=== PATIENT | female | born 1940 | race African-American/Black ===

== ENCOUNTER 2018-04-09 16:14 | Inpatient (IN) | payer MEDICARE, MEDICAID ==
[~2018-04-09] VITALS: Ht 165.1 cm; Wt 93.9 kg
[~2018-04-09 16:14] MED LIST: AMLO5TAB7 PO; ASPI325T8 PO; FURO40TA4 PO; INSU100C SQ; INSU100V13 SQ; LOSA50TA7 PO; METO-247 PO; NAPR-514 PO; OMEP20TA8 PO; POTA20TA12 PO; SIMV80TA7 PO; [UNRECOGNIZED DRUG - CODE] MC
[2018-04-09] MEDS ORDERED: IPRATRPIUM/ALBUTEROL 0.5/2.5MG 3 ML NEBU. NEB ONE (17:00)
[2018-04-09 17:22] LABS: BASO # 0.1 x10^3/uL (0.0-0.2); BASO % 0 % (0-3); EOS # 0.1 x10^3/uL (0.0-0.7); EOS % 1 % (0-3); HEMATOCRIT 46.3 % (36.0-47.0); HEMOGLOBIN 14.5 g/dL (12.0-15.5); LYMPH # 0.6 x10^3/uL (1.0-4.8); LYMPH % 4 % (24-48); MEAN CORPUSCULAR HEMOGLOBIN 26 pg (25-35); MEAN CORPUSCULAR HGB CONC 31 g/dL (31-37); MEAN CORPUSCULAR VOLUME 84 fL (79-100); MONO % 6 % (0-9); NEUT % 89 % (31-73); PLATELET COUNT 206 x10^3/uL (140-400); RED BLOOD COUNT 5.53 x10^6/uL (3.50-5.40); RED CELL DISTRIBUTION WIDTH 17.8 % (11.5-14.5); WHITE BLOOD COUNT 15.7 x10^3/uL (4.0-11.0)
[2018-04-09 17:22] LABS: BASE EXCESS ABG 7 mmol/L (-3-3); HCO3 ABG 31 mmol/L (21-28); PCO2 ABG 42 mmHg (35-46); PO2 ABG 67 mmHg (65-108); SAT O2 ABG 93 % (92-99)
[2018-04-09 17:24] LABS: FIO2 ABG 44
[2018-04-09] MEDS ORDERED: fentaNYL PF VIAL 100 MCG/2 ML VIAL IV PRN (17:30)
[2018-04-09] MEDS ORDERED: ONDANSETRON PF 4 MG/2 ML VIAL. IV PRN (17:30)
--- NOTE | 2018-04-09 17:30 | RAD ---
EXAM: CHEST AP ONLY DATE: 04/09/2018 4:48 PM INDICATION: short of breath today COMPARISON: No Prior FINDINGS: Cardiomegaly. Atherosclerotic calcifications of the mildly tortuous aorta are seen. Trace bilateral pleural effusions. Hazy opacities overlying the lung bases likely from radiographic attenuation given overlying soft tissues. Otherwise, No focal parenchymal airspace opacity. Mild interstitial prominence/crowding. No pneumothorax. IMPRESSION: Cardiomegaly with mild interstitial prominence may represent early interstitial pulmonary edema. Electronically signed by: Davion Reese MD (04/09/2018 5:27 PM) [id number]
[2018-04-09] MEDS ORDERED: methylPREDNISolone SOD SUCC PF 125 MG/2 ML VIAL. IV ONE (17:45)
[2018-04-09 17:55] LABS: ALBUMIN 2.7 g/dL (3.4-5.0); ALBUMIN/GLOBULIN RATIO 0.6 (1.0-1.7); CALCIUM 9.2 mg/dL (8.5-10.1); CREATININE 1.8 mg/dL (0.6-1.0); GFR 33.1; TOTAL BILIRUBIN 0.4 mg/dL (0.2-1.0)
--- NOTE | 2018-04-09 18:03 | EKG ---
[facility] [address] [place] [address] Test Date: 2018-04-09 Test Time: 17:29:27 Pat Name: ANANT SKAGGS Department: Room: 538 1 Gender: F Customer Support Agent: : [id number] Requested By: DICK LIVINGSTON Order Number: [id number] Reading MD: Joce Neal MD Measurements Intervals [place] Rate: 87 P: 47 MO: 144 QRS: 73 QRSD: 96 T: 53 QT: 370 QTc: 451 Interpretive Statements SINUS RHYTHM BIATRIAL ENLARGEMENT [id number] Electronically Signed On 04-10-2018 2:28:02 CDT by Joce Neal MD
[2018-04-09 18:07] LABS: POTASSIUM 2.8 mmol/L (3.5-5.1)
[2018-04-09 18:08] LABS: % BANDS 1 % (0-9); % EOS 1 % (0-5); % LYMPHS 2 % (24-48); % MONOS 4 % (0-10); % SEGS 92 % (35-66); ANISOCYTOSIS SLIGHT; NUCLEATED RBC 1; PLT ESTIMATE ADEQUATE (ADEQUATE); POLYCHROMASIA SLIGHT
[2018-04-09] MEDS ORDERED: POTASSIUM CHLORIDE 20MEQ 50 ML IV SCH (18:30)
[2018-04-09 19:00] VITALS: BP 87/58
[2018-04-09] MEDS: IV NORMAL SALINE 1000ML BAG 1,000 ML IV SCH (19:06)
[2018-04-09] MEDS: POTASSIUM CHLORIDE 10MEQ 100 ML IV SCH ×4 (19:07→22:18)
[2018-04-09] MEDS ORDERED: IPRATRPIUM/ALBUTEROL 0.5/2.5MG 3 ML NEBU. NEB SCH (20:00)
[2018-04-09] MEDS ORDERED: INSU100I13 SQ (21:08)
[2018-04-09] MEDS ORDERED: INSU100I17 SQ (21:08)
--- NOTE | 2018-04-09 21:09 | PDOC1 ---
History and Physical Date of Admission Date of Admission DATE: 04/09/18 TIME: 21:08 Past Medical History Past Medical History Past Medical History Cardiovascular: HTN, Other (lipids) Endocrine: Diabetes Family History Family History: Heart Disease Social History Smoke: No, but remote smoker Cardiovascular: HTN, Other Pulmonary: COPD Endocrine: Diabetes Family History Family History: Heart Disease Social History Smoke: Quit ALCOHOL: none Drugs: None Current Problem List Problem List Problems Medical Problems: (1) Hypoxia Status: Acute (2) Pneumonia Status: Acute Current Medications Current Medications Current Medications Albuterol/ Ipratropium (Duoneb) 3 ml 1X ONCE NEB Last administered on at 17:03; Start 04/09/18 at 17:00; Stop 04/09/18 at 17:01; Status DC Ondansetron HCl (Zofran) 4 mg PRN Q8HRS PRN IV NAUSEA/VOMITING; Start 04/09/18 at 17:30; Stop 04/10/18 at 17:29 Fentanyl Citrate (Fentanyl 2ml Vial) 50 mcg PRN Q2HR PRN IV PAIN; Start at 17:30; Stop 04/10/18 at 17:29 Sodium Chloride 1,000 ml @ 125 mls/hr Q8H IV Last administered on 04/09/18at 19: 06; Start 04/09/18 at 17:29; Stop 04/10/18 at 17:28 Albuterol/ Ipratropium (Duoneb) 3 ml RTQID NEB Last administered on 04/09/18at 19 :29; Start 04/09/18 at 20:00; Stop 04/10/18 at 19:59 Levofloxacin/ Dextrose 100 ml @ 100 mls/hr 1X ONCE IV Last administered on 04/09/18at 18:00; Start 04/09/18 at 18:00; Stop 04/09/18 at 18:59; Status DC Methylprednisolone Sodium Succinate (SOLU-Medrol 125MG VIAL) 125 mg 1X ONCE IV Last administered on 04/09/18at 18:00; Start 04/09/18 at 17:45; Stop 04/09/18 at 17:46; Status DC Potassium Chloride/Water 50 ml @ 50 mls/hr Q1H IV ; Start 04/09/18 at 18:30; Stop 04/09/18 at 18:30; Status DC Potassium Chloride/Water 100 ml @ 100 mls/hr Q1H IV Last administered on at 20:14; Start 04/09/18 at 19:00; Stop 04/09/18 at 22:59 Dextrose (Dextrose 50%-Water Syringe) 12.5 gm PRN Q15MIN PRN IV SEE COMMENTS; Start 04/09/18 at 21:15 Active Scripts Active Reported Lantus Solostar (Insulin Glargine,Hum.rec.anlog) 100 Unit/1 Ml Insuln.pen 38 Unit SQ QHS Novolog Flexpen (Insulin Aspart) 100 Unit/1 Ml Insuln.pen 8 Unit SQ BIDACBL Humalog (Insulin Lispro) 100 Unit/1 Ml Cartridge 15 Unit SQ TIDAC Metoprolol Succinate ( Xl ) (Metoprolol Succinate) 100 Mg Tab.er.24h 1 Tab PO DAILY Levemir (Insulin Detemir) 100 Unit/1 Ml Vial 54 Unit SQ QHS Calcium Citrate 100 Gm Powder 100 Gm MC Simvastatin 80 Mg Tablet 1 Tab PO DAILY Potassium Chloride 20 Meq Tab.er.prt 1 Tab PO BID Omeprazole 20 Mg Tablet.dr 1 Tab PO DAILY Amlodipine Besylate 5 Mg Tablet 1 Tab PO DAILY Furosemide 40 Mg Tablet 1 Tab PO DAILY Losartan Potassium 50 Mg Tablet 1 Tab PO DAILY Aspirin 325 Mg Tablet 1 Tab PO DAILY Allergies Allergies: Coded Allergies: No Known Drug Allergies (Unverified , 02/14/15) ROS Review of System 14 pt ros otherwise neg General: YES: Fatigue PSYCHOLOGICAL ROS: No: Anxiety, Behavioral Disorder, Concentration difficultie , Decreased libido, Depression, Disorientation, Hallucinations, Hostility, Irritablity, Memory difficulties, Mood Swings, Obsessive thoughts, Physical abuse, Sexual abuse, Sleep disturbances, Suicidal ideation, Other Hematological and Lymphatic: No: Bleeding Problems, Blood Clots, Blood Transfusions, Brusing, Night Sweats, Pallor, Swollen Lymph Nodes, Other Respiratory: YES: Shortness of breath, SOB with excertion Cardiovascular: yes Chest Pain, yes Palpitations Gastrointestinal: Yes Nausea Skin: No Dry Skin, No Eczema, No Hair Changes, No Lumps, No Mole Changes, No Mottling, No Nail Changes, No Pruritus, No Rash, No Skin Lesion Changes, No Other, No Acne Physical Exam Physical Exam PHYSICAL EXAMINATION: GENERAL: The patient is alert and oriented, in no acute distress. Mood and affect appropriate. She is examined in ER hospital bed. HEENT: Head is normocephalic and atraumatic. Extraocular muscles are intact. CARDIOVASCULAR: Regular rate and rhythm. RESPIRATIONS: Unlabored. ABDOMEN: Soft, nontender, and nondistended. General: Alert, Oriented X3, Cooperative, mild distress HEENT: Atraumatic, PERRLA, EOMI Breasts: Not examined Abdomen: Normal bowel sounds, Soft, No masses Rectal Exam: not examined Extremities: No cyanosis Neuro: Cranial nerves 3-12 NL Psych/Mental Status: Mental status NL, Mood NL Vitals Vitals Vital Signs Date Time Temp Pulse Resp B/P (MAP) Pulse Ox O2 Delivery O2 Flow Rate FiO2 04/09/18 19:30 96 Nasal Cannula 5.0 04/09/18 18:02 80 16 97/61 (73) 04/09/18 16:22 99.0 99.0 Labs Labs Laboratory Tests Test 04/09/18 17:05 04/09/18 17:06 04/09/18 19:00 04/09/18 20:34 O2 Saturation 93 % (92-99) Arterial Blood pH 7.49 (7.35-7.45) Arterial Blood pCO2 at Patient Temp 42 mmHg (35-46) Arterial Blood pO2 at Patient Temp 67 mmHg (65-108) Arterial Blood HCO3 31 mmol/L (21-28) Arterial Blood Base Excess 7 mmol/L (-3-3) FiO2 44 White Blood Count 15.7 x10^3/uL (4.0-11.0) Red Blood Count 5.53 x10^6/uL (3.50-5.40) Hemoglobin 14.5 g/dL (12.0-15.5) Hematocrit 46.3 % (36.0-47.0) Mean Corpuscular Volume 84 fL (79-100) Mean Corpuscular Hemoglobin 26 pg (25-35) Mean Corpuscular Hemoglobin Concent 31 g/dL (31-37) Red Cell Distribution Width 17.8 % (11.5-14.5) Platelet Count 206 x10^3/uL (140-400) Neutrophils (%) (Auto) 89 % (31-73) Lymphocytes (%) (Auto) 4 % (24-48) Monocytes (%) (Auto) 6 % (0-9) Eosinophils (%) (Auto) 1 % (0-3) Basophils (%) (Auto) 0 % (0-3) Neutrophils # (Auto) 14.0 x10^3uL (1.8-7.7) Lymphocytes # (Auto) 0.6 x10^3/uL (1.0-4.8) Monocytes # (Auto) 1.0 x10^3/uL (0.0-1.1) Eosinophils # (Auto) 0.1 x10^3/uL (0.0-0.7) Basophils # (Auto) 0.1 x10^3/uL (0.0-0.2) Segmented Neutrophils % 92 % (35-66) Band Neutrophils % 1 % (0-9) Lymphocytes % 2 % (24-48) Monocytes % 4 % (0-10) Eosinophils % 1 % (0-5) Nucleated Red Blood Cells 1 Platelet Estimate Adequate (ADEQUATE) Polychromasia Slight Anisocytosis Slight Sodium Level 140 mmol/L (136-145) Potassium Level 2.8 mmol/L (3.5-5.1) Chloride Level 102 mmol/L (98-107) Carbon Dioxide Level 29 mmol/L (21-32) Anion Gap 9 (6-14) Blood Urea Nitrogen 40 mg/dL (7-20) Creatinine 1.8 mg/dL (0.6-1.0) Estimated GFR (Cockcroft-Gault) 33.1 BUN/Creatinine Ratio 22 (6-20) Glucose Level 204 mg/dL (70-99) Lactic Acid Level 2.0 mmol/L (0.4-2.0) Calcium Level 9.2 mg/dL (8.5-10.1) Total Bilirubin 0.4 mg/dL (0.2-1.0) Aspartate Amino Transf (AST/SGOT) 24 U/L (15-37) Alanine Aminotransferase (ALT/SGPT) 48 U/L (14-59) Alkaline Phosphatase 94 U/L (46-116) Total Protein 7.0 g/dL (6.4-8.2) Albumin 2.7 g/dL (3.4-5.0) Albumin/Globulin Ratio 0.6 (1.0-1.7) Glucose (Fingerstick) 200 mg/dL (70-99) 244 mg/dL (70-99) Laboratory Tests Test 04/09/18 17:05 04/09/18 17:06 04/09/18 19:00 04/09/18 20:34 O2 Saturation 93 % (92-99) Arterial Blood pH 7.49 (7.35-7.45) Arterial Blood pCO2 at Patient Temp 42 mmHg (35-46) Arterial Blood pO2 at Patient Temp 67 mmHg (65-108) Arterial Blood HCO3 31 mmol/L (21-28) Arterial Blood Base Excess 7 mmol/L (-3-3) FiO2 44 White Blood Count 15.7 x10^3/uL (4.0-11.0) Red Blood Count 5.53 x10^6/uL (3.50-5.40) Hemoglobin 14.5 g/dL (12.0-15.5) Hematocrit 46.3 % (36.0-47.0) Mean Corpuscular Volume 84 fL (79-100) Mean Corpuscular Hemoglobin 26 pg (25-35) Mean Corpuscular Hemoglobin Concent 31 g/dL (31-37) Red Cell Distribution Width 17.8 % (11.5-14.5) Platelet Count 206 x10^3/uL (140-400) Neutrophils (%) (Auto) 89 % (31-73) Lymphocytes (%) (Auto) 4 % (24-48) Monocytes (%) (Auto) 6 % (0-9) Eosinophils (%) (Auto) 1 % (0-3) Basophils (%) (Auto) 0 % (0-3) Neutrophils # (Auto) 14.0 x10^3uL (1.8-7.7) Lymphocytes # (Auto) 0.6 x10^3/uL (1.0-4.8) Monocytes # (Auto) 1.0 x10^3/uL (0.0-1.1) Eosinophils # (Auto) 0.1 x10^3/uL (0.0-0.7) Basophils # (Auto) 0.1 x10^3/uL (0.0-0.2) Segmented Neutrophils % 92 % (35-66) Band Neutrophils % 1 % (0-9) Lymphocytes % 2 % (24-48) Monocytes % 4 % (0-10) Eosinophils % 1 % (0-5) Nucleated Red Blood Cells 1 Platelet Estimate Adequate (ADEQUATE) Polychromasia Slight Anisocytosis Slight Sodium Level 140 mmol/L (136-145) Potassium Level 2.8 mmol/L (3.5-5.1) Chloride Level 102 mmol/L (98-107) Carbon Dioxide Level 29 mmol/L (21-32) Anion Gap 9 (6-14) Blood Urea Nitrogen 40 mg/dL (7-20) Creatinine 1.8 mg/dL (0.6-1.0) Estimated GFR (Cockcroft-Gault) 33.1 BUN/Creatinine Ratio 22 (6-20) Glucose Level 204 mg/dL (70-99) Lactic Acid Level 2.0 mmol/L (0.4-2.0) Calcium Level 9.2 mg/dL (8.5-10.1) Total Bilirubin 0.4 mg/dL (0.2-1.0) Aspartate Amino Transf (AST/SGOT) 24 U/L (15-37) Alanine Aminotransferase (ALT/SGPT) 48 U/L (14-59) Alkaline Phosphatase 94 U/L (46-116) Total Protein 7.0 g/dL (6.4-8.2) Albumin 2.7 g/dL (3.4-5.0) Albumin/Globulin Ratio 0.6 (1.0-1.7) Glucose (Fingerstick) 200 mg/dL (70-99) 244 mg/dL (70-99) Images Images EXAM: CHEST AP ONLY DATE: 04/09/2018 4:48 PM INDICATION: short of breath today COMPARISON: No Prior FINDINGS: Cardiomegaly. Atherosclerotic calcifications of the mildly tortuous aorta are seen. Trace bilateral pleural effusions. Hazy opacities overlying the lung bases likely from radiographic attenuation given overlying soft tissues. Otherwise, No focal parenchymal airspace opacity. Mild interstitial prominence/crowding. No pneumothorax. IMPRESSION: Cardiomegaly with mild interstitial prominence may represent early interstitial pulmonary edema. Electronically signed by: Davion Reese MD (04/09/2018 5:27 PM) [id number] VTE Prophylaxis Ordered VTE Prophylaxis Devices: Yes VTE Pharmacological Prophylaxi: Yes Assessment/Plan Assessment/Plan IMPRESSION 1. Acute hypoxic resp failure 2. morbid obesity 3. remote tobacco abuse 4. diabetes, IDDM 5. Severe hypokalemia 6. ckd stage 3 7. pulm edema/ chf plan 1. admit 2. o2 support 3. tele 4. iv k 5. renal consult 6. cardiology consult 7. iv lasix 8. echo 9. sq lovenox dvt prophylaxis 10. gi prophylaxis TAYLOR MCMANUS MD Apr 09, 2018 21:09
[2018-04-09] MEDS ORDERED: DEXTROSE 50% 25 GM / 50ML DISP.SYRIN. IV PRN (21:15)
[2018-04-09] MEDS: INSULIN GLARGINE 300 UNITS/3 ML INSULN.PEN. SQ SCH (21:27)
[2018-04-09] MEDS ORDERED: ENOXAPARIN 40 MG/0.4 ML SYRINGE. SQ SCH (22:00)
[2018-04-09] MEDS: POTASSIUM CHLORIDE 20 MEQ TABLET.ER. PO SCH (22:00)
[2018-04-09] MEDS: ATORVASTATIN CALCIUM 40 MG TABLET. PO SCH (22:00)
[2018-04-09] MEDS ORDERED: SPIR25TA5 PO (22:40)
[2018-04-09] MEDS ORDERED: FERR325T14 (22:40)
[2018-04-09] MEDS ORDERED: SILD20TA2 (22:40)
[2018-04-09] MEDS ORDERED: METO2.5T PO (22:40)
[2018-04-09] MEDS ORDERED: FURO20TA3 (22:40)
[2018-04-09] MEDS ORDERED: BUME1TAB (22:40)
[2018-04-09] MEDS ORDERED: POTA20TA4 PO (22:40)
[2018-04-09] MEDS ORDERED: PRED-220 PO (22:40)
[2018-04-09] MEDS ORDERED: ACET250T2 (22:40)
[2018-04-09] MEDS ORDERED: METF500T16 (22:40)
[2018-04-09 23:00] VITALS: BP 99/51
[2018-04-10] MEDS: IV NORMAL SALINE 1000ML BAG 1,000 ML IV SCH ×2 (01:22→09:29)
[2018-04-10 03:00] VITALS: BP 94/47
--- NOTE | 2018-04-10 04:57 | PDOC ---
PROGRESS NOTES History of Present Illness History of Present Illness Assessment/Plan Assessment/Plan IMPRESSION 1. Acute hypoxic resp failure 2. morbid obesity 3. remote tobacco abuse 4. diabetes, IDDM 5. Severe hypokalemia 6. ckd stage 3 7. pulm edema/ chf plan 1. admit 2. o2 support 3. tele 4. iv k 5. renal consult 6. cardiology consult 7. iv lasix 8. echo 9. sq lovenox dvt prophylaxis 10. gi prophylaxis Vitals Vitals Vital Signs Date Time Temp Pulse Resp B/P (MAP) Pulse Ox O2 Delivery O2 Flow Rate FiO2 04/10/18 03:00 97.6 84 17 94/47 (63) 91 Nasal Cannula 6.0 97.6 Physical Exam General: Alert, Oriented X3, Cooperative, mild distress Abdomen: Normal bowel sounds, Soft, No masses Extremities: No cyanosis Labs LABS Laboratory Tests Test 04/09/18 17:05 04/09/18 17:06 04/09/18 19:00 04/09/18 20:34 O2 Saturation 93 % (92-99) Arterial Blood pH 7.49 (7.35-7.45) Arterial Blood pCO2 at Patient Temp 42 mmHg (35-46) Arterial Blood pO2 at Patient Temp 67 mmHg (65-108) Arterial Blood HCO3 31 mmol/L (21-28) Arterial Blood Base Excess 7 mmol/L (-3-3) FiO2 44 ZG-Wmu-[id number]-Type Natriuretic Peptide 00248 pg/mL (0-449) White Blood Count 15.7 x10^3/uL (4.0-11.0) Red Blood Count 5.53 x10^6/uL (3.50-5.40) Hemoglobin 14.5 g/dL (12.0-15.5) Hematocrit 46.3 % (36.0-47.0) Mean Corpuscular Volume 84 fL (79-100) Mean Corpuscular Hemoglobin 26 pg (25-35) Mean Corpuscular Hemoglobin Concent 31 g/dL (31-37) Red Cell Distribution Width 17.8 % (11.5-14.5) Platelet Count 206 x10^3/uL (140-400) Neutrophils (%) (Auto) 89 % (31-73) Lymphocytes (%) (Auto) 4 % (24-48) Monocytes (%) (Auto) 6 % (0-9) Eosinophils (%) (Auto) 1 % (0-3) Basophils (%) (Auto) 0 % (0-3) Neutrophils # (Auto) 14.0 x10^3uL (1.8-7.7) Lymphocytes # (Auto) 0.6 x10^3/uL (1.0-4.8) Monocytes # (Auto) 1.0 x10^3/uL (0.0-1.1) Eosinophils # (Auto) 0.1 x10^3/uL (0.0-0.7) Basophils # (Auto) 0.1 x10^3/uL (0.0-0.2) Segmented Neutrophils % 92 % (35-66) Band Neutrophils % 1 % (0-9) Lymphocytes % 2 % (24-48) Monocytes % 4 % (0-10) Eosinophils % 1 % (0-5) Nucleated Red Blood Cells 1 Platelet Estimate Adequate (ADEQUATE) Polychromasia Slight Anisocytosis Slight Sodium Level 140 mmol/L (136-145) Potassium Level 2.8 mmol/L (3.5-5.1) Chloride Level 102 mmol/L (98-107) Carbon Dioxide Level 29 mmol/L (21-32) Anion Gap 9 (6-14) Blood Urea Nitrogen 40 mg/dL (7-20) Creatinine 1.8 mg/dL (0.6-1.0) Estimated GFR (Cockcroft-Gault) 33.1 BUN/Creatinine Ratio 22 (6-20) Glucose Level 204 mg/dL (70-99) Lactic Acid Level 2.0 mmol/L (0.4-2.0) Calcium Level 9.2 mg/dL (8.5-10.1) Total Bilirubin 0.4 mg/dL (0.2-1.0) Aspartate Amino Transf (AST/SGOT) 24 U/L (15-37) Alanine Aminotransferase (ALT/SGPT) 48 U/L (14-59) Alkaline Phosphatase 94 U/L (46-116) Total Protein 7.0 g/dL (6.4-8.2) Albumin 2.7 g/dL (3.4-5.0) Albumin/Globulin Ratio 0.6 (1.0-1.7) Glucose (Fingerstick) 200 mg/dL (70-99) 244 mg/dL (70-99) Test 9/4/18 20:45 Lactic Acid Level 1.5 mmol/L (0.4-2.0) Assessment and Plan Assessmemt and Plan Problems Medical Problems: (1) Hypoxia Status: Acute (2) Pneumonia Status: Acute Comment Review of Relevant I have reviewed the following items aby (where applicable) has been applied. Labs Laboratory Tests Test 04/09/18 17:05 04/09/18 17:06 04/09/18 19:00 04/09/18 20:34 O2 Saturation 93 % (92-99) Arterial Blood pH 7.49 (7.35-7.45) Arterial Blood pCO2 at Patient Temp 42 mmHg (35-46) Arterial Blood pO2 at Patient Temp 67 mmHg (65-108) Arterial Blood HCO3 31 mmol/L (21-28) Arterial Blood Base Excess 7 mmol/L (-3-3) FiO2 44 VA-Itg-D-Type Natriuretic Peptide 07370 pg/mL (0-449) White Blood Count 15.7 x10^3/uL (4.0-11.0) Red Blood Count 5.53 x10^6/uL (3.50-5.40) Hemoglobin 14.5 g/dL (12.0-15.5) Hematocrit 46.3 % (36.0-47.0) Mean Corpuscular Volume 84 fL (79-100) Mean Corpuscular Hemoglobin 26 pg (25-35) Mean Corpuscular Hemoglobin Concent 31 g/dL (31-37) Red Cell Distribution Width 17.8 % (11.5-14.5) Platelet Count 206 x10^3/uL (140-400) Neutrophils (%) (Auto) 89 % (31-73) Lymphocytes (%) (Auto) 4 % (24-48) Monocytes (%) (Auto) 6 % (0-9) Eosinophils (%) (Auto) 1 % (0-3) Basophils (%) (Auto) 0 % (0-3) Neutrophils # (Auto) 14.0 x10^3uL (1.8-7.7) Lymphocytes # (Auto) 0.6 x10^3/uL (1.0-4.8) Monocytes # (Auto) 1.0 x10^3/uL (0.0-1.1) Eosinophils # (Auto) 0.1 x10^3/uL (0.0-0.7) Basophils # (Auto) 0.1 x10^3/uL (0.0-0.2) Segmented Neutrophils % 92 % (35-66) Band Neutrophils % 1 % (0-9) Lymphocytes % 2 % (24-48) Monocytes % 4 % (0-10) Eosinophils % 1 % (0-5) Nucleated Red Blood Cells 1 Platelet Estimate Adequate (ADEQUATE) Polychromasia Slight Anisocytosis Slight Sodium Level 140 mmol/L (136-145) Potassium Level 2.8 mmol/L (3.5-5.1) Chloride Level 102 mmol/L (98-107) Carbon Dioxide Level 29 mmol/L (21-32) Anion Gap 9 (6-14) Blood Urea Nitrogen 40 mg/dL (7-20) Creatinine 1.8 mg/dL (0.6-1.0) Estimated GFR (Cockcroft-Gault) 33.1 BUN/Creatinine Ratio 22 (6-20) Glucose Level 204 mg/dL (70-99) Lactic Acid Level 2.0 mmol/L (0.4-2.0) Calcium Level 9.2 mg/dL (8.5-10.1) Total Bilirubin 0.4 mg/dL (0.2-1.0) Aspartate Amino Transf (AST/SGOT) 24 U/L (15-37) Alanine Aminotransferase (ALT/SGPT) 48 U/L (14-59) Alkaline Phosphatase 94 U/L (46-116) Total Protein 7.0 g/dL (6.4-8.2) Albumin 2.7 g/dL (3.4-5.0) Albumin/Globulin Ratio 0.6 (1.0-1.7) Glucose (Fingerstick) 200 mg/dL (70-99) 244 mg/dL (70-99) Test 04/09/18 20:45 Lactic Acid Level 1.5 mmol/L (0.4-2.0) Laboratory Tests Test 04/09/18 17:05 04/09/18 17:06 04/09/18 19:00 04/09/18 20:34 O2 Saturation 93 % (92-99) Arterial Blood pH 7.49 (7.35-7.45) Arterial Blood pCO2 at Patient Temp 42 mmHg (35-46) Arterial Blood pO2 at Patient Temp 67 mmHg (65-108) Arterial Blood HCO3 31 mmol/L (21-28) Arterial Blood Base Excess 7 mmol/L (-3-3) FiO2 44 QM-Han-F-Type Natriuretic Peptide 14806 pg/mL (0-449) White Blood Count 15.7 x10^3/uL (4.0-11.0) Red Blood Count 5.53 x10^6/uL (3.50-5.40) Hemoglobin 14.5 g/dL (12.0-15.5) Hematocrit 46.3 % (36.0-47.0) Mean Corpuscular Volume 84 fL (79-100) Mean Corpuscular Hemoglobin 26 pg (25-35) Mean Corpuscular Hemoglobin Concent 31 g/dL (31-37) Red Cell Distribution Width 17.8 % (11.5-14.5) Platelet Count 206 x10^3/uL (140-400) Neutrophils (%) (Auto) 89 % (31-73) Lymphocytes (%) (Auto) 4 % (24-48) Monocytes (%) (Auto) 6 % (0-9) Eosinophils (%) (Auto) 1 % (0-3) Basophils (%) (Auto) 0 % (0-3) Neutrophils # (Auto) 14.0 x10^3uL (1.8-7.7) Lymphocytes # (Auto) 0.6 x10^3/uL (1.0-4.8) Monocytes # (Auto) 1.0 x10^3/uL (0.0-1.1) Eosinophils # (Auto) 0.1 x10^3/uL (0.0-0.7) Basophils # (Auto) 0.1 x10^3/uL (0.0-0.2) Segmented Neutrophils % 92 % (35-66) Band Neutrophils % 1 % (0-9) Lymphocytes % 2 % (24-48) Monocytes % 4 % (0-10) Eosinophils % 1 % (0-5) Nucleated Red Blood Cells 1 Platelet Estimate Adequate (ADEQUATE) Polychromasia Slight Anisocytosis Slight Sodium Level 140 mmol/L (136-145) Potassium Level 2.8 mmol/L (3.5-5.1) Chloride Level 102 mmol/L (98-107) Carbon Dioxide Level 29 mmol/L (21-32) Anion Gap 9 (6-14) Blood Urea Nitrogen 40 mg/dL (7-20) Creatinine 1.8 mg/dL (0.6-1.0) Estimated GFR (Cockcroft-Gault) 33.1 BUN/Creatinine Ratio 22 (6-20) Glucose Level 204 mg/dL (70-99) Lactic Acid Level 2.0 mmol/L (0.4-2.0) Calcium Level 9.2 mg/dL (8.5-10.1) Total Bilirubin 0.4 mg/dL (0.2-1.0) Aspartate Amino Transf (AST/SGOT) 24 U/L (15-37) Alanine Aminotransferase (ALT/SGPT) 48 U/L (14-59) Alkaline Phosphatase 94 U/L (46-116) Total Protein 7.0 g/dL (6.4-8.2) Albumin 2.7 g/dL (3.4-5.0) Albumin/Globulin Ratio 0.6 (1.0-1.7) Glucose (Fingerstick) 200 mg/dL (70-99) 244 mg/dL (70-99) Test 04/09/18 20:45 Lactic Acid Level 1.5 mmol/L (0.4-2.0) Medications Current Medications Albuterol/ Ipratropium (Duoneb) 3 ml 1X ONCE NEB Last administered on at 17:03; Start 04/09/18 at 17:00; Stop 04/09/18 at 17:01; Status DC Ondansetron HCl (Zofran) 4 mg PRN Q8HRS PRN IV NAUSEA/VOMITING; Start 04/09/18 at 17:30; Stop 04/10/18 at 17:29 Fentanyl Citrate (Fentanyl 2ml Vial) 50 mcg PRN Q2HR PRN IV PAIN; Start at 17:30; Stop 04/10/18 at 17:29 Sodium Chloride 1,000 ml @ 125 mls/hr Q8H IV Last administered on 04/09/18at 19: 06; Start 04/09/18 at 17:29; Stop 04/10/18 at 17:28 Albuterol/ Ipratropium (Duoneb) 3 ml RTQID NEB Last administered on 04/09/18at 19 :29; Start 04/09/18 at 20:00; Stop 04/09/18 at 21:35; Status DC Levofloxacin/ Dextrose 100 ml @ 100 mls/hr 1X ONCE IV Last administered on 04/09/18at 18:00; Start 04/09/18 at 18:00; Stop 04/09/18 at 18:59; Status DC Methylprednisolone Sodium Succinate (SOLU-Medrol 125MG VIAL) 125 mg 1X ONCE IV Last administered on 04/09/18at 18:00; Start 04/09/18 at 17:45; Stop 04/09/18 at 17:46; Status DC Potassium Chloride/Water 50 ml @ 50 mls/hr Q1H IV ; Start 04/09/18 at 18:30; Stop 04/09/18 at 18:30; Status DC Potassium Chloride/Water 100 ml @ 100 mls/hr Q1H IV Last administered on at 22:18; Start 04/09/18 at 19:00; Stop 04/09/18 at 22:59; Status DC Dextrose (Dextrose 50%-Water Syringe) 12.5 gm PRN Q15MIN PRN IV SEE COMMENTS; Start 04/09/18 at 21:15 Insulin Glargine (Lantus) 38 units QHS SQ Last administered on 04/09/18at 21:27; Start 04/09/18 at 22:00 Insulin Human Lispro (HumaLOG) 8 units BIDWMEALS SQ ; Start 04/10/18 at 08:00 Amlodipine Besylate (Norvasc) 5 mg DAILY PO ; Start 04/10/18 at 09:00 Aspirin (Herbert Aspirin) 325 mg DAILY PO ; Start 04/10/18 at 09:00 Furosemide (Lasix) 40 mg DAILY PO ; Start 04/10/18 at 09:00; Status Cancel Losartan Potassium (Cozaar) 50 mg DAILY PO ; Start 04/10/18 at 09:00 Metoprolol Succinate (Toprol Xl) 100 mg DAILY PO ; Start 04/10/18 at 09:00 Potassium Chloride (Klor-Con) 20 meq BID PO ; Start 04/09/18 at 22:00 Non-Formulary Medication (Insulin Detemir (Levemir)) 54 unit QHS SQ ; Start 04/10 at 21:00; Status UNV Non-Formulary Medication (Insulin Lispro (Humalog)) 15 unit TIDAC SQ ; Start 04/10/18 at 07:30; Status UNV Pantoprazole Sodium (Protonix) 40 mg DAILYAC PO ; Start 04/10/18 at 07:30 Atorvastatin Calcium (Lipitor) 40 mg QHS PO ; Start 04/09/18 at 22:00 Furosemide (Lasix) 100 mg DAILY IVP ; Start 04/10/18 at 09:00 Enoxaparin Sodium (Lovenox 40mg Syringe) 40 mg Q24H SQ ; Start 04/09/18 at 22:00 Albuterol/ Ipratropium (Duoneb) 3 ml RTQID NEB ; Start 04/10/18 at 08:00 Active Scripts Active Reported Klor-Con M20 (Potassium Chloride) 20 Meq Tab.er.prt 20 Meq PO DAILY Acetazolamide 250 Mg Tablet unknown dosage Prednisone (Prednisone) 10 Mg Tablet 10 Mg PO DAILY Furosemide 20 Mg Tablet unknown dosage Sildenafil (Sildenafil Citrate) 20 Mg Tablet unknown dosage Metformin Hcl 500 Mg Tablet unknown dosage Ferrous Sulfate 325 Mg Tablet unknown dosage Bumetanide 1 Mg Tablet unknown dosage Metolazone 2.5 Mg Tablet 2.5 Mg PO BID Spironolactone 25 Mg Tablet 25 Mg PO DAILY Lantus Solostar (Insulin Glargine,Hum.rec.anlog) 100 Unit/1 Ml Insuln.pen 38 Unit SQ QHS Novolog Flexpen (Insulin Aspart) 100 Unit/1 Ml Insuln.pen 8 Unit SQ BIDACBL Metoprolol Succinate ( Xl ) (Metoprolol Succinate) 100 Mg Tab.er.24h 1 Tab PO DAILY Calcium Citrate 100 Gm Powder 100 Gm MC Simvastatin 80 Mg Tablet 1 Tab PO DAILY Potassium Chloride 20 Meq Tab.er.prt 1 Tab PO BID Omeprazole 20 Mg Tablet.dr 1 Tab PO DAILY Amlodipine Besylate 5 Mg Tablet 1 Tab PO DAILY Furosemide 40 Mg Tablet 1 Tab PO DAILY Losartan Potassium 50 Mg Tablet 1 Tab PO DAILY Aspirin 325 Mg Tablet 1 Tab PO DAILY Vitals/I & O Vital Sign - Last 24 Hours 04/09/18 04/09/18 04/09/18 04/09/18 16:22 17:02 17:03 18:02 Temp 99.0 99.0 Pulse 85 84 80 Resp 16 18 16 B/P (MAP) 97/54 (68) 100/54 (69) 97/61 (73) Pulse Ox 92 93 95 94 O2 Delivery Nasal Cannula Nasal Cannula Nasal Cannula Nasal Cannula O2 Flow Rate 6.0 6.0 6.0 6.0 04/09/18 04/09/18 04/09/18 04/09/18 19:00 19:30 20:00 23:00 Temp 97.6 97.6 97.6 97.6 Pulse 78 78 Resp 17 17 B/P (MAP) 87/58 (68) 99/51 (67) Pulse Ox 94 96 96 O2 Delivery Nasal Cannula Nasal Cannula Nasal Cannula Nasal Cannula O2 Flow Rate 6.0 5.0 6.0 6.0 04/10/18 03:00 Temp 97.6 97.6 Pulse 84 Resp 17 B/P (MAP) 94/47 (63) Pulse Ox 91 O2 Delivery Nasal Cannula O2 Flow Rate 6.0 Intake and Output 04/09/18 04/09/18 04/10/18 15:00 23:00 07:00 Intake Total 1170 ml Balance 1170 ml TAYLOR MCMANUS MD Apr 10, 2018 04:57
[2018-04-10 07:00] VITALS: BP 124/74
[2018-04-10] MEDS ORDERED: INSULIN LISPRO 15 UNIT SQ SCH (07:30)
[2018-04-10] MEDS: IPRATRPIUM/ALBUTEROL 0.5/2.5MG 3 ML NEBU. NEB SCH ×4 (07:41→20:32)
[2018-04-10 08:49] LABS: BASO % 0 % (0-3); EOS % 0 % (0-3); HEMATOCRIT 44.2 % (36.0-47.0); HEMOGLOBIN 13.6 g/dL (12.0-15.5); LYMPH # 0.2 x10^3/uL (1.0-4.8); LYMPH % 2 % (24-48); MEAN CORPUSCULAR HEMOGLOBIN 26 pg (25-35); MEAN CORPUSCULAR HGB CONC 31 g/dL (31-37); MEAN CORPUSCULAR VOLUME 85 fL (79-100); MONO # 0.1 x10^3/uL (0.0-1.1); MONO % 1 % (0-9); NEUT # 15.4 x10^3uL (1.8-7.7); NEUT % 98 % (31-73); PLATELET COUNT 185 x10^3/uL (140-400); RED BLOOD COUNT 5.22 x10^6/uL (3.50-5.40); RED CELL DISTRIBUTION WIDTH 17.9 % (11.5-14.5); WHITE BLOOD COUNT 15.7 x10^3/uL (4.0-11.0)
[2018-04-10] MEDS: PANTOPRAZOLE 40 MG TABLET.DR. PO SCH (08:51)
[2018-04-10] MEDS: INSULIN LISPRO 300 UNITS/3 ML INSULN.PEN. SQ SCH ×2 (08:51→17:36)
[2018-04-10] MEDS: FUROSEMIDE 100 MG/10 ML VIAL. IVP SCH (09:00)
[2018-04-10] MEDS: LOSARTAN POTASSIUM 50 MG TABLET. PO SCH (09:00)
[2018-04-10] MEDS: amLODIPine BESYLATE 5 MG TABLET PO SCH (09:00)
[2018-04-10] MEDS: METOPROLOL SUCC 24HR ER 100 MG TAB.ER.24H. PO SCH (09:00)
[2018-04-10] MEDS ORDERED: FUROSEMIDE 40 MG TABLET. PO SCH (09:00)
[2018-04-10] MEDS: POTASSIUM CHLORIDE 20 MEQ TABLET.ER. PO SCH ×2 (09:00→21:00)
[2018-04-10] MEDS: ASPIRIN 325 MG TABLET PO SCH (09:00)
[2018-04-10 09:05] LABS: CALCIUM 8.4 mg/dL (8.5-10.1); CREATININE 1.9 mg/dL (0.6-1.0); GFR 31.1; POTASSIUM 4.3 mmol/L (3.5-5.1)
--- NOTE | 2018-04-10 11:37 | PDOC2 ---
HI CONTRERAS CS ASSOCIATE 04/10/18 1137: CARDIAC CONSULT DATE OF CONSULT Date of Consult DATE: 04/10/18 TIME: 11:27 REASON FOR CONSULT Reason for Consult: CHF REFERRING PHYSICIAN Referring Physician: Ileana SOURCE Source: Chart review HISTORY OF PRESENT ILLNESS HISTORY OF PRESENT ILLNESS 77 year old female possibly admitted through the ER with hypoxia and progressive symptoms of dyspnea. CXR suggestive of early pulmonary edema and NT-proBNP > 11K in the setting of CKD with a Cr of 1.8 - 1.9. Was profoundly hypokalemic POA @ 2.8 and has been repleted. Mild leukocytosis. Reason for Visit: CHF PAST MEDICAL HISTORY Cardiovascular: CHF, HTN, Hyperlipidemia, Pulmonary hypertension Pulmonary: COPD, Other (LARY with CPAP) CENTRAL NERVOUS SYSTEM: Other (none) Heme/Onc: Anemia NOS Musculoskeletal: Other (distal left fibular fracture) Endocrine: Diabetes PAST SURGICAL HISTORY Past Surgical History: No pertinent history FAMILY HISTORY Family History: Hypertension SOCIAL HISTORY Smoke: No ALCOHOL: none Drugs: None CURRENT MEDICATIONS CURRENT MEDICATIONS Current Medications Medications (Trade) Dose Ordered Sig/Luna Route PRN Reason Start Time Stop Time Status Last Admin Dose Admin Albuterol/ Ipratropium (Duoneb) 3 ml 1X ONCE NEB 04/09/18 17:00 04/09/18 17:01 DC 04/09/18 17:03 Sodium Chloride 1,000 ml @ 125 mls/hr Q8H IV 04/09/18 17:29 04/10/18 17:28 04/09/18 19:06 Albuterol/ Ipratropium (Duoneb) 3 ml RTQID NEB 04/09/18 20:00 04/09/18 21:35 DC 04/09/18 19:29 Levofloxacin/ Dextrose 100 ml @ 100 mls/hr 1X ONCE IV 04/09/18 18:00 04/09/18 18:59 DC 04/09/18 18:00 Methylprednisolone Sodium Succinate (SOLU-Medrol 125MG VIAL) 125 mg 1X ONCE IV 04/09/18 17:45 04/09/18 17:46 DC 04/09/18 18:00 Potassium Chloride/Water 100 ml @ 100 mls/hr Q1H IV 04/09/18 19:00 04/09/18 22:59 DC 04/09/18 22:18 Insulin Glargine (Lantus) 38 units QHS SQ 04/09/18 22:00 04/09/18 21:27 Insulin Human Lispro (HumaLOG) 8 units BIDWMEALS SQ 04/10/18 08:00 04/10/18 08:51 Pantoprazole Sodium (Protonix) 40 mg DAILYAC PO 04/10/18 07:30 04/10/18 08:51 Albuterol/ Ipratropium (Duoneb) 3 ml RTQID NEB 04/10/18 08:00 04/10/18 07:41 ALLERGIES ALLERGIES: Coded Allergies: Penicillins (Verified Allergy, Intermediate, 04/09/18) ROS Review of System see HPI PHYSICAL EXAM General: Cooperative, No acute distress, Other (drowsy, lethargic) HEENT: Atraumatic Lungs: Other (diminished in bases anteriorly) Heart: Normal S1, Normal S2 Abdomen: Soft, Other (obese abdomen) Extremities: No edema Skin: No rashes Neuro: Normal speech Psych/Mental Status: Mood NL MUSCULOSKELETAL: Osteoarthritic changes both hands VITALS VITALS Vital Signs Date Time Temp Pulse Resp B/P (MAP) Pulse Ox O2 Delivery O2 Flow Rate FiO2 04/10/18 07:41 97 Nasal Cannula 5.0 04/10/18 07:00 88 17 124/74 (91) 04/10/18 03:00 97.6 97.6 LABS Lab: Laboratory Tests Test 04/09/18 17:05 04/09/18 17:06 04/09/18 19:00 04/09/18 20:34 O2 Saturation 93 % (92-99) Arterial Blood pH 7.49 (7.35-7.45) Arterial Blood pCO2 at Patient Temp 42 mmHg (35-46) Arterial Blood pO2 at Patient Temp 67 mmHg (65-108) Arterial Blood HCO3 31 mmol/L (21-28) Arterial Blood Base Excess 7 mmol/L (-3-3) FiO2 44 KI-Ynq-C-Type Natriuretic Peptide 61293 pg/mL (0-449) White Blood Count 15.7 x10^3/uL (4.0-11.0) Red Blood Count 5.53 x10^6/uL (3.50-5.40) Hemoglobin 14.5 g/dL (12.0-15.5) Hematocrit 46.3 % (36.0-47.0) Mean Corpuscular Volume 84 fL (79-100) Mean Corpuscular Hemoglobin 26 pg (25-35) Mean Corpuscular Hemoglobin Concent 31 g/dL (31-37) Red Cell Distribution Width 17.8 % (11.5-14.5) Platelet Count 206 x10^3/uL (140-400) Neutrophils (%) (Auto) 89 % (31-73) Lymphocytes (%) (Auto) 4 % (24-48) Monocytes (%) (Auto) 6 % (0-9) Eosinophils (%) (Auto) 1 % (0-3) Basophils (%) (Auto) 0 % (0-3) Neutrophils # (Auto) 14.0 x10^3uL (1.8-7.7) Lymphocytes # (Auto) 0.6 x10^3/uL (1.0-4.8) Monocytes # (Auto) 1.0 x10^3/uL (0.0-1.1) Eosinophils # (Auto) 0.1 x10^3/uL (0.0-0.7) Basophils # (Auto) 0.1 x10^3/uL (0.0-0.2) Segmented Neutrophils % 92 % (35-66) Band Neutrophils % 1 % (0-9) Lymphocytes % 2 % (24-48) Monocytes % 4 % (0-10) Eosinophils % 1 % (0-5) Nucleated Red Blood Cells 1 Platelet Estimate Adequate (ADEQUATE) Polychromasia Slight Anisocytosis Slight Sodium Level 140 mmol/L (136-145) Potassium Level 2.8 mmol/L (3.5-5.1) Chloride Level 102 mmol/L (98-107) Carbon Dioxide Level 29 mmol/L (21-32) Anion Gap 9 (6-14) Blood Urea Nitrogen 40 mg/dL (7-20) Creatinine 1.8 mg/dL (0.6-1.0) Estimated GFR (Cockcroft-Gault) 33.1 BUN/Creatinine Ratio 22 (6-20) Glucose Level 204 mg/dL (70-99) Lactic Acid Level 2.0 mmol/L (0.4-2.0) Calcium Level 9.2 mg/dL (8.5-10.1) Total Bilirubin 0.4 mg/dL (0.2-1.0) Aspartate Amino Transf (AST/SGOT) 24 U/L (15-37) Alanine Aminotransferase (ALT/SGPT) 48 U/L (14-59) Alkaline Phosphatase 94 U/L (46-116) Total Protein 7.0 g/dL (6.4-8.2) Albumin 2.7 g/dL (3.4-5.0) Albumin/Globulin Ratio 0.6 (1.0-1.7) Glucose (Fingerstick) 200 mg/dL (70-99) 244 mg/dL (70-99) Test 04/09/18 20:45 04/10/18 08:20 Lactic Acid Level 1.5 mmol/L (0.4-2.0) White Blood Count 15.7 x10^3/uL (4.0-11.0) Red Blood Count 5.22 x10^6/uL (3.50-5.40) Hemoglobin 13.6 g/dL (12.0-15.5) Hematocrit 44.2 % (36.0-47.0) Mean Corpuscular Volume 85 fL (79-100) Mean Corpuscular Hemoglobin 26 pg (25-35) Mean Corpuscular Hemoglobin Concent 31 g/dL (31-37) Red Cell Distribution Width 17.9 % (11.5-14.5) Platelet Count 185 x10^3/uL (140-400) Neutrophils (%) (Auto) 98 % (31-73) Lymphocytes (%) (Auto) 2 % (24-48) Monocytes (%) (Auto) 1 % (0-9) Eosinophils (%) (Auto) 0 % (0-3) Basophils (%) (Auto) 0 % (0-3) Neutrophils # (Auto) 15.4 x10^3uL (1.8-7.7) Lymphocytes # (Auto) 0.2 x10^3/uL (1.0-4.8) Monocytes # (Auto) 0.1 x10^3/uL (0.0-1.1) Eosinophils # (Auto) 0.0 x10^3/uL (0.0-0.7) Basophils # (Auto) 0.0 x10^3/uL (0.0-0.2) Sodium Level 137 mmol/L (136-145) Potassium Level 4.3 mmol/L (3.5-5.1) Chloride Level 101 mmol/L (98-107) Carbon Dioxide Level 25 mmol/L (21-32) Anion Gap 11 (6-14) Blood Urea Nitrogen 46 mg/dL (7-20) Creatinine 1.9 mg/dL (0.6-1.0) Estimated GFR (Cockcroft-Gault) 31.1 Glucose Level 394 mg/dL (70-99) Calcium Level 8.4 mg/dL (8.5-10.1) IMAGES IMAGES CXR: Cardiomegaly. Atherosclerotic calcifications of the mildly tortuous aorta are seen. Trace bilateral pleural effusions. Hazy opacities overlying the lung bases likely from radiographic attenuation given overlying soft tissues. Otherwise, No focal parenchymal airspace opacity. Mild interstitial prominence/crowding. No pneumothorax. IMPRESSION: Cardiomegaly with mild interstitial prominence may represent early interstitial pulmonary edema. EKG EKG SINUS RHYTHM BIATRIAL ENLARGEMENT RBBB ECHOCARDIOGRAM ECHOCARDIOGRAM pending ASSESSMENT/PLAN ASSESSMENT/PLAN 1. acute on chronic heart failure, suspect systolic --LVEF unknown, TTE pending --started on 100mg Lasix by primary service - will need to monitor renal function closely and patient is now refusing KCl supplementation --home meds resumed; watch BP as receiving 5 meds affecting BP @ 0900 daily --request records if primary news internship determined 2. pulmonary hypertension --home rx for sildenafil --TTE to evaluate PA pressures 3. COPD with LARY/CPAP --per pulm --mobilize pt 4. HTN --controlled 5. HLD --continue statins 6. morbid obesity --albumin level 2.7 7. hypokalemia --normalize this a.m. 8. CKD MARISOL GARCIA MD 04/10/18 1804: CARDIAC CONSULT ASSESSMENT/PLAN ASSESSMENT/PLAN Pt. seen and examined. AGree with above ROLL SCALE MAN note. Echo with severe pulm HTN. Will need diuresis as tolerated and oxygenation. Consider RHC if no improvement. Will follow along. HI CONTRERAS APRN Apr 10, 2018 11:37 MARISOL GARCIA MD Apr 10, 2018 18:04
--- NOTE | 2018-04-10 11:54 | CONS ---
DATE OF CONSULTATION: ATTENDING PHYSICIAN: Dr. Tejeda. REASON FOR CONSULTATION: Dyspnea. HISTORY OF PRESENT ILLNESS: The patient is 77-year-old who has history of tobacco use since high school until 3 years ago and she also has history of CHF. She presented to the hospital with progressive dyspnea. There was lower extremity edema as well. She has no cough, no fever, no chills, no chest pains. No syncopal episode. No skin rash. No dysuria. No nausea, vomiting or diarrhea. Her chest x-ray was reviewed and showed cardiomegaly and mild interstitial edema. I have been asked to see her for further evaluation. PAST MEDICAL HISTORY: Significant for history of COPD, unknown FEV1. History of hypertension; dyslipidemia; diabetes; history of CHF, unknown EF. PAST SURGICAL HISTORY: No recent surgery. ALLERGIES: PENICILLIN. FAMILY HISTORY: Heart disease. SOCIAL HISTORY: Smoker since teenage years, but quit 3 years ago. MEDICATIONS: All reviewed, as listed in the MRAD, including diuretics. REVIEW OF SYSTEMS: Twelve-point system obtained. Pertinent positives discussed in my history of present illness, otherwise noncontributory. All systems that were negative were reviewed as well. PHYSICAL EXAMINATION: GENERAL: She is awake, following commands. She is on 6 liters, which she is normally at home. VITAL SIGNS: Blood pressure stable, afebrile. HEENT: Sclerae nonicteric. NECK: Supple. LUNGS: With occasional wheezes. CARDIOVASCULAR: Regular rate. ABDOMEN: Soft. EXTREMITIES: With 1+ pitting edema bilaterally. LABORATORY DATA: Reviewed. White cell count 15.7, hemoglobin 13.6 and platelets are 185. ABGs with a pH of 7.49, pCO2 of 42 and a pO2 of 67 on 44% FiO2. BUN 46 and creatinine 1.9. IMPRESSION: 1. Dyspnea secondary to acute interstitial edema. 2. The patient with chronic hypoxic respiratory failure. She states she stays at 6 liters of oxygen at home. Etiology secondary to combination of chronic obstructive pulmonary disease and congestive heart failure. 3. Abnormal chest x-ray with cardiomegaly and interstitial edema. Would obtain echocardiogram to assess for LV function. 4. Chronic kidney disease with possible an acute component. RECOMMENDATIONS: 1. Continue diuresis while monitoring renal function closely. 2. Follow up chest x-ray post-diuresis. 3. Obtain echocardiogram. 4. Continue bronchodilators. 5. Gradually wean oxygen. 6. PFTs as an outpatient. 7. Discussed with RN. AMITA RIGGS MD DR: GREGG/jailene JOB#: [id number] / [id number]
[2018-04-10 15:00] VITALS: BP 107/75
--- NOTE | 2018-04-10 16:13 | CARD ---
MR#: [id number] Date of Study: 04/10/2018 Ordering Physician: TAYLOR MCMANUS, Referring Physician: TAYLOR MCMAUNS, Tech: VIANNEY Martinez APPROVED REPORT EXAM: Two-dimensional and M-mode echocardiogram with Doppler and color Doppler. Other Information Quality : FairHR: 85bpm Technically limited study due to body habitus. INDICATION Congestive Heart Failure RISK FACTORS Obesity 2D DIMENSIONS RVDd3.8 (2.9-3.5cm)Left Atrium(2D)3.0 (1.6-4.0cm) IVSd1.3 (0.7-1.1cm)Aortic Root(2D)1.8 (2.0-3.7cm) LVDd2.2 (3.9-5.9cm)LVOT Diameter1.9 (1.8-2.4cm) PWd1.7 (0.7-1.1cm)LVDs0.9 (2.5-4.0cm) FS (%) 56.4 %SV13.6 ml LVEF(%)88.7 (>50%) Mitral Valve MV E Hzfnznne45.9cm/sMV DECEL [id number] MV A Gtppmptc01.4cm/sMV [id number] E/A Ratio0.5MVA (PHT)2.07cm2 TDI E/Lateral E'10.5E/Medial E'15.4 Pulmonary Valve PV Peak Zxualgnn21.3cm/sPV Peak Grad.2mmHg Tricuspid Valve TR P. Rtjfsseh584zk/sTR Peak Gr.79mmHg Pulmonary Vein S1 Uejczlwf10.8cm/sD2 Ybrdzhqw04.3cm/s LEFT VENTRICLE The left ventricle cavity is small. There is mild to moderate concentric left ventricular hypertrophy . The left ventricle systolic function is normal. EF 55% There is a flattened septum consistent with right ventricle pressure overload. Transmitral Doppler flow pattern is Grade I-abnormal relaxation pa ttern. RIGHT VENTRICLE The right ventricle is severely dilated. The right ventricle is moderately hypertrophied. RV Systolic function is moderately reduced. ATRIA The left atrium size is normal. The right atrium is moderately dilated. The interatrial septum is int act with no evidence for an atrial septal defect or patent foramen ovale as noted on 2-D or Doppler i maging. AORTIC VALVE The aortic valve is not well visualized, grossly is trileaflet. Doppler and Color Flow revealed no si gnificant aortic regurgitation. There is no significant aortic valvular stenosis. There is no aortic valvular vegetation. MITRAL VALVE The mitral valve is mildly thickened. There is no evidence of mitral valve prolapse. There is no mitr al valve stenosis. Doppler and Color Flow revealed no mitral valve regurgitation noted. TRICUSPID VALVE The tricuspid valve leaflets are thickened , but open well. Doppler and Color Flow revealed mild tric uspid regurgitation. RVSP is 110 mm Hg, reaching near systemic pressures consistent with severe pulmo nary HTN. There is no tricuspid valve prolapse or vegetation. There is no tricuspid valve stenosis. PULMONIC VALVE The pulmonic valve is not well visualized. Doppler and Color Flow revealed mild pulmonic valvular reg urgitation. There is no pulmonic valvular stenosis. GREAT VESSELS The aortic root is not well visualized. The IVC is dilated and collapses <50% with inspiration. PERICARDIAL EFFUSION There is no pleural effusion. There is no evidence of significant pericardial effusion. Critical Notification Critical Value: No <Conclusion> The left ventricle cavity is small. The left ventricle systolic function is normal. EF 55% There is a flattened septum consistent with right ventricle pressure overload. The right ventricle is severely dilated. RV Systolic function is moderately reduced. Doppler and Color Flow revealed mild tricuspid regurgitation. RVSP is 110 mm Hg, reaching near system ic pressures consistent with severe pulmonary HTN. Signed by : Joce Neal, Electronically Approved : 04/10/2018 16:12:31
[2018-04-10] MEDS ORDERED: INSULIN LISPRO 300 UNITS/3 ML INSULN.PEN. SQ STA (18:59)
[2018-04-10 19:00] VITALS: BP 100/38
[2018-04-10] MEDS ORDERED: INSULIN DETEMIR 54 UNIT SQ SCH (21:00)
[2018-04-10] MEDS ORDERED: INSULIN LISPRO 300 UNITS/3 ML INSULN.PEN. SQ ONE ×2 (21:00→22:45)
[2018-04-10] MEDS: ENOXAPARIN 30 MG/0.3 ML SYRINGE. SQ SCH (21:00)
[2018-04-10] MEDS: ATORVASTATIN CALCIUM 40 MG TABLET. PO SCH (21:00)
[2018-04-10] MEDS: INSULIN GLARGINE 300 UNITS/3 ML INSULN.PEN. SQ SCH (21:18)
[2018-04-10 23:00] VITALS: BP 112/62
[2018-04-11] MEDS ORDERED: INSULIN LISPRO 300 UNITS/3 ML INSULN.PEN. SQ ONE (01:00)
[2018-04-11 03:00] VITALS: BP 106/61
[2018-04-11 05:07] LABS: BILIRUBIN,URINE NEGATIVE (NEG); CLARITY,URINE CLEAR; COLOR,URINE YELLOW; NITRITE,URINE NEGATIVE (NEG); PH,URINE 5.5; PROTEIN,URINE NEGATIVE (NEG-TRACE); UROBILINOGEN,URINE 0.2 mg/dL (0.2 mg/dL)
[2018-04-11 05:18] LABS: BACTERIA,URINE FEW /HPF (0-FEW); HYALINE CASTS, URINE MODERATE /HPF; SQUAMOUS EPITHELIAL CELL,UR FEW /LPF; YEAST,URINE PRESENT /HPF
[2018-04-11 07:00] VITALS: BP 119/67
[2018-04-11] MEDS: IPRATRPIUM/ALBUTEROL 0.5/2.5MG 3 ML NEBU. NEB SCH ×5 (07:57→19:47)
[2018-04-11] MEDS: INSULIN LISPRO 300 UNITS/3 ML INSULN.PEN. SQ SCH ×2 (08:00→18:30)
--- NOTE | 2018-04-11 08:59 | PDOC ---
CARDIO Progress Notes Date and Time Date of Service 04/11/2018 Time of Evaluation 0858 Subjective Subjective: No Chest Pain, No Palpitations, No Dizziness, Other (LE edema) Vitals Vitals Vital Signs Date Time Temp Pulse Resp B/P (MAP) Pulse Ox O2 Delivery O2 Flow Rate FiO2 04/11/18 08:03 92 Nasal Cannula 5.0 04/11/18 03:00 97.6 75 18 106/61 (76) 97.6 Weight Weight [ ] Input and Output Intake and Output Intake and Output 04/11/18 07:00 Intake Total 920 ml Balance 920 ml Intake Oral 920 ml # Voids 3 Laboratory Labs Laboratory Tests Test 04/10/18 16:42 04/10/18 18:42 04/10/18 20:46 04/10/18 22:29 Glucose (Fingerstick) 503 mg/dL (70-99) 557 mg/dL (70-99) 564 mg/dL (70-99) 451 mg/dL (70-99) Test 04/11/18 00:03 04/11/18 04:28 04/11/18 08:17 Glucose (Fingerstick) 406 mg/dL (70-99) 106 mg/dL (70-99) Urine Collection Type Unknown Urine Color Yellow Urine Clarity Clear Urine pH 5.5 Urine Specific [place] 1.020 Urine Protein Negative mg/dL (NEG-TRACE) Urine Glucose (UA) >=1000 mg/dL (NEG) Urine Ketones (Stick) Negative mg/dL (NEG) Urine Blood Negative (NEG) Urine Nitrite Negative (NEG) Urine Bilirubin Negative (NEG) Urine Urobilinogen Dipstick 0.2 mg/dL (0.2 mg/dL) Urine Leukocyte Esterase Negative (NEG) Urine RBC 1-2 /HPF (0-2) Urine WBC 1-4 /HPF (0-4) Urine Squamous Epithelial Cells Few /LPF Urine Bacteria Few /HPF (0-FEW) Urine Hyaline Casts Moderate /HPF Urine Mucus Mod /LPF Urine Yeast Present /HPF Microbiology Micro Microbiology 04/09/18 Blood Culture - Preliminary, Resulted NO GROWTH AFTER 1 DAY Physical Exam HEENT: Neck Supple W Full Motion Chest: Symmetric LUNGS: Clear to Auscultation Heart: S1S2, RRR, other (tele: SR) Abdomen: Soft N/T Extremities: Other (2-3+ in feet; 1+ legs) Neurology: alert, oriented, follow commands Assessment Assessment 1. acute on chronic diastolic heart failure with right side systolic failure --LVEF 55% --continue diuretics; consider converting to IV Bumex - will defer another day due to limited documentation re: output; weight possibly down 2 # --? RHC if no improvement 2. pulmonary hypertension, severe --home rx for sildenafil; recommend continuation --RVSP = 110 3. COPD with LARY/CPAP --per pulm --mobilize pt 4. HTN --controlled 5. HLD --continue statins 6. morbid obesity --albumin level 2.7 7. CKD 8. DM, II HI CONTRERAS CAGE MAKER MACHINE Apr 11, 2018 08:59
[2018-04-11] MEDS: LOSARTAN POTASSIUM 50 MG TABLET. PO SCH (09:00)
[2018-04-11] MEDS: METOPROLOL SUCC 24HR ER 100 MG TAB.ER.24H. PO SCH (09:00)
[2018-04-11] MEDS: amLODIPine BESYLATE 5 MG TABLET PO SCH (09:00)
[2018-04-11] MEDS: PANTOPRAZOLE 40 MG TABLET.DR. PO SCH (09:01)
[2018-04-11 11:00] VITALS: BP 99/61
[2018-04-11] MEDS ORDERED: POLYETHYLENE GLYCOL 3350 17 GM PACKET. PO PRN (11:45)
--- NOTE | 2018-04-11 12:16 | PDOC ---
PULMONARY PROGRESS NOTES Subjective feels better down to 4.5 litres of oxygen Vitals Vital Signs Date Time Temp Pulse Resp B/P (MAP) Pulse Ox O2 Delivery O2 Flow Rate FiO2 04/11/18 11:08 98 Nasal Cannula 5.0 04/11/18 11:00 96.1 86 18 99/61 (74) 96.1 ROS: No Chest Pain, No Increase Cough General: Alert, No acute distress Lungs: Clear Cardiovascular: S1 Abdomen: Soft Neuro Exam: Alert Extremities: Other (2+edema) Labs Laboratory Tests Test 04/09/18 17:05 04/09/18 17:06 04/09/18 19:00 04/09/18 20:34 O2 Saturation 93 % (92-99) Arterial Blood pH 7.49 (7.35-7.45) Arterial Blood pCO2 at Patient Temp 42 mmHg (35-46) Arterial Blood pO2 at Patient Temp 67 mmHg (65-108) Arterial Blood HCO3 31 mmol/L (21-28) Arterial Blood Base Excess 7 mmol/L (-3-3) FiO2 44 PF-Hyc-V-Type Natriuretic Peptide 14187 pg/mL (0-449) White Blood Count 15.7 x10^3/uL (4.0-11.0) Red Blood Count 5.53 x10^6/uL (3.50-5.40) Hemoglobin 14.5 g/dL (12.0-15.5) Hematocrit 46.3 % (36.0-47.0) Mean Corpuscular Volume 84 fL (79-100) Mean Corpuscular Hemoglobin 26 pg (25-35) Mean Corpuscular Hemoglobin Concent 31 g/dL (31-37) Red Cell Distribution Width 17.8 % (11.5-14.5) Platelet Count 206 x10^3/uL (140-400) Neutrophils (%) (Auto) 89 % (31-73) Lymphocytes (%) (Auto) 4 % (24-48) Monocytes (%) (Auto) 6 % (0-9) Eosinophils (%) (Auto) 1 % (0-3) Basophils (%) (Auto) 0 % (0-3) Neutrophils # (Auto) 14.0 x10^3uL (1.8-7.7) Lymphocytes # (Auto) 0.6 x10^3/uL (1.0-4.8) Monocytes # (Auto) 1.0 x10^3/uL (0.0-1.1) Eosinophils # (Auto) 0.1 x10^3/uL (0.0-0.7) Basophils # (Auto) 0.1 x10^3/uL (0.0-0.2) Segmented Neutrophils % 92 % (35-66) Band Neutrophils % 1 % (0-9) Lymphocytes % 2 % (24-48) Monocytes % 4 % (0-10) Eosinophils % 1 % (0-5) Nucleated Red Blood Cells 1 Platelet Estimate Adequate (ADEQUATE) Polychromasia Slight Anisocytosis Slight Sodium Level 140 mmol/L (136-145) Potassium Level 2.8 mmol/L (3.5-5.1) Chloride Level 102 mmol/L (98-107) Carbon Dioxide Level 29 mmol/L (21-32) Anion Gap 9 (6-14) Blood Urea Nitrogen 40 mg/dL (7-20) Creatinine 1.8 mg/dL (0.6-1.0) Estimated GFR (Cockcroft-Gault) 33.1 BUN/Creatinine Ratio 22 (6-20) Glucose Level 204 mg/dL (70-99) Lactic Acid Level 2.0 mmol/L (0.4-2.0) Calcium Level 9.2 mg/dL (8.5-10.1) Total Bilirubin 0.4 mg/dL (0.2-1.0) Aspartate Amino Transf (AST/SGOT) 24 U/L (15-37) Alanine Aminotransferase (ALT/SGPT) 48 U/L (14-59) Alkaline Phosphatase 94 U/L (46-116) Total Protein 7.0 g/dL (6.4-8.2) Albumin 2.7 g/dL (3.4-5.0) Albumin/Globulin Ratio 0.6 (1.0-1.7) Glucose (Fingerstick) 200 mg/dL (70-99) 244 mg/dL (70-99) Test 04/09/18 20:45 04/10/18 08:20 04/10/18 08:25 04/10/18 16:42 Lactic Acid Level 1.5 mmol/L (0.4-2.0) White Blood Count 15.7 x10^3/uL (4.0-11.0) Red Blood Count 5.22 x10^6/uL (3.50-5.40) Hemoglobin 13.6 g/dL (12.0-15.5) Hematocrit 44.2 % (36.0-47.0) Mean Corpuscular Volume 85 fL (79-100) Mean Corpuscular Hemoglobin 26 pg (25-35) Mean Corpuscular Hemoglobin Concent 31 g/dL (31-37) Red Cell Distribution Width 17.9 % (11.5-14.5) Platelet Count 185 x10^3/uL (140-400) Neutrophils (%) (Auto) 98 % (31-73) Lymphocytes (%) (Auto) 2 % (24-48) Monocytes (%) (Auto) 1 % (0-9) Eosinophils (%) (Auto) 0 % (0-3) Basophils (%) (Auto) 0 % (0-3) Neutrophils # (Auto) 15.4 x10^3uL (1.8-7.7) Lymphocytes # (Auto) 0.2 x10^3/uL (1.0-4.8) Monocytes # (Auto) 0.1 x10^3/uL (0.0-1.1) Eosinophils # (Auto) 0.0 x10^3/uL (0.0-0.7) Basophils # (Auto) 0.0 x10^3/uL (0.0-0.2) Sodium Level 137 mmol/L (136-145) Potassium Level 4.3 mmol/L (3.5-5.1) Chloride Level 101 mmol/L (98-107) Carbon Dioxide Level 25 mmol/L (21-32) Anion Gap 11 (6-14) Blood Urea Nitrogen 46 mg/dL (7-20) Creatinine 1.9 mg/dL (0.6-1.0) Estimated GFR (Cockcroft-Gault) 31.1 Glucose Level 394 mg/dL (70-99) Calcium Level 8.4 mg/dL (8.5-10.1) Glucose (Fingerstick) 382 mg/dL (70-99) 503 mg/dL (70-99) Test 04/10/18 18:42 04/10/18 20:46 04/10/18 22:29 04/11/18 00:03 Glucose (Fingerstick) 557 mg/dL (70-99) 564 mg/dL (70-99) 451 mg/dL (70-99) 406 mg/dL (70-99) Test 04/11/18 04:28 04/11/18 08:17 04/11/18 11:31 Urine Collection Type Unknown Urine Color Yellow Urine Clarity Clear Urine pH 5.5 Urine Specific [place] 1.020 Urine Protein Negative mg/dL (NEG-TRACE) Urine Glucose (UA) >=1000 mg/dL (NEG) Urine Ketones (Stick) Negative mg/dL (NEG) Urine Blood Negative (NEG) Urine Nitrite Negative (NEG) Urine Bilirubin Negative (NEG) Urine Urobilinogen Dipstick 0.2 mg/dL (0.2 mg/dL) Urine Leukocyte Esterase Negative (NEG) Urine RBC 1-2 /HPF (0-2) Urine WBC 1-4 /HPF (0-4) Urine Squamous Epithelial Cells Few /LPF Urine Bacteria Few /HPF (0-FEW) Urine Hyaline Casts Moderate /HPF Urine Mucus Mod /LPF Urine Yeast Present /HPF Glucose (Fingerstick) 106 mg/dL (70-99) 197 mg/dL (70-99) Laboratory Tests Test 04/10/18 16:42 04/10/18 18:42 04/10/18 20:46 04/10/18 22:29 Glucose (Fingerstick) 503 mg/dL (70-99) 557 mg/dL (70-99) 564 mg/dL (70-99) 451 mg/dL (70-99) Test 04/11/18 00:03 04/11/18 04:28 04/11/18 08:17 04/11/18 11:31 Glucose (Fingerstick) 406 mg/dL (70-99) 106 mg/dL (70-99) 197 mg/dL (70-99) Urine Collection Type Unknown Urine Color Yellow Urine Clarity Clear Urine pH 5.5 Urine Specific [place] 1.020 Urine Protein Negative mg/dL (NEG-TRACE) Urine Glucose (UA) >=1000 mg/dL (NEG) Urine Ketones (Stick) Negative mg/dL (NEG) Urine Blood Negative (NEG) Urine Nitrite Negative (NEG) Urine Bilirubin Negative (NEG) Urine Urobilinogen Dipstick 0.2 mg/dL (0.2 mg/dL) Urine Leukocyte Esterase Negative (NEG) Urine RBC 1-2 /HPF (0-2) Urine WBC 1-4 /HPF (0-4) Urine Squamous Epithelial Cells Few /LPF Urine Bacteria Few /HPF (0-FEW) Urine Hyaline Casts Moderate /HPF Urine Mucus Mod /LPF Urine Yeast Present /HPF Medications Active Scripts Medications Dose Route/Sig Max Daily Dose Days Date Category Dose Instructions Klor-Con M20 (Potassium Chloride) 20 Meq Tab.er.prt 20 Meq PO DAILY 04/09/18 Reported Acetazolamide 250 Mg Tablet 04/09/18 Reported unknown dosage Prednisone (Prednisone) 10 Mg Tablet 10 Mg PO DAILY 04/09/18 Reported Furosemide 20 Mg Tablet 04/09/18 Reported unknown dosage Sildenafil (Sildenafil Citrate) 20 Mg Tablet 04/09/18 Reported unknown dosage Metformin Hcl 500 Mg Tablet 04/09/18 Reported unknown dosage Ferrous Sulfate 325 Mg Tablet 04/09/18 Reported unknown dosage Bumetanide 1 Mg Tablet 04/09/18 Reported unknown dosage Metolazone 2.5 Mg Tablet 2.5 Mg PO BID 04/09/18 Reported Spironolactone 25 Mg Tablet 25 Mg PO DAILY 04/09/18 Reported Lantus Solostar (Insulin Glargine,Hum.rec.anlog) 100 Unit/1 Ml Insuln.pen 38 Unit SQ QHS 04/09/18 Reported Novolog Flexpen (Insulin Aspart) 100 Unit/1 Ml Insuln.pen 8 Unit SQ BIDACBL 04/09/18 Reported Metoprolol Succinate ( Xl ) (Metoprolol Succinate) 100 Mg Tab.er.24h 1 Tab PO DAILY 02/14/15 Reported Calcium Citrate 100 Gm Powder 100 Gm MC 02/14/15 Reported Simvastatin 80 Mg Tablet 1 Tab PO DAILY 02/14/15 Reported Potassium Chloride 20 Meq Tab.er.prt 1 Tab PO BID 02/14/15 Reported Omeprazole 20 Mg Tablet.dr 1 Tab PO DAILY 02/14/15 Reported Amlodipine Besylate 5 Mg Tablet 1 Tab PO DAILY 02/14/15 Reported Furosemide 40 Mg Tablet 1 Tab PO DAILY 02/14/15 Reported Losartan Potassium 50 Mg Tablet 1 Tab PO DAILY 02/14/15 Reported Aspirin 325 Mg Tablet 1 Tab PO DAILY 02/14/15 Reported Impression . 1. Dyspnea secondary to acute interstitial edema. 2. The patient with chronic hypoxic respiratory failure. She states she stays at 6 liters of oxygen at home. Etiology secondary to combination of chronic obstructive pulmonary disease and right sided heart failure. 3. Abnormal chest x-ray with cardiomegaly and interstitial edema. 4. Chronic kidney disease with possible an acute component. 5. Echo with severe pulmonary hypertension (PA110). Pt being followed at pulmonary clinic and is on revatio Plan . 1. Continue diuresis while monitoring renal function closely. 2. Follow up chest x-ray post-diuresis in am 3. echocardiogram reviewed 4. Continue bronchodilators. 5. Gradually wean oxygen. ( on home o2 at 6 litres, down to 4.5 litres) 6. PFTs as an outpatient. 7. Discussed with DR GARCIA. can go home in am and f/u with pulmonary clinic. will obtain records from [facility] MD Apr 11, 2018 12:16
--- NOTE | 2018-04-11 12:16 | PDOC ---
PROGRESS NOTES History of Present Illness History of Present Illness Assessment/Plan Assessment/Plan IMPRESSION 1. Acute hypoxic resp failure 2. morbid obesity 3. remote tobacco abuse 4. diabetes, IDDM 5. Severe hypokalemia 6. ckd stage 3 7. pulm edema/ chf plan 1. tele 2. o2 support 3. tele 4. iv k 5. renal consult 6. cardiology consult 7. iv lasix 8. echo 9. sq lovenox dvt prophylaxis 10. gi prophylaxis Vitals Vitals Vital Signs Date Time Temp Pulse Resp B/P (MAP) Pulse Ox O2 Delivery O2 Flow Rate FiO2 04/11/18 11:08 98 Nasal Cannula 5.0 04/11/18 11:00 96.1 86 18 99/61 (74) 96.1 Physical Exam General: Cooperative, No acute distress, Other (drowsy, lethargic) Heart: Normal S1, Normal S2 Lungs: Clear Abdomen: Soft, Other (obese abdomen) Extremities: No edema Skin: No rashes Labs LABS Laboratory Tests Test 04/10/18 16:42 04/10/18 18:42 04/10/18 20:46 04/10/18 22:29 Glucose (Fingerstick) 503 mg/dL (70-99) 557 mg/dL (70-99) 564 mg/dL (70-99) 451 mg/dL (70-99) Test 04/11/18 00:03 04/11/18 04:28 04/11/18 08:17 04/11/18 11:31 Glucose (Fingerstick) 406 mg/dL (70-99) 106 mg/dL (70-99) 197 mg/dL (70-99) Urine Collection Type Unknown Urine Color Yellow Urine Clarity Clear Urine pH 5.5 Urine Specific [place] 1.020 Urine Protein Negative mg/dL (NEG-TRACE) Urine Glucose (UA) >=1000 mg/dL (NEG) Urine Ketones (Stick) Negative mg/dL (NEG) Urine Blood Negative (NEG) Urine Nitrite Negative (NEG) Urine Bilirubin Negative (NEG) Urine Urobilinogen Dipstick 0.2 mg/dL (0.2 mg/dL) Urine Leukocyte Esterase Negative (NEG) Urine RBC 1-2 /HPF (0-2) Urine WBC 1-4 /HPF (0-4) Urine Squamous Epithelial Cells Few /LPF Urine Bacteria Few /HPF (0-FEW) Urine Hyaline Casts Moderate /HPF Urine Mucus Mod /LPF Urine Yeast Present /HPF Assessment and Plan Assessmemt and Plan Problems Medical Problems: (1) Hypoxia Status: Acute (2) Pneumonia Status: Acute Comment Review of Relevant I have reviewed the following items aby (where applicable) has been applied. Labs Laboratory Tests Test 04/09/18 17:05 04/09/18 17:06 04/09/18 19:00 04/09/18 20:34 O2 Saturation 93 % (92-99) Arterial Blood pH 7.49 (7.35-7.45) Arterial Blood pCO2 at Patient Temp 42 mmHg (35-46) Arterial Blood pO2 at Patient Temp 67 mmHg (65-108) Arterial Blood HCO3 31 mmol/L (21-28) Arterial Blood Base Excess 7 mmol/L (-3-3) FiO2 44 AW-Sbz-A-Type Natriuretic Peptide 56542 pg/mL (0-449) White Blood Count 15.7 x10^3/uL (4.0-11.0) Red Blood Count 5.53 x10^6/uL (3.50-5.40) Hemoglobin 14.5 g/dL (12.0-15.5) Hematocrit 46.3 % (36.0-47.0) Mean Corpuscular Volume 84 fL (79-100) Mean Corpuscular Hemoglobin 26 pg (25-35) Mean Corpuscular Hemoglobin Concent 31 g/dL (31-37) Red Cell Distribution Width 17.8 % (11.5-14.5) Platelet Count 206 x10^3/uL (140-400) Neutrophils (%) (Auto) 89 % (31-73) Lymphocytes (%) (Auto) 4 % (24-48) Monocytes (%) (Auto) 6 % (0-9) Eosinophils (%) (Auto) 1 % (0-3) Basophils (%) (Auto) 0 % (0-3) Neutrophils # (Auto) 14.0 x10^3uL (1.8-7.7) Lymphocytes # (Auto) 0.6 x10^3/uL (1.0-4.8) Monocytes # (Auto) 1.0 x10^3/uL (0.0-1.1) Eosinophils # (Auto) 0.1 x10^3/uL (0.0-0.7) Basophils # (Auto) 0.1 x10^3/uL (0.0-0.2) Segmented Neutrophils % 92 % (35-66) Band Neutrophils % 1 % (0-9) Lymphocytes % 2 % (24-48) Monocytes % 4 % (0-10) Eosinophils % 1 % (0-5) Nucleated Red Blood Cells 1 Platelet Estimate Adequate (ADEQUATE) Polychromasia Slight Anisocytosis Slight Sodium Level 140 mmol/L (136-145) Potassium Level 2.8 mmol/L (3.5-5.1) Chloride Level 102 mmol/L (98-107) Carbon Dioxide Level 29 mmol/L (21-32) Anion Gap 9 (6-14) Blood Urea Nitrogen 40 mg/dL (7-20) Creatinine 1.8 mg/dL (0.6-1.0) Estimated GFR (Cockcroft-Gault) 33.1 BUN/Creatinine Ratio 22 (6-20) Glucose Level 204 mg/dL (70-99) Lactic Acid Level 2.0 mmol/L (0.4-2.0) Calcium Level 9.2 mg/dL (8.5-10.1) Total Bilirubin 0.4 mg/dL (0.2-1.0) Aspartate Amino Transf (AST/SGOT) 24 U/L (15-37) Alanine Aminotransferase (ALT/SGPT) 48 U/L (14-59) Alkaline Phosphatase 94 U/L (46-116) Total Protein 7.0 g/dL (6.4-8.2) Albumin 2.7 g/dL (3.4-5.0) Albumin/Globulin Ratio 0.6 (1.0-1.7) Glucose (Fingerstick) 200 mg/dL (70-99) 244 mg/dL (70-99) Test 04/09/18 20:45 04/10/18 08:20 04/10/18 08:25 04/10/18 16:42 Lactic Acid Level 1.5 mmol/L (0.4-2.0) White Blood Count 15.7 x10^3/uL (4.0-11.0) Red Blood Count 5.22 x10^6/uL (3.50-5.40) Hemoglobin 13.6 g/dL (12.0-15.5) Hematocrit 44.2 % (36.0-47.0) Mean Corpuscular Volume 85 fL (79-100) Mean Corpuscular Hemoglobin 26 pg (25-35) Mean Corpuscular Hemoglobin Concent 31 g/dL (31-37) Red Cell Distribution Width 17.9 % (11.5-14.5) Platelet Count 185 x10^3/uL (140-400) Neutrophils (%) (Auto) 98 % (31-73) Lymphocytes (%) (Auto) 2 % (24-48) Monocytes (%) (Auto) 1 % (0-9) Eosinophils (%) (Auto) 0 % (0-3) Basophils (%) (Auto) 0 % (0-3) Neutrophils # (Auto) 15.4 x10^3uL (1.8-7.7) Lymphocytes # (Auto) 0.2 x10^3/uL (1.0-4.8) Monocytes # (Auto) 0.1 x10^3/uL (0.0-1.1) Eosinophils # (Auto) 0.0 x10^3/uL (0.0-0.7) Basophils # (Auto) 0.0 x10^3/uL (0.0-0.2) Sodium Level 137 mmol/L (136-145) Potassium Level 4.3 mmol/L (3.5-5.1) Chloride Level 101 mmol/L (98-107) Carbon Dioxide Level 25 mmol/L (21-32) Anion Gap 11 (6-14) Blood Urea Nitrogen 46 mg/dL (7-20) Creatinine 1.9 mg/dL (0.6-1.0) Estimated GFR (Cockcroft-Gault) 31.1 Glucose Level 394 mg/dL (70-99) Calcium Level 8.4 mg/dL (8.5-10.1) Glucose (Fingerstick) 382 mg/dL (70-99) 503 mg/dL (70-99) Test 04/10/18 18:42 04/10/18 20:46 04/10/18 22:29 04/11/18 00:03 Glucose (Fingerstick) 557 mg/dL (70-99) 564 mg/dL (70-99) 451 mg/dL (70-99) 406 mg/dL (70-99) Test 04/11/18 04:28 04/11/18 08:17 04/11/18 11:31 Urine Collection Type Unknown Urine Color Yellow Urine Clarity Clear Urine pH 5.5 Urine Specific [place] 1.020 Urine Protein Negative mg/dL (NEG-TRACE) Urine Glucose (UA) >=1000 mg/dL (NEG) Urine Ketones (Stick) Negative mg/dL (NEG) Urine Blood Negative (NEG) Urine Nitrite Negative (NEG) Urine Bilirubin Negative (NEG) Urine Urobilinogen Dipstick 0.2 mg/dL (0.2 mg/dL) Urine Leukocyte Esterase Negative (NEG) Urine RBC 1-2 /HPF (0-2) Urine WBC 1-4 /HPF (0-4) Urine Squamous Epithelial Cells Few /LPF Urine Bacteria Few /HPF (0-FEW) Urine Hyaline Casts Moderate /HPF Urine Mucus Mod /LPF Urine Yeast Present /HPF Glucose (Fingerstick) 106 mg/dL (70-99) 197 mg/dL (70-99) Laboratory Tests Test 04/10/18 16:42 04/10/18 18:42 04/10/18 20:46 04/10/18 22:29 Glucose (Fingerstick) 503 mg/dL (70-99) 557 mg/dL (70-99) 564 mg/dL (70-99) 451 mg/dL (70-99) Test 04/11/18 00:03 04/11/18 04:28 04/11/18 08:17 04/11/18 11:31 Glucose (Fingerstick) 406 mg/dL (70-99) 106 mg/dL (70-99) 197 mg/dL (70-99) Urine Collection Type Unknown Urine Color Yellow Urine Clarity Clear Urine pH 5.5 Urine Specific [place] 1.020 Urine Protein Negative mg/dL (NEG-TRACE) Urine Glucose (UA) >=1000 mg/dL (NEG) Urine Ketones (Stick) Negative mg/dL (NEG) Urine Blood Negative (NEG) Urine Nitrite Negative (NEG) Urine Bilirubin Negative (NEG) Urine Urobilinogen Dipstick 0.2 mg/dL (0.2 mg/dL) Urine Leukocyte Esterase Negative (NEG) Urine RBC 1-2 /HPF (0-2) Urine WBC 1-4 /HPF (0-4) Urine Squamous Epithelial Cells Few /LPF Urine Bacteria Few /HPF (0-FEW) Urine Hyaline Casts Moderate /HPF Urine Mucus Mod /LPF Urine Yeast Present /HPF Microbiology 04/09/18 Blood Culture - Preliminary, Resulted NO GROWTH AFTER 1 DAY Medications Current Medications Albuterol/ Ipratropium (Duoneb) 3 ml 1X ONCE NEB Last administered on at 17:03; Start 04/09/18 at 17:00; Stop 04/09/18 at 17:01; Status DC Ondansetron HCl (Zofran) 4 mg PRN Q8HRS PRN IV NAUSEA/VOMITING; Start 04/09/18 at 17:30; Stop 04/10/18 at 17:29; Status DC Fentanyl Citrate (Fentanyl 2ml Vial) 50 mcg PRN Q2HR PRN IV PAIN; Start at 17:30; Stop 04/10/18 at 17:29; Status DC Sodium Chloride 1,000 ml @ 125 mls/hr Q8H IV Last administered on 04/09/18at 19: 06; Start 04/09/18 at 17:29; Stop 04/10/18 at 17:28; Status DC Albuterol/ Ipratropium (Duoneb) 3 ml RTQID NEB Last administered on 04/09/18at 19 :29; Start 04/09/18 at 20:00; Stop 04/09/18 at 21:35; Status DC Levofloxacin/ Dextrose 100 ml @ 100 mls/hr 1X ONCE IV Last administered on 04/09/18at 18:00; Start 04/09/18 at 18:00; Stop 04/09/18 at 18:59; Status DC Methylprednisolone Sodium Succinate (SOLU-Medrol 125MG VIAL) 125 mg 1X ONCE IV Last administered on 04/09/18at 18:00; Start 04/09/18 at 17:45; Stop 04/09/18 at 17:46; Status DC Potassium Chloride/Water 50 ml @ 50 mls/hr Q1H IV ; Start 04/09/18 at 18:30; Stop 04/09/18 at 18:30; Status DC Potassium Chloride/Water 100 ml @ 100 mls/hr Q1H IV Last administered on at 22:18; Start 04/09/18 at 19:00; Stop 04/09/18 at 22:59; Status DC Dextrose (Dextrose 50%-Water Syringe) 12.5 gm PRN Q15MIN PRN IV SEE COMMENTS; Start 04/09/18 at 21:15 Insulin Glargine (Lantus) 38 units QHS SQ Last administered on 04/10/18at 21:18; Start 04/09/18 at 22:00 Insulin Human Lispro (HumaLOG) 8 units BIDWMEALS SQ Last administered on at 17:36; Start 04/10/18 at 08:00 Amlodipine Besylate (Norvasc) 5 mg DAILY PO ; Start 04/10/18 at 09:00 Aspirin (Herbert Aspirin) 325 mg DAILY PO ; Start 04/10/18 at 09:00 Furosemide (Lasix) 40 mg DAILY PO ; Start 04/10/18 at 09:00; Status Cancel Losartan Potassium (Cozaar) 50 mg DAILY PO ; Start 04/10/18 at 09:00 Metoprolol Succinate (Toprol Xl) 100 mg DAILY PO ; Start 04/10/18 at 09:00 Potassium Chloride (Klor-Con) 20 meq BID PO ; Start 04/09/18 at 22:00 Non-Formulary Medication (Insulin Detemir (Levemir)) 54 unit QHS SQ ; Start 04/10 at 21:00; Status UNV Non-Formulary Medication (Insulin Lispro (Humalog)) 15 unit TIDAC SQ ; Start 04/10/18 at 07:30; Status UNV Pantoprazole Sodium (Protonix) 40 mg DAILYAC PO Last administered on 04/11/18at 09:01; Start 04/10/18 at 07:30 Atorvastatin Calcium (Lipitor) 40 mg QHS PO ; Start 04/09/18 at 22:00 Furosemide (Lasix) 100 mg DAILY IVP ; Start 04/10/18 at 09:00 Enoxaparin Sodium (Lovenox 40mg Syringe) 40 mg Q24H SQ ; Start 04/09/18 at 22:00 ; Stop 04/10/18 at 12:15; Status DC Albuterol/ Ipratropium (Duoneb) 3 ml RTQID NEB Last administered on 04/11/18at 07 :57; Start 04/10/18 at 08:00 Enoxaparin Sodium (Lovenox 30mg Syringe) 30 mg Q24H SQ Last administered on 04/10at 21:00; Start 04/10/18 at 21:00 Insulin Human Lispro (HumaLOG) 20 units 1X STAT SQ Last administered on at 19:43; Start 04/10/18 at 18:59; Stop 04/10/18 at 19:02; Status DC Insulin Human Lispro (HumaLOG) 25 units 1X ONCE SQ Last administered on at 21:17; Start 04/10/18 at 21:00; Stop 04/10/18 at 21:02; Status DC Insulin Human Lispro (HumaLOG) 30 units 1X ONCE SQ Last administered on at 22:43; Start 04/10/18 at 22:45; Stop 04/10/18 at 22:46; Status DC Insulin Human Lispro (HumaLOG) 25 units 1X ONCE SQ Last administered on at 01:06; Start 04/11/18 at 01:00; Stop 04/11/18 at 01:01; Status DC Polyethylene Glycol (miraLAX PACKET) 17 gm PRN DAILY PRN PO CONST; Start at 11:45 Active Scripts Active Reported Klor-Con M20 (Potassium Chloride) 20 Meq Tab.er.prt 20 Meq PO DAILY Acetazolamide 250 Mg Tablet unknown dosage Prednisone (Prednisone) 10 Mg Tablet 10 Mg PO DAILY Furosemide 20 Mg Tablet unknown dosage Sildenafil (Sildenafil Citrate) 20 Mg Tablet unknown dosage Metformin Hcl 500 Mg Tablet unknown dosage Ferrous Sulfate 325 Mg Tablet unknown dosage Bumetanide 1 Mg Tablet unknown dosage Metolazone 2.5 Mg Tablet 2.5 Mg PO BID Spironolactone 25 Mg Tablet 25 Mg PO DAILY Lantus Solostar (Insulin Glargine,Hum.rec.anlog) 100 Unit/1 Ml Insuln.pen 38 Unit SQ QHS Novolog Flexpen (Insulin Aspart) 100 Unit/1 Ml Insuln.pen 8 Unit SQ BIDACBL Metoprolol Succinate ( Xl ) (Metoprolol Succinate) 100 Mg Tab.er.24h 1 Tab PO DAILY Calcium Citrate 100 Gm Powder 100 Gm MC Simvastatin 80 Mg Tablet 1 Tab PO DAILY Potassium Chloride 20 Meq Tab.er.prt 1 Tab PO BID Omeprazole 20 Mg Tablet.dr 1 Tab PO DAILY Amlodipine Besylate 5 Mg Tablet 1 Tab PO DAILY Furosemide 40 Mg Tablet 1 Tab PO DAILY Losartan Potassium 50 Mg Tablet 1 Tab PO DAILY Aspirin 325 Mg Tablet 1 Tab PO DAILY Vitals/I & O Vital Sign - Last 24 Hours 04/10/18 04/10/18 04/10/18 04/10/18 12:37 15:00 17:03 19:00 Temp 96.1 97.5 96.1 97.5 Pulse 77 78 Resp 18 B/P (MAP) 107/75 (86) 100/38 (58) Pulse Ox 99 98 100 O2 Delivery Nasal Cannula Nasal Cannula Nasal Cannula Nasal Cannula O2 Flow Rate 6.0 6.0 5.0 6.0 04/10/18 04/10/18 04/10/18 04/11/18 20:00 20:35 23:00 03:00 Temp 97.1 97.6 97.1 97.6 Pulse 78 75 Resp 17 18 B/P (MAP) 112/62 (79) 106/61 (76) Pulse Ox 97 98 96 O2 Delivery Nasal Cannula Nasal Cannula Nasal Cannula Nasal Cannula O2 Flow Rate 6.0 5.0 6.0 6.0 04/11/18 04/11/18 04/11/18 04/11/18 07:00 08:03 11:00 11:08 Temp 97.3 96.1 97.3 96.1 Pulse 75 86 Resp 18 18 B/P (MAP) 119/67 (84) 99/61 (74) Pulse Ox 95 92 96 98 O2 Delivery Nasal Cannula Nasal Cannula Nasal Cannula Nasal Cannula O2 Flow Rate 6.0 5.0 6.0 5.0 Intake and Output 04/10/18 04/10/18 04/11/18 15:00 23:00 07:00 Intake Total 180 ml 740 ml Balance 180 ml 740 ml TAYLOR MCMANUS MD Apr 11, 2018 12:16
[2018-04-11] MEDS: ASPIRIN 325 MG TABLET PO SCH (12:33)
[2018-04-11] MEDS: POTASSIUM CHLORIDE 20 MEQ TABLET.ER. PO SCH ×2 (12:33→21:37)
[2018-04-11] MEDS: FUROSEMIDE 100 MG/10 ML VIAL. IVP SCH (12:34)
[2018-04-11 15:00] VITALS: BP 112/77
[2018-04-11 15:21] LABS: BILIRUBIN,URINE NEGATIVE (NEG); CLARITY,URINE CLEAR; COLOR,URINE YELLOW; NITRITE,URINE NEGATIVE (NEG); PH,URINE 5.5; PROTEIN,URINE NEGATIVE (NEG-TRACE); UROBILINOGEN,URINE 0.2 mg/dL (0.2 mg/dL)
[2018-04-11 15:30] LABS: BACTERIA,URINE FEW /HPF (0-FEW); HYALINE CASTS, URINE MANY /HPF; RBC,URINE 0 /HPF (0-2); SQUAMOUS EPITHELIAL CELL,UR MOD /LPF
[2018-04-11 15:31] LABS: YEAST,URINE PRESENT /HPF
[2018-04-11 19:00] VITALS: BP 111/67
[2018-04-11] MEDS: ATORVASTATIN CALCIUM 40 MG TABLET. PO SCH (21:00)
[2018-04-11] MEDS ORDERED: FLUCONAZOLE 100 MG TABLET. PO ONE (21:00)
[2018-04-11] MEDS: ENOXAPARIN 30 MG/0.3 ML SYRINGE. SQ SCH (21:38)
[2018-04-11] MEDS: INSULIN GLARGINE 300 UNITS/3 ML INSULN.PEN. SQ SCH (21:44)
[2018-04-11] MEDS: SILDENAFIL CITRATE 20 MG TABLET. PO SCH (22:23)
[2018-04-11] MEDS ORDERED: LATANOPROST 0.005% OPHTH SOLUTION 2.5ML BOTTLE. OU SCH (22:30)
[2018-04-11] MEDS: DORZOLAMIDE 2% OPHTH SOLUTION 10ML BOTTLE. OU SCH (22:41)
[2018-04-11] MEDS: CLOTRIMAZOLE 1% VAGINAL CREAM 45GM TUBE. VG SCH (22:42)
[2018-04-11 23:05] VITALS: BP 110/75
[2018-04-12 03:17] VITALS: BP 114/70
[2018-04-12 07:00] VITALS: BP 118/71
[2018-04-12] MEDS: IPRATRPIUM/ALBUTEROL 0.5/2.5MG 3 ML NEBU. NEB SCH ×2 (07:35→11:27)
[2018-04-12] MEDS ORDERED: CALCIUM CARB/VIT D3 500/200 TABLET. PO SCH (08:00)
--- NOTE | 2018-04-12 08:11 | RAD ---
Portable chest, 04/12/2018: HISTORY: Congestive heart failure Comparison is made to a study from 04/09/2018. Cardiomegaly has diminished. There is calcific plaquing of the aorta. The pulmonary vascularity remains mildly prominent. No pulmonary consolidation is seen. There is no evidence of pleural fluid. No new abnormality is detected. IMPRESSION: Ongoing borderline vascular congestion. Electronically signed by: Josue Tyson MD (04/12/2018 8:08 AM) [facility]
[2018-04-12] MEDS: PANTOPRAZOLE 40 MG TABLET.DR. PO SCH (08:47)
[2018-04-12] MEDS: FUROSEMIDE 100 MG/10 ML VIAL. IVP SCH ×2 (08:52→10:30)
[2018-04-12] MEDS: DORZOLAMIDE 2% OPHTH SOLUTION 10ML BOTTLE. OU SCH ×2 (08:53→14:24)
[2018-04-12] MEDS: ASPIRIN 325 MG TABLET PO SCH (08:54)
[2018-04-12] MEDS: LOSARTAN POTASSIUM 50 MG TABLET. PO SCH (08:55)
[2018-04-12] MEDS: POTASSIUM CHLORIDE 20 MEQ TABLET.ER. PO SCH (08:56)
[2018-04-12] MEDS: amLODIPine BESYLATE 5 MG TABLET PO SCH (08:57)
[2018-04-12] MEDS: SILDENAFIL CITRATE 20 MG TABLET. PO SCH ×2 (08:58→14:23)
[2018-04-12] MEDS: CLOTRIMAZOLE 1% VAGINAL CREAM 45GM TUBE. VG SCH (08:59)
[2018-04-12] MEDS: METOPROLOL SUCC 24HR ER 100 MG TAB.ER.24H. PO SCH (08:59)
[2018-04-12] MEDS ORDERED: FERROUS SULFATE 325 MG TABLET. PO SCH (09:00)
[2018-04-12] MEDS ORDERED: acetaZOLAMIDE 250 MG TABLET. PO SCH (09:00)
[2018-04-12] MEDS ORDERED: SPIRONOLACTONE 25 MG TABLET PO SCH (09:00)
[2018-04-12] MEDS ORDERED: predniSONE 10 MG TABLET PO SCH (09:00)
[2018-04-12] MEDS ORDERED: BUMETANIDE 1 MG TABLET. PO SCH (09:00)
[2018-04-12] MEDS ORDERED: POLYETHYLENE GLYCOL 3350 17 GM PACKET. PO SCH (09:00)
[2018-04-12] MEDS ORDERED: metOLazone 2.5 MG TABLET PO SCH (09:00)
[2018-04-12] MEDS: INSULIN LISPRO 300 UNITS/3 ML INSULN.PEN. SQ SCH (09:09)
[2018-04-12 10:44] LABS: BASO % 0 % (0-3); EOS # 0.1 x10^3/uL (0.0-0.7); EOS % 1 % (0-3); HEMATOCRIT 44.6 % (36.0-47.0); HEMOGLOBIN 13.6 g/dL (12.0-15.5); LYMPH # 0.5 x10^3/uL (1.0-4.8); LYMPH % 5 % (24-48); MEAN CORPUSCULAR HEMOGLOBIN 26 pg (25-35); MEAN CORPUSCULAR HGB CONC 31 g/dL (31-37); MEAN CORPUSCULAR VOLUME 85 fL (79-100); MONO # 0.6 x10^3/uL (0.0-1.1); MONO % 6 % (0-9); NEUT # 9.3 x10^3uL (1.8-7.7); NEUT % 88 % (31-73); PLATELET COUNT 179 x10^3/uL (140-400); RED BLOOD COUNT 5.23 x10^6/uL (3.50-5.40); RED CELL DISTRIBUTION WIDTH 17.6 % (11.5-14.5); WHITE BLOOD COUNT 10.5 x10^3/uL (4.0-11.0)
[2018-04-12 11:00] VITALS: BP 93/49
[2018-04-12 11:01] LABS: ALBUMIN 2.4 g/dL (3.4-5.0); ALBUMIN/GLOBULIN RATIO 0.6 (1.0-1.7); CALCIUM 8.9 mg/dL (8.5-10.1); CREATININE 1.4 mg/dL (0.6-1.0); GFR 44.2; POTASSIUM 3.6 mmol/L (3.5-5.1); TOTAL BILIRUBIN 0.3 mg/dL (0.2-1.0); TOTAL PROTEIN 6.6 g/dL (6.4-8.2)
--- NOTE | 2018-04-12 11:20 | PDOC ---
PULMONARY PROGRESS NOTES Subjective feels better down to 4.5 litres of oxygen Vitals Vital Signs Date Time Temp Pulse Resp B/P (MAP) Pulse Ox O2 Delivery O2 Flow Rate FiO2 04/12/18 08:59 91 118/71 04/12/18 07:36 94 Nasal Cannula 4.5 04/12/18 07:00 97.5 18 97.5 ROS: No Chest Pain, No Increase Cough General: Alert, No acute distress Lungs: Clear Cardiovascular: S1 Abdomen: Soft Neuro Exam: Alert Extremities: Other (2+edema) Labs Laboratory Tests Test 04/10/18 16:42 04/10/18 18:42 04/10/18 20:46 04/10/18 22:29 Glucose (Fingerstick) 503 mg/dL (70-99) 557 mg/dL (70-99) 564 mg/dL (70-99) 451 mg/dL (70-99) Test 04/11/18 00:03 04/11/18 04:28 04/11/18 08:17 04/11/18 11:31 Glucose (Fingerstick) 406 mg/dL (70-99) 106 mg/dL (70-99) 197 mg/dL (70-99) Urine Collection Type Unknown Urine Color Yellow Urine Clarity Clear Urine pH 5.5 Urine Specific [place] 1.020 Urine Protein Negative mg/dL (NEG-TRACE) Urine Glucose (UA) >=1000 mg/dL (NEG) Urine Ketones (Stick) Negative mg/dL (NEG) Urine Blood Negative (NEG) Urine Nitrite Negative (NEG) Urine Bilirubin Negative (NEG) Urine Urobilinogen Dipstick 0.2 mg/dL (0.2 mg/dL) Urine Leukocyte Esterase Negative (NEG) Urine RBC 1-2 /HPF (0-2) Urine WBC 1-4 /HPF (0-4) Urine Squamous Epithelial Cells Few /LPF Urine Bacteria Few /HPF (0-FEW) Urine Hyaline Casts Moderate /HPF Urine Mucus Mod /LPF Urine Yeast Present /HPF Test 04/11/18 15:15 04/11/18 16:46 04/11/18 20:28 04/12/18 07:48 Urine Collection Type Unknown Urine Color Yellow Urine Clarity Clear Urine pH 5.5 Urine Specific [place] 1.015 Urine Protein Negative mg/dL (NEG-TRACE) Urine Glucose (UA) 100 mg/dL (NEG) Urine Ketones (Stick) Negative mg/dL (NEG) Urine Blood Negative (NEG) Urine Nitrite Negative (NEG) Urine Bilirubin Negative (NEG) Urine Urobilinogen Dipstick 0.2 mg/dL (0.2 mg/dL) Urine Leukocyte Esterase Negative (NEG) Urine RBC 0 /HPF (0-2) Urine WBC 5-10 /HPF (0-4) Urine Squamous Epithelial Cells Mod /LPF Urine Bacteria Few /HPF (0-FEW) Urine Hyaline Casts Many /HPF Urine Mucus Mod /LPF Urine Yeast Present /HPF Glucose (Fingerstick) 254 mg/dL (70-99) 243 mg/dL (70-99) 242 mg/dL (70-99) Test 04/12/18 10:15 White Blood Count 10.5 x10^3/uL (4.0-11.0) Red Blood Count 5.23 x10^6/uL (3.50-5.40) Hemoglobin 13.6 g/dL (12.0-15.5) Hematocrit 44.6 % (36.0-47.0) Mean Corpuscular Volume 85 fL (79-100) Mean Corpuscular Hemoglobin 26 pg (25-35) Mean Corpuscular Hemoglobin Concent 31 g/dL (31-37) Red Cell Distribution Width 17.6 % (11.5-14.5) Platelet Count 179 x10^3/uL (140-400) Neutrophils (%) (Auto) 88 % (31-73) Lymphocytes (%) (Auto) 5 % (24-48) Monocytes (%) (Auto) 6 % (0-9) Eosinophils (%) (Auto) 1 % (0-3) Basophils (%) (Auto) 0 % (0-3) Neutrophils # (Auto) 9.3 x10^3uL (1.8-7.7) Lymphocytes # (Auto) 0.5 x10^3/uL (1.0-4.8) Monocytes # (Auto) 0.6 x10^3/uL (0.0-1.1) Eosinophils # (Auto) 0.1 x10^3/uL (0.0-0.7) Basophils # (Auto) 0.0 x10^3/uL (0.0-0.2) Sodium Level 141 mmol/L (136-145) Potassium Level 3.6 mmol/L (3.5-5.1) Chloride Level 105 mmol/L (98-107) Carbon Dioxide Level 26 mmol/L (21-32) Anion Gap 10 (6-14) Blood Urea Nitrogen 36 mg/dL (7-20) Creatinine 1.4 mg/dL (0.6-1.0) Estimated GFR (Cockcroft-Gault) 44.2 BUN/Creatinine Ratio 26 (6-20) Glucose Level 308 mg/dL (70-99) Calcium Level 8.9 mg/dL (8.5-10.1) Total Bilirubin 0.3 mg/dL (0.2-1.0) Aspartate Amino Transf (AST/SGOT) 19 U/L (15-37) Alanine Aminotransferase (ALT/SGPT) 39 U/L (14-59) Alkaline Phosphatase 82 U/L (46-116) Total Protein 6.6 g/dL (6.4-8.2) Albumin 2.4 g/dL (3.4-5.0) Albumin/Globulin Ratio 0.6 (1.0-1.7) Laboratory Tests Test 04/11/18 11:31 04/11/18 15:15 04/11/18 16:46 04/11/18 20:28 Glucose (Fingerstick) 197 mg/dL (70-99) 254 mg/dL (70-99) 243 mg/dL (70-99) Urine Collection Type Unknown Urine Color Yellow Urine Clarity Clear Urine pH 5.5 Urine Specific [place] 1.015 Urine Protein Negative mg/dL (NEG-TRACE) Urine Glucose (UA) 100 mg/dL (NEG) Urine Ketones (Stick) Negative mg/dL (NEG) Urine Blood Negative (NEG) Urine Nitrite Negative (NEG) Urine Bilirubin Negative (NEG) Urine Urobilinogen Dipstick 0.2 mg/dL (0.2 mg/dL) Urine Leukocyte Esterase Negative (NEG) Urine RBC 0 /HPF (0-2) Urine WBC 5-10 /HPF (0-4) Urine Squamous Epithelial Cells Mod /LPF Urine Bacteria Few /HPF (0-FEW) Urine Hyaline Casts Many /HPF Urine Mucus Mod /LPF Urine Yeast Present /HPF Test 04/12/18 07:48 04/12/18 10:15 Glucose (Fingerstick) 242 mg/dL (70-99) White Blood Count 10.5 x10^3/uL (4.0-11.0) Red Blood Count 5.23 x10^6/uL (3.50-5.40) Hemoglobin 13.6 g/dL (12.0-15.5) Hematocrit 44.6 % (36.0-47.0) Mean Corpuscular Volume 85 fL (79-100) Mean Corpuscular Hemoglobin 26 pg (25-35) Mean Corpuscular Hemoglobin Concent 31 g/dL (31-37) Red Cell Distribution Width 17.6 % (11.5-14.5) Platelet Count 179 x10^3/uL (140-400) Neutrophils (%) (Auto) 88 % (31-73) Lymphocytes (%) (Auto) 5 % (24-48) Monocytes (%) (Auto) 6 % (0-9) Eosinophils (%) (Auto) 1 % (0-3) Basophils (%) (Auto) 0 % (0-3) Neutrophils # (Auto) 9.3 x10^3uL (1.8-7.7) Lymphocytes # (Auto) 0.5 x10^3/uL (1.0-4.8) Monocytes # (Auto) 0.6 x10^3/uL (0.0-1.1) Eosinophils # (Auto) 0.1 x10^3/uL (0.0-0.7) Basophils # (Auto) 0.0 x10^3/uL (0.0-0.2) Sodium Level 141 mmol/L (136-145) Potassium Level 3.6 mmol/L (3.5-5.1) Chloride Level 105 mmol/L (98-107) Carbon Dioxide Level 26 mmol/L (21-32) Anion Gap 10 (6-14) Blood Urea Nitrogen 36 mg/dL (7-20) Creatinine 1.4 mg/dL (0.6-1.0) Estimated GFR (Cockcroft-Gault) 44.2 BUN/Creatinine Ratio 26 (6-20) Glucose Level 308 mg/dL (70-99) Calcium Level 8.9 mg/dL (8.5-10.1) Total Bilirubin 0.3 mg/dL (0.2-1.0) Aspartate Amino Transf (AST/SGOT) 19 U/L (15-37) Alanine Aminotransferase (ALT/SGPT) 39 U/L (14-59) Alkaline Phosphatase 82 U/L (46-116) Total Protein 6.6 g/dL (6.4-8.2) Albumin 2.4 g/dL (3.4-5.0) Albumin/Globulin Ratio 0.6 (1.0-1.7) Medications Active Scripts Medications Dose Route/Sig Max Daily Dose Days Date Category Dose Instructions Klor-Con M20 (Potassium Chloride) 20 Meq Tab.er.prt 20 Meq PO DAILY 04/09/18 Reported Acetazolamide 250 Mg Tablet 04/09/18 Reported unknown dosage Prednisone (Prednisone) 10 Mg Tablet 10 Mg PO DAILY 04/09/18 Reported Furosemide 20 Mg Tablet 04/09/18 Reported unknown dosage Sildenafil (Sildenafil Citrate) 20 Mg Tablet 04/09/18 Reported unknown dosage Metformin Hcl 500 Mg Tablet 04/09/18 Reported unknown dosage Ferrous Sulfate 325 Mg Tablet 04/09/18 Reported unknown dosage Bumetanide 1 Mg Tablet 04/09/18 Reported unknown dosage Metolazone 2.5 Mg Tablet 2.5 Mg PO BID 04/09/18 Reported Spironolactone 25 Mg Tablet 25 Mg PO DAILY 04/09/18 Reported Lantus Solostar (Insulin Glargine,Hum.rec.anlog) 100 Unit/1 Ml Insuln.pen 38 Unit SQ QHS 04/09/18 Reported Novolog Flexpen (Insulin Aspart) 100 Unit/1 Ml Insuln.pen 8 Unit SQ BIDACBL 04/09/18 Reported Metoprolol Succinate ( Xl ) (Metoprolol Succinate) 100 Mg Tab.er.24h 1 Tab PO DAILY 02/14/15 Reported Calcium Citrate 100 Gm Powder 100 Gm MC 02/14/15 Reported Simvastatin 80 Mg Tablet 1 Tab PO DAILY 02/14/15 Reported Potassium Chloride 20 Meq Tab.er.prt 1 Tab PO BID 02/14/15 Reported Omeprazole 20 Mg Tablet.dr 1 Tab PO DAILY 02/14/15 Reported Amlodipine Besylate 5 Mg Tablet 1 Tab PO DAILY 02/14/15 Reported Furosemide 40 Mg Tablet 1 Tab PO DAILY 02/14/15 Reported Losartan Potassium 50 Mg Tablet 1 Tab PO DAILY 02/14/15 Reported Aspirin 325 Mg Tablet 1 Tab PO DAILY 02/14/15 Reported Impression . 1. Dyspnea secondary to acute interstitial edema./ right heart failure 2. The patient with chronic hypoxic respiratory failure. She states she stays at 6 liters of oxygen at home. Etiology secondary to combination of chronic obstructive pulmonary disease and right sided heart failure. 3. Abnormal chest x-ray with cardiomegaly and interstitial edema. 4. Chronic kidney disease with possible an acute component. 5. Echo with severe pulmonary hypertension (PA110). Pt being followed at pulmonary clinic and is on revatio Plan . 1. Continue diuresis while monitoring renal function closely.change to PO 2. Follow up chest x-ray post-diuresis UNCHANGED 3. echocardiogram reviewed 4. Continue bronchodilators. 5. Gradually wean oxygen. ( on home o2 at 6 litres, down to 4.5 litres) 6. PFTs as an outpatient. 7. Discussed with DR GARCIA. can go home and f/u with pulmonary hypertension clinic. AMITA RIGGS MD Apr 12, 2018 11:20
--- NOTE | 2018-04-12 11:22 | PDOC ---
CARDIO Progress Notes Date and Time Date of Service 04/12/18 Time of Evaluation 1115 Subjective Subjective: No Chest Pain, No Palpitations, No Dizziness, Other (LE edema) Vitals Vitals Vital Signs Date Time Temp Pulse Resp B/P (MAP) Pulse Ox O2 Delivery O2 Flow Rate FiO2 04/12/18 08:59 91 118/71 04/12/18 07:36 94 Nasal Cannula 4.5 04/12/18 07:00 97.5 18 97.5 Weight Weight [ ] Input and Output Intake and Output Intake and Output 04/12/18 07:00 Intake Total 440 ml Output Total 300 ml Balance 140 ml Intake Oral 440 ml Output Urine Total 300 ml # Voids 2 # Bowel Movements 1 Laboratory Labs Laboratory Tests Test 04/11/18 11:31 04/11/18 15:15 04/11/18 16:46 04/11/18 20:28 Glucose (Fingerstick) 197 mg/dL (70-99) 254 mg/dL (70-99) 243 mg/dL (70-99) Urine Collection Type Unknown Urine Color Yellow Urine Clarity Clear Urine pH 5.5 Urine Specific Pound 1.015 Urine Protein Negative mg/dL (NEG-TRACE) Urine Glucose (UA) 100 mg/dL (NEG) Urine Ketones (Stick) Negative mg/dL (NEG) Urine Blood Negative (NEG) Urine Nitrite Negative (NEG) Urine Bilirubin Negative (NEG) Urine Urobilinogen Dipstick 0.2 mg/dL (0.2 mg/dL) Urine Leukocyte Esterase Negative (NEG) Urine RBC 0 /HPF (0-2) Urine WBC 5-10 /HPF (0-4) Urine Squamous Epithelial Cells Mod /LPF Urine Bacteria Few /HPF (0-FEW) Urine Hyaline Casts Many /HPF Urine Mucus Mod /LPF Urine Yeast Present /HPF Test 04/12/18 07:48 04/12/18 10:15 Glucose (Fingerstick) 242 mg/dL (70-99) White Blood Count 10.5 x10^3/uL (4.0-11.0) Red Blood Count 5.23 x10^6/uL (3.50-5.40) Hemoglobin 13.6 g/dL (12.0-15.5) Hematocrit 44.6 % (36.0-47.0) Mean Corpuscular Volume 85 fL (79-100) Mean Corpuscular Hemoglobin 26 pg (25-35) Mean Corpuscular Hemoglobin Concent 31 g/dL (31-37) Red Cell Distribution Width 17.6 % (11.5-14.5) Platelet Count 179 x10^3/uL (140-400) Neutrophils (%) (Auto) 88 % (31-73) Lymphocytes (%) (Auto) 5 % (24-48) Monocytes (%) (Auto) 6 % (0-9) Eosinophils (%) (Auto) 1 % (0-3) Basophils (%) (Auto) 0 % (0-3) Neutrophils # (Auto) 9.3 x10^3uL (1.8-7.7) Lymphocytes # (Auto) 0.5 x10^3/uL (1.0-4.8) Monocytes # (Auto) 0.6 x10^3/uL (0.0-1.1) Eosinophils # (Auto) 0.1 x10^3/uL (0.0-0.7) Basophils # (Auto) 0.0 x10^3/uL (0.0-0.2) Sodium Level 141 mmol/L (136-145) Potassium Level 3.6 mmol/L (3.5-5.1) Chloride Level 105 mmol/L (98-107) Carbon Dioxide Level 26 mmol/L (21-32) Anion Gap 10 (6-14) Blood Urea Nitrogen 36 mg/dL (7-20) Creatinine 1.4 mg/dL (0.6-1.0) Estimated GFR (Cockcroft-Gault) 44.2 BUN/Creatinine Ratio 26 (6-20) Glucose Level 308 mg/dL (70-99) Calcium Level 8.9 mg/dL (8.5-10.1) Total Bilirubin 0.3 mg/dL (0.2-1.0) Aspartate Amino Transf (AST/SGOT) 19 U/L (15-37) Alanine Aminotransferase (ALT/SGPT) 39 U/L (14-59) Alkaline Phosphatase 82 U/L (46-116) Total Protein 6.6 g/dL (6.4-8.2) Albumin 2.4 g/dL (3.4-5.0) Albumin/Globulin Ratio 0.6 (1.0-1.7) Microbiology Micro Microbiology 04/09/18 Blood Culture - Preliminary, Resulted NO GROWTH AFTER 2 DAYS Physical Exam HEENT: Neck Supple W Full Motion Chest: Symmetric LUNGS: Clear to Auscultation Heart: S1S2, RRR, other (tele: SR) Abdomen: Soft N/T Extremities: Other (1+ in feet; trace edema in legs) Neurology: alert, oriented, follow commands Assessment Assessment 1. acute on chronic diastolic heart failure with right side systolic failure --LVEF 55% --resume home diuretics/dosing --agreeable with discharge; f/u with [facility] in < 2 weeks 2. pulmonary hypertension, severe --home rx for sildenafil; recommend continuation --RVSP = 110 3. COPD with LARY/CPAP --per pulm --mobilize pt 4. HTN --controlled 5. HLD --continue statins 6. morbid obesity --albumin level 2.7 7. CKD 8. DM, II HI CONTRERAS APRN Apr 12, 2018 11:22
--- NOTE | 2018-04-12 11:47 | DISCH ---
DISCHARGE WITH HOME HEALTH DISCHARGE INFORMATION: Discharge Date: Apr 12, 2018 Final Diagnosis: Problems Medical Problems: (1) Hypoxia Status: Acute (2) Pneumonia Status: Acute Condition on Discharge: Stable CODE STATUS: Code Status: Full HOME HEALTH: Face to Face: I certify this patient is under my care and that I, or a nurse practitioner or physician's night assistant working with me, had a face to face encounter that meets the physician face to face encounter requirements with this patient on []. Medical Complications: CHF Physical Therapy For: Evalulation/Treatment Occupational Therapy For: Evaluation/Treatment Home Health Aide For: Self-care Pt Meets Homebound Status: Unsteady balance w/ amb, POST DISCHARGE ORDERS: Activity Instructions for Disc: Activity as tolerated Weight Bearing Status after Di: As tolerated DIET AFTER DISCHARGE: Cardiac TREATMENT/EQUIPMENT ORDERS: Adaptive Equipment Issued: Brace/splint, Walker Discharge Respiratory Equipmen: Oxygen CERTIFICATION STATEMENT: Certification Statement: Certification Statement: Based on the above finding, I certify that this patient is confined to the home and needs intermittent snf care, physical therapy and/or speech therapy, or continues to need occupational therapy.~ This patient is under my care, and I have initiated the establishment of the plan of care.~ This patient will be followed by myself or a community physician who will periodically review the plan of care. Home Meds Reported Medications Acetazolamide (ACETAZOLAMIDE) 250 Mg Tablet unknown dosage 04/09/18 Prednisone (PREDNISONE ) 10 Mg Tablet, 10 MG PO DAILY 04/09/18 Sildenafil Citrate (SILDENAFIL) 20 Mg Tablet unknown dosage 04/09/18 Ferrous Sulfate (FERROUS SULFATE) 325 Mg Tablet unknown dosage 04/09/18 Bumetanide (BUMETANIDE) 1 Mg Tablet unknown dosage 04/09/18 Metolazone (METOLAZONE) 2.5 Mg Tablet, 2.5 MG PO BID 04/09/18 Spironolactone (SPIRONOLACTONE) 25 Mg Tablet, 25 MG PO DAILY 04/09/18 Insulin Glargine,Hum.rec.anlog (LANTUS SOLOSTAR) 100 Unit/1 Ml Insuln.pen, 38 UNIT SQ QHS, #15 ML 3 Refills 04/09/18 Insulin Aspart (NOVOLOG FLEXPEN) 100 Unit/1 Ml Insuln.pen, 8 UNIT SQ BIDACBL, SYR 04/09/18 Metoprolol Succinate (METOPROLOL SUCCINATE ( XL )) 100 Mg Tab.er.24h, 1 TAB PO DAILY, #30 TAB 5 Refills 02/14/15 Calcium Citrate (CALCIUM CITRATE) 100 Gm Powder, 100 GM MC 02/14/15 Simvastatin (SIMVASTATIN) 80 Mg Tablet, 1 TAB PO DAILY, #30 TAB 5 Refills 02/14/15 Potassium Chloride (POTASSIUM CHLORIDE) 20 Meq Tab.er.prt, 1 TAB PO BID, #180 TAB 3 Refills 02/14/15 Omeprazole (OMEPRAZOLE) 20 Mg Tablet.dr, 1 TAB PO DAILY, #90 TAB 1 Refill 02/14/15 Amlodipine Besylate (AMLODIPINE BESYLATE) 5 Mg Tablet, 1 TAB PO DAILY, #30 TAB 5 Refills 02/14/15 Losartan Potassium (LOSARTAN POTASSIUM) 50 Mg Tablet, 1 TAB PO DAILY, #30 TAB 5 Refills 02/14/15 Aspirin (ASPIRIN) 325 Mg Tablet, 1 TAB PO DAILY, #30 TAB 5 Refills 02/14/15 Discontinued Reported Medications Potassium Chloride (KLOR-CON M20) 20 Meq Tab.er.prt, 20 MEQ PO DAILY 04/09/18 Furosemide (FUROSEMIDE) 20 Mg Tablet unknown dosage 04/09/18 Metformin Hcl (METFORMIN HCL) 500 Mg Tablet unknown dosage 04/09/18 Furosemide (FUROSEMIDE) 40 Mg Tablet, 1 TAB PO DAILY, #30 TAB 5 Refills 02/14/15 Insulin Lispro (HUMALOG) 100 Unit/1 Ml Cartridge, 15 UNIT SQ TIDAC, EACH 02/14/15 Insulin Detemir (LEVEMIR) 100 Unit/1 Ml Vial, 54 UNIT SQ QHS, VIAL 02/14/15 JOAQUIN SHELBY MD Apr 12, 2018 11:47
--- NOTE | 2018-04-12 11:51 | PDOC3 ---
Discharge Summary [facility] Date of Admission: Apr 09, 2018 Discharge Date: Apr 12, 2018 Admitting Diagnosis . Acute on chronic hypoxic resp failure with acute on chronic diastolic CHF exacerbation, EF 55%, severe PHTN 2. morbid obesity 3. remote tobacco abuse 4. diabetes, IDDM 5. Severe hypokalemia 6. ckd stage 3 7. pulm edema/ chf COPD SIS, vasomotor on ckd3 Final Diagnosis CONSULTS pulm card Brief Hospital Course Ms. Retana is a 77 old F. with chf, copd, severe PHTN, on home o2 6L, came for sob, bl leg 3+ edema. improved with high dose iv lasix. now on NC 4.5L. feels better. stable to dc home with HH, card agreed to cont home diuretics, bumex , aldactone and metolazone. dc time 35min. General: Cooperative, No acute distress, Heart: Normal S1, Normal S2 Lungs: bl mild crackles Abdomen: Soft, Other (obese abdomen) Extremities: bl leg 2+ pitting edema Skin: No rashes Patient History: Family history: Diabetes mellitus (situation) G8 BROTHER G8 BROTHER G8 BROTHER G8 BROTHER G8 BROTHER G8 BROTHER G8 BROTHER 33 FATHER 32 MOTHER G8 SISTER G8 SISTER G8 SISTER G8 SISTER G8 SISTER G8 SISTER Family history: Hypertension (situation) G8 BROTHER G8 BROTHER 33 FATHER Glaucoma 32 MOTHER Disposition CONDITION AT DISCHARGE: Improved Scheduled Amlodipine Besylate (Amlodipine Besylate), 1 TAB PO DAILY, (Reported) Aspirin (Aspirin), 1 TAB PO DAILY, (Reported) Insulin Aspart (Novolog Flexpen), 8 UNIT SQ BIDACBL, (Reported) Insulin Glargine,Hum.rec.anlog (Lantus Solostar), 38 UNIT SQ QHS, (Reported) Losartan Potassium (Losartan Potassium), 1 TAB PO DAILY, (Reported) Metolazone (Metolazone), 2.5 MG PO BID, (Reported) Metoprolol Succinate (Metoprolol Succinate ( Xl )), 1 TAB PO DAILY, (Reported) Omeprazole (Omeprazole), 1 TAB PO DAILY, (Reported) Potassium Chloride (Potassium Chloride), 1 TAB PO BID, (Reported) Prednisone (Prednisone ), 10 MG PO DAILY, (Reported) Simvastatin (Simvastatin), 1 TAB PO DAILY, (Reported) Spironolactone (Spironolactone), 25 MG PO DAILY, (Reported) Miscellaneous Medications Acetazolamide (Acetazolamide), (Reported) Bumetanide (Bumetanide), (Reported) Calcium Citrate (Calcium Citrate), 100 GM MC, (Reported) Ferrous Sulfate (Ferrous Sulfate), (Reported) Sildenafil Citrate (Sildenafil), (Reported) Discontinued Medications Furosemide (Furosemide), 1 TAB PO DAILY, (Reported) Furosemide (Furosemide), (Reported) Insulin Detemir (Levemir), 54 UNIT SQ QHS, (Reported) Insulin Lispro (Humalog), 15 UNIT SQ TIDAC, (Reported) Metformin Hcl (Metformin Hcl), (Reported) Potassium Chloride (Klor-Con M20), 20 MEQ PO DAILY, (Reported) JOAQUIN SHELBY MD Apr 12, 2018 11:51
--- NOTE | 2018-04-12 14:18 | PHYS DOC ---
Past Medical History Past Medical History: Diabetes-Type II, GERD, High Cholesterol, Hypertension, UTI Additional Past Medical Histor: pulmonary hypertension, restrictive lung disease, fall, resp failure, catar Past Surgical History: No Surgical History Additional Past Surgical Histo: cataract surgery Alcohol Use: None Drug Use: None Adult General Chief Complaint Chief Complaint: DYSPNEA/RESPIRATOY DISTRESS HPI HPI Patient is a 77 year old female who presents with respiratory distress. The patient was recently treated at for respiratory failure and was just discharged yesterday. She states that she has been taking her prescriptions as prescribed. She got very short of breath today and felt like she needed to be treated again. She denies fever but she has had fatigue and weakness. Review of Systems Review of Systems Constitutional: Denies fever or chills [] Eyes: Denies change in visual acuity, redness, or eye pain [] HENT: Denies nasal congestion or sore throat [] Respiratory: see HPI Cardiovascular: No additional information not addressed in HPI [] GI: Denies abdominal pain, nausea, vomiting, bloody stools or diarrhea [] : Denies dysuria or hematuria [] Musculoskeletal: Denies back pain or joint pain [] Integument: Denies rash or skin lesions [] Neurologic: Denies headache, focal weakness or sensory changes [] Endocrine: Denies polyuria or polydipsia [] All other systems were reviewed and found to be within normal limits, except as documented in this note. Current Medications Current Medications Current Medications Medications (Trade) Dose Ordered Sig/Luna Start Time Stop Time Status Last Admin Dose Admin Albuterol/ Ipratropium (Duoneb) 3 ml 1X ONCE 04/09/18 17:00 04/09/18 17:01 DC 04/09/18 17:03 3 ML Physical Exam Physical Exam Constitutional: Well developed, well nourished, no acute distress, non-toxic appearance. [] HENT: Normocephalic, atraumatic, bilateral external ears normal, oropharynx moist, no oral exudates, nose normal. [] Eyes: PERRLA, EOMI, conjunctiva normal, no discharge. [] Neck: Normal range of motion, no tenderness, supple, no stridor. [] Cardiovascular:Heart rate regular rhythm, no murmur [] Lungs & Thorax: Bilateral breath sounds are diminished throughout Abdomen: Bowel sounds normal, soft, no tenderness, no masses, no pulsatile masses. [] Skin: Warm, dry, no erythema, no rash. [] Back: No tenderness, no CVA tenderness. [] Extremities: No tenderness, no cyanosis, no clubbing, ROM intact, no edema. [] Neurologic: Alert and oriented X 3, normal motor function, normal sensory function, no focal deficits noted. [] Psychologic: Affect normal, judgement normal, mood normal. [] Current Patient Data Vital Signs Vital Signs Date Time Temp Pulse Resp B/P (MAP) Pulse Ox O2 Delivery O2 Flow Rate FiO2 04/09/18 17:03 95 Nasal Cannula 6.0 04/09/18 17:02 84 18 100/54 (69) 04/09/18 16:22 99.0 99.0 Lab Values Laboratory Tests Test 04/09/18 17:05 04/09/18 17:06 O2 Saturation 93 % (92-99) Arterial Blood pH 7.49 (7.35-7.45) H Arterial Blood pCO2 at Patient Temp 42 mmHg (35-46) Arterial Blood pO2 at Patient Temp 67 mmHg (65-108) Arterial Blood HCO3 31 mmol/L (21-28) H Arterial Blood Base Excess 7 mmol/L (-3-3) H FiO2 44 BN-Jxi-[id number]-Type Natriuretic Peptide 31461 pg/mL (0-449) H White Blood Count 15.7 x10^3/uL (4.0-11.0) H Red Blood Count 5.53 x10^6/uL (3.50-5.40) H Hemoglobin 14.5 g/dL (12.0-15.5) Hematocrit 46.3 % (36.0-47.0) Mean Corpuscular Volume 84 fL (79-100) Mean Corpuscular Hemoglobin 26 pg (25-35) Mean Corpuscular Hemoglobin Concent 31 g/dL (31-37) Red Cell Distribution Width 17.8 % (11.5-14.5) H Platelet Count 206 x10^3/uL (140-400) Neutrophils (%) (Auto) 89 % (31-73) H Lymphocytes (%) (Auto) 4 % (24-48) L Monocytes (%) (Auto) 6 % (0-9) Eosinophils (%) (Auto) 1 % (0-3) Basophils (%) (Auto) 0 % (0-3) Neutrophils # (Auto) 14.0 x10^3uL (1.8-7.7) H Lymphocytes # (Auto) 0.6 x10^3/uL (1.0-4.8) L Monocytes # (Auto) 1.0 x10^3/uL (0.0-1.1) Eosinophils # (Auto) 0.1 x10^3/uL (0.0-0.7) Basophils # (Auto) 0.1 x10^3/uL (0.0-0.2) Segmented Neutrophils % 92 % (35-66) H Band Neutrophils % 1 % (0-9) Lymphocytes % 2 % (24-48) L Monocytes % 4 % (0-10) Eosinophils % 1 % (0-5) Nucleated Red Blood Cells 1 Platelet Estimate Adequate (ADEQUATE) Polychromasia Slight Anisocytosis Slight Sodium Level 140 mmol/L (136-145) Potassium Level 2.8 mmol/L (3.5-5.1) *L Chloride Level 102 mmol/L (98-107) Carbon Dioxide Level 29 mmol/L (21-32) Anion Gap 9 (6-14) Blood Urea Nitrogen 40 mg/dL (7-20) H Creatinine 1.8 mg/dL (0.6-1.0) H Estimated GFR (Cockcroft-Gault) 33.1 BUN/Creatinine Ratio 22 (6-20) H Glucose Level 204 mg/dL (70-99) H Lactic Acid Level 2.0 mmol/L (0.4-2.0) Calcium Level 9.2 mg/dL (8.5-10.1) Total Bilirubin 0.4 mg/dL (0.2-1.0) Aspartate Amino Transferase (AST) 24 U/L (15-37) Alanine Aminotransferase (ALT) 48 U/L (14-59) Alkaline Phosphatase 94 U/L (46-116) Total Protein 7.0 g/dL (6.4-8.2) Albumin 2.7 g/dL (3.4-5.0) L Albumin/Globulin Ratio 0.6 (1.0-1.7) L Laboratory Tests 04/09/18 17:06 Laboratory Tests 04/09/18 17:06 Microbiology 04/09/18 Blood Culture - Preliminary, Resulted NO GROWTH AFTER 2 DAYS EKG EKG [] Radiology/Procedures Radiology/Procedures []PATIENT: ANANT SKAGGS CACCOUNT: [id number]#: [id number] : 1940 LOCATION: ER AGE: 77 SEX: F EXAM STATUS: REG ER ORD. PHYSICIAN: DICK LIVINGSTON APRN REASON: soa PROCEDURE: CHEST AP ONLY EXAM: CHEST AP ONLY DATE: 04/09/2018 4:48 PM INDICATION: short of breath today COMPARISON: No Prior FINDINGS: Cardiomegaly. Atherosclerotic calcifications of the mildly tortuous aorta are seen. Trace bilateral pleural effusions. Hazy opacities overlying the lung bases likely from radiographic attenuation given overlying soft tissues. Otherwise, No focal parenchymal airspace opacity. Mild interstitial prominence/crowding. No pneumothorax. IMPRESSION: Cardiomegaly with mild interstitial prominence may represent early interstitial pulmonary edema. Electronically signed by: Davion Sosa MD (04/09/2018 5:27 PM) [id number] DICTATED and SIGNED BY: DAVION SOSA MD DATE: 04/09/18 1725 Course & Med Decision Making Course & Med Decision Making Pertinent Labs and Imaging studies reviewed. (See chart for details) The patient is being admitted to the hospital to Dr. Tejeda's service. The patient is in agreement with this plan. Dragon Disclaimer Dragon Disclaimer This electronic medical record was generated, in whole or in part, using a voice recognition dictation system. Departure Departure Impression: Primary Impression: Pneumonia Additional Impression: Hypoxia Disposition: ADMITTED INPATIENT Admitting Physician: Sixto Ramon Condition: GOOD Problem Qualifiers DICK LIVINGSTON APRN Apr 12, 2018 14:18
== END 2018-04-12 14:45 | disposition home health service (06) | DRG 291 ==
LOC: ER 16:14 → 5 NORTH 17:28
PROVIDERS: ADMIT Family Medicine; ATTEND Family Medicine
DX: I13.0 Hypertensive heart and chronic kidney disease with heart failure and stage 1 through stage 4 chronic kidney disease, or unspecified chronic kidney disease (principal); J96.21 Acute and chronic respiratory failure with hypoxia; I50.43 Acute on chronic combined systolic (congestive) and diastolic (congestive) heart failure; J18.9 Pneumonia, unspecified organism; N17.0 Acute kidney failure with tubular necrosis; J44.0 Chronic obstructive pulmonary disease with (acute) lower respiratory infection; E11.22 Type 2 diabetes mellitus with diabetic chronic kidney disease; E66.01 Morbid (severe) obesity due to excess calories; E78.00 Pure hypercholesterolemia, unspecified; E78.5 Hyperlipidemia, unspecified; E87.6 Hypokalemia; G47.33 Obstructive sleep apnea (adult) (pediatric); I27.29 Other secondary pulmonary hypertension; I45.10 Unspecified right bundle-branch block; K21.9 Gastro-esophageal reflux disease without esophagitis; N18.3 Chronic kidney disease, stage 3 (moderate); Z79.4 Long term (current) use of insulin; Z82.49 Family history of ischemic heart disease and other diseases of the circulatory system; Z83.3 Family history of diabetes mellitus; Z87.891 Personal history of nicotine dependence; Z99.81 Dependence on supplemental oxygen; Z87.81 Personal history of (healed) traumatic fracture; Z79.899 Other long term (current) drug therapy; Z88.0 Allergy status to penicillin; Z68.34 Body mass index [BMI] 34.0-34.9, adult; Z79.82 Long term (current) use of aspirin
CPT/HCPCS: 36415; 36600; 71045; 80048; 80053; 81001; 82805; 82962; 83605; 83880; 85007; 85025; 87040; 87086; 93005; 93306; 94640; 96365; 96375; J1650; J1815; J1940; J1956; J2930; J3480; J7030; J7512; J7620; 97116; 97535; 99285-25

== ENCOUNTER 2018-10-21 15:10 | Inpatient (IN) | payer MEDICARE, MEDICAID ==
[~2018-10-21] VITALS: Ht 165.1 cm; Wt 90.3 kg
[2018-10-21] VITALS (13 sets, daily range): BP systolic 88–101; BP diastolic 42–54
[~2018-10-21 15:10] MED LIST changes: +ACET250T2; +AMLO5TAB10 PO; -AMLO5TAB7 PO; +BUME1TAB3; +FERR325T14; +FURO20TA3; +INSU100I13 SQ; +INSU100I17 SQ; +LOSA-73 PO; -LOSA50TA7 PO; +METF500T16; +METO2.5T PO; +POTA20TA4 PO; +PRED-220 PO; +SILD20TA2; +SIMV80TA17 PO; -SIMV80TA7 PO; +SPIR25TA5 PO
[2018-10-21] MEDS ORDERED: IV NORMAL SALINE 1000ML BAG 1,000 ML IV ONE ×2 (15:45)
[2018-10-21 15:54] LABS: BASO % 0 % (0-3); EOS % 0 % (0-3); HEMATOCRIT 24.9 % (36.0-47.0); HEMOGLOBIN 7.1 g/dL (12.0-15.5); LYMPH # 0.4 x10^3/uL (1.0-4.8); LYMPH % 3 % (24-48); MEAN CORPUSCULAR HEMOGLOBIN 22 pg (25-35); MEAN CORPUSCULAR HGB CONC 29 g/dL (31-37); MEAN CORPUSCULAR VOLUME 77 fL (79-100); MONO # 0.8 x10^3/uL (0.0-1.1); MONO % 6 % (0-9); NEUT # 12.5 x10^3uL (1.8-7.7); NEUT % 91 % (31-73); PLATELET COUNT 197 x10^3/uL (140-400); RED BLOOD COUNT 3.22 x10^6/uL (3.50-5.40); RED CELL DISTRIBUTION WIDTH 23.5 % (11.5-14.5); WHITE BLOOD COUNT 13.7 x10^3/uL (4.0-11.0)
[2018-10-21 15:55] LABS: PROTHROMBIN TIME PATIENT 14.2 SEC (11.7-14.0)
[2018-10-21 15:58] LABS: D-DIMER 0.75 ug/mlFEU (0.00-0.50)
[2018-10-21 15:59] LABS: CREATININE 2.2 mg/dL (0.6-1.0); GFR 26.2; POTASSIUM 4.4 mmol/L (3.5-5.1)
[2018-10-21 16:06] LABS: ALBUMIN 2.4 g/dL (3.4-5.0); ALBUMIN/GLOBULIN RATIO 0.6 (1.0-1.7); TOTAL BILIRUBIN 0.6 mg/dL (0.2-1.0); TOTAL PROTEIN 6.6 g/dL (6.4-8.2)
--- NOTE | 2018-10-21 16:08 | RAD ---
PROCEDURE: PORTABLE CHEST 1V CLINICAL INDICATION: WEAKNESS COMPARISON: 04/12/2018 FINDINGS: No pneumothorax identified. Cardiac and mediastinal contours unremarkable. No pulmonary consolidation or acute airspace disease. No acute osseous abnormalities identified. IMPRESSION: No pulmonary consolidation or acute airspace disease. Electronically signed by: Junito Savage DO (10/21/2018 4:05 PM) [facility]
[2018-10-21 16:13] LABS: CREATINE KINASE 46 U/L (26-192)
[2018-10-21] MEDS ORDERED: cefTRIAXone IV Push 1 GM VIAL. IVP ONE (16:15)
--- NOTE | 2018-10-21 16:43 | PHYS DOC ---
Past Medical History Past Medical History: Cancer, CHF, Diabetes-Type II, GERD, High Cholesterol, Hypertension, UTI Additional Past Medical Histor: pulmonary htn; colon CA; restrictive lung disease, resp failure, catara (LIA PAPPAS RECEPTIONIST SCHEDULER) Past Surgical History: Other Additional Past Surgical Histo: cataract surgery (LIA PAPPAS RECEPTIONIST SCHEDULER) Alcohol Use: None Drug Use: None (LIA PAPPAS APRN) Adult General Chief Complaint Chief Complaint: WEAKNESS/GENERALIZED HPI HPI Patient is a 78 year old who presents with states patient has stage IV colon cancer was brought over by family from cancer Center because her blood pressure was low, AMS. (LIA PAPPAS RECEPTIONIST SCHEDULER) Review of Systems Review of Systems Constitutional: Denies fever or chills [] Eyes: Denies change in visual acuity, redness, or eye pain [] HENT: Denies nasal congestion or sore throat [] Respiratory: Denies cough or shortness of breath [] Cardiovascular: No additional information not addressed in HPI [] GI: Denies abdominal pain, nausea, vomiting, bloody stools or diarrhea [] : Denies dysuria or hematuria [] Musculoskeletal: Denies back pain or joint pain [] Integument: Denies rash or skin lesions [] Neurologic: Denies headache, focal weakness or sensory changes [] Endocrine: Denies polyuria or polydipsia [] All other systems were reviewed and found to be within normal limits, except as documented in this note. (LIA PAPPAS RECEPTIONIST SCHEDULER) Current Medications Current Medications Current Medications Medications (Trade) Dose Ordered Sig/Luna Start Time Stop Time Status Last Admin Dose Admin Ceftriaxone Sodium (Rocephin) 1 gm 1X ONCE 10/21/18 16:15 10/21/18 16:16 DC 10/21/18 16:49 1 GM Sodium Chloride 1,000 ml @ 1,000 mls/hr 1X ONCE 10/21/18 15:45 10/21/18 16:44 DC 10/21/18 16:01 1,000 MLS/HR (MICKEY MURRY MD) Physical Exam Physical Exam Constitutional: Well developed, well nourished, no acute distress, non-toxic appearance. [] HENT: Normocephalic, atraumatic, bilateral external ears normal, oropharynx moist, no oral exudates, nose normal. [] Eyes: PERRLA, EOMI, conjunctiva normal, no discharge. [] Neck: Normal range of motion, no tenderness, supple, no stridor. [] Cardiovascular:Heart rate regular rhythm, no murmur [] Lungs & Thorax: Bilateral breath sounds clear to auscultation [] Abdomen: Bowel sounds normal, soft, no tenderness, no masses, no pulsatile masses. [] Skin: Warm, dry, no erythema, no rash. [] Back: No tenderness, no CVA tenderness. [] Extremities: No tenderness, no cyanosis, no clubbing, ROM intact, no edema. [] Neurologic: Alert and oriented X 3, normal motor function, normal sensory function, no focal deficits noted. [] Psychologic: Affect normal, judgement normal, mood normal. [] (LIA PAPPAS APRN) Current Patient Data Vital Signs Vital Signs Date Time Temp Pulse Resp B/P (MAP) Pulse Ox O2 Delivery O2 Flow Rate FiO2 10/21/18 16:19 86 16 96 10/21/18 15:49 97.9 97.9 10/21/18 15:10 76/36 (49) Nasal Cannula 4.0 (MICKEY MURRY MD) Lab Values Laboratory Tests Test 10/21/18 15:27 White Blood Count 13.7 x10^3/uL (4.0-11.0) H Red Blood Count 3.22 x10^6/uL (3.50-5.40) L Hemoglobin 7.1 g/dL (12.0-15.5) L Hematocrit 24.9 % (36.0-47.0) L Mean Corpuscular Volume 77 fL (79-100) L Mean Corpuscular Hemoglobin 22 pg (25-35) L Mean Corpuscular Hemoglobin Concent 29 g/dL (31-37) L Red Cell Distribution Width 23.5 % (11.5-14.5) H Platelet Count 197 x10^3/uL (140-400) Neutrophils (%) (Auto) 91 % (31-73) H Lymphocytes (%) (Auto) 3 % (24-48) L Monocytes (%) (Auto) 6 % (0-9) Eosinophils (%) (Auto) 0 % (0-3) Basophils (%) (Auto) 0 % (0-3) Neutrophils # (Auto) 12.5 x10^3uL (1.8-7.7) H Lymphocytes # (Auto) 0.4 x10^3/uL (1.0-4.8) L Monocytes # (Auto) 0.8 x10^3/uL (0.0-1.1) Eosinophils # (Auto) 0.0 x10^3/uL (0.0-0.7) Basophils # (Auto) 0.0 x10^3/uL (0.0-0.2) Segmented Neutrophils % 93 % (35-66) H Lymphocytes % 2 % (24-48) L Monocytes % 5 % (0-10) Platelet Estimate Adequate (ADEQUATE) Large Platelets Occ Polychromasia Slight Anisocytosis Slight Ovalocytes Occ Schistocytes Occ Prothrombin Time 14.2 SEC (11.7-14.0) H Prothrombin Time INR 1.1 (0.8-1.1) D-Dimer (Neema) 0.75 ug/mlFEU (0.00-0.50) H Sodium Level 139 mmol/L (136-145) Potassium Level 4.4 mmol/L (3.5-5.1) Chloride Level 98 mmol/L (98-107) Carbon Dioxide Level 33 mmol/L (21-32) H Anion Gap 8 (6-14) Blood Urea Nitrogen 81 mg/dL (7-20) H Creatinine 2.2 mg/dL (0.6-1.0) H Estimated GFR (Cockcroft-Gault) 26.2 BUN/Creatinine Ratio 37 (6-20) H Glucose Level 160 mg/dL (70-99) H Lactic Acid Level 3.4 mmol/L (0.4-2.0) H Calcium Level 9.0 mg/dL (8.5-10.1) Total Bilirubin 0.6 mg/dL (0.2-1.0) Aspartate Amino Transferase (AST) 13 U/L (15-37) L Alanine Aminotransferase (ALT) 25 U/L (14-59) Alkaline Phosphatase 127 U/L (46-116) H Ammonia < 10 mcmol/L (11-34) L Creatine Kinase 46 U/L (26-192) Creatine Kinase MB (Mass) < 0.5 ng/mL (0.0-3.6) Creatine Kinase MB Relative Index % (0-4) Troponin I Quantitative < 0.017 ng/mL (0.000-0.055) Total Protein 6.6 g/dL (6.4-8.2) Albumin 2.4 g/dL (3.4-5.0) L Albumin/Globulin Ratio 0.6 (1.0-1.7) L Lipase 44 U/L (73-393) L Laboratory Tests 10/21/18 15:27 Laboratory Tests 10/21/18 15:27 (MICKEY MURRY MD) EKG EKG [] (LIA PAPPAS APRN) Radiology/Procedures Radiology/Procedures [] (LIA PAPPAS APRN) Impressions: [facility] [address] [place], [place] [id number] IMAGING REPORT Signed PATIENT: ANANT SKAGGS ACCOUNT: [id number] : 1940 LOCATION: ER AGE: 78 SEX: F EXAM STATUS: REG ER ORD. PHYSICIAN: LIA PAPPAS APRN REASON: weakness PROCEDURE: PORTABLE CHEST 1V PROCEDURE: PORTABLE CHEST 1V CLINICAL INDICATION: WEAKNESS COMPARISON: 04/12/2018 FINDINGS: No pneumothorax identified. Cardiac and mediastinal contours unremarkable. No pulmonary consolidation or acute airspace disease. No acute osseous abnormalities identified. IMPRESSION: No pulmonary consolidation or acute airspace disease. Electronically signed by: Junito Savage DO (10/21/2018 4:05 PM) [facility] DICTATED and SIGNED BY: JUNITO SAVAGE DO DATE: 10/21/18 1603 (LIA PAPPAS APRN) Course & Med Decision Making Course & Med Decision Making Patient is a 78 year old who presents with states patient has stage IV colon cancer was brought over by family from cancer Center because her blood pressure was low, AMS. Patient is alert and in her eyes to her name and answer all my questions and follow my commands but then closes her eyes. Patient will swing at staff when they're trying to do a blood draw in the arm blood pressure cuff is going off. Blood pressure in the ED 76/36. Blood pressure currently is 101/50 's. Family states that she was last acting normal at 0900 this morning. Patient usually uses 4 L of oxygen at home due to her lung disease and patient is 94% on 4 L of oxygen in the ED. Afebrile. EKG shows sinus rhythm, 89 heart rate, nonspecific ST changes compared to an old EKG. Patient states she is having no pain, shortness of air, chest pain, abdominal pain, nausea, vomiting or any diarrhea or constipation, dizziness, headache. Bilateral pedal edema 2-3+ pitting. Patient denies recent illness. Abdomen is soft but slightly tender to bilateral lower quadrants but again patient is slightly altered. Patient again is easily aroused and can tell me her name and that she is at the hospital but could not tell me the day today. Patient just states that she is weak. Lungs are clear in upper lobes bilaterally but diminished in lower lobes bilaterally. Lactic acid is 3.4, BUN is 81, creatinine 2.2, hemoglobin is 7.1. Fecal occult sent to lab. Patient has been given fluids per sepsis protocol antibiotics have been started. No extremity edema. CT ABD PELV has not been read by a radiologist yet. I discussed findings with Dr. Murry and Dr Rodriguez and patient will be admitted for Sepsis and Hypotension. (LIA PAPPAS APRN) Course & Med Decision Making ER PHYSICIAN ATTENDING NOTE: I have personally seen and examined the patient, and agree with the history, physical exam, and plan, as documented by mid-level provider. (MICKEY MURRY MD) Dragon Disclaimer Dragon Disclaimer This electronic medical record was generated, in whole or in part, using a voice recognition dictation system. (LIA PAPPAS APRN) Departure Departure Impression: Primary Impression: Sepsis Additional Impression: Hypotension Disposition: ADMITTED INPATIENT Admitting Physician: Other (LIA PAPPAS APRN) Referrals: UNKNOWN PCP NAME (PCP) Problem Qualifiers Primary Impression: Sepsis Sepsis type: sepsis due to unspecified organism Qualified Codes: A41.9 - Sepsis, unspecified organism Additional Impression: Hypotension Hypotension type: unspecified hypotension type Qualified Codes: I95.9 - Hypotension, unspecified LIA PAPPAS APRN Oct 21, 2018 16:43 MICKEY MURRY MD Oct 22, 2018 06:17
[2018-10-21] MEDS: INSULIN LISPRO 300 UNITS/3 ML INSULN.PEN. SQ SCH (17:00)
[2018-10-21] MEDS ORDERED: ZOLPIDEM 5 MG TABLET. PO PRN (17:00)
[2018-10-21] MEDS ORDERED: ACETAMINOPHEN 325 MG TABLET. PO PRN ×2 (17:00→18:15)
[2018-10-21] MEDS ORDERED: DEXTROSE 50% 25 GM / 50ML DISP.SYRIN. IV PRN (17:00)
[2018-10-21] MEDS ORDERED: 0.9 % SODIUM CHLORIDE 10 ML DISP.SYRIN. IV PRN (17:00)
[2018-10-21] MEDS ORDERED: LACTULOSE 20 GM/30 ML SOLUTION. PO PRN (17:00)
[2018-10-21] MEDS ORDERED: fentaNYL PF VIAL 100 MCG/2 ML VIAL IV PRN (17:00)
[2018-10-21] MEDS ORDERED: ONDANSETRON PF 4 MG/2 ML VIAL. IV PRN ×2 (17:00)
[2018-10-21] MEDS ORDERED: IV NORMAL SALINE 500ML BAG 500 ML IV ONE (17:00)
[2018-10-21] MEDS ORDERED: PIP/TAZO PER PHARMACY MC PRN (17:00)
[2018-10-21] MEDS ORDERED: VANCOMYCIN 1.5 GM in IV NORMAL SALINE 500ML BAG 500 ML IV ONE (17:15)
[2018-10-21 17:36] LABS: BASE EXCESS COOX 5 mmol/L (-3-3); HCO3 COOX 29 mmol/L (21-28); METHEMOGLOBIN 0.5 % (0.0-1.9); OXYHEMOGLOBIN 94.7 %; PCO2 COOX 41 mmHg (35-46); PO2 COOX 80 mmHg (65-108); SAT O2 COOX 96 % (92-99)
[2018-10-21 18:00] LABS: % LYMPHS 2 % (24-48); % MONOS 5 % (0-10); % SEGS 93 % (35-66)
[2018-10-21] MEDS: IV NORMAL SALINE 1000ML BAG 1,000 ML IV SCH (18:00)
[2018-10-21 18:02] LABS: ANISOCYTOSIS SLIGHT; OVALOCYTES OCC; PLT ESTIMATE ADEQUATE (ADEQUATE); POLYCHROMASIA SLIGHT; SCHISTOCYTES OCC
--- NOTE | 2018-10-21 18:10 | PDOC1 ---
History and Physical Date of Admission Date of Admission 10/21/18 Identification/Chief Complaint Chief Complaint Weakness Source Source: Caregiver, Chart review, Patient History of Present Illness History of Present Illness Patient is a 78-year-old female with multiple medical comorbidities including COPD as a consequence of long-standing history of smoking up until 3 years ago patient also has history of hypertension and severe pulmonary hypertension noted on last echocardiogram done more or less 5 months ago with a preserved ejection fraction of 55%. Patient also carries a comorbidity of dyslipidemia and diabetes. She has been admitted to our institution for different reasons but today comes sent from the oncology clinic due to severe weakness and hypotension. According to family members were helping with the history taking she has been following up with Dr. Thakur in the outpatient setting she was found to have lung spots at the beginning of September of this year. Subsequently further imaging studies were ordered and there were certain spots noted on abdominal imaging studies which led to a biopsy transcutaneous of the liver with suspicious finding consistent with metastatic disease arising from the colon. This morning she was told that she had stage IV colon cancer of the outpatient clinic according to family members she have mustard all her strength in order to attend this consultation earlier this day. The patient has not been eating or drinking much due to symptoms associated with sensation of feeling full especially over the left lower quadrant according to the patient. She denies abdominal pain she denies changes in the caliber of the stools, unclear when a colonoscopy has been performed, records are available for review unfortunately. The patient at the time my evaluation is in mild distress but she is able to respond to my questions appropriately. Family members are at bedside helping with the history taking and the patient is able to express her wishes. I have addressed CODE STATUS in mechanical ventilation, patient has expressed her wishes not to have heroic measures performed not to be resuscitated in case of cardiopulmonary arrest. Reassurance has been provided to the family members, discussed the results of her workup so far and the need to treat her hypovolemic shock. Discussed also the need for blood transfusion in light of her anemia with underlying malignancy especially since this is coming from the GI tract most likely the culprit for her anemia. All CONCERNS were addressed to the best of my abilities Past Medical History Cardiovascular: CHF, HTN, Hyperlipidemia, Pulmonary hypertension Pulmonary: COPD, Other CENTRAL NERVOUS SYSTEM: Other Heme/Onc: Anemia NOS Endocrine: Diabetes Past Surgical History Past Surgical History: No pertinent history Family History Family History: Hypertension Social History ALCOHOL: none Drugs: None Current Problem List Problem List Problems Medical Problems: (1) Hypotension Status: Acute (2) Sepsis Status: Acute Current Medications Current Medications Current Medications Medications (Trade) Dose Ordered Sig/Luna Start Time Stop Time Status Last Admin Dose Admin Acetaminophen (Tylenol) 650 mg PRN Q6HRS PRN 10/21/18 17:00 Ceftriaxone Sodium (Rocephin) 1 gm 1X ONCE 10/21/18 16:15 10/21/18 16:16 DC 10/21/18 16:49 1 GM Dextrose (Dextrose 50%-Water Syringe) 12.5 gm PRN Q15MIN PRN 10/21/18 17:00 Famotidine (Pepcid) 20 mg DAILY 10/22/18 09:00 Fentanyl Citrate (Fentanyl 2ml Vial) 50 mcg PRN Q1HR PRN 10/21/18 17:00 10/22/18 16:59 Heparin Sodium (Porcine) (Heparin Sodium) 5,000 unit Q8HRS 10/21/18 22:00 Info (Icu Electrolyte Protocol) 1 ea DAILY 10/22/18 09:00 Insulin Glargine (Lantus) 38 units QHS 10/21/18 21:00 Insulin Human Lispro (HumaLOG) 8 units BIDACBL 10/22/18 08:00 UNV Lactulose (Lactulose) 20 gm PRN Q12HR PRN 10/21/18 17:00 Levofloxacin/ Dextrose 150 ml @ 100 mls/hr Q48H 10/21/18 17:00 Lorazepam (Ativan) 0.5 mg PRN Q6HRS PRN 10/21/18 17:00 Morphine Sulfate (Morphine Sulfate) 2 mg PRN Q1HR PRN 10/21/18 17:00 Ondansetron HCl (Zofran) 4 mg PRN Q6HRS PRN 10/21/18 17:00 Oxycodone HCl (Roxicodone) 5 mg PRN Q3HRS PRN 10/21/18 17:00 Oxycodone/ Acetaminophen (Percocet 5/325) 1 tab PRN Q4HRS PRN 10/21/18 17:00 Piperacillin Sod/ Tazobactam Sod (Zosyn Per Pharmacy) 1 each PRN DAILY PRN 10/21/18 17:00 UNV Prednisone (Prednisone) 10 mg DAILY 10/22/18 09:00 Sildenafil Citrate (Revatio) 20 mg TID 10/21/18 21:00 Simvastatin (Zocor) 80 mg QHS 10/21/18 21:00 Sodium Chloride (Normal Saline Flush) 3 ml QSHIFT PRN 10/21/18 17:00 Spironolactone (Aldactone) 25 mg DAILY 10/22/18 09:00 Vancomycin HCl (Vanco Per Pharmacy) 1 each PRN DAILY PRN 10/21/18 17:00 Vancomycin HCl 1.5 gm/Sodium Chloride 500 ml @ 250 mls/hr 1X ONCE 10/21/18 17:15 10/21/18 19:14 Zolpidem Tartrate (Ambien) 5 mg PRN QHS PRN 10/21/18 17:00 Allergies Allergies Allergies Coded Allergies Type Severity Reaction Last Updated Verified Penicillins Allergy Intermediate RED, ITCHY RASH 10/21/18 Yes ROS Review of System CONSTITUTIONAL: No fever or chills, positive for weakness EYES: No recent changes SKIN: No rash or itching CARDIOVASCULAR: No chest pain, syncope, palpitations, or edema RESPIRATORY: No SOB or cough GASTROINTESTINAL: No nausea, vomiting or abdominal pain NEUROLOGICAL: No headaches or weakness ENDOCRINE: No cold or heat intolerance GENITOURINARY: No urgency or frequency of urination MUSCULOSKELETAL: No back pain or joint pain LYMPHATICS: No enlarged lymph nodes PSYCHIATRIC: No anxiety or depression Physical Exam Physical Exam Gen.: well-developed, elderly in no apparent distress Head: Normal shape atraumatic Eyes: Pupils equal reactive to light and accommodation, normal conjunctivae and lids Ears: Normal shape Nose: Normal shape no trauma Mouth: No exudates of the back of throat no thrush no lesions, dry mucous membranes Neck: Supple no JVD no carotid bruit or lymphadenopathy no thyromegaly Chest: Lungs clear to auscultation with good inspiratory effort no crackles rales or rhonchi Cardiovascular: S1-S2 regular rhythm no murmurs gallops or rubs Abdomen: Bowel sounds present soft nontender no hepatosplenomegaly appreciated Extremities: No clubbing no cyanosis 1+ edema peripheral pulses palpated bilaterally Neurological: Alert awake oriented in person time place and situation, cranial nerves II through XII intact, no motor or sensory deficits appreciated Psych: Appropriate mood, cooperative Vitals Vitals Vital Signs Date Time Temp Pulse Resp B/P (MAP) Pulse Ox O2 Delivery O2 Flow Rate FiO2 10/21/18 15:59 84 20 99 10/21/18 15:49 97.9 97.9 10/21/18 15:10 76/36 (49) Nasal Cannula 4.0 Labs Labs Laboratory Tests Test 10/21/18 15:27 10/21/18 17:00 White Blood Count 13.7 x10^3/uL (4.0-11.0) Red Blood Count 3.22 x10^6/uL (3.50-5.40) Hemoglobin 7.1 g/dL (12.0-15.5) Hematocrit 24.9 % (36.0-47.0) Mean Corpuscular Volume 77 fL (79-100) Mean Corpuscular Hemoglobin 22 pg (25-35) Mean Corpuscular Hemoglobin Concent 29 g/dL (31-37) Red Cell Distribution Width 23.5 % (11.5-14.5) Platelet Count 197 x10^3/uL (140-400) Neutrophils (%) (Auto) 91 % (31-73) Lymphocytes (%) (Auto) 3 % (24-48) Monocytes (%) (Auto) 6 % (0-9) Eosinophils (%) (Auto) 0 % (0-3) Basophils (%) (Auto) 0 % (0-3) Neutrophils # (Auto) 12.5 x10^3uL (1.8-7.7) Lymphocytes # (Auto) 0.4 x10^3/uL (1.0-4.8) Monocytes # (Auto) 0.8 x10^3/uL (0.0-1.1) Eosinophils # (Auto) 0.0 x10^3/uL (0.0-0.7) Basophils # (Auto) 0.0 x10^3/uL (0.0-0.2) Prothrombin Time 14.2 SEC (11.7-14.0) Prothromb Time International Ratio 1.1 (0.8-1.1) D-Dimer (Neema) 0.75 ug/mlFEU (0.00-0.50) Sodium Level 139 mmol/L (136-145) Potassium Level 4.4 mmol/L (3.5-5.1) Chloride Level 98 mmol/L (98-107) Carbon Dioxide Level 33 mmol/L (21-32) Anion Gap 8 (6-14) Blood Urea Nitrogen 81 mg/dL (7-20) Creatinine 2.2 mg/dL (0.6-1.0) Estimated GFR (Cockcroft-Gault) 26.2 BUN/Creatinine Ratio 37 (6-20) Glucose Level 160 mg/dL (70-99) Lactic Acid Level 3.4 mmol/L (0.4-2.0) Calcium Level 9.0 mg/dL (8.5-10.1) Total Bilirubin 0.6 mg/dL (0.2-1.0) Aspartate Amino Transf (AST/SGOT) 13 U/L (15-37) Alanine Aminotransferase (ALT/SGPT) 25 U/L (14-59) Alkaline Phosphatase 127 U/L (46-116) Ammonia < 10 mcmol/L (11-34) Creatine Kinase 46 U/L (26-192) Creatine Kinase MB (Mass) < 0.5 ng/mL (0.0-3.6) Creatine Kinase MB Relative Index % (0-4) Troponin I Quantitative < 0.017 ng/mL (0.000-0.055) Total Protein 6.6 g/dL (6.4-8.2) Albumin 2.4 g/dL (3.4-5.0) Albumin/Globulin Ratio 0.6 (1.0-1.7) Lipase 44 U/L (73-393) O2 Saturation 96 % (92-99) Arterial Blood pH 7.46 (7.35-7.45) Arterial Blood pCO2 at Patient Temp 41 mmHg (35-46) Arterial Blood pO2 at Patient Temp 80 mmHg (65-108) Arterial Blood HCO3 29 mmol/L (21-28) Arterial Blood Base Excess 5 mmol/L (-3-3) Oxyhemoglobin 94.7 % Methemoglobin 0.5 % (0.0-1.9) Carbon Monoxide, Quantitative 0.4 % (0.0-1.9) FiO2 21 Laboratory Tests Test 10/21/18 15:27 10/21/18 17:00 White Blood Count 13.7 x10^3/uL (4.0-11.0) Red Blood Count 3.22 x10^6/uL (3.50-5.40) Hemoglobin 7.1 g/dL (12.0-15.5) Hematocrit 24.9 % (36.0-47.0) Mean Corpuscular Volume 77 fL (79-100) Mean Corpuscular Hemoglobin 22 pg (25-35) Mean Corpuscular Hemoglobin Concent 29 g/dL (31-37) Red Cell Distribution Width 23.5 % (11.5-14.5) Platelet Count 197 x10^3/uL (140-400) Neutrophils (%) (Auto) 91 % (31-73) Lymphocytes (%) (Auto) 3 % (24-48) Monocytes (%) (Auto) 6 % (0-9) Eosinophils (%) (Auto) 0 % (0-3) Basophils (%) (Auto) 0 % (0-3) Neutrophils # (Auto) 12.5 x10^3uL (1.8-7.7) Lymphocytes # (Auto) 0.4 x10^3/uL (1.0-4.8) Monocytes # (Auto) 0.8 x10^3/uL (0.0-1.1) Eosinophils # (Auto) 0.0 x10^3/uL (0.0-0.7) Basophils # (Auto) 0.0 x10^3/uL (0.0-0.2) Prothrombin Time 14.2 SEC (11.7-14.0) Prothromb Time International Ratio 1.1 (0.8-1.1) D-Dimer (Neema) 0.75 ug/mlFEU (0.00-0.50) Sodium Level 139 mmol/L (136-145) Potassium Level 4.4 mmol/L (3.5-5.1) Chloride Level 98 mmol/L (98-107) Carbon Dioxide Level 33 mmol/L (21-32) Anion Gap 8 (6-14) Blood Urea Nitrogen 81 mg/dL (7-20) Creatinine 2.2 mg/dL (0.6-1.0) Estimated GFR (Cockcroft-Gault) 26.2 BUN/Creatinine Ratio 37 (6-20) Glucose Level 160 mg/dL (70-99) Lactic Acid Level 3.4 mmol/L (0.4-2.0) Calcium Level 9.0 mg/dL (8.5-10.1) Total Bilirubin 0.6 mg/dL (0.2-1.0) Aspartate Amino Transf (AST/SGOT) 13 U/L (15-37) Alanine Aminotransferase (ALT/SGPT) 25 U/L (14-59) Alkaline Phosphatase 127 U/L (46-116) Ammonia < 10 mcmol/L (11-34) Creatine Kinase 46 U/L (26-192) Creatine Kinase MB (Mass) < 0.5 ng/mL (0.0-3.6) Creatine Kinase MB Relative Index % (0-4) Troponin I Quantitative < 0.017 ng/mL (0.000-0.055) Total Protein 6.6 g/dL (6.4-8.2) Albumin 2.4 g/dL (3.4-5.0) Albumin/Globulin Ratio 0.6 (1.0-1.7) Lipase 44 U/L (73-393) O2 Saturation 96 % (92-99) Arterial Blood pH 7.46 (7.35-7.45) Arterial Blood pCO2 at Patient Temp 41 mmHg (35-46) Arterial Blood pO2 at Patient Temp 80 mmHg (65-108) Arterial Blood HCO3 29 mmol/L (21-28) Arterial Blood Base Excess 5 mmol/L (-3-3) Oxyhemoglobin 94.7 % Methemoglobin 0.5 % (0.0-1.9) Carbon Monoxide, Quantitative 0.4 % (0.0-1.9) FiO2 21 VTE Prophylaxis Ordered VTE Prophylaxis Devices: No VTE Pharmacological Prophylaxi: Yes Assessment/Plan Assessment/Plan Hypovolemic shock Elevated lactic acid as a consequence of the above Diagnosis of reported stage IV colon cancer with metastatic liver lesions as per history Acute renal failure most likely secondary to vasomotor etiology Severe dehydration Normocytic anemia which seems to be compensated most likely is iron deficiency etiology given her underlying carcinomatosis with GI losses Leukocytosis which may be hemoconcentration given the severe dehydration the patient History of COPD after a long-standing history of smoking throughout her life. She quit approximately 4 years ago with greater than [id number] history of smoking Severe pulmonary hypertension History of congestive heart failure which seems to be diastolic dysfunction with a preserved ejection fraction of 55% on an echo 6 months ago Diabetes mellitus type 2 History of essential hypertension. Despite her poor oral intake patient has continued to take her antihypertensive medications which can be aggravating her current situation Plan: admitted to ICU IV fluid resuscitation Zosyn for empiric therapy Transfuse 1 unit of packed red blood cells Will resume home meds appropriately once they have been reviewed Further recommendations based on the clinical course If her condition improves we will consult hematology oncology at that point Patient has expressed her wishes to be a DO NOT RESUSCITATE status in also a DO NOT INTUBATE status DVT prophylaxis with heparin GI prophylaxis with Protonix MASOUD BENITEZ MD Oct 21, 2018 18:10
[2018-10-21 18:14] LABS: BILIRUBIN,URINE NEGATIVE (NEG); CLARITY,URINE CLEAR; COLOR,URINE YELLOW; NITRITE,URINE NEGATIVE (NEG); PH,URINE 6.5; PROTEIN,URINE NEGATIVE (NEG-TRACE); UROBILINOGEN,URINE 0.2 mg/dL (0.2 mg/dL)
[2018-10-21 18:23] LABS: BACTERIA,URINE 0 /HPF (0-FEW); HYALINE CASTS, URINE FEW /HPF; RBC,URINE 0 /HPF (0-2); SQUAMOUS EPITHELIAL CELL,UR OCC /LPF; WBC,URINE OCC /HPF (0-4)
[2018-10-21 18:29] LABS: FECAL OB PT POSITIVE (NEG)
--- NOTE | 2018-10-21 19:01 | RAD ---
CT Abdomen and Pelvis without contrast History: Abdominal pain Technique: Noncontrast CT imaging was performed of the abdomen and pelvis. Multiplanar images are reviewed. Exposure: One or more of the following individualized dose reduction techniques were utilized for this examination: 1. Automated exposure control 2. Adjustment of the mA and/or kV according to patient size 3. Use of iterative reconstruction technique. Comparison: February 28, 2007 Findings: There is some atelectasis visualized left lung base. Evaluation of abdominal visceral organs is limited without intravenous contrast, no new obvious abnormality of the spleen or the pancreas. There is a focus of calcification in the region of the distal common bile duct near the head of the pancreas about 0.3 cm in size, no bowel gallbladder dilatation. There is similar fullness of the left adrenal gland. There is a small accessory spleen. There is now heterogeneous appearance of the liver parenchyma, more defined hypodense lesion posterior right lobe such as seen axial image 25 about 2 cm in size not seen previously, more focal lesion of the right lobe axial image 15 about 1.4 cm, left lobe axial image 15 about 1.6 cm, more centrally of the right lobe about 2.8 cm axial images 21, lesion closer the gallbladder fossa about 1.5 cm. There may be other lesions poorly delineated on this noncontrast exam including possible larger hypodense lesion more centrally. There is no hydronephrosis of either kidney, no renal calculus. There is scattered atherosclerotic calcification of the abdominal aorta, also the proximal renal arteries and near the origin of the superior mesenteric artery at which there is likely more significant stenosis. There is also atherosclerotic calcification of the iliac arteries bilaterally. Calcified uterine lesions are more apparent on this exam more likely due to leiomyomas. There is catheter in the urinary bladder. Evaluation of bowel is limited without oral contrast, no significant bowel dilatation, free air, free fluid. Normal appendix is visualized. There is grade 1 anterior spondylolisthesis at what is considered L4-5 and to lesser degree at L3-4, multilevel facet degenerative change. There is likely duodenal diverticulum. There are some air-fluid levels in the colon. There is small fat-containing umbilical hernia. Small focus of subcutaneous density of the anterior abdomen axial image 46 has fluid type density characteristics. Impression: 1. There are scattered liver lesions concerning for metastatic disease until proven otherwise in a patient this age. 2. There is likely choledocholithiasis although gallbladder not significantly dilated. 3. 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 4. There are some colonic air-fluid levels as can be seen with diarrheal state. Electronically signed by: Rene Patel MD (10/21/2018 6:58 PM) [facility]
--- NOTE | 2018-10-21 19:20 | NUR ---
Patient received from ER at 1900. VS obtained, patient oriented to room, family in from waiting room. Will continue to monitor.
[2018-10-21] MEDS: SILDENAFIL CITRATE 20 MG TABLET. PO SCH (21:00)
[2018-10-21] MEDS: INSULIN GLARGINE 300 UNITS/3 ML INSULN.PEN. SQ SCH (21:00)
[2018-10-21] MEDS: SIMVASTATIN 40 MG TABLET. PO SCH (21:48)
[2018-10-21] MEDS: HEPARIN for SUB-Q USE 5,000 UNIT/ML VIAL. SQ SCH (21:48)
[2018-10-21] MEDS: VANCOMYCIN PER PHARMACY MC PRN (22:02)
--- NOTE | 2018-10-21 22:02 | NUR ---
Pharmacy Vancomycin Dosing Note S:Consulted to monitor and dose vancomycin started 10/21/18. O:CERTAIN,ANANT Castro is a 78 year old F with Sepsis . Height: 5 feet, 5 inches Weight: 80.903665 kg Reading Body Weight: 57.00 Adjusted Body Weight: 66.20 Dosing Weight: Actual Other Antibiotics: LEVAQUIN 10/21 - LABS: Last BUN: 81 Last Creatinine: 2.2 Creatinine Clearance: 28 mL/min Last WBC: 13.7 Last Procalcitonin: - Tmax (past 24 hours): 98 Microbiology: PENDING I/O: Drug Levels: Last level: on at Last dose given 10/21/18 at 1830 Vancomycin Dosing: Loading Dose: 1500 mg x1 Dosing Weight: Actual Target Trough: 15-20 A: Based on: WEIGHT, CRCL~28 P: 1. Initiate Vancomycin 1250 mg IV q24h after 1500 mg loading dose. 2. Follow up Trough level on 10/23/18 at 1800 3. Pharmacy will continue to monitor, follow and adjust therapy as needed. ESTEFANÍA TREVINO [facility], 10/21/18 [id number]
[2018-10-22] VITALS (15 sets, daily range): BP systolic 83–127; BP diastolic 39–58
[2018-10-22] MEDS: IV NORMAL SALINE 1000ML BAG 1,000 ML IV SCH (05:30)
[2018-10-22] MEDS: HEPARIN for SUB-Q USE 5,000 UNIT/ML VIAL. SQ SCH ×3 (05:34→20:48)
[2018-10-22 06:35] LABS: BASO % 0 % (0-3); EOS # 0.1 x10^3/uL (0.0-0.7); EOS % 0 % (0-3); HEMATOCRIT 27.7 % (36.0-47.0); HEMOGLOBIN 7.8 g/dL (12.0-15.5); LYMPH # 0.4 x10^3/uL (1.0-4.8); LYMPH % 3 % (24-48); MEAN CORPUSCULAR HEMOGLOBIN 23 pg (25-35); MEAN CORPUSCULAR HGB CONC 28 g/dL (31-37); MEAN CORPUSCULAR VOLUME 80 fL (79-100); MONO % 8 % (0-9); NEUT # 12.1 x10^3uL (1.8-7.7); NEUT % 89 % (31-73); PLATELET COUNT 174 x10^3/uL (140-400); RED BLOOD COUNT 3.46 x10^6/uL (3.50-5.40); RED CELL DISTRIBUTION WIDTH 22.2 % (11.5-14.5); WHITE BLOOD COUNT 13.6 x10^3/uL (4.0-11.0)
[2018-10-22 07:11] LABS: CALCIUM 8.4 mg/dL (8.5-10.1); CREATININE 1.8 mg/dL (0.6-1.0); POTASSIUM 3.8 mmol/L (3.5-5.1)
--- NOTE | 2018-10-22 07:53 | EKG ---
[facility] [address] [place] [address] Test Date: 2018-10-21 Test Time: 15:39:04 Pat Name: ANANT SKAGGS Department: Room: 103 1 Gender: F Sole Rounder: ALYX : 1940 Requested By: LIA PAPPAS Order Number: [id number] Reading MD: Joce Neal MD Measurements Intervals Reasnor Rate: 89 P: 43 MD: 138 QRS: 49 QRSD: 88 T: 18 QT: 344 QTc: 420 Interpretive Statements SINUS RHYTHM VENTRICULAR PREMATURE COMPLEX(ES) LEFT ATRIAL ABNORMALITY QRS(T) CONTOUR ABNORMALITY CONSIDER ANTEROSEPTAL MYOCARDIAL DAMAGE ST & T ABNORMALITY, CONSIDER ANTERIOR ISCHEMIA OR LEFT VENTRICULAR STRAIN ABNORMAL ECG Electronically Signed On 10-25-2018 13:19:54 CDT by Joce Neal MD
[2018-10-22] MEDS: INSULIN LISPRO 300 UNITS/3 ML INSULN.PEN. SQ SCH ×5 (08:00→17:00)
[2018-10-22 08:17] LABS: MAGNESIUM 2.3 mg/dL (1.8-2.4)
--- NOTE | 2018-10-22 08:44 | PDOC ---
PROGRESS NOTES Chief Complaint Chief Complaint Hypovolemic shock resolved after fluid resuscitation. Elevated lactic acid resolved Diagnosis of reported stage IV colon cancer with metastatic liver lesions as per history Acute renal failure most likely secondary to vasomotor etiology improved Severe dehydration improved Microcytic anemia which seems to be compensated most likely is iron deficiency etiology given her underlying carcinomatosis with GI losses Leukocytosis persistent despite fluid resuscitation, no evident focus of infection noted. History of COPD after a long-standing history of smoking throughout her life. She quit approximately 4 years ago with greater than [id number] history of smoking Severe pulmonary hypertension History of congestive heart failure which seems to be diastolic dysfunction with a preserved ejection fraction of 55% on an echo 6 months ago Diabetes mellitus type 2 fairly controlled History of essential hypertension. Plan; continue to hold her antihypertensives if patient continues to be stable she may be moved out of the ICU later in the day will consult Dr Yañez to address her underlying malignancy follow urinary output encourage oral intake further recommendations based on clinical course History of Present Illness History of Present Illness Patient resting comfortably in bed in no apparent distress. Hemodynamics have been stable over the last few hours the morning. Her blood counts are improved compared to yesterday. She does not have active bleeding at the present time. All of her concerns were addressed to the best of my abilities Vitals Vitals Vital Signs Date Time Temp Pulse Resp B/P (MAP) Pulse Ox O2 Delivery O2 Flow Rate FiO2 10/22/18 07:00 89 18 100/48 (65) 100 Nasal Cannula 5.0 10/22/18 04:00 98.2 98.2 Physical Exam Physical Exam Gen.: well-developed, elderly in no apparent distress Head: Normal shape atraumatic Eyes: Pupils equal reactive to light and accommodation, normal conjunctivae and lids Ears: Normal shape Nose: Normal shape no trauma Mouth: No exudates of the back of throat no thrush no lesions, dry mucous membranes Neck: Supple no JVD no carotid bruit or lymphadenopathy no thyromegaly Chest: Lungs clear to auscultation with good inspiratory effort no crackles rales or rhonchi Cardiovascular: S1-S2 regular rhythm no murmurs gallops or rubs Abdomen: Bowel sounds present soft nontender no hepatosplenomegaly appreciated Extremities: No clubbing no cyanosis 1+ edema peripheral pulses palpated bilaterally Neurological: Alert awake oriented in person time place and situation, cranial nerves II through XII intact, no motor or sensory deficits appreciated Psych: Appropriate mood, cooperative Lungs: Clear Labs LABS Laboratory Tests Test 10/21/18 15:27 10/21/18 17:00 10/21/18 17:44 10/21/18 21:56 White Blood Count 13.7 x10^3/uL (4.0-11.0) Red Blood Count 3.22 x10^6/uL (3.50-5.40) Hemoglobin 7.1 g/dL (12.0-15.5) Hematocrit 24.9 % (36.0-47.0) Mean Corpuscular Volume 77 fL (79-100) Mean Corpuscular Hemoglobin 22 pg (25-35) Mean Corpuscular Hemoglobin Concent 29 g/dL (31-37) Red Cell Distribution Width 23.5 % (11.5-14.5) Platelet Count 197 x10^3/uL (140-400) Neutrophils (%) (Auto) 91 % (31-73) Lymphocytes (%) (Auto) 3 % (24-48) Monocytes (%) (Auto) 6 % (0-9) Eosinophils (%) (Auto) 0 % (0-3) Basophils (%) (Auto) 0 % (0-3) Neutrophils # (Auto) 12.5 x10^3uL (1.8-7.7) Lymphocytes # (Auto) 0.4 x10^3/uL (1.0-4.8) Monocytes # (Auto) 0.8 x10^3/uL (0.0-1.1) Eosinophils # (Auto) 0.0 x10^3/uL (0.0-0.7) Basophils # (Auto) 0.0 x10^3/uL (0.0-0.2) Segmented Neutrophils % 93 % (35-66) Lymphocytes % 2 % (24-48) Monocytes % 5 % (0-10) Platelet Estimate Adequate (ADEQUATE) Large Platelets Occ Polychromasia Slight Anisocytosis Slight Ovalocytes Occ Schistocytes Occ Prothrombin Time 14.2 SEC (11.7-14.0) Prothromb Time International Ratio 1.1 (0.8-1.1) D-Dimer (Neema) 0.75 ug/mlFEU (0.00-0.50) Sodium Level 139 mmol/L (136-145) Potassium Level 4.4 mmol/L (3.5-5.1) Chloride Level 98 mmol/L (98-107) Carbon Dioxide Level 33 mmol/L (21-32) Anion Gap 8 (6-14) Blood Urea Nitrogen 81 mg/dL (7-20) Creatinine 2.2 mg/dL (0.6-1.0) Estimated GFR (Cockcroft-Gault) 26.2 BUN/Creatinine Ratio 37 (6-20) Glucose Level 160 mg/dL (70-99) Lactic Acid Level 3.4 mmol/L (0.4-2.0) Calcium Level 9.0 mg/dL (8.5-10.1) Total Bilirubin 0.6 mg/dL (0.2-1.0) Aspartate Amino Transf (AST/SGOT) 13 U/L (15-37) Alanine Aminotransferase (ALT/SGPT) 25 U/L (14-59) Alkaline Phosphatase 127 U/L (46-116) Ammonia < 10 mcmol/L (11-34) Creatine Kinase 46 U/L (26-192) Creatine Kinase MB (Mass) < 0.5 ng/mL (0.0-3.6) Creatine Kinase MB Relative Index % (0-4) Troponin I Quantitative < 0.017 ng/mL (0.000-0.055) Total Protein 6.6 g/dL (6.4-8.2) Albumin 2.4 g/dL (3.4-5.0) Albumin/Globulin Ratio 0.6 (1.0-1.7) Lipase 44 U/L (73-393) O2 Saturation 96 % (92-99) Arterial Blood pH 7.46 (7.35-7.45) Arterial Blood pCO2 at Patient Temp 41 mmHg (35-46) Arterial Blood pO2 at Patient Temp 80 mmHg (65-108) Arterial Blood HCO3 29 mmol/L (21-28) Arterial Blood Base Excess 5 mmol/L (-3-3) Oxyhemoglobin 94.7 % Methemoglobin 0.5 % (0.0-1.9) Carbon Monoxide, Quantitative 0.4 % (0.0-1.9) FiO2 21 Urine Color Yellow Urine Clarity Clear Urine pH 6.5 Urine Specific [place] 1.010 Urine Protein Negative mg/dL (NEG-TRACE) Urine Glucose (UA) Negative mg/dL (NEG) Urine Ketones (Stick) Negative mg/dL (NEG) Urine Blood Negative (NEG) Urine Nitrite Negative (NEG) Urine Bilirubin Negative (NEG) Urine Urobilinogen Dipstick 0.2 mg/dL (0.2 mg/dL) Urine Leukocyte Esterase Negative (NEG) Urine RBC 0 /HPF (0-2) Urine WBC Occ /HPF (0-4) Urine Squamous Epithelial Cells Occ /LPF Urine Bacteria 0 /HPF (0-FEW) Urine Hyaline Casts Few /HPF Stool Occult Blood Positive (NEG) Glucose (Fingerstick) 145 mg/dL (70-99) Test 10/21/18 22:10 10/22/18 05:30 10/22/18 06:30 Lactic Acid Level 1.5 mmol/L (0.4-2.0) Troponin I Quantitative 0.023 ng/mL (0.000-0.055) Sodium Level 144 mmol/L (136-145) Potassium Level 3.8 mmol/L (3.5-5.1) Chloride Level 104 mmol/L (98-107) Carbon Dioxide Level 32 mmol/L (21-32) Anion Gap 8 (6-14) Blood Urea Nitrogen 70 mg/dL (7-20) Creatinine 1.8 mg/dL (0.6-1.0) Estimated GFR (Cockcroft-Gault) 33.0 Glucose Level 179 mg/dL (70-99) Calcium Level 8.4 mg/dL (8.5-10.1) Phosphorus Level 4.0 mg/dL (2.6-4.7) Magnesium Level 2.3 mg/dL (1.8-2.4) White Blood Count 13.6 x10^3/uL (4.0-11.0) Red Blood Count 3.46 x10^6/uL (3.50-5.40) Hemoglobin 7.8 g/dL (12.0-15.5) Hematocrit 27.7 % (36.0-47.0) Mean Corpuscular Volume 80 fL (79-100) Mean Corpuscular Hemoglobin 23 pg (25-35) Mean Corpuscular Hemoglobin Concent 28 g/dL (31-37) Red Cell Distribution Width 22.2 % (11.5-14.5) Platelet Count 174 x10^3/uL (140-400) Neutrophils (%) (Auto) 89 % (31-73) Lymphocytes (%) (Auto) 3 % (24-48) Monocytes (%) (Auto) 8 % (0-9) Eosinophils (%) (Auto) 0 % (0-3) Basophils (%) (Auto) 0 % (0-3) Neutrophils # (Auto) 12.1 x10^3uL (1.8-7.7) Lymphocytes # (Auto) 0.4 x10^3/uL (1.0-4.8) Monocytes # (Auto) 1.0 x10^3/uL (0.0-1.1) Eosinophils # (Auto) 0.1 x10^3/uL (0.0-0.7) Basophils # (Auto) 0.0 x10^3/uL (0.0-0.2) Review of Systems Review of Systems Pertinent as per history of present illness otherwise 14 point review of system is negative Assessment and Plan Assessmemt and Plan Problems Medical Problems: (1) Hypotension Status: Acute (2) Sepsis Status: Acute Comment Review of Relevant I have reviewed the following items aby (where applicable) has been applied. Labs Laboratory Tests Test 10/21/18 15:27 10/21/18 17:00 10/21/18 17:44 10/21/18 21:56 White Blood Count 13.7 x10^3/uL (4.0-11.0) Red Blood Count 3.22 x10^6/uL (3.50-5.40) Hemoglobin 7.1 g/dL (12.0-15.5) Hematocrit 24.9 % (36.0-47.0) Mean Corpuscular Volume 77 fL (79-100) Mean Corpuscular Hemoglobin 22 pg (25-35) Mean Corpuscular Hemoglobin Concent 29 g/dL (31-37) Red Cell Distribution Width 23.5 % (11.5-14.5) Platelet Count 197 x10^3/uL (140-400) Neutrophils (%) (Auto) 91 % (31-73) Lymphocytes (%) (Auto) 3 % (24-48) Monocytes (%) (Auto) 6 % (0-9) Eosinophils (%) (Auto) 0 % (0-3) Basophils (%) (Auto) 0 % (0-3) Neutrophils # (Auto) 12.5 x10^3uL (1.8-7.7) Lymphocytes # (Auto) 0.4 x10^3/uL (1.0-4.8) Monocytes # (Auto) 0.8 x10^3/uL (0.0-1.1) Eosinophils # (Auto) 0.0 x10^3/uL (0.0-0.7) Basophils # (Auto) 0.0 x10^3/uL (0.0-0.2) Segmented Neutrophils % 93 % (35-66) Lymphocytes % 2 % (24-48) Monocytes % 5 % (0-10) Platelet Estimate Adequate (ADEQUATE) Large Platelets Occ Polychromasia Slight Anisocytosis Slight Ovalocytes Occ Schistocytes Occ Prothrombin Time 14.2 SEC (11.7-14.0) Prothromb Time International Ratio 1.1 (0.8-1.1) D-Dimer (Neema) 0.75 ug/mlFEU (0.00-0.50) Sodium Level 139 mmol/L (136-145) Potassium Level 4.4 mmol/L (3.5-5.1) Chloride Level 98 mmol/L (98-107) Carbon Dioxide Level 33 mmol/L (21-32) Anion Gap 8 (6-14) Blood Urea Nitrogen 81 mg/dL (7-20) Creatinine 2.2 mg/dL (0.6-1.0) Estimated GFR (Cockcroft-Gault) 26.2 BUN/Creatinine Ratio 37 (6-20) Glucose Level 160 mg/dL (70-99) Lactic Acid Level 3.4 mmol/L (0.4-2.0) Calcium Level 9.0 mg/dL (8.5-10.1) Total Bilirubin 0.6 mg/dL (0.2-1.0) Aspartate Amino Transf (AST/SGOT) 13 U/L (15-37) Alanine Aminotransferase (ALT/SGPT) 25 U/L (14-59) Alkaline Phosphatase 127 U/L (46-116) Ammonia < 10 mcmol/L (11-34) Creatine Kinase 46 U/L (26-192) Creatine Kinase MB (Mass) < 0.5 ng/mL (0.0-3.6) Creatine Kinase MB Relative Index % (0-4) Troponin I Quantitative < 0.017 ng/mL (0.000-0.055) Total Protein 6.6 g/dL (6.4-8.2) Albumin 2.4 g/dL (3.4-5.0) Albumin/Globulin Ratio 0.6 (1.0-1.7) Lipase 44 U/L (73-393) O2 Saturation 96 % (92-99) Arterial Blood pH 7.46 (7.35-7.45) Arterial Blood pCO2 at Patient Temp 41 mmHg (35-46) Arterial Blood pO2 at Patient Temp 80 mmHg (65-108) Arterial Blood HCO3 29 mmol/L (21-28) Arterial Blood Base Excess 5 mmol/L (-3-3) Oxyhemoglobin 94.7 % Methemoglobin 0.5 % (0.0-1.9) Carbon Monoxide, Quantitative 0.4 % (0.0-1.9) FiO2 21 Urine Color Yellow Urine Clarity Clear Urine pH 6.5 Urine Specific [place] 1.010 Urine Protein Negative mg/dL (NEG-TRACE) Urine Glucose (UA) Negative mg/dL (NEG) Urine Ketones (Stick) Negative mg/dL (NEG) Urine Blood Negative (NEG) Urine Nitrite Negative (NEG) Urine Bilirubin Negative (NEG) Urine Urobilinogen Dipstick 0.2 mg/dL (0.2 mg/dL) Urine Leukocyte Esterase Negative (NEG) Urine RBC 0 /HPF (0-2) Urine WBC Occ /HPF (0-4) Urine Squamous Epithelial Cells Occ /LPF Urine Bacteria 0 /HPF (0-FEW) Urine Hyaline Casts Few /HPF Stool Occult Blood Positive (NEG) Glucose (Fingerstick) 145 mg/dL (70-99) Test 10/21/18 22:10 10/22/18 05:30 10/22/18 06:30 Lactic Acid Level 1.5 mmol/L (0.4-2.0) Troponin I Quantitative 0.023 ng/mL (0.000-0.055) Sodium Level 144 mmol/L (136-145) Potassium Level 3.8 mmol/L (3.5-5.1) Chloride Level 104 mmol/L (98-107) Carbon Dioxide Level 32 mmol/L (21-32) Anion Gap 8 (6-14) Blood Urea Nitrogen 70 mg/dL (7-20) Creatinine 1.8 mg/dL (0.6-1.0) Estimated GFR (Cockcroft-Gault) 33.0 Glucose Level 179 mg/dL (70-99) Calcium Level 8.4 mg/dL (8.5-10.1) Phosphorus Level 4.0 mg/dL (2.6-4.7) Magnesium Level 2.3 mg/dL (1.8-2.4) White Blood Count 13.6 x10^3/uL (4.0-11.0) Red Blood Count 3.46 x10^6/uL (3.50-5.40) Hemoglobin 7.8 g/dL (12.0-15.5) Hematocrit 27.7 % (36.0-47.0) Mean Corpuscular Volume 80 fL (79-100) Mean Corpuscular Hemoglobin 23 pg (25-35) Mean Corpuscular Hemoglobin Concent 28 g/dL (31-37) Red Cell Distribution Width 22.2 % (11.5-14.5) Platelet Count 174 x10^3/uL (140-400) Neutrophils (%) (Auto) 89 % (31-73) Lymphocytes (%) (Auto) 3 % (24-48) Monocytes (%) (Auto) 8 % (0-9) Eosinophils (%) (Auto) 0 % (0-3) Basophils (%) (Auto) 0 % (0-3) Neutrophils # (Auto) 12.1 x10^3uL (1.8-7.7) Lymphocytes # (Auto) 0.4 x10^3/uL (1.0-4.8) Monocytes # (Auto) 1.0 x10^3/uL (0.0-1.1) Eosinophils # (Auto) 0.1 x10^3/uL (0.0-0.7) Basophils # (Auto) 0.0 x10^3/uL (0.0-0.2) Laboratory Tests Test 10/21/18 15:27 10/21/18 17:00 10/21/18 17:44 10/21/18 21:56 White Blood Count 13.7 x10^3/uL (4.0-11.0) Red Blood Count 3.22 x10^6/uL (3.50-5.40) Hemoglobin 7.1 g/dL (12.0-15.5) Hematocrit 24.9 % (36.0-47.0) Mean Corpuscular Volume 77 fL (79-100) Mean Corpuscular Hemoglobin 22 pg (25-35) Mean Corpuscular Hemoglobin Concent 29 g/dL (31-37) Red Cell Distribution Width 23.5 % (11.5-14.5) Platelet Count 197 x10^3/uL (140-400) Neutrophils (%) (Auto) 91 % (31-73) Lymphocytes (%) (Auto) 3 % (24-48) Monocytes (%) (Auto) 6 % (0-9) Eosinophils (%) (Auto) 0 % (0-3) Basophils (%) (Auto) 0 % (0-3) Neutrophils # (Auto) 12.5 x10^3uL (1.8-7.7) Lymphocytes # (Auto) 0.4 x10^3/uL (1.0-4.8) Monocytes # (Auto) 0.8 x10^3/uL (0.0-1.1) Eosinophils # (Auto) 0.0 x10^3/uL (0.0-0.7) Basophils # (Auto) 0.0 x10^3/uL (0.0-0.2) Segmented Neutrophils % 93 % (35-66) Lymphocytes % 2 % (24-48) Monocytes % 5 % (0-10) Platelet Estimate Adequate (ADEQUATE) Large Platelets Occ Polychromasia Slight Anisocytosis Slight Ovalocytes Occ Schistocytes Occ Prothrombin Time 14.2 SEC (11.7-14.0) Prothromb Time International Ratio 1.1 (0.8-1.1) D-Dimer (Neema) 0.75 ug/mlFEU (0.00-0.50) Sodium Level 139 mmol/L (136-145) Potassium Level 4.4 mmol/L (3.5-5.1) Chloride Level 98 mmol/L (98-107) Carbon Dioxide Level 33 mmol/L (21-32) Anion Gap 8 (6-14) Blood Urea Nitrogen 81 mg/dL (7-20) Creatinine 2.2 mg/dL (0.6-1.0) Estimated GFR (Cockcroft-Gault) 26.2 BUN/Creatinine Ratio 37 (6-20) Glucose Level 160 mg/dL (70-99) Lactic Acid Level 3.4 mmol/L (0.4-2.0) Calcium Level 9.0 mg/dL (8.5-10.1) Total Bilirubin 0.6 mg/dL (0.2-1.0) Aspartate Amino Transf (AST/SGOT) 13 U/L (15-37) Alanine Aminotransferase (ALT/SGPT) 25 U/L (14-59) Alkaline Phosphatase 127 U/L (46-116) Ammonia < 10 mcmol/L (11-34) Creatine Kinase 46 U/L (26-192) Creatine Kinase MB (Mass) < 0.5 ng/mL (0.0-3.6) Creatine Kinase MB Relative Index % (0-4) Troponin I Quantitative < 0.017 ng/mL (0.000-0.055) Total Protein 6.6 g/dL (6.4-8.2) Albumin 2.4 g/dL (3.4-5.0) Albumin/Globulin Ratio 0.6 (1.0-1.7) Lipase 44 U/L (73-393) O2 Saturation 96 % (92-99) Arterial Blood pH 7.46 (7.35-7.45) Arterial Blood pCO2 at Patient Temp 41 mmHg (35-46) Arterial Blood pO2 at Patient Temp 80 mmHg (65-108) Arterial Blood HCO3 29 mmol/L (21-28) Arterial Blood Base Excess 5 mmol/L (-3-3) Oxyhemoglobin 94.7 % Methemoglobin 0.5 % (0.0-1.9) Carbon Monoxide, Quantitative 0.4 % (0.0-1.9) FiO2 21 Urine Color Yellow Urine Clarity Clear Urine pH 6.5 Urine Specific [place] 1.010 Urine Protein Negative mg/dL (NEG-TRACE) Urine Glucose (UA) Negative mg/dL (NEG) Urine Ketones (Stick) Negative mg/dL (NEG) Urine Blood Negative (NEG) Urine Nitrite Negative (NEG) Urine Bilirubin Negative (NEG) Urine Urobilinogen Dipstick 0.2 mg/dL (0.2 mg/dL) Urine Leukocyte Esterase Negative (NEG) Urine RBC 0 /HPF (0-2) Urine WBC Occ /HPF (0-4) Urine Squamous Epithelial Cells Occ /LPF Urine Bacteria 0 /HPF (0-FEW) Urine Hyaline Casts Few /HPF Stool Occult Blood Positive (NEG) Glucose (Fingerstick) 145 mg/dL (70-99) Test 10/21/18 22:10 10/22/18 05:30 10/22/18 06:30 Lactic Acid Level 1.5 mmol/L (0.4-2.0) Troponin I Quantitative 0.023 ng/mL (0.000-0.055) Sodium Level 144 mmol/L (136-145) Potassium Level 3.8 mmol/L (3.5-5.1) Chloride Level 104 mmol/L (98-107) Carbon Dioxide Level 32 mmol/L (21-32) Anion Gap 8 (6-14) Blood Urea Nitrogen 70 mg/dL (7-20) Creatinine 1.8 mg/dL (0.6-1.0) Estimated GFR (Cockcroft-Gault) 33.0 Glucose Level 179 mg/dL (70-99) Calcium Level 8.4 mg/dL (8.5-10.1) Phosphorus Level 4.0 mg/dL (2.6-4.7) Magnesium Level 2.3 mg/dL (1.8-2.4) White Blood Count 13.6 x10^3/uL (4.0-11.0) Red Blood Count 3.46 x10^6/uL (3.50-5.40) Hemoglobin 7.8 g/dL (12.0-15.5) Hematocrit 27.7 % (36.0-47.0) Mean Corpuscular Volume 80 fL (79-100) Mean Corpuscular Hemoglobin 23 pg (25-35) Mean Corpuscular Hemoglobin Concent 28 g/dL (31-37) Red Cell Distribution Width 22.2 % (11.5-14.5) Platelet Count 174 x10^3/uL (140-400) Neutrophils (%) (Auto) 89 % (31-73) Lymphocytes (%) (Auto) 3 % (24-48) Monocytes (%) (Auto) 8 % (0-9) Eosinophils (%) (Auto) 0 % (0-3) Basophils (%) (Auto) 0 % (0-3) Neutrophils # (Auto) 12.1 x10^3uL (1.8-7.7) Lymphocytes # (Auto) 0.4 x10^3/uL (1.0-4.8) Monocytes # (Auto) 1.0 x10^3/uL (0.0-1.1) Eosinophils # (Auto) 0.1 x10^3/uL (0.0-0.7) Basophils # (Auto) 0.0 x10^3/uL (0.0-0.2) Medications Current Medications Sodium Chloride 1,000 ml @ 1,000 mls/hr 1X ONCE IV Last administered on at 15:58; Start 10/21/18 at 15:45; Stop 10/21/18 at 16:44; Status DC Sodium Chloride 1,000 ml @ 1,000 mls/hr 1X ONCE IV Last administered on at 16:01; Start 10/21/18 at 15:45; Stop 10/21/18 at 16:44; Status DC Ceftriaxone Sodium (Rocephin) 1 gm 1X ONCE IVP Last administered on 10/21/18at 16:49; Start 10/21/18 at 16:15; Stop 10/21/18 at 16:16; Status DC Sodium Chloride 500 ml @ 500 mls/hr 1X ONCE IV Last administered on at 18:00; Start 10/21/18 at 17:00; Stop 10/21/18 at 17:59; Status DC Piperacillin Sod/ Tazobactam Sod (Zosyn Per Pharmacy) 1 each PRN DAILY PRN MC SEE COMMENTS; Start 10/21/18 at 17:00; Status UNV Ondansetron HCl (Zofran) 4 mg PRN Q8HRS PRN IV NAUSEA/VOMITING; Start 10/21/18 at 17:00; Stop 10/22/18 at 16:59 Fentanyl Citrate (Fentanyl 2ml Vial) 50 mcg PRN Q1HR PRN IV PAIN; Start at 17:00; Stop 10/22/18 at 16:59 Sodium Chloride 1,000 ml @ 80 mls/hr [id number] IV Last administered on at 18:00; Start 10/21/18 at 17:00; Stop 10/22/18 at 16:59 Oxycodone HCl (Roxicodone) 5 mg PRN Q3HRS PRN PO PAIN; Start 10/21/18 at 17:00 Acetaminophen (Tylenol) 650 mg PRN Q6HRS PRN PO Headaches, Temp > 101.5'; Start 10/21/18 at 17:00 Lorazepam (Ativan) 0.5 mg PRN Q6HRS PRN IV ANXIETY / AGITATION; Start 10/21/18 at 17:00 Ondansetron HCl (Zofran) 4 mg PRN Q6HRS PRN IV NAUSEA/VOMITING; Start 10/21/18 at 17:00 Famotidine (Pepcid) 20 mg DAILY PO ; Start 10/22/18 at 09:00 Zolpidem Tartrate (Ambien) 5 mg PRN QHS PRN PO INSOMNIA, MAY REPEAT IN 1HR; Start 10/21/18 at 17:00 Info ([facility] Electrolyte Protocol) 1 ea DAILY MC ; Start 10/22/18 at 09:00 Heparin Sodium (Porcine) (Heparin Sodium) 5,000 unit Q8HRS SQ Last administered on 10/22/18at 05:34; Start 10/21/18 at 22:00 Sodium Chloride (Normal Saline Flush) 3 ml QSHIFT PRN IV AFTER MEDS AND BLOOD DRAWS; Start 10/21/18 at 17:00 Oxycodone/ Acetaminophen (Percocet 5/325) 1 tab PRN Q4HRS PRN PO PAIN, 1ST CHOICE; Start 10/21/18 at 17:00 Morphine Sulfate (Morphine Sulfate) 2 mg PRN Q1HR PRN IV PAIN; Start 10/21/18 at 17:00 Lactulose (Lactulose) 20 gm PRN Q12HR PRN PO CONSTIPATION; Start 10/21/18 at 17 :00 Insulin Human Lispro (HumaLOG) 0-7 UNITS TIDWMEALS SQ ; Start 10/21/18 at 17:00 Dextrose (Dextrose 50%-Water Syringe) 12.5 gm PRN Q15MIN PRN IV SEE COMMENTS; Start 10/21/18 at 17:00 Insulin Glargine (Lantus) 38 units QHS SQ ; Start 10/21/18 at 21:00 Prednisone (Prednisone) 10 mg DAILY PO ; Start 10/22/18 at 09:00 Sildenafil Citrate (Revatio) 20 mg TID PO ; Start 10/21/18 at 21:00 Insulin Human Lispro (HumaLOG) 8 units BIDACBL SQ ; Start 10/22/18 at 08:00 Simvastatin (Zocor) 80 mg QHS PO Last administered on 10/21/18at 21:48; Start at 21:00 Spironolactone (Aldactone) 25 mg DAILY PO ; Start 10/22/18 at 09:00 Levofloxacin/ Dextrose 150 ml @ 100 mls/hr Q48H IV ; Start 10/21/18 at 17:00 Vancomycin HCl (Vanco Per Pharmacy) 1 each PRN DAILY PRN MC SEE COMMENTS Last administered on 10/21/18at 22:02; Start 10/21/18 at 17:00 Vancomycin HCl 1.5 gm/Sodium Chloride 500 ml @ 250 mls/hr 1X ONCE IV Last administered on 10/21/18at 18:30; Start 10/21/18 at 17:15; Stop 10/21/18 at 19:14 ; Status DC Acetaminophen (Tylenol) 650 mg 1X PRN PRN PO PRE-TRANSFUSION; Start 10/21/18 at 18:15 Vancomycin HCl 1.25 gm/Sodium Chloride 250 ml @ 167 mls/hr Q24H IV ; Start at 18:30 Vancomycin HCl (Vancomycin Trough Level) 1 each 1X ONCE MC ; Start 10/23/18 at 18:00; Stop 10/23/18 at 18:01 Active Scripts Active Reported Acetazolamide 250 Mg Tablet unknown dosage Prednisone (Prednisone) 10 Mg Tablet 10 Mg PO DAILY Sildenafil (Sildenafil Citrate) 20 Mg Tablet unknown dosage Ferrous Sulfate 325 Mg Tablet unknown dosage Bumetanide 1 Mg Tablet unknown dosage Metolazone 2.5 Mg Tablet 2.5 Mg PO BID Spironolactone 25 Mg Tablet 25 Mg PO DAILY Lantus Solostar (Insulin Glargine,Hum.rec.anlog) 100 Unit/1 Ml Insuln.pen 38 Unit SQ QHS Novolog Flexpen (Insulin Aspart) 100 Unit/1 Ml Insuln.pen 8 Unit SQ BIDACBL Metoprolol Succinate ( Xl ) (Metoprolol Succinate) 100 Mg Tab.er.24h 1 Tab PO DAILY Calcium Citrate 100 Gm Powder 100 Gm MC Simvastatin 80 Mg Tablet 1 Tab PO DAILY Potassium Chloride 20 Meq Tab.er.prt 1 Tab PO BID Omeprazole 20 Mg Tablet.dr 1 Tab PO DAILY Amlodipine Besylate 5 Mg Tablet 1 Tab PO DAILY Losartan Potassium 50 Mg Tablet 1 Tab PO DAILY Aspirin 325 Mg Tablet 1 Tab PO DAILY Vitals/I & O Vital Sign - Last 24 Hours 10/21/18 10/21/18 10/21/18 10/21/18 15:10 15:33 15:39 15:49 Temp 98.0 97.9 98.0 97.9 Pulse 93 90 96 88 Resp 16 24 20 20 B/P (MAP) 76/36 (49) Pulse Ox 95 94 95 95 O2 Delivery Nasal Cannula O2 Flow Rate 4.0 10/21/18 10/21/18 10/21/18 10/21/18 15:59 16:19 16:39 16:59 Pulse 84 86 86 88 Resp 20 16 18 15 Pulse Ox 99 96 100 94 10/21/18 10/21/18 10/21/18 10/21/18 17:19 17:39 17:49 18:30 Pulse 88 96 88 86 Resp 17 16 19 16 Pulse Ox 98 94 98 94 10/21/18 10/21/18 10/21/18 10/21/18 18:45 19:00 19:15 19:30 Pulse 94 82 96 Resp 20 18 16 20 B/P (MAP) 92/42 (59) 93/42 (59) 90/42 (58) 101/42 (61) Pulse Ox 97 93 92 96 O2 Delivery Nasal Cannula Nasal Cannula Nasal Cannula Nasal Cannula O2 Flow Rate 3.0 5.0 5.0 5.0 10/21/18 10/21/18 10/21/18 10/21/18 20:00 20:30 21:00 21:00 Pulse 96 95 89 92 Resp 18 20 16 B/P (MAP) 95/45 (62) 92/54 (67) 90/46 88/43 (58) Pulse Ox 92 95 95 O2 Delivery Nasal Cannula Nasal Cannula Nasal Cannula O2 Flow Rate 5.0 5.0 5.0 10/21/18 10/21/18 10/21/18 10/21/18 22:00 22:16 22:32 22:45 Temp 98.1 98.1 98.1 98.1 Pulse 88 92 88 91 Resp 18 27 11 16 B/P (MAP) 88/50 (63) 88/43 89/50 (63) 97/44 (61) Pulse Ox 99 93 97 O2 Delivery Nasal Cannula Nasal Cannula Nasal Cannula O2 Flow Rate 5.0 3.0 5.0 10/21/18 10/21/18 10/22/18 10/22/18 22:55 23:59 01:00 02:00 Temp 98.2 98.2 Pulse 90 95 100 78 Resp 16 20 14 16 B/P (MAP) 98/45 (62) 100/50 (67) 100/54 (69) 98/48 (65) Pulse Ox 97 97 98 98 O2 Delivery Nasal Cannula Nasal Cannula Nasal Cannula Nasal Cannula O2 Flow Rate 5.0 5.0 5.0 5.0 10/22/18 10/22/18 10/22/18 10/22/18 03:00 04:00 05:13 06:00 Temp 98.2 98.2 Pulse 88 102 102 97 Resp 11 14 18 20 B/P (MAP) 110/50 (70) 100/50 (67) 104/50 (68) 100/52 (68) Pulse Ox 93 98 100 100 O2 Delivery Nasal Cannula Nasal Cannula O2 Flow Rate 3.0 5.0 5.0 5.0 10/22/18 07:00 Pulse 89 Resp 18 B/P (MAP) 100/48 (65) Pulse Ox 100 O2 Delivery Nasal Cannula O2 Flow Rate 5.0 Intake and Output 10/21/18 10/21/18 10/22/18 15:00 23:00 07:00 Intake Total 2930 ml 200 ml Output Total 550 ml 880 ml Balance 2380 ml -680 ml MASOUD BENITEZ MD Oct 22, 2018 08:44
[2018-10-22] MEDS: SILDENAFIL CITRATE 20 MG TABLET. PO SCH ×3 (09:00→20:48)
[2018-10-22] MEDS: ELECTROLYTE (ICU) PROTOCOL. MC SCH (09:00)
[2018-10-22] MEDS: SPIRONOLACTONE 25 MG TABLET PO SCH (09:16)
[2018-10-22] MEDS: predniSONE 10 MG TABLET PO SCH (09:16)
[2018-10-22] MEDS: FAMOTIDINE 20 MG TABLET. PO SCH (09:16)
[2018-10-22] MEDS: VANCOMYCIN PER PHARMACY MC PRN (09:23)
[2018-10-22] MEDS: oxyCODONE/APAP 5/325 1 TAB TABLET PO PRN ×2 (09:46→14:33)
--- NOTE | 2018-10-22 15:19 | NUR ---
SS following for discharge planning. SS reviewed pt chart. Pt is from home and previously was on services with [facility]. Pt is currently requiring oxygen. SS will continue to follow for discharge planning.
[2018-10-22] MEDS: oxyCODONE IR 5 MG TABLET PO PRN (17:40)
[2018-10-22] MEDS: VANCOMYCIN 1.25 GM in IV NORMAL SALINE 250ML 250 ML IV SCH (17:59)
[2018-10-22] MEDS: SIMVASTATIN 40 MG TABLET. PO SCH (20:46)
[2018-10-22] MEDS: INSULIN GLARGINE 300 UNITS/3 ML INSULN.PEN. SQ SCH (20:47)
--- NOTE | 2018-10-22 22:52 | CONS ---
DATE OF CONSULTATION: 10/22/2018 MEDICAL ONCOLOGY CONSULTATION REPORT REQUESTING PHYSICIAN: Eddie Rodriguez M.D. REASON FOR CONSULTATION: Stage IV colon cancer. HISTORY OF PRESENT ILLNESS: The patient is a 78-year-old -[place] female who presented to [facility] in 09/2018 for exacerbation of congestive heart failure and worsening pulmonary hypertension. She had a CT scan of the chest on 08/29/2018 that revealed a 1.8 cm left upper lobe lung nodule, concerning for malignancy and multiple hepatic masses, compatible with metastatic disease. She underwent CT scan of the abdomen and pelvis on 08/29/2018 that revealed liver metastasis throughout both hepatic lobes and irregular soft tissue thickening of the ascending colon, which could be a primary malignancy. Stable splenic mass. She underwent CT-guided biopsy of the liver mass on 09/13/2018 that revealed metastatic adenocarcinoma, consistent with colorectal origin. Colonoscopy was planned at [facility] and then it was deferred because she was high risk for complications due to underlying congestive heart failure. She was then referred to md to discuss chemotherapy. However, she had to be transferred to the hospital because of hypotension. She was started on hydration and she feels much better. She also received 1 unit of PRBC transfusion on 10/21/2018 because of her hemoglobin being only 7.1. She had a BUN of 81 and creatinine 2.2 at the time of admission. PAST MEDICAL HISTORY: Congestive heart failure, hypertension, hyperlipidemia, pulmonary hypertension, COPD, anemia and diabetes. FAMILY HISTORY: Positive for hypertension and diabetes. SOCIAL HISTORY: She has a [id number] smoking history and she has quit smoking. REVIEW OF SYSTEMS: A 12-point review of system was performed. Pertinent positives are mentioned in the history of present illness. Rest of the system review is negative. PHYSICAL EXAMINATION: GENERAL APPEARANCE: The patient is a 78-year-old -[place] female, who is in no acute cardiorespiratory distress. VITAL SIGNS: Blood pressure 92/54 and temperature 97.8. HEAD: Atraumatic, normocephalic. EYES: No icterus. NECK: Supple. CHEST: Bilaterally symmetrical. HEART: S1, S2 normal. ABDOMEN: Soft, nontender. CENTRAL NERVOUS SYSTEM: No focal deficits. LYMPHATICS: No lymphadenopathy. SKIN: No rashes. PSYCHOLOGIC: Mood and affect are appropriate. LABORATORY DATA: CBC on 10/21/2018 revealed a WBC of 13.7, hemoglobin 7.1, MCV 77 and platelet count 197,000. She received 1 unit of PRBC transfusion and hemoglobin improved to 7.8 on 10/22/2018 with a retic count of 5.0. B12 at 1919. IMPRESSION AND PLAN: 1. Stage IV colon cancer with liver metastasis involving both lobes of the liver, diagnosed by liver biopsy on 09/13/2018. CT scan revealed ascending colon mass, which was thought to be the primary. Colonoscopy planned at was not performed because of congestive heart failure. Her functional status is poor right now due to her comorbid conditions. I will plan to initiate palliative chemotherapy once her functional status improves. I explained in detail to the patient and she understands and agrees with the plan. 2. Hypotension, thought to be due to hypovolemia. I discussed with Dr. Eddie Rordiguez. The patient was given hydration and she is feeling better. 3. Congestive heart failure, management per primary team. 4. Anemia, status post one unit PRBC transfusion. Continue to monitor hemoglobin and transfuse as needed. CHIO SHEN MD DR: PANCHITO/jailene JOB#: [id number] / [id number] FABRIZIO
[2018-10-23 03:00] VITALS: BP 104/53
[2018-10-23] MEDS: HEPARIN for SUB-Q USE 5,000 UNIT/ML VIAL. SQ SCH ×3 (06:46→21:20)
[2018-10-23 07:00] VITALS: BP 104/62
[2018-10-23] MEDS: FAMOTIDINE 20 MG TABLET. PO SCH (08:01)
[2018-10-23] MEDS: ELECTROLYTE (ICU) PROTOCOL. MC SCH (08:01)
[2018-10-23] MEDS: SPIRONOLACTONE 25 MG TABLET PO SCH (08:01)
[2018-10-23] MEDS: predniSONE 10 MG TABLET PO SCH (08:01)
[2018-10-23] MEDS: SILDENAFIL CITRATE 20 MG TABLET. PO SCH ×3 (08:02→21:00)
[2018-10-23] MEDS: INSULIN LISPRO 300 UNITS/3 ML INSULN.PEN. SQ SCH ×5 (08:06→17:00)
--- NOTE | 2018-10-23 08:13 | PDOC ---
PROGRESS NOTES Chief Complaint Chief Complaint Hypovolemic shock resolved after fluid resuscitation. Elevated lactic acid resolved Diagnosis of reported stage IV colon cancer with metastatic liver lesions as per history Acute renal failure most likely secondary to vasomotor etiology improved Severe dehydration improved Microcytic anemia which seems to be compensated most likely is iron deficiency etiology given her underlying carcinomatosis with GI losses Leukocytosis persistent despite fluid resuscitation, no evident focus of infection noted. History of COPD after a long-standing history of smoking throughout her life. She quit approximately 4 years ago with greater than [id number] history of smoking Severe pulmonary hypertension History of congestive heart failure which seems to be diastolic dysfunction with a preserved ejection fraction of 55% on an echo 6 months ago Diabetes mellitus type 2 fairly controlled History of essential hypertension. History of Present Illness History of Present Illness 78yo w/ stage IV colon cancer admitted with hypovolemic shock. Patient resting comfortably in bed in no apparent distress. Hemodynamics have been stable. Renal and CBC improved. Plan; continue to hold her antihypertensives will consult Dr Yañez to address her underlying malignancy follow urinary output encourage oral intake further recommendations based on clinical course Likely palliative is appropriate, will defer to oncology Vitals Vitals Vital Signs Date Time Temp Pulse Resp B/P (MAP) Pulse Ox O2 Delivery O2 Flow Rate FiO2 10/23/18 08:02 100 104/62 10/23/18 03:00 98.1 18 91 Nasal Cannula 4.0 98.1 Physical Exam Physical Exam Gen.: well-developed, elderly in no apparent distress Head: Normal shape atraumatic Eyes: Pupils equal reactive to light and accommodation, normal conjunctivae and lids Ears: Normal shape Nose: Normal shape no trauma Mouth: No exudates of the back of throat no thrush no lesions, dry mucous membranes Neck: Supple no JVD no carotid bruit or lymphadenopathy no thyromegaly Chest: Lungs clear to auscultation with good inspiratory effort no crackles rales or rhonchi Cardiovascular: S1-S2 regular rhythm no murmurs gallops or rubs Abdomen: Bowel sounds present soft nontender no hepatosplenomegaly appreciated Extremities: No clubbing no cyanosis 1+ edema peripheral pulses palpated bilaterally Neurological: Alert awake oriented in person time place and situation, cranial nerves II through XII intact, no motor or sensory deficits appreciated Psych: Appropriate mood, cooperative General: Cooperative Heart: Regular rate, Normal S1, Normal S2 Lungs: Clear Abdomen: Normal bowel sounds, Soft Extremities: No clubbing, No cyanosis Skin: No rashes, No breakdown Labs LABS Laboratory Tests Test 10/22/18 09:08 10/22/18 11:48 10/22/18 15:57 10/22/18 20:34 Glucose (Fingerstick) 149 mg/dL (70-99) 183 mg/dL (70-99) 180 mg/dL (70-99) 159 mg/dL (70-99) Test 10/23/18 07:48 Glucose (Fingerstick) 182 mg/dL (70-99) Assessment and Plan Assessmemt and Plan Problems Medical Problems: (1) Hypotension Status: Acute (2) Sepsis Status: Acute Comment Review of Relevant I have reviewed the following items aby (where applicable) has been applied. Labs Laboratory Tests Test 10/21/18 15:27 10/21/18 17:00 10/21/18 17:44 10/21/18 19:00 White Blood Count 13.7 x10^3/uL (4.0-11.0) Red Blood Count 3.22 x10^6/uL (3.50-5.40) Hemoglobin 7.1 g/dL (12.0-15.5) Hematocrit 24.9 % (36.0-47.0) Mean Corpuscular Volume 77 fL (79-100) Mean Corpuscular Hemoglobin 22 pg (25-35) Mean Corpuscular Hemoglobin Concent 29 g/dL (31-37) Red Cell Distribution Width 23.5 % (11.5-14.5) Platelet Count 197 x10^3/uL (140-400) Neutrophils (%) (Auto) 91 % (31-73) Lymphocytes (%) (Auto) 3 % (24-48) Monocytes (%) (Auto) 6 % (0-9) Eosinophils (%) (Auto) 0 % (0-3) Basophils (%) (Auto) 0 % (0-3) Neutrophils # (Auto) 12.5 x10^3uL (1.8-7.7) Lymphocytes # (Auto) 0.4 x10^3/uL (1.0-4.8) Monocytes # (Auto) 0.8 x10^3/uL (0.0-1.1) Eosinophils # (Auto) 0.0 x10^3/uL (0.0-0.7) Basophils # (Auto) 0.0 x10^3/uL (0.0-0.2) Segmented Neutrophils % 93 % (35-66) Lymphocytes % 2 % (24-48) Monocytes % 5 % (0-10) Platelet Estimate Adequate (ADEQUATE) Large Platelets Occ Polychromasia Slight Anisocytosis Slight Ovalocytes Occ Schistocytes Occ Prothrombin Time 14.2 SEC (11.7-14.0) Prothromb Time International Ratio 1.1 (0.8-1.1) D-Dimer (Neema) 0.75 ug/mlFEU (0.00-0.50) Sodium Level 139 mmol/L (136-145) Potassium Level 4.4 mmol/L (3.5-5.1) Chloride Level 98 mmol/L (98-107) Carbon Dioxide Level 33 mmol/L (21-32) Anion Gap 8 (6-14) Blood Urea Nitrogen 81 mg/dL (7-20) Creatinine 2.2 mg/dL (0.6-1.0) Estimated GFR (Cockcroft-Gault) 26.2 BUN/Creatinine Ratio 37 (6-20) Glucose Level 160 mg/dL (70-99) Lactic Acid Level 3.4 mmol/L (0.4-2.0) Calcium Level 9.0 mg/dL (8.5-10.1) Total Bilirubin 0.6 mg/dL (0.2-1.0) Aspartate Amino Transf (AST/SGOT) 13 U/L (15-37) Alanine Aminotransferase (ALT/SGPT) 25 U/L (14-59) Alkaline Phosphatase 127 U/L (46-116) Ammonia < 10 mcmol/L (11-34) Creatine Kinase 46 U/L (26-192) Creatine Kinase MB (Mass) < 0.5 ng/mL (0.0-3.6) Creatine Kinase MB Relative Index % (0-4) Troponin I Quantitative < 0.017 ng/mL (0.000-0.055) Total Protein 6.6 g/dL (6.4-8.2) Albumin 2.4 g/dL (3.4-5.0) Albumin/Globulin Ratio 0.6 (1.0-1.7) Lipase 44 U/L (73-393) O2 Saturation 96 % (92-99) Arterial Blood pH 7.46 (7.35-7.45) Arterial Blood pCO2 at Patient Temp 41 mmHg (35-46) Arterial Blood pO2 at Patient Temp 80 mmHg (65-108) Arterial Blood HCO3 29 mmol/L (21-28) Arterial Blood Base Excess 5 mmol/L (-3-3) Oxyhemoglobin 94.7 % Methemoglobin 0.5 % (0.0-1.9) Carbon Monoxide, Quantitative 0.4 % (0.0-1.9) FiO2 21 Urine Color Yellow Urine Clarity Clear Urine pH 6.5 Urine Specific [place] 1.010 Urine Protein Negative mg/dL (NEG-TRACE) Urine Glucose (UA) Negative mg/dL (NEG) Urine Ketones (Stick) Negative mg/dL (NEG) Urine Blood Negative (NEG) Urine Nitrite Negative (NEG) Urine Bilirubin Negative (NEG) Urine Urobilinogen Dipstick 0.2 mg/dL (0.2 mg/dL) Urine Leukocyte Esterase Negative (NEG) Urine RBC 0 /HPF (0-2) Urine WBC Occ /HPF (0-4) Urine Squamous Epithelial Cells Occ /LPF Urine Bacteria 0 /HPF (0-FEW) Urine Hyaline Casts Few /HPF Stool Occult Blood Positive (NEG) Nasal Screen MRSA (PCR) Negative (Negative) Test 10/21/18 21:56 10/21/18 22:10 10/22/18 05:30 10/22/18 06:30 Glucose (Fingerstick) 145 mg/dL (70-99) Lactic Acid Level 1.5 mmol/L (0.4-2.0) Troponin I Quantitative 0.023 ng/mL (0.000-0.055) Sodium Level 144 mmol/L (136-145) Potassium Level 3.8 mmol/L (3.5-5.1) Chloride Level 104 mmol/L (98-107) Carbon Dioxide Level 32 mmol/L (21-32) Anion Gap 8 (6-14) Blood Urea Nitrogen 70 mg/dL (7-20) Creatinine 1.8 mg/dL (0.6-1.0) Estimated GFR (Cockcroft-Gault) 33.0 Glucose Level 179 mg/dL (70-99) Calcium Level 8.4 mg/dL (8.5-10.1) Phosphorus Level 4.0 mg/dL (2.6-4.7) Magnesium Level 2.3 mg/dL (1.8-2.4) White Blood Count 13.6 x10^3/uL (4.0-11.0) Red Blood Count 3.46 x10^6/uL (3.50-5.40) Hemoglobin 7.8 g/dL (12.0-15.5) Hematocrit 27.7 % (36.0-47.0) Mean Corpuscular Volume 80 fL (79-100) Mean Corpuscular Hemoglobin 23 pg (25-35) Mean Corpuscular Hemoglobin Concent 28 g/dL (31-37) Red Cell Distribution Width 22.2 % (11.5-14.5) Platelet Count 174 x10^3/uL (140-400) Neutrophils (%) (Auto) 89 % (31-73) Lymphocytes (%) (Auto) 3 % (24-48) Monocytes (%) (Auto) 8 % (0-9) Eosinophils (%) (Auto) 0 % (0-3) Basophils (%) (Auto) 0 % (0-3) Neutrophils # (Auto) 12.1 x10^3uL (1.8-7.7) Lymphocytes # (Auto) 0.4 x10^3/uL (1.0-4.8) Monocytes # (Auto) 1.0 x10^3/uL (0.0-1.1) Eosinophils # (Auto) 0.1 x10^3/uL (0.0-0.7) Basophils # (Auto) 0.0 x10^3/uL (0.0-0.2) Reticulocyte Count (auto) 5.0 % (0.5-2.5) Iron Level 15 ug/dL (50-170) Total Iron Binding Capacity 234 ug/dL (250-450) Iron Saturation 6 % (15-34) Ferritin 90 ng/mL (8-252) Vitamin B12 Level 1919 pg/mL (247-911) Test 10/22/18 09:08 10/22/18 11:48 10/22/18 15:57 10/22/18 20:34 Glucose (Fingerstick) 149 mg/dL (70-99) 183 mg/dL (70-99) 180 mg/dL (70-99) 159 mg/dL (70-99) Test 10/23/18 07:48 Glucose (Fingerstick) 182 mg/dL (70-99) Laboratory Tests Test 10/22/18 09:08 10/22/18 11:48 10/22/18 15:57 10/22/18 20:34 Glucose (Fingerstick) 149 mg/dL (70-99) 183 mg/dL (70-99) 180 mg/dL (70-99) 159 mg/dL (70-99) Test 10/23/18 07:48 Glucose (Fingerstick) 182 mg/dL (70-99) Microbiology 10/21/18 Blood Culture - Preliminary, Resulted NO GROWTH AFTER 1 DAY Medications Current Medications Sodium Chloride 1,000 ml @ 1,000 mls/hr 1X ONCE IV Last administered on at 15:58; Start 10/21/18 at 15:45; Stop 10/21/18 at 16:44; Status DC Sodium Chloride 1,000 ml @ 1,000 mls/hr 1X ONCE IV Last administered on at 16:01; Start 10/21/18 at 15:45; Stop 10/21/18 at 16:44; Status DC Ceftriaxone Sodium (Rocephin) 1 gm 1X ONCE IVP Last administered on 10/21/18at 16:49; Start 10/21/18 at 16:15; Stop 10/21/18 at 16:16; Status DC Sodium Chloride 500 ml @ 500 mls/hr 1X ONCE IV Last administered on at 18:00; Start 10/21/18 at 17:00; Stop 10/21/18 at 17:59; Status DC Piperacillin Sod/ Tazobactam Sod (Zosyn Per Pharmacy) 1 each PRN DAILY PRN MC SEE COMMENTS; Start 10/21/18 at 17:00; Status UNV Ondansetron HCl (Zofran) 4 mg PRN Q8HRS PRN IV NAUSEA/VOMITING; Start 10/21/18 at 17:00; Stop 10/22/18 at 09:22; Status DC Fentanyl Citrate (Fentanyl 2ml Vial) 50 mcg PRN Q1HR PRN IV PAIN; Start at 17:00; Stop 10/22/18 at 09:04; Status DC Sodium Chloride 1,000 ml @ 80 mls/hr [id number] IV Last administered on at 18:00; Start 10/21/18 at 17:00; Stop 10/22/18 at 16:59; Status DC Oxycodone HCl (Roxicodone) 5 mg PRN Q3HRS PRN PO PAIN UNREL BY PERCOCET Last administered on 10/22/18at 17:40; Start 10/21/18 at 17:00 Acetaminophen (Tylenol) 650 mg PRN Q6HRS PRN PO Headaches, Temp > 101.5'; Start 10/21/18 at 17:00 Lorazepam (Ativan) 0.5 mg PRN Q6HRS PRN IV ANXIETY / AGITATION; Start 10/21/18 at 17:00 Ondansetron HCl (Zofran) 4 mg PRN Q6HRS PRN IV NAUSEA/VOMITING; Start 10/21/18 at 17:00 Famotidine (Pepcid) 20 mg DAILY PO Last administered on 10/23/18at 08:01; Start 10/22/18 at 09:00 Zolpidem Tartrate (Ambien) 5 mg PRN QHS PRN PO INSOMNIA, MAY REPEAT IN 1HR; Start 10/21/18 at 17:00 Info (Icu Electrolyte Protocol) 1 ea DAILY MC ; Start 10/22/18 at 09:00 Heparin Sodium (Porcine) (Heparin Sodium) 5,000 unit Q8HRS SQ Last administered on 10/23/18 06:46; Start 10/21/18 at 22:00 Sodium Chloride (Normal Saline Flush) 3 ml QSHIFT PRN IV AFTER MEDS AND BLOOD DRAWS; Start 10/21/18 at 17:00 Oxycodone/ Acetaminophen (Percocet 5/325) 1 tab PRN Q4HRS PRN PO PAIN, 1ST CHOICE Last administered on 10/22/18at 14:33; Start 10/21/18 at 17:00 Morphine Sulfate (Morphine Sulfate) 2 mg PRN Q1HR PRN IV PAIN; Start 10/21/18 at 17:00 Lactulose (Lactulose) 20 gm PRN Q12HR PRN PO CONSTIPATION; Start 10/21/18 at 17 :00 Insulin Human Lispro (HumaLOG) 0-7 UNITS TIDWMEALS SQ Last administered on 10/23at 08:07; Start 10/21/18 at 17:00 Dextrose (Dextrose 50%-Water Syringe) 12.5 gm PRN Q15MIN PRN IV SEE COMMENTS; Start 10/21/18 at 17:00 Insulin Glargine (Lantus) 38 units QHS SQ ; Start 10/21/18 at 21:00 Prednisone (Prednisone) 10 mg DAILY PO Last administered on 10/23/18 08:01; Start 10/22/18 at 09:00 Sildenafil Citrate (Revatio) 20 mg TID PO Last administered on 10/23/18 08:02 ; Start 10/21/18 at 21:00 Insulin Human Lispro (HumaLOG) 8 units BIDACBL SQ Last administered on 08:06; Start 10/22/18 at 08:00 Simvastatin (Zocor) 80 mg QHS PO Last administered on 10/22/18 20:46; Start at 21:00 Spironolactone (Aldactone) 25 mg DAILY PO Last administered on 10/23/18at 08:01 ; Start 10/22/18 at 09:00 Levofloxacin/ Dextrose 150 ml @ 100 mls/hr Q48H IV ; Start 10/21/18 at 17:00 Vancomycin HCl (Vanco Per Pharmacy) 1 each PRN DAILY PRN MC SEE COMMENTS Last administered on 10/22/18at 09:23; Start 10/21/18 at 17:00 Vancomycin HCl 1.5 gm/Sodium Chloride 500 ml @ 250 mls/hr 1X ONCE IV Last administered on 10/21/18 18:30; Start 10/21/18 at 17:15; Stop 10/21/18 at 19:14 ; Status DC Acetaminophen (Tylenol) 650 mg 1X PRN PRN PO PRE-TRANSFUSION; Start 10/21/18 at 18:15 Vancomycin HCl 1.25 gm/Sodium Chloride 250 ml @ 167 mls/hr Q24H IV Last administered on 10/22/18at 17:59; Start 10/22/18 at 18:30 Vancomycin HCl (Vancomycin Trough Level) 1 each 1X ONCE MC ; Start 10/23/18 at 18:00; Stop 10/23/18 at 18:01 Active Scripts Active Reported Acetazolamide 250 Mg Tablet unknown dosage Prednisone (Prednisone) 10 Mg Tablet 10 Mg PO DAILY Sildenafil (Sildenafil Citrate) 20 Mg Tablet unknown dosage Ferrous Sulfate 325 Mg Tablet unknown dosage Bumetanide 1 Mg Tablet unknown dosage Metolazone 2.5 Mg Tablet 2.5 Mg PO BID Spironolactone 25 Mg Tablet 25 Mg PO DAILY Lantus Solostar (Insulin Glargine,Hum.rec.anlog) 100 Unit/1 Ml Insuln.pen 38 Unit SQ QHS Novolog Flexpen (Insulin Aspart) 100 Unit/1 Ml Insuln.pen 8 Unit SQ BIDACBL Metoprolol Succinate ( Xl ) (Metoprolol Succinate) 100 Mg Tab.er.24h 1 Tab PO DAILY Calcium Citrate 100 Gm Powder 100 Gm MC Simvastatin 80 Mg Tablet 1 Tab PO DAILY Potassium Chloride 20 Meq Tab.er.prt 1 Tab PO BID Omeprazole 20 Mg Tablet.dr 1 Tab PO DAILY Amlodipine Besylate 5 Mg Tablet 1 Tab PO DAILY Losartan Potassium 50 Mg Tablet 1 Tab PO DAILY Aspirin 325 Mg Tablet 1 Tab PO DAILY Vitals/I & O Vital Sign - Last 24 Hours 10/22/18 10/22/18 10/22/18 10/22/18 09:00 09:46 10:00 10:47 Pulse 104 103 Resp 26 20 16 18 B/P (MAP) 127/51 (76) 83/56 (65) Pulse Ox 96 99 100 96 O2 Delivery Nasal Cannula Nasal Cannula Nasal Cannula Nasal Cannula O2 Flow Rate 4.0 4.0 4.0 4.0 10/22/18 10/22/18 10/22/18 10/22/18 11:00 12:00 12:00 13:00 Temp 97.5 97.5 Pulse 95 97 Resp 20 22 B/P (MAP) 83/39 (54) 92/54 (67) Pulse Ox 95 95 O2 Delivery Nasal Cannula Nasal Cannula Nasal Cannula Nasal Cannula O2 Flow Rate 4.0 4.0 4.0 4.0 10/22/18 10/22/18 10/22/18 10/22/18 14:00 14:33 15:00 17:40 Temp 97.8 97.8 Pulse 97 102 Resp 16 B/P (MAP) 92/54 92/54 (67) Pulse Ox 97 O2 Delivery Nasal Cannula Nasal Cannula Nasal Cannula O2 Flow Rate 4.0 4.0 10/22/18 10/22/18 10/22/18 10/22/18 19:00 20:00 20:48 22:32 Temp 97.9 97.9 Pulse 100 100 Resp 18 B/P (MAP) 94/58 (70) 94/58 Pulse Ox 97 94 O2 Delivery Nasal Cannula Nasal Cannula BiPAP/CPAP O2 Flow Rate 4.0 4.0 10/22/18 10/23/18 10/23/18 10/23/18 22:48 00:12 03:00 08:02 Temp 98.1 98.1 98.1 98.1 Pulse 96 91 100 Resp 17 18 B/P (MAP) 108/48 (68) 104/53 (70) 104/62 Pulse Ox 98 91 O2 Delivery Nasal Cannula BiPAP/CPAP Nasal Cannula O2 Flow Rate 4.0 4.0 Intake and Output 10/22/18 10/22/18 10/23/18 15:00 23:00 07:00 Intake Total 100 ml 200 ml 100 ml Output Total 185 ml 50 ml Balance -85 ml 200 ml 50 ml LATASHA VÁZQUEZ MD Oct 23, 2018 08:13
[2018-10-23 09:34] LABS: CREATININE 2.4 mg/dL (0.6-1.0); GFR 23.7
[2018-10-23 11:00] VITALS: BP 99/47
--- NOTE | 2018-10-23 12:01 | NUR ---
SW following. Discussed with RN, pt is from home. Per RN, pt has stage 4 colon cancer. Possible palliative care consult. SW will continue to follow for discharge planning.
[2018-10-23 15:00] VITALS: BP 81/50
--- NOTE | 2018-10-23 15:12 | PDOC2 ---
PALLIATIVE CARE Palliative Care Note Palliative Care Consult requested by Dr. Sanchez to address plan of care Medical Assessment per medical record; Hypovolemic shock resolved after fluid resuscitation. Elevated lactic acid resolved Diagnosis of reported stage IV colon cancer with metastatic liver lesions as per history Acute renal failure most likely secondary to vasomotor etiology improved Severe dehydration improved Microcytic anemia which seems to be compensated most likely is iron deficiency etiology given her underlying carcinomatosis with GI losses Leukocytosis persistent despite fluid resuscitation, no evident focus of infection noted. History of COPD after a long-standing history of smoking throughout her life. She quit approximately 4 years ago with greater than [id number] history of smoking Severe pulmonary hypertension History of congestive heart failure which seems to be diastolic dysfunction with a preserved ejection fraction of 55% on an echo 6 months ago Diabetes mellitus type 2 fairly controlled History of essential hypertension. Dr. Yañez 1. Stage IV colon cancer with liver metastasis involving both lobes of the liver, diagnosed by liver biopsy on 09/13/2018. CT scan revealed ascending colon mass, which was thought to be the primary. Colonoscopy was not performed because of congestive heart failure. Her functional status is poor right now due to her comorbid conditions. I will plan to initiate palliative chemotherapy once her functional status improves. I explained in detail to the patient and she understands and agrees with the plan. Met with patient and daughter Graham. Daughter Rosio also--not present for meeting. Reviewed medical condition as above. Confirmed DNr/DNI. Outside the Hospital DNR/DNI form signed. Goal remains to try to get strong enough to take palliative chemotherapy. Patient is followed by [facility] and wishes to continue with them. PT/OT evaluation pending. Patient and daughter adamant about not SNU patient denies pain at this time. Patient would like to revise AD. Neha GARY will assist. Patient found out today her sister of similar dx. JOSE RAFAEL BABB Oct 23, 2018 15:12
--- NOTE | 2018-10-23 16:12 | NUR ---
SW following pt. Attempted to see pt regarding AD but pt was using the rest room. Will f/u tomorrow morning.
[2018-10-23 19:00] VITALS: BP 98/56
[2018-10-23] MEDS: VANCOMYCIN PER PHARMACY MC PRN (20:41)
[2018-10-23] MEDS: INSULIN GLARGINE 300 UNITS/3 ML INSULN.PEN. SQ SCH (21:00)
--- NOTE | 2018-10-23 21:00 | NUR ---
Pt has been stuck multiple times in attempt to place IV for antibiotics and lab draw. Dr. Jaeger gave the okay to order a PICC line on patient. Pt consented to procedure and eldest daughter aware. [place] paged to come place PICC line.
[2018-10-23] MEDS: SIMVASTATIN 40 MG TABLET. PO SCH (21:19)
[2018-10-23 23:00] VITALS: BP 97/46
[2018-10-24] MEDS ORDERED: VANCOMYCIN RANDOM LEVEL. MC ONE (00:30)
[2018-10-24 02:42] LABS: GFR 29.2
[2018-10-24] MEDS: VANCOMYCIN 1.25 GM in IV NORMAL SALINE 250ML 250 ML IV SCH ×2 (02:52→17:20)
--- NOTE | 2018-10-24 02:53 | NUR ---
Per pharmacy, hold vancomycin dose for tonight.
[2018-10-24 03:00] VITALS: BP 106/53
[2018-10-24] MEDS: HEPARIN for SUB-Q USE 5,000 UNIT/ML VIAL. SQ SCH ×3 (05:54→22:13)
[2018-10-24 07:00] VITALS: BP 93/50
--- NOTE | 2018-10-24 07:37 | PDOC ---
PROGRESS NOTES Chief Complaint Chief Complaint Hypovolemic shock resolved after fluid resuscitation. Elevated lactic acid resolved Diagnosis of reported stage IV colon cancer with metastatic liver lesions as per history Acute renal failure most likely secondary to vasomotor etiology improved Severe dehydration improved Microcytic anemia which seems to be compensated most likely is iron deficiency etiology given her underlying carcinomatosis with GI losses Leukocytosis persistent despite fluid resuscitation, no evident focus of infection noted. History of COPD after a long-standing history of smoking throughout her life. She quit approximately 4 years ago with greater than [id number] history of smoking Severe pulmonary hypertension History of congestive heart failure which seems to be diastolic dysfunction with a preserved ejection fraction of 55% on an echo 6 months ago Diabetes mellitus type 2 fairly controlled History of essential hypertension. History of Present Illness History of Present Illness 78yo w/ stage IV colon cancer admitted with hypovolemic shock. Patient resting comfortably in bed in no apparent distress. Hemodynamics worse, has become more hypotensive and tachycardic today. Less responsive today Renal and CBC were improved. Plan; continue to hold her antihypertensives Fluid bolus today will consult Dr Yañez to address her underlying malignancy follow urinary output encourage oral intake Likely palliative is appropriate, will defer to oncology. Her daughter wishes to continue to increase her mobility, will have PT/OT work with her today once blood pressure is up. Try to get OOB and up to chair today Likely home in next 24 hours, hopefully with home health/palliative care Vitals Vitals Vital Signs Date Time Temp Pulse Resp B/P (MAP) Pulse Ox O2 Delivery O2 Flow Rate FiO2 10/24/18 03:00 98.6 101 18 106/53 (70) 91 Nasal Cannula 4.0 98.6 Physical Exam Physical Exam Gen.: well-developed, elderly in no apparent distress Head: Normal shape atraumatic Eyes: Pupils equal reactive to light and accommodation, normal conjunctivae and lids Ears: Normal shape Nose: Normal shape no trauma Mouth: No exudates of the back of throat no thrush no lesions, dry mucous membranes Neck: Supple no JVD no carotid bruit or lymphadenopathy no thyromegaly Chest: Lungs clear to auscultation with good inspiratory effort no crackles rales or rhonchi Cardiovascular: S1-S2 regular rhythm no murmurs gallops or rubs Abdomen: Bowel sounds present soft nontender no hepatosplenomegaly appreciated Extremities: No clubbing no cyanosis 1+ edema peripheral pulses palpated bilaterally Neurological: Alert awake oriented in person time place and situation, cranial nerves II through XII intact, no motor or sensory deficits appreciated Psych: Appropriate mood, cooperative General: Cooperative Heart: Regular rate, Normal S1, Normal S2 Lungs: Clear Abdomen: Normal bowel sounds, Soft Extremities: No clubbing, No cyanosis Skin: No rashes, No breakdown Labs LABS Laboratory Tests Test 10/23/18 07:48 10/23/18 09:00 10/23/18 11:25 10/23/18 16:52 Glucose (Fingerstick) 182 mg/dL (70-99) 155 mg/dL (70-99) 119 mg/dL (70-99) Creatinine 2.4 mg/dL (0.6-1.0) Estimated GFR (Cockcroft-Gault) 23.7 Test 10/23/18 20:43 10/24/18 02:25 Glucose (Fingerstick) 139 mg/dL (70-99) Creatinine 2.0 mg/dL (0.6-1.0) Estimated GFR (Cockcroft-Gault) 29.2 Random Vancomycin Level 18.5 mcg/mL Assessment and Plan Assessmemt and Plan Problems Medical Problems: (1) Hypotension Status: Acute (2) Sepsis Status: Acute Comment Review of Relevant I have reviewed the following items aby (where applicable) has been applied. Labs Laboratory Tests Test 10/22/18 09:08 10/22/18 11:48 10/22/18 15:57 10/22/18 20:34 Glucose (Fingerstick) 149 mg/dL (70-99) 183 mg/dL (70-99) 180 mg/dL (70-99) 159 mg/dL (70-99) Test 10/23/18 07:48 10/23/18 09:00 10/23/18 11:25 10/23/18 16:52 Glucose (Fingerstick) 182 mg/dL (70-99) 155 mg/dL (70-99) 119 mg/dL (70-99) Creatinine 2.4 mg/dL (0.6-1.0) Estimated GFR (Cockcroft-Gault) 23.7 Test 10/23/18 20:43 10/24/18 02:25 Glucose (Fingerstick) 139 mg/dL (70-99) Creatinine 2.0 mg/dL (0.6-1.0) Estimated GFR (Cockcroft-Gault) 29.2 Random Vancomycin Level 18.5 mcg/mL Laboratory Tests Test 10/23/18 07:48 10/23/18 09:00 10/23/18 11:25 10/23/18 16:52 Glucose (Fingerstick) 182 mg/dL (70-99) 155 mg/dL (70-99) 119 mg/dL (70-99) Creatinine 2.4 mg/dL (0.6-1.0) Estimated GFR (Cockcroft-Gault) 23.7 Test 10/23/18 20:43 10/24/18 02:25 Glucose (Fingerstick) 139 mg/dL (70-99) Creatinine 2.0 mg/dL (0.6-1.0) Estimated GFR (Cockcroft-Gault) 29.2 Random Vancomycin Level 18.5 mcg/mL Microbiology 10/21/18 Blood Culture - Preliminary, Resulted NO GROWTH AFTER 2 DAYS Medications Current Medications Sodium Chloride 1,000 ml @ 1,000 mls/hr 1X ONCE IV Last administered on at 15:58; Start 10/21/18 at 15:45; Stop 10/21/18 at 16:44; Status DC Sodium Chloride 1,000 ml @ 1,000 mls/hr 1X ONCE IV Last administered on at 16:01; Start 10/21/18 at 15:45; Stop 10/21/18 at 16:44; Status DC Ceftriaxone Sodium (Rocephin) 1 gm 1X ONCE IVP Last administered on 10/21/18at 16:49; Start 10/21/18 at 16:15; Stop 10/21/18 at 16:16; Status DC Sodium Chloride 500 ml @ 500 mls/hr 1X ONCE IV Last administered on at 18:00; Start 10/21/18 at 17:00; Stop 10/21/18 at 17:59; Status DC Piperacillin Sod/ Tazobactam Sod (Zosyn Per Pharmacy) 1 each PRN DAILY PRN MC SEE COMMENTS; Start 10/21/18 at 17:00; Status UNV Ondansetron HCl (Zofran) 4 mg PRN Q8HRS PRN IV NAUSEA/VOMITING; Start 10/21/18 at 17:00; Stop 10/22/18 at 09:22; Status DC Fentanyl Citrate (Fentanyl 2ml Vial) 50 mcg PRN Q1HR PRN IV PAIN; Start at 17:00; Stop 10/22/18 at 09:04; Status DC Sodium Chloride 1,000 ml @ 80 mls/hr [id number] IV Last administered on at 18:00; Start 10/21/18 at 17:00; Stop 10/22/18 at 16:59; Status DC Oxycodone HCl (Roxicodone) 5 mg PRN Q3HRS PRN PO PAIN UNREL BY PERCOCET Last administered on 10/22/18at 17:40; Start 10/21/18 at 17:00 Acetaminophen (Tylenol) 650 mg PRN Q6HRS PRN PO Headaches, Temp > 101.5'; Start 10/21/18 at 17:00 Lorazepam (Ativan) 0.5 mg PRN Q6HRS PRN IV ANXIETY / AGITATION; Start 10/21/18 at 17:00 Ondansetron HCl (Zofran) 4 mg PRN Q6HRS PRN IV NAUSEA/VOMITING; Start 10/21/18 at 17:00 Famotidine (Pepcid) 20 mg DAILY PO Last administered on 10/23/18at 08:01; Start 10/22/18 at 09:00 Zolpidem Tartrate (Ambien) 5 mg PRN QHS PRN PO INSOMNIA, MAY REPEAT IN 1HR; Start 10/21/18 at 17:00 Info (Icu Electrolyte Protocol) 1 ea DAILY MC ; Start 10/22/18 at 09:00; Stop at 07:00; Status DC Heparin Sodium (Porcine) (Heparin Sodium) 5,000 unit Q8HRS SQ Last administered on 10/24/18at 05:54; Start 10/21/18 at 22:00 Sodium Chloride (Normal Saline Flush) 3 ml QSHIFT PRN IV AFTER MEDS AND BLOOD DRAWS; Start 10/21/18 at 17:00 Oxycodone/ Acetaminophen (Percocet 5/325) 1 tab PRN Q4HRS PRN PO PAIN, 1ST CHOICE Last administered on 10/22/18at 14:33; Start 10/21/18 at 17:00 Morphine Sulfate (Morphine Sulfate) 2 mg PRN Q1HR PRN IV PAIN; Start 10/21/18 at 17:00 Lactulose (Lactulose) 20 gm PRN Q12HR PRN PO CONSTIPATION; Start 10/21/18 at 17 :00 Insulin Human Lispro (HumaLOG) 0-7 UNITS TIDWMEALS SQ Last administered on 10/23at 12:50; Start 10/21/18 at 17:00 Dextrose (Dextrose 50%-Water Syringe) 12.5 gm PRN Q15MIN PRN IV SEE COMMENTS; Start 10/21/18 at 17:00 Insulin Glargine (Lantus) 38 units QHS SQ ; Start 10/21/18 at 21:00 Prednisone (Prednisone) 10 mg DAILY PO Last administered on 10/23/18at 08:01; Start 10/22/18 at 09:00 Sildenafil Citrate (Revatio) 20 mg TID PO Last administered on 10/23/18 08:02 ; Start 10/21/18 at 21:00 Insulin Human Lispro (HumaLOG) 8 units BIDACBL SQ Last administered on 12:49; Start 10/22/18 at 08:00 Simvastatin (Zocor) 80 mg QHS PO Last administered on 10/23/18 21:19; Start at 21:00 Spironolactone (Aldactone) 25 mg DAILY PO Last administered on 10/23/18at 08:01 ; Start 10/22/18 at 09:00 Levofloxacin/ Dextrose 150 ml @ 100 mls/hr Q48H IV Last administered on at 02:31; Start 10/21/18 at 17:00 Vancomycin HCl (Vanco Per Pharmacy) 1 each PRN DAILY PRN MC SEE COMMENTS Last administered on 10/23/18at 20:41; Start 10/21/18 at 17:00 Vancomycin HCl 1.5 gm/Sodium Chloride 500 ml @ 250 mls/hr 1X ONCE IV Last administered on 10/21/18at 18:30; Start 10/21/18 at 17:15; Stop 10/21/18 at 19:14 ; Status DC Acetaminophen (Tylenol) 650 mg 1X PRN PRN PO PRE-TRANSFUSION; Start 10/21/18 at 18:15 Vancomycin HCl 1.25 gm/Sodium Chloride 250 ml @ 167 mls/hr Q24H IV Last administered on 10/22/18at 17:59; Start 10/22/18 at 18:30 Vancomycin HCl (Vancomycin Trough Level) 1 each 1X ONCE MC Last administered on 10/23/18at 17:53; Start 10/23/18 at 18:00; Stop 10/23/18 at 18:01; Status DC Vancomycin HCl (Vancomycin Random Level) 1 each 1X ONCE MC Last administered on 10/24/18at 00:30; Start 10/24/18 at 00:30; Stop 10/24/18 at 00:31; Status DC Active Scripts Active Reported Acetazolamide 250 Mg Tablet unknown dosage Prednisone (Prednisone) 10 Mg Tablet 10 Mg PO DAILY Sildenafil (Sildenafil Citrate) 20 Mg Tablet unknown dosage Ferrous Sulfate 325 Mg Tablet unknown dosage Bumetanide 1 Mg Tablet unknown dosage Metolazone 2.5 Mg Tablet 2.5 Mg PO BID Spironolactone 25 Mg Tablet 25 Mg PO DAILY Lantus Solostar (Insulin Glargine,Hum.rec.anlog) 100 Unit/1 Ml Insuln.pen 38 Unit SQ QHS Novolog Flexpen (Insulin Aspart) 100 Unit/1 Ml Insuln.pen 8 Unit SQ BIDACBL Metoprolol Succinate ( Xl ) (Metoprolol Succinate) 100 Mg Tab.er.24h 1 Tab PO DAILY Calcium Citrate 100 Gm Powder 100 Gm MC Simvastatin 80 Mg Tablet 1 Tab PO DAILY Potassium Chloride 20 Meq Tab.er.prt 1 Tab PO BID Omeprazole 20 Mg Tablet.dr 1 Tab PO DAILY Amlodipine Besylate 5 Mg Tablet 1 Tab PO DAILY Losartan Potassium 50 Mg Tablet 1 Tab PO DAILY Aspirin 325 Mg Tablet 1 Tab PO DAILY Vitals/I & O Vital Sign - Last 24 Hours 10/23/18 10/23/18 10/23/18 10/23/18 08:00 08:02 11:00 12:53 Temp 97.9 97.9 Pulse 100 112 100 Resp 14 B/P (MAP) 104/62 99/47 (64) 99/47 Pulse Ox 97 O2 Delivery Nasal Cannula Nasal Cannula O2 Flow Rate 4.0 4.0 10/23/18 10/23/18 10/23/18 10/23/18 15:00 19:00 20:00 23:00 Temp 98.2 98.1 98.4 98.2 98.1 98.4 Pulse 96 103 108 Resp 16 17 20 B/P (MAP) 81/50 (60) 98/56 (70) 97/46 (63) Pulse Ox 97 97 90 O2 Delivery Nasal Cannula Nasal Cannula Nasal Cannula Nasal Cannula O2 Flow Rate 4.0 4.0 4.0 4.0 10/24/18 10/24/18 00:52 03:00 Temp 98.6 98.6 Pulse 101 Resp 18 B/P (MAP) 106/53 (70) Pulse Ox 91 O2 Delivery BiPAP/CPAP Nasal Cannula O2 Flow Rate 4.0 Intake and Output 10/23/18 10/23/18 10/24/18 14:59 22:59 06:59 Intake Total 120 ml 120 ml 200 ml Output Total 250 ml Balance 120 ml 120 ml -50 ml LATASHA VÁZQUEZ MD Oct 24, 2018 07:37
[2018-10-24] MEDS: INSULIN LISPRO 300 UNITS/3 ML INSULN.PEN. SQ SCH ×5 (08:00→16:47)
--- NOTE | 2018-10-24 08:14 | RAD ---
Single view of the chest. 10/24/2018 2:12 AM Indication: picc line placement Comparison: Chest October 21, 2018 Findings: There is a right upper extremity PICC line with tip at the cavoatrial junction. No pneumothorax or pleural effusion is seen. Mild diffuse interstitial thickening is slightly increased in the interim. Cardiomegaly is similar. No acute osseous changes are identified. IMPRESSION: 1. Right upper extremity PICC line with tip at the cavoatrial junction 2. Cardiomegaly and mild interstitial thickening. Findings may represent mild interstitial edema on congestive failure. An atypical or viral infectious process is also possible. Electronically signed by: Haja Mclain MD (10/24/2018 8:11 AM) [id number]
[2018-10-24] MEDS: FAMOTIDINE 20 MG TABLET. PO SCH (08:25)
[2018-10-24] MEDS: predniSONE 10 MG TABLET PO SCH (08:25)
[2018-10-24] MEDS: SPIRONOLACTONE 25 MG TABLET PO SCH (08:30)
[2018-10-24] MEDS: SILDENAFIL CITRATE 20 MG TABLET. PO SCH ×3 (08:30→21:00)
[2018-10-24 11:00] VITALS: BP 88/46
[2018-10-24] MEDS: IV RINGERS,LACTATED 1000ML 1,000 ML IV SCH ×3 (11:10→22:13)
--- NOTE | 2018-10-24 12:41 | PDOC ---
PROGRESS NOTES Subjective Subjective HPI - f/u of Stage IV colon cancer ROS - no CP Objective Objective Vital Signs Date Time Temp Pulse Resp B/P (MAP) Pulse Ox O2 Delivery O2 Flow Rate FiO2 10/24/18 11:00 98.3 110 14 88/46 (60) 94 Nasal Cannula 4.0 98.3 Intake and Output 10/24/18 06:59 Intake Total 440 ml Output Total 250 ml Balance 190 ml Intake Oral 440 ml Output Urine Total 250 ml # Bowel Movements 1 Physical Exam Heart: Normal S1, Normal S2 General: Alert, Oriented X3 Lungs: Clear to auscultation Neuro: Normal speech Psych/Mental Status: Mental status NL Assessment Assessment Problems Medical Problems: (1) Hypotension Status: Acute (2) Sepsis Status: Acute IMPRESSION AND PLAN: 1. Stage IV colon cancer with liver metastasis involving both lobes of the liver, diagnosed by liver biopsy on 09/13/2018. CT scan revealed ascending colon mass, which was thought to be the primary. Colonoscopy was not performed because of congestive heart failure. Her functional status is poor right now due to her comorbid conditions. I will plan to initiate palliative chemotherapy once her functional status improves. I explained in detail to the patient and she understands and agrees with the plan. Appreciate palliative care consult. 2. Hypotension, thought to be due to hypovolemia. I discussed with Dr. Eddie Rodriguez. The patient was given hydration and she is feeling better. 3. Congestive heart failure, management per primary team. 4. Anemia, status post one unit PRBC transfusion. Continue to monitor hemoglobin and transfuse as needed. Comment Review of Relevant I have reviewed the following items aby (where applicable) has been applied. Labs Laboratory Tests Test 10/22/18 15:57 10/22/18 20:34 10/23/18 07:48 10/23/18 09:00 Glucose (Fingerstick) 180 mg/dL (70-99) 159 mg/dL (70-99) 182 mg/dL (70-99) Creatinine 2.4 mg/dL (0.6-1.0) Estimated GFR (Cockcroft-Gault) 23.7 Test 10/23/18 11:25 10/23/18 16:52 10/23/18 20:43 10/24/18 02:25 Glucose (Fingerstick) 155 mg/dL (70-99) 119 mg/dL (70-99) 139 mg/dL (70-99) Creatinine 2.0 mg/dL (0.6-1.0) Estimated GFR (Cockcroft-Gault) 29.2 Random Vancomycin Level 18.5 mcg/mL Test 10/24/18 07:12 10/24/18 11:51 Glucose (Fingerstick) 198 mg/dL (70-99) 153 mg/dL (70-99) Laboratory Tests Test 10/23/18 16:52 10/23/18 20:43 10/24/18 02:25 10/24/18 07:12 Glucose (Fingerstick) 119 mg/dL (70-99) 139 mg/dL (70-99) 198 mg/dL (70-99) Creatinine 2.0 mg/dL (0.6-1.0) Estimated GFR (Cockcroft-Gault) 29.2 Random Vancomycin Level 18.5 mcg/mL Test 10/24/18 11:51 Glucose (Fingerstick) 153 mg/dL (70-99) Microbiology 10/21/18 Blood Culture - Preliminary, Resulted NO GROWTH AFTER 2 DAYS Medications Current Medications Sodium Chloride 1,000 ml @ 1,000 mls/hr 1X ONCE IV Last administered on at 15:58; Start 10/21/18 at 15:45; Stop 10/21/18 at 16:44; Status DC Sodium Chloride 1,000 ml @ 1,000 mls/hr 1X ONCE IV Last administered on at 16:01; Start 10/21/18 at 15:45; Stop 10/21/18 at 16:44; Status DC Ceftriaxone Sodium (Rocephin) 1 gm 1X ONCE IVP Last administered on 10/21/18at 16:49; Start 10/21/18 at 16:15; Stop 10/21/18 at 16:16; Status DC Sodium Chloride 500 ml @ 500 mls/hr 1X ONCE IV Last administered on at 18:00; Start 10/21/18 at 17:00; Stop 10/21/18 at 17:59; Status DC Piperacillin Sod/ Tazobactam Sod (Zosyn Per Pharmacy) 1 each PRN DAILY PRN MC SEE COMMENTS; Start 10/21/18 at 17:00; Status UNV Ondansetron HCl (Zofran) 4 mg PRN Q8HRS PRN IV NAUSEA/VOMITING; Start 10/21/18 at 17:00; Stop 10/22/18 at 09:22; Status DC Fentanyl Citrate (Fentanyl 2ml Vial) 50 mcg PRN Q1HR PRN IV PAIN; Start at 17:00; Stop 10/22/18 at 09:04; Status DC Sodium Chloride 1,000 ml @ 80 mls/hr [id number] IV Last administered on at 18:00; Start 10/21/18 at 17:00; Stop 10/22/18 at 16:59; Status DC Oxycodone HCl (Roxicodone) 5 mg PRN Q3HRS PRN PO PAIN UNREL BY PERCOCET Last administered on 10/22/18at 17:40; Start 10/21/18 at 17:00 Acetaminophen (Tylenol) 650 mg PRN Q6HRS PRN PO Headaches, Temp > 101.5'; Start 10/21/18 at 17:00 Lorazepam (Ativan) 0.5 mg PRN Q6HRS PRN IV ANXIETY / AGITATION; Start 10/21/18 at 17:00 Ondansetron HCl (Zofran) 4 mg PRN Q6HRS PRN IV NAUSEA/VOMITING; Start 10/21/18 at 17:00 Famotidine (Pepcid) 20 mg DAILY PO Last administered on 10/24/18at 08:25; Start 10/22/18 at 09:00 Zolpidem Tartrate (Ambien) 5 mg PRN QHS PRN PO INSOMNIA, MAY REPEAT IN 1HR; Start 10/21/18 at 17:00 Info (Icu Electrolyte Protocol) 1 ea DAILY MC ; Start 10/22/18 at 09:00; Stop at 07:00; Status DC Heparin Sodium (Porcine) (Heparin Sodium) 5,000 unit Q8HRS SQ Last administered on 10/24/18at 05:54; Start 10/21/18 at 22:00 Sodium Chloride (Normal Saline Flush) 3 ml QSHIFT PRN IV AFTER MEDS AND BLOOD DRAWS; Start 10/21/18 at 17:00 Oxycodone/ Acetaminophen (Percocet 5/325) 1 tab PRN Q4HRS PRN PO PAIN, 1ST CHOICE Last administered on 10/22/18 14:33; Start 10/21/18 at 17:00 Morphine Sulfate (Morphine Sulfate) 2 mg PRN Q1HR PRN IV PAIN; Start 10/21/18 at 17:00 Lactulose (Lactulose) 20 gm PRN Q12HR PRN PO CONSTIPATION; Start 10/21/18 at 17 :00 Insulin Human Lispro (HumaLOG) 0-7 UNITS TIDWMEALS SQ Last administered on 10/23at 12:50; Start 10/21/18 at 17:00 Dextrose (Dextrose 50%-Water Syringe) 12.5 gm PRN Q15MIN PRN IV SEE COMMENTS; Start 10/21/18 at 17:00 Insulin Glargine (Lantus) 38 units QHS SQ ; Start 10/21/18 at 21:00 Prednisone (Prednisone) 10 mg DAILY PO Last administered on 10/24/18 08:25; Start 10/22/18 at 09:00 Sildenafil Citrate (Revatio) 20 mg TID PO Last administered on 10/23/18 08:02 ; Start 10/21/18 at 21:00 Insulin Human Lispro (HumaLOG) 8 units BIDACBL SQ Last administered on 08:29; Start 10/22/18 at 08:00 Simvastatin (Zocor) 80 mg QHS PO Last administered on 10/23/18 21:19; Start at 21:00 Spironolactone (Aldactone) 25 mg DAILY PO Last administered on 10/23/18 08:01 ; Start 10/22/18 at 09:00 Levofloxacin/ Dextrose 150 ml @ 100 mls/hr Q48H IV Last administered on 02:31; Start 10/21/18 at 17:00 Vancomycin HCl (Vanco Per Pharmacy) 1 each PRN DAILY PRN MC SEE COMMENTS Last administered on 10/23/18 20:41; Start 10/21/18 at 17:00 Vancomycin HCl 1.5 gm/Sodium Chloride 500 ml @ 250 mls/hr 1X ONCE IV Last administered on 10/21/18 18:30; Start 10/21/18 at 17:15; Stop 10/21/18 at 19:14 ; Status DC Acetaminophen (Tylenol) 650 mg 1X PRN PRN PO PRE-TRANSFUSION; Start 10/21/18 at 18:15 Vancomycin HCl 1.25 gm/Sodium Chloride 250 ml @ 167 mls/hr Q24H IV Last administered on 10/22/18at 17:59; Start 10/22/18 at 18:30 Vancomycin HCl (Vancomycin Trough Level) 1 each 1X ONCE MC Last administered on 10/23/18at 17:53; Start 10/23/18 at 18:00; Stop 10/23/18 at 18:01; Status DC Vancomycin HCl (Vancomycin Random Level) 1 each 1X ONCE MC Last administered on 10/24/18at 00:30; Start 10/24/18 at 00:30; Stop 10/24/18 at 00:31; Status DC Ringer's Solution 1,000 ml @ 100 mls/hr Q10H IV Last administered on at 11:10; Start 10/24/18 at 10:45 Active Scripts Active Reported Acetazolamide 250 Mg Tablet unknown dosage Prednisone (Prednisone) 10 Mg Tablet 10 Mg PO DAILY Sildenafil (Sildenafil Citrate) 20 Mg Tablet unknown dosage Ferrous Sulfate 325 Mg Tablet unknown dosage Bumetanide 1 Mg Tablet unknown dosage Metolazone 2.5 Mg Tablet 2.5 Mg PO BID Spironolactone 25 Mg Tablet 25 Mg PO DAILY Lantus Solostar (Insulin Glargine,Hum.rec.anlog) 100 Unit/1 Ml Insuln.pen 38 Unit SQ QHS Novolog Flexpen (Insulin Aspart) 100 Unit/1 Ml Insuln.pen 8 Unit SQ BIDACBL Metoprolol Succinate ( Xl ) (Metoprolol Succinate) 100 Mg Tab.er.24h 1 Tab PO DAILY Calcium Citrate 100 Gm Powder 100 Gm MC Simvastatin 80 Mg Tablet 1 Tab PO DAILY Potassium Chloride 20 Meq Tab.er.prt 1 Tab PO BID Omeprazole 20 Mg Tablet.dr 1 Tab PO DAILY Amlodipine Besylate 5 Mg Tablet 1 Tab PO DAILY Losartan Potassium 50 Mg Tablet 1 Tab PO DAILY Aspirin 325 Mg Tablet 1 Tab PO DAILY Vitals/I & O Vital Sign - Last 24 Hours 10/23/18 10/23/18 10/23/18 10/23/18 12:53 15:00 19:00 20:00 Temp 98.2 98.1 98.2 98.1 Pulse 100 96 103 Resp 16 17 B/P (MAP) 99/47 81/50 (60) 98/56 (70) Pulse Ox 97 97 O2 Delivery Nasal Cannula Nasal Cannula Nasal Cannula O2 Flow Rate 4.0 4.0 4.0 10/23/18 10/24/18 10/24/18 10/24/18 23:00 00:52 03:00 07:00 Temp 98.4 98.6 98.3 98.4 98.6 98.3 Pulse 108 101 113 Resp 20 18 18 B/P (MAP) 97/46 (63) 106/53 (70) 93/50 (64) Pulse Ox 90 91 100 O2 Delivery Nasal Cannula BiPAP/CPAP Nasal Cannula Nasal Cannula O2 Flow Rate 4.0 4.0 4.0 10/24/18 10/24/18 10/24/18 08:00 08:30 11:00 Temp 98.3 98.3 Pulse 113 110 Resp 14 B/P (MAP) 93/50 88/46 (60) Pulse Ox 94 O2 Delivery Nasal Cannula Nasal Cannula O2 Flow Rate 4.0 4.0 Intake and Output 10/23/18 10/23/18 10/24/18 14:59 22:59 06:59 Intake Total 120 ml 120 ml 200 ml Output Total 250 ml Balance 120 ml 120 ml -50 ml CHIO SHEN MD Oct 24, 2018 12:41
--- NOTE | 2018-10-24 12:52 | NUR ---
SW following. Discussed with RN, and Tina Craft. Per Tina, pt and family are not wanting pt to go to SNU and would like to try palliative chemo. Pt has had services with [facility] in the past and would like this again. SW to fax paperwork to [facility]. SW will continue to follow.
[2018-10-24] MEDS: VANCOMYCIN PER PHARMACY MC PRN ×2 (13:39→15:57)
[2018-10-24] MEDS ORDERED: SENNOSIDES/DOCUSATE 8.6/50MG TABLET. PO PRN (14:45)
[2018-10-24 15:00] VITALS: BP 81/47
--- NOTE | 2018-10-24 15:30 | NUR ---
pt blood pressure has been dropping steadily all day, fluids have been started but BP has still continued to drop. Dr. Fernandez has been notified via you call MD, no new orders received for dropping BP.
--- NOTE | 2018-10-24 15:58 | NUR ---
Pharmacy Vancomycin Dosing Note S: Consulted to monitor and dose vancomycin started 10/21/18. O: CERTAIN,ANANT Castro is a 78 year old F with Sepsis Other Antibiotics: LEVAQUIN 10/21 - LABS: Last BUN: 70 Last Creatinine: 2 Creatinine Clearance: 26.4 mL/min Last WBC: 13.6 Last Procalcitonin: - Tmax (past 24 hours): 98.2 Microbiology: BLOOD: NGTD I/O: 440/250 Drug Levels: Last Random level: 18.5 on 10/24/18 at 0225 Last dose given 10/22/18 at 1759 Vancomycin Dosing: Dosing Weight: Actual Target Trough: 15-20 A: Based on: random level P: 1. Begin Vancomycin 1250 mg IV q36h 2. Follow up Random level to be scheduled by pharmacy 3. Pharmacy will continue to monitor, follow and adjust therapy as needed. Candida Morales RPH, 10/24/18 [id number]
[2018-10-24] MEDS: POLYETHYLENE GLYCOL 3350 17 GM PACKET. PO SCH (17:20)
[2018-10-24 19:00] VITALS: BP 90/48
[2018-10-24] MEDS: SIMVASTATIN 40 MG TABLET. PO SCH (21:14)
[2018-10-24] MEDS: INSULIN GLARGINE 300 UNITS/3 ML INSULN.PEN. SQ SCH (22:13)
[2018-10-24 23:00] VITALS: BP 95/52
[2018-10-25] VITALS (7 sets, daily range): BP systolic 85–106; BP diastolic 40–56
[2018-10-25] MEDS: HEPARIN for SUB-Q USE 5,000 UNIT/ML VIAL. SQ SCH ×3 (06:13→21:32)
[2018-10-25 06:44] LABS: CALCIUM 8.5 mg/dL (8.5-10.1); CREATININE 2.2 mg/dL (0.6-1.0); GFR 26.2; POTASSIUM 4.3 mmol/L (3.5-5.1)
--- NOTE | 2018-10-25 07:46 | PDOC ---
PROGRESS NOTES Chief Complaint Chief Complaint Hypovolemic shock resolved after fluid resuscitation. Elevated lactic acid resolved Diagnosis of reported stage IV colon cancer with metastatic liver lesions as per history Acute renal failure most likely secondary to vasomotor etiology improved Severe dehydration improved Microcytic anemia which seems to be compensated most likely is iron deficiency etiology given her underlying carcinomatosis with GI losses Leukocytosis persistent despite fluid resuscitation, no evident focus of infection noted. History of COPD after a long-standing history of smoking throughout her life. She quit approximately 4 years ago with greater than [id number] history of smoking Severe pulmonary hypertension History of congestive heart failure which seems to be diastolic dysfunction with a preserved ejection fraction of 55% on an echo 6 months ago Diabetes mellitus type 2 fairly controlled History of essential hypertension. History of Present Illness History of Present Illness 78yo w/ stage IV colon cancer admitted with hypovolemic shock. Patient resting comfortably in bed in no apparent distress. Hemodynamics worse, has become more hypotensive and tachycardic today. More responsive today Renal and CBC were improved. BP still an issue Her legs are hurting bilaterally Plan; continue to hold her antihypertensives Will start low dose midodrine prn SBP < 90mmHg will consult Dr Yañez to address her underlying malignancy follow urinary output encourage oral intake Likely palliative is appropriate, will defer to oncology. Her daughter wishes to continue to increase her mobility, will have PT/OT work with her today once blood pressure is up. Try to get OOB and up to chair today Likely home in next 24 hours, hopefully with home health/palliative care EMLA and Voltaren topically to bilateral legs Vitals Vitals Vital Signs Date Time Temp Pulse Resp B/P (MAP) Pulse Ox O2 Delivery O2 Flow Rate FiO2 10/25/18 03:00 97.8 95 18 85/51 (62) 96 97.8 10/25/18 01:26 BiPAP/CPAP 10/24/18 20:26 4.0 Physical Exam Physical Exam Gen.: well-developed, elderly in no apparent distress Head: Normal shape atraumatic Eyes: Pupils equal reactive to light and accommodation, normal conjunctivae and lids Ears: Normal shape Nose: Normal shape no trauma Mouth: No exudates of the back of throat no thrush no lesions, dry mucous membranes Neck: Supple no JVD no carotid bruit or lymphadenopathy no thyromegaly Chest: Lungs clear to auscultation with good inspiratory effort no crackles rales or rhonchi Cardiovascular: S1-S2 regular rhythm no murmurs gallops or rubs Abdomen: Bowel sounds present soft nontender no hepatosplenomegaly appreciated Extremities: No clubbing no cyanosis 1+ edema peripheral pulses palpated bilaterally Neurological: Alert awake oriented in person time place and situation, cranial nerves II through XII intact, no motor or sensory deficits appreciated Psych: Appropriate mood, cooperative General: Alert, Oriented X3 Heart: Normal S1, Normal S2 Lungs: Clear Abdomen: Normal bowel sounds, Soft Extremities: No clubbing, No cyanosis Skin: No rashes, No breakdown Labs LABS Laboratory Tests Test 10/24/18 11:51 10/24/18 16:45 10/24/18 21:23 10/25/18 06:10 Glucose (Fingerstick) 153 mg/dL (70-99) 126 mg/dL (70-99) 140 mg/dL (70-99) Sodium Level 139 mmol/L (136-145) Potassium Level 4.3 mmol/L (3.5-5.1) Chloride Level 103 mmol/L (98-107) Carbon Dioxide Level 28 mmol/L (21-32) Anion Gap 8 (6-14) Blood Urea Nitrogen 76 mg/dL (7-20) Creatinine 2.2 mg/dL (0.6-1.0) Estimated GFR (Cockcroft-Gault) 26.2 Glucose Level 110 mg/dL (70-99) Calcium Level 8.5 mg/dL (8.5-10.1) Assessment and Plan Assessmemt and Plan Problems Medical Problems: (1) Hypotension Status: Acute (2) Sepsis Status: Acute Comment Review of Relevant I have reviewed the following items aby (where applicable) has been applied. Labs Laboratory Tests Test 10/23/18 07:48 10/23/18 09:00 10/23/18 11:25 10/23/18 16:52 Glucose (Fingerstick) 182 mg/dL (70-99) 155 mg/dL (70-99) 119 mg/dL (70-99) Creatinine 2.4 mg/dL (0.6-1.0) Estimated GFR (Cockcroft-Gault) 23.7 Test 10/23/18 20:43 10/24/18 02:25 10/24/18 07:12 10/24/18 11:51 Glucose (Fingerstick) 139 mg/dL (70-99) 198 mg/dL (70-99) 153 mg/dL (70-99) Creatinine 2.0 mg/dL (0.6-1.0) Estimated GFR (Cockcroft-Gault) 29.2 Random Vancomycin Level 18.5 mcg/mL Test 10/24/18 16:45 10/24/18 21:23 10/25/18 06:10 Glucose (Fingerstick) 126 mg/dL (70-99) 140 mg/dL (70-99) Sodium Level 139 mmol/L (136-145) Potassium Level 4.3 mmol/L (3.5-5.1) Chloride Level 103 mmol/L (98-107) Carbon Dioxide Level 28 mmol/L (21-32) Anion Gap 8 (6-14) Blood Urea Nitrogen 76 mg/dL (7-20) Creatinine 2.2 mg/dL (0.6-1.0) Estimated GFR (Cockcroft-Gault) 26.2 Glucose Level 110 mg/dL (70-99) Calcium Level 8.5 mg/dL (8.5-10.1) Laboratory Tests Test 10/24/18 11:51 10/24/18 16:45 10/24/18 21:23 10/25/18 06:10 Glucose (Fingerstick) 153 mg/dL (70-99) 126 mg/dL (70-99) 140 mg/dL (70-99) Sodium Level 139 mmol/L (136-145) Potassium Level 4.3 mmol/L (3.5-5.1) Chloride Level 103 mmol/L (98-107) Carbon Dioxide Level 28 mmol/L (21-32) Anion Gap 8 (6-14) Blood Urea Nitrogen 76 mg/dL (7-20) Creatinine 2.2 mg/dL (0.6-1.0) Estimated GFR (Cockcroft-Gault) 26.2 Glucose Level 110 mg/dL (70-99) Calcium Level 8.5 mg/dL (8.5-10.1) Microbiology 10/21/18 Blood Culture - Preliminary, Resulted NO GROWTH AFTER 3 DAYS Medications Current Medications Sodium Chloride 1,000 ml @ 1,000 mls/hr 1X ONCE IV Last administered on at 15:58; Start 10/21/18 at 15:45; Stop 10/21/18 at 16:44; Status DC Sodium Chloride 1,000 ml @ 1,000 mls/hr 1X ONCE IV Last administered on at 16:01; Start 10/21/18 at 15:45; Stop 10/21/18 at 16:44; Status DC Ceftriaxone Sodium (Rocephin) 1 gm 1X ONCE IVP Last administered on 10/21/18at 16:49; Start 10/21/18 at 16:15; Stop 10/21/18 at 16:16; Status DC Sodium Chloride 500 ml @ 500 mls/hr 1X ONCE IV Last administered on at 18:00; Start 10/21/18 at 17:00; Stop 10/21/18 at 17:59; Status DC Piperacillin Sod/ Tazobactam Sod (Zosyn Per Pharmacy) 1 each PRN DAILY PRN MC SEE COMMENTS; Start 10/21/18 at 17:00; Status UNV Ondansetron HCl (Zofran) 4 mg PRN Q8HRS PRN IV NAUSEA/VOMITING; Start 10/21/18 at 17:00; Stop 10/22/18 at 09:22; Status DC Fentanyl Citrate (Fentanyl 2ml Vial) 50 mcg PRN Q1HR PRN IV PAIN; Start at 17:00; Stop 10/22/18 at 09:04; Status DC Sodium Chloride 1,000 ml @ 80 mls/hr [id number] IV Last administered on at 18:00; Start 10/21/18 at 17:00; Stop 10/22/18 at 16:59; Status DC Oxycodone HCl (Roxicodone) 5 mg PRN Q3HRS PRN PO PAIN UNREL BY PERCOCET Last administered on 10/22/18at 17:40; Start 10/21/18 at 17:00 Acetaminophen (Tylenol) 650 mg PRN Q6HRS PRN PO Headaches, Temp > 101.5'; Start 10/21/18 at 17:00 Lorazepam (Ativan) 0.5 mg PRN Q6HRS PRN IV ANXIETY / AGITATION; Start 10/21/18 at 17:00 Ondansetron HCl (Zofran) 4 mg PRN Q6HRS PRN IV NAUSEA/VOMITING; Start 10/21/18 at 17:00 Famotidine (Pepcid) 20 mg DAILY PO Last administered on 10/24/18at 08:25; Start 10/22/18 at 09:00 Zolpidem Tartrate (Ambien) 5 mg PRN QHS PRN PO INSOMNIA, MAY REPEAT IN 1HR; Start 10/21/18 at 17:00 Info (Icu Electrolyte Protocol) 1 ea DAILY MC ; Start 10/22/18 at 09:00; Stop at 07:00; Status DC Heparin Sodium (Porcine) (Heparin Sodium) 5,000 unit Q8HRS SQ Last administered on 10/25/18at 06:13; Start 10/21/18 at 22:00 Sodium Chloride (Normal Saline Flush) 3 ml QSHIFT PRN IV AFTER MEDS AND BLOOD DRAWS; Start 10/21/18 at 17:00 Oxycodone/ Acetaminophen (Percocet 5/325) 1 tab PRN Q4HRS PRN PO PAIN, 1ST CHOICE Last administered on 10/22/18at 14:33; Start 10/21/18 at 17:00 Morphine Sulfate (Morphine Sulfate) 2 mg PRN Q1HR PRN IV PAIN; Start 10/21/18 at 17:00 Lactulose (Lactulose) 20 gm PRN Q12HR PRN PO CONSTIPATION; Start 10/21/18 at 17 :00 Insulin Human Lispro (HumaLOG) 0-7 UNITS TIDWMEALS SQ Last administered on 10/24at 13:25; Start 10/21/18 at 17:00 Dextrose (Dextrose 50%-Water Syringe) 12.5 gm PRN Q15MIN PRN IV SEE COMMENTS; Start 10/21/18 at 17:00 Insulin Glargine (Lantus) 38 units QHS SQ Last administered on 10/24/18at 22:13 ; Start 10/21/18 at 21:00 Prednisone (Prednisone) 10 mg DAILY PO Last administered on 10/24/18at 08:25; Start 10/22/18 at 09:00 Sildenafil Citrate (Revatio) 20 mg TID PO Last administered on 10/23/18at 08:02 ; Start 10/21/18 at 21:00 Insulin Human Lispro (HumaLOG) 8 units BIDACBL SQ Last administered on 13:24; Start 10/22/18 at 08:00 Simvastatin (Zocor) 80 mg QHS PO Last administered on 10/24/18 21:14; Start at 21:00 Spironolactone (Aldactone) 25 mg DAILY PO Last administered on 10/23/18 08:01 ; Start 10/22/18 at 09:00 Levofloxacin/ Dextrose 150 ml @ 100 mls/hr Q48H IV Last administered on 02:31; Start 10/21/18 at 17:00 Vancomycin HCl (Vanco Per Pharmacy) 1 each PRN DAILY PRN MC SEE COMMENTS Last administered on 10/24/18 15:57; Start 10/21/18 at 17:00 Vancomycin HCl 1.5 gm/Sodium Chloride 500 ml @ 250 mls/hr 1X ONCE IV Last administered on 10/21/18 18:30; Start 10/21/18 at 17:15; Stop 10/21/18 at 19:14 ; Status DC Acetaminophen (Tylenol) 650 mg 1X PRN PRN PO PRE-TRANSFUSION; Start 10/21/18 at 18:15 Vancomycin HCl 1.25 gm/Sodium Chloride 250 ml @ 167 mls/hr Q24H IV Last administered on 10/22/18 17:59; Start 10/22/18 at 18:30; Stop 10/24/18 at 15:48 ; Status DC Vancomycin HCl (Vancomycin Trough Level) 1 each 1X ONCE MC Last administered on 10/23/18 17:53; Start 10/23/18 at 18:00; Stop 10/23/18 at 18:01; Status DC Vancomycin HCl (Vancomycin Random Level) 1 each 1X ONCE MC Last administered on 10/24/18 00:30; Start 10/24/18 at 00:30; Stop 10/24/18 at 00:31; Status DC Ringer's Solution 1,000 ml @ 100 mls/hr Q10H IV Last administered on at 22:13; Start 10/24/18 at 10:45 Polyethylene Glycol (miraLAX PACKET) 17 gm DAILY PO Last administered on at 17:20; Start 10/24/18 at 14:45 Senna/Docusate Sodium (Senna Plus) 2 tab BID PRN PO CONSTIPATION; Start at 14:45 Vancomycin HCl 1.25 gm/Sodium Chloride 250 ml @ 167 mls/hr Q36H IV Last administered on 10/24/18at 17:20; Start 10/24/18 at 16:00 Active Scripts Active Reported Acetazolamide 250 Mg Tablet unknown dosage Prednisone (Prednisone) 10 Mg Tablet 10 Mg PO DAILY Sildenafil (Sildenafil Citrate) 20 Mg Tablet unknown dosage Ferrous Sulfate 325 Mg Tablet unknown dosage Bumetanide 1 Mg Tablet unknown dosage Metolazone 2.5 Mg Tablet 2.5 Mg PO BID Spironolactone 25 Mg Tablet 25 Mg PO DAILY Lantus Solostar (Insulin Glargine,Hum.rec.anlog) 100 Unit/1 Ml Insuln.pen 38 Unit SQ QHS Novolog Flexpen (Insulin Aspart) 100 Unit/1 Ml Insuln.pen 8 Unit SQ BIDACBL Metoprolol Succinate ( Xl ) (Metoprolol Succinate) 100 Mg Tab.er.24h 1 Tab PO DAILY Calcium Citrate 100 Gm Powder 100 Gm MC Simvastatin 80 Mg Tablet 1 Tab PO DAILY Potassium Chloride 20 Meq Tab.er.prt 1 Tab PO BID Omeprazole 20 Mg Tablet.dr 1 Tab PO DAILY Amlodipine Besylate 5 Mg Tablet 1 Tab PO DAILY Losartan Potassium 50 Mg Tablet 1 Tab PO DAILY Aspirin 325 Mg Tablet 1 Tab PO DAILY Vitals/I & O Vital Sign - Last 24 Hours 10/24/18 10/24/18 10/24/18 10/24/18 08:00 08:30 11:00 14:00 Temp 98.3 98.3 Pulse 113 110 98 Resp 14 B/P (MAP) 93/50 88/46 (60) 81/47 Pulse Ox 94 O2 Delivery Nasal Cannula Nasal Cannula O2 Flow Rate 4.0 4.0 10/24/18 10/24/18 10/24/18 10/24/18 15:00 19:00 20:26 21:00 Temp 97.7 97.7 Pulse 99 98 98 Resp 14 16 B/P (MAP) 81/47 (58) 90/48 (62) 90/48 Pulse Ox 100 94 O2 Delivery Nasal Cannula Nasal Cannula O2 Flow Rate 4.0 4.0 10/24/18 10/25/18 10/25/18 10/25/18 23:00 00:02 01:26 03:00 Temp 97.8 97.8 97.8 97.8 Pulse 101 95 Resp 18 18 B/P (MAP) 95/52 (66) 85/51 (62) Pulse Ox 98 96 O2 Delivery BiPAP/CPAP BiPAP/CPAP Intake and Output 10/24/18 10/24/18 10/25/18 14:59 22:59 06:59 Intake Total 120 ml 360 ml 240 ml Output Total 300 ml Balance 120 ml 360 ml -60 ml LATASHA [id number] MD Oct 25, 2018 07:46
[2018-10-25] MEDS: INSULIN LISPRO 300 UNITS/3 ML INSULN.PEN. SQ SCH ×5 (08:00→17:00)
[2018-10-25] MEDS: predniSONE 10 MG TABLET PO SCH (08:45)
[2018-10-25] MEDS: SILDENAFIL CITRATE 20 MG TABLET. PO SCH ×3 (08:53→21:00)
[2018-10-25] MEDS: oxyCODONE/APAP 5/325 1 TAB TABLET PO PRN (08:54)
--- NOTE | 2018-10-25 08:55 | PDOC ---
PROGRESS NOTES Subjective Subjective HPI - f/u of Stage IV colon cancer with liver metastasis involving both lobes of the liver, diagnosed by liver biopsy on 09/13/2018. ROS - no CP Objective Objective Vital Signs Date Time Temp Pulse Resp B/P (MAP) Pulse Ox O2 Delivery O2 Flow Rate FiO2 10/25/18 07:00 98.2 106 17 106/56 (73) 94 Nasal Cannula 4.0 98.2 Intake and Output 10/25/18 07:00 Intake Total 720 ml Output Total 300 ml Balance 420 ml Intake Oral 720 ml Output Urine Total 300 ml Physical Exam General: Alert, Oriented X3, No acute distress Neuro: Normal speech Psych/Mental Status: Mental status NL Assessment Assessment Problems Medical Problems: (1) Hypotension Status: Acute (2) Sepsis Status: Acute IMPRESSION AND PLAN: 1. Stage IV colon cancer with liver metastasis involving both lobes of the liver, diagnosed by liver biopsy on 09/13/2018. CT scan revealed ascending colon mass, which was thought to be the primary. Colonoscopy was not performed because of congestive heart failure. Her functional status is poor right now due to her comorbid conditions. I will plan to initiate palliative chemotherapy once her functional status improves. I explained in detail to the patient and she understands and agrees with the plan. CEA [id number] on 10/22/18. Appreciate palliative care consult. 2. Hypotension. I discussed with Dr. Eddie Rodriguez. 3. Congestive heart failure, management per primary team. 4. Anemia, status post one unit PRBC transfusion. Continue to monitor hemoglobin and transfuse as needed. Comment Review of Relevant I have reviewed the following items aby (where applicable) has been applied. Labs Laboratory Tests Test 10/23/18 09:00 10/23/18 11:25 10/23/18 16:52 10/23/18 20:43 Creatinine 2.4 mg/dL (0.6-1.0) Estimated GFR (Cockcroft-Gault) 23.7 Glucose (Fingerstick) 155 mg/dL (70-99) 119 mg/dL (70-99) 139 mg/dL (70-99) Test 10/24/18 02:25 10/24/18 07:12 10/24/18 11:51 10/24/18 16:45 Creatinine 2.0 mg/dL (0.6-1.0) Estimated GFR (Cockcroft-Gault) 29.2 Random Vancomycin Level 18.5 mcg/mL Glucose (Fingerstick) 198 mg/dL (70-99) 153 mg/dL (70-99) 126 mg/dL (70-99) Test 10/24/18 21:23 10/25/18 06:10 10/25/18 07:55 Glucose (Fingerstick) 140 mg/dL (70-99) 100 mg/dL (70-99) Sodium Level 139 mmol/L (136-145) Potassium Level 4.3 mmol/L (3.5-5.1) Chloride Level 103 mmol/L (98-107) Carbon Dioxide Level 28 mmol/L (21-32) Anion Gap 8 (6-14) Blood Urea Nitrogen 76 mg/dL (7-20) Creatinine 2.2 mg/dL (0.6-1.0) Estimated GFR (Cockcroft-Gault) 26.2 Glucose Level 110 mg/dL (70-99) Calcium Level 8.5 mg/dL (8.5-10.1) Laboratory Tests Test 10/24/18 11:51 10/24/18 16:45 10/24/18 21:23 10/25/18 06:10 Glucose (Fingerstick) 153 mg/dL (70-99) 126 mg/dL (70-99) 140 mg/dL (70-99) Sodium Level 139 mmol/L (136-145) Potassium Level 4.3 mmol/L (3.5-5.1) Chloride Level 103 mmol/L (98-107) Carbon Dioxide Level 28 mmol/L (21-32) Anion Gap 8 (6-14) Blood Urea Nitrogen 76 mg/dL (7-20) Creatinine 2.2 mg/dL (0.6-1.0) Estimated GFR (Cockcroft-Gault) 26.2 Glucose Level 110 mg/dL (70-99) Calcium Level 8.5 mg/dL (8.5-10.1) Test 10/25/18 07:55 Glucose (Fingerstick) 100 mg/dL (70-99) Microbiology 10/21/18 Blood Culture - Preliminary, Resulted NO GROWTH AFTER 3 DAYS Medications Current Medications Sodium Chloride 1,000 ml @ 1,000 mls/hr 1X ONCE IV Last administered on at 15:58; Start 10/21/18 at 15:45; Stop 10/21/18 at 16:44; Status DC Sodium Chloride 1,000 ml @ 1,000 mls/hr 1X ONCE IV Last administered on at 16:01; Start 10/21/18 at 15:45; Stop 10/21/18 at 16:44; Status DC Ceftriaxone Sodium (Rocephin) 1 gm 1X ONCE IVP Last administered on 10/21/18at 16:49; Start 10/21/18 at 16:15; Stop 10/21/18 at 16:16; Status DC Sodium Chloride 500 ml @ 500 mls/hr 1X ONCE IV Last administered on at 18:00; Start 10/21/18 at 17:00; Stop 10/21/18 at 17:59; Status DC Piperacillin Sod/ Tazobactam Sod (Zosyn Per Pharmacy) 1 each PRN DAILY PRN MC SEE COMMENTS; Start 10/21/18 at 17:00; Status UNV Ondansetron HCl (Zofran) 4 mg PRN Q8HRS PRN IV NAUSEA/VOMITING; Start 10/21/18 at 17:00; Stop 10/22/18 at 09:22; Status DC Fentanyl Citrate (Fentanyl 2ml Vial) 50 mcg PRN Q1HR PRN IV PAIN; Start at 17:00; Stop 10/22/18 at 09:04; Status DC Sodium Chloride 1,000 ml @ 80 mls/hr [id number] IV Last administered on at 18:00; Start 10/21/18 at 17:00; Stop 10/22/18 at 16:59; Status DC Oxycodone HCl (Roxicodone) 5 mg PRN Q3HRS PRN PO PAIN UNREL BY PERCOCET Last administered on 10/22/18at 17:40; Start 10/21/18 at 17:00 Acetaminophen (Tylenol) 650 mg PRN Q6HRS PRN PO Headaches, Temp > 101.5'; Start 10/21/18 at 17:00 Lorazepam (Ativan) 0.5 mg PRN Q6HRS PRN IV ANXIETY / AGITATION; Start 10/21/18 at 17:00 Ondansetron HCl (Zofran) 4 mg PRN Q6HRS PRN IV NAUSEA/VOMITING; Start 10/21/18 at 17:00 Famotidine (Pepcid) 20 mg DAILY PO Last administered on 10/24/18at 08:25; Start 10/22/18 at 09:00 Zolpidem Tartrate (Ambien) 5 mg PRN QHS PRN PO INSOMNIA, MAY REPEAT IN 1HR; Start 10/21/18 at 17:00 Info (Icu Electrolyte Protocol) 1 ea DAILY MC ; Start 10/22/18 at 09:00; Stop at 07:00; Status DC Heparin Sodium (Porcine) (Heparin Sodium) 5,000 unit Q8HRS SQ Last administered on 10/25/18at 06:13; Start 10/21/18 at 22:00 Sodium Chloride (Normal Saline Flush) 3 ml QSHIFT PRN IV AFTER MEDS AND BLOOD DRAWS; Start 10/21/18 at 17:00 Oxycodone/ Acetaminophen (Percocet 5/325) 1 tab PRN Q4HRS PRN PO PAIN, 1ST CHOICE Last administered on 10/22/18at 14:33; Start 10/21/18 at 17:00 Morphine Sulfate (Morphine Sulfate) 2 mg PRN Q1HR PRN IV PAIN; Start 10/21/18 at 17:00 Lactulose (Lactulose) 20 gm PRN Q12HR PRN PO CONSTIPATION; Start 10/21/18 at 17 :00 Insulin Human Lispro (HumaLOG) 0-7 UNITS TIDWMEALS SQ Last administered on 10/24at 13:25; Start 10/21/18 at 17:00 Dextrose (Dextrose 50%-Water Syringe) 12.5 gm PRN Q15MIN PRN IV SEE COMMENTS; Start 10/21/18 at 17:00 Insulin Glargine (Lantus) 38 units QHS SQ Last administered on 10/24/18at 22:13 ; Start 10/21/18 at 21:00 Prednisone (Prednisone) 10 mg DAILY PO Last administered on 10/24/18at 08:25; Start 10/22/18 at 09:00 Sildenafil Citrate (Revatio) 20 mg TID PO Last administered on 10/23/18at 08:02 ; Start 10/21/18 at 21:00 Insulin Human Lispro (HumaLOG) 8 units BIDACBL SQ Last administered on 13:24; Start 10/22/18 at 08:00 Simvastatin (Zocor) 80 mg QHS PO Last administered on 10/24/18 21:14; Start at 21:00 Spironolactone (Aldactone) 25 mg DAILY PO Last administered on 10/23/18 08:01 ; Start 10/22/18 at 09:00 Levofloxacin/ Dextrose 150 ml @ 100 mls/hr Q48H IV Last administered on 02:31; Start 10/21/18 at 17:00 Vancomycin HCl (Vanco Per Pharmacy) 1 each PRN DAILY PRN MC SEE COMMENTS Last administered on 10/24/18 15:57; Start 10/21/18 at 17:00 Vancomycin HCl 1.5 gm/Sodium Chloride 500 ml @ 250 mls/hr 1X ONCE IV Last administered on 10/21/18 18:30; Start 10/21/18 at 17:15; Stop 10/21/18 at 19:14 ; Status DC Acetaminophen (Tylenol) 650 mg 1X PRN PRN PO PRE-TRANSFUSION; Start 10/21/18 at 18:15 Vancomycin HCl 1.25 gm/Sodium Chloride 250 ml @ 167 mls/hr Q24H IV Last administered on 10/22/18 17:59; Start 10/22/18 at 18:30; Stop 10/24/18 at 15:48 ; Status DC Vancomycin HCl (Vancomycin Trough Level) 1 each 1X ONCE MC Last administered on 10/23/18at 17:53; Start 10/23/18 at 18:00; Stop 10/23/18 at 18:01; Status DC Vancomycin HCl (Vancomycin Random Level) 1 each 1X ONCE MC Last administered on 10/24/18 00:30; Start 10/24/18 at 00:30; Stop 10/24/18 at 00:31; Status DC Ringer's Solution 1,000 ml @ 100 mls/hr Q10H IV Last administered on at 22:13; Start 10/24/18 at 10:45 Polyethylene Glycol (miraLAX PACKET) 17 gm DAILY PO Last administered on at 17:20; Start 10/24/18 at 14:45 Senna/Docusate Sodium (Senna Plus) 2 tab BID PRN PO CONSTIPATION; Start at 14:45 Vancomycin HCl 1.25 gm/Sodium Chloride 250 ml @ 167 mls/hr Q36H IV Last administered on 10/24/18at 17:20; Start 10/24/18 at 16:00 Active Scripts Active Reported Acetazolamide 250 Mg Tablet unknown dosage Prednisone (Prednisone) 10 Mg Tablet 10 Mg PO DAILY Sildenafil (Sildenafil Citrate) 20 Mg Tablet unknown dosage Ferrous Sulfate 325 Mg Tablet unknown dosage Bumetanide 1 Mg Tablet unknown dosage Metolazone 2.5 Mg Tablet 2.5 Mg PO BID Spironolactone 25 Mg Tablet 25 Mg PO DAILY Lantus Solostar (Insulin Glargine,Hum.rec.anlog) 100 Unit/1 Ml Insuln.pen 38 Unit SQ QHS Novolog Flexpen (Insulin Aspart) 100 Unit/1 Ml Insuln.pen 8 Unit SQ BIDACBL Metoprolol Succinate ( Xl ) (Metoprolol Succinate) 100 Mg Tab.er.24h 1 Tab PO DAILY Calcium Citrate 100 Gm Powder 100 Gm MC Simvastatin 80 Mg Tablet 1 Tab PO DAILY Potassium Chloride 20 Meq Tab.er.prt 1 Tab PO BID Omeprazole 20 Mg Tablet.dr 1 Tab PO DAILY Amlodipine Besylate 5 Mg Tablet 1 Tab PO DAILY Losartan Potassium 50 Mg Tablet 1 Tab PO DAILY Aspirin 325 Mg Tablet 1 Tab PO DAILY Vitals/I & O Vital Sign - Last 24 Hours 10/24/18 10/24/18 10/24/18 10/24/18 11:00 14:00 15:00 19:00 Temp 98.3 97.7 98.3 97.7 Pulse 110 98 99 98 Resp 14 14 16 B/P (MAP) 88/46 (60) 81/47 81/47 (58) 90/48 (62) Pulse Ox 94 100 94 O2 Delivery Nasal Cannula Nasal Cannula O2 Flow Rate 4.0 4.0 10/24/18 10/24/18 10/24/18 10/25/18 20:26 21:00 23:00 00:02 Temp 97.8 97.8 Pulse 98 101 Resp 18 B/P (MAP) 90/48 95/52 (66) Pulse Ox 98 O2 Delivery Nasal Cannula BiPAP/CPAP O2 Flow Rate 4.0 10/25/18 10/25/18 10/25/18 01:26 03:00 07:00 Temp 97.8 98.2 97.8 98.2 Pulse 95 106 Resp 18 17 B/P (MAP) 85/51 (62) 106/56 (73) Pulse Ox 96 94 O2 Delivery BiPAP/CPAP Nasal Cannula O2 Flow Rate 4.0 Intake and Output 10/24/18 10/24/18 10/25/18 15:00 23:00 07:00 Intake Total 120 ml 360 ml 240 ml Output Total 300 ml Balance 120 ml 60 ml 240 ml CHIO SHEN MD Oct 25, 2018 08:55
[2018-10-25] MEDS: SPIRONOLACTONE 25 MG TABLET PO SCH (08:56)
[2018-10-25] MEDS: FAMOTIDINE 20 MG TABLET. PO SCH (09:00)
[2018-10-25] MEDS: POLYETHYLENE GLYCOL 3350 17 GM PACKET. PO SCH (09:04)
[2018-10-25] MEDS: MORPHINE SULFATE 2 MG/ML VIAL. IV PRN (11:04)
--- NOTE | 2018-10-25 13:30 | NUR ---
SW following pt. Attempt to assist with AD form but pt was asleep. Discussed with pt's daughter, pt needs to be awake, alert and oriented when completing AD. SW also discussed pt needs qualifying dx to qualify for hospital bed but is able to get hospital bed for free if she is under hospice services. Daughter reported 'they are not ready for that yet'. Discussed with COOKIE Maloney.
--- NOTE | 2018-10-25 14:40 | NUR ---
SW following. Discussed with RN. Pt and pt's family are not wanting hospice or palliative home health. They would like [facility] home health which they are current with. Pt's dtr, Graham requested to speak with COOKIE to query whether pt could get a hospital bed, as [facility] had advised pt should have one. COOKIE contacted [facility] who did not have a note in the chart stating who had told pt's dtr about the hospital bed. [facility] did advise the PT can assist with arranging this when pt is at home. COOKIE contacted [facility] who advised they don't take [employer]. SW will continue to follow.
[2018-10-25] MEDS: DICLOFENAC SODIUM 1% TOPICAL GEL 100GM TUBE. TP SCH ×2 (15:00→21:23)
--- NOTE | 2018-10-25 15:00 | PDOC2 ---
PALLIATIVE CARE Palliative Care Note Palliative Care Patient requiring Morphine for abdominal pain. Unrelieved with Percocet. Declining physical therapy. Spoke with daughter. Voiced concerns that she may not get strong enough to do palliative chemotherapy. Plan to meet again on Sunday. JOSE RAFAEL BABB Oct 25, 2018 15:00
[2018-10-25] MEDS: VANCOMYCIN PER PHARMACY MC PRN (16:21)
[2018-10-25] MEDS: IV RINGERS,LACTATED 1000ML 1,000 ML IV SCH (17:25)
[2018-10-25] MEDS: MIDODRINE 2.5 MG TABLET PO SCH ×2 (17:30→18:30)
[2018-10-25] MEDS: INSULIN GLARGINE 300 UNITS/3 ML INSULN.PEN. SQ SCH (21:00)
[2018-10-25] MEDS: SIMVASTATIN 40 MG TABLET. PO SCH (21:21)
[2018-10-26] VITALS (7 sets, daily range): BP systolic 86–127; BP diastolic 39–96
[2018-10-26] MEDS: VANCOMYCIN 1.25 GM in IV NORMAL SALINE 250ML 250 ML IV SCH (03:40)
[2018-10-26] MEDS: IV RINGERS,LACTATED 1000ML 1,000 ML IV SCH (05:55)
[2018-10-26] MEDS: HEPARIN for SUB-Q USE 5,000 UNIT/ML VIAL. SQ SCH ×3 (05:57→21:41)
[2018-10-26 06:26] LABS: BASO % 0 % (0-3); EOS # 0.1 x10^3/uL (0.0-0.7); EOS % 1 % (0-3); HEMATOCRIT 25.5 % (36.0-47.0); HEMOGLOBIN 7.3 g/dL (12.0-15.5); LYMPH # 0.7 x10^3/uL (1.0-4.8); LYMPH % 5 % (24-48); MEAN CORPUSCULAR HEMOGLOBIN 23 pg (25-35); MEAN CORPUSCULAR HGB CONC 29 g/dL (31-37); MEAN CORPUSCULAR VOLUME 80 fL (79-100); MONO # 1.1 x10^3/uL (0.0-1.1); MONO % 8 % (0-9); NEUT % 86 % (31-73); PLATELET COUNT 197 x10^3/uL (140-400); RED BLOOD COUNT 3.18 x10^6/uL (3.50-5.40); RED CELL DISTRIBUTION WIDTH 23.3 % (11.5-14.5); WHITE BLOOD COUNT 13.8 x10^3/uL (4.0-11.0)
[2018-10-26 06:39] LABS: CALCIUM 8.7 mg/dL (8.5-10.1); CREATININE 2.3 mg/dL (0.6-1.0); GFR 24.9; POTASSIUM 4.4 mmol/L (3.5-5.1)
[2018-10-26] MEDS: INSULIN LISPRO 300 UNITS/3 ML INSULN.PEN. SQ SCH ×4 (07:30→17:00)
[2018-10-26] MEDS: POLYETHYLENE GLYCOL 3350 17 GM PACKET. PO SCH (08:29)
[2018-10-26] MEDS: DICLOFENAC SODIUM 1% TOPICAL GEL 100GM TUBE. TP SCH ×2 (08:29→20:44)
[2018-10-26] MEDS: LIDOCAINE/PRILOCAINE TOPICAL CREAM 5GM TUBE. TP SCH (08:30)
[2018-10-26] MEDS: MIDODRINE 2.5 MG TABLET PO SCH ×3 (08:33→17:33)
[2018-10-26] MEDS: SPIRONOLACTONE 25 MG TABLET PO SCH (08:35)
[2018-10-26] MEDS: FAMOTIDINE 20 MG TABLET. PO SCH (08:35)
[2018-10-26] MEDS: SILDENAFIL CITRATE 20 MG TABLET. PO SCH ×3 (08:35→20:45)
[2018-10-26] MEDS: predniSONE 10 MG TABLET PO SCH (08:35)
--- NOTE | 2018-10-26 10:08 | PDOC ---
PROGRESS NOTES Chief Complaint Chief Complaint Hypovolemic shock resolved after fluid resuscitation. Elevated lactic acid resolved Diagnosis of reported stage IV colon cancer with metastatic liver lesions as per history Acute renal failure most likely secondary to vasomotor etiology improved Severe dehydration improved Microcytic anemia which seems to be compensated most likely is iron deficiency etiology given her underlying carcinomatosis with GI losses Leukocytosis persistent despite fluid resuscitation, no evident focus of infection noted. History of COPD after a long-standing history of smoking throughout her life. She quit approximately 4 years ago with greater than [id number] history of smoking Severe pulmonary hypertension History of congestive heart failure which seems to be diastolic dysfunction with a preserved ejection fraction of 55% on an echo 6 months ago Diabetes mellitus type 2 fairly controlled History of essential hypertension. History of Present Illness History of Present Illness NOt in a good mood today with me I totally understand, colon cancer with liver metastases, palliative chemotherapy planned but now unsure because of severe weakness Palliative meeting again planned on Sunday Still lowish blood pressure on lactated Ringer DNR In terms of labs hemoglobin 7.3, WBC 13 Plan: shift to normal saline, bolus when necessary for the hypotension DC insulin-blood sugars 60 this morning on 38 units daily at bedtime long- acting which she did not receive last night DC lispro too Poor by mouth intake, might benefit from nutritional supplements Vitals Vitals Vital Signs Date Time Temp Pulse Resp B/P (MAP) Pulse Ox O2 Delivery O2 Flow Rate FiO2 10/26/18 08:35 86 127/96 10/26/18 08:34 97.3 18 90 97.3 10/26/18 02:59 BiPAP/CPAP 10/25/18 23:00 4.0 Physical Exam Physical Exam Gen.: well-developed, elderly in no apparent distress Head: Normal shape atraumatic Eyes: Pupils equal reactive to light and accommodation, normal conjunctivae and lids Ears: Normal shape Nose: Normal shape no trauma Mouth: No exudates of the back of throat no thrush no lesions, dry mucous membranes Neck: Supple no JVD no carotid bruit or lymphadenopathy no thyromegaly Chest: Lungs clear to auscultation with good inspiratory effort no crackles rales or rhonchi Cardiovascular: S1-S2 regular rhythm no murmurs gallops or rubs Abdomen: Bowel sounds present soft nontender no hepatosplenomegaly appreciated Extremities: No clubbing no cyanosis 1+ edema peripheral pulses palpated bilaterally Neurological: Alert awake oriented in person time place and situation, cranial nerves II through XII intact, no motor or sensory deficits appreciated Psych: Appropriate mood, cooperative General: Alert, Oriented X3, No acute distress Heart: Normal S1, Normal S2 Lungs: Clear Abdomen: Normal bowel sounds, Soft Extremities: No clubbing, No cyanosis Skin: No rashes, No breakdown Labs LABS Laboratory Tests Test 10/25/18 11:13 10/25/18 17:10 10/25/18 17:26 10/25/18 20:36 Glucose (Fingerstick) 105 mg/dL (70-99) 114 mg/dL (70-99) 108 mg/dL (70-99) 104 mg/dL (70-99) Test 10/26/18 06:18 10/26/18 06:20 10/26/18 06:46 10/26/18 07:02 Glucose (Fingerstick) 65 mg/dL (70-99) 60 mg/dL (70-99) 94 mg/dL (70-99) 107 mg/dL (70-99) White Blood Count 13.8 x10^3/uL (4.0-11.0) Red Blood Count 3.18 x10^6/uL (3.50-5.40) Hemoglobin 7.3 g/dL (12.0-15.5) Hematocrit 25.5 % (36.0-47.0) Mean Corpuscular Volume 80 fL (79-100) Mean Corpuscular Hemoglobin 23 pg (25-35) Mean Corpuscular Hemoglobin Concent 29 g/dL (31-37) Red Cell Distribution Width 23.3 % (11.5-14.5) Platelet Count 197 x10^3/uL (140-400) Neutrophils (%) (Auto) 86 % (31-73) Lymphocytes (%) (Auto) 5 % (24-48) Monocytes (%) (Auto) 8 % (0-9) Eosinophils (%) (Auto) 1 % (0-3) Basophils (%) (Auto) 0 % (0-3) Neutrophils # (Auto) 12.0 x10^3uL (1.8-7.7) Lymphocytes # (Auto) 0.7 x10^3/uL (1.0-4.8) Monocytes # (Auto) 1.1 x10^3/uL (0.0-1.1) Eosinophils # (Auto) 0.1 x10^3/uL (0.0-0.7) Basophils # (Auto) 0.0 x10^3/uL (0.0-0.2) Sodium Level 141 mmol/L (136-145) Potassium Level 4.4 mmol/L (3.5-5.1) Chloride Level 105 mmol/L (98-107) Carbon Dioxide Level 29 mmol/L (21-32) Anion Gap 7 (6-14) Blood Urea Nitrogen 69 mg/dL (7-20) Creatinine 2.3 mg/dL (0.6-1.0) Estimated GFR (Cockcroft-Gault) 24.9 Glucose Level 71 mg/dL (70-99) Calcium Level 8.7 mg/dL (8.5-10.1) Review of Systems Review of Systems weak, tired, no energy, the rest of ROS negative Assessment and Plan Assessmemt and Plan Problems Medical Problems: (1) Hypotension Status: Acute (2) Sepsis Status: Acute Comment Review of Relevant I have reviewed the following items aby (where applicable) has been applied. Labs Laboratory Tests Test 10/24/18 11:51 10/24/18 16:45 10/24/18 21:23 10/25/18 06:10 Glucose (Fingerstick) 153 mg/dL (70-99) 126 mg/dL (70-99) 140 mg/dL (70-99) Sodium Level 139 mmol/L (136-145) Potassium Level 4.3 mmol/L (3.5-5.1) Chloride Level 103 mmol/L (98-107) Carbon Dioxide Level 28 mmol/L (21-32) Anion Gap 8 (6-14) Blood Urea Nitrogen 76 mg/dL (7-20) Creatinine 2.2 mg/dL (0.6-1.0) Estimated GFR (Cockcroft-Gault) 26.2 Glucose Level 110 mg/dL (70-99) Calcium Level 8.5 mg/dL (8.5-10.1) Test 10/25/18 07:55 10/25/18 11:13 10/25/18 17:10 10/25/18 17:26 Glucose (Fingerstick) 100 mg/dL (70-99) 105 mg/dL (70-99) 114 mg/dL (70-99) 108 mg/dL (70-99) Test 10/25/18 20:36 10/26/18 06:18 10/26/18 06:20 10/26/18 06:46 Glucose (Fingerstick) 104 mg/dL (70-99) 65 mg/dL (70-99) 60 mg/dL (70-99) 94 mg/dL (70-99) White Blood Count 13.8 x10^3/uL (4.0-11.0) Red Blood Count 3.18 x10^6/uL (3.50-5.40) Hemoglobin 7.3 g/dL (12.0-15.5) Hematocrit 25.5 % (36.0-47.0) Mean Corpuscular Volume 80 fL (79-100) Mean Corpuscular Hemoglobin 23 pg (25-35) Mean Corpuscular Hemoglobin Concent 29 g/dL (31-37) Red Cell Distribution Width 23.3 % (11.5-14.5) Platelet Count 197 x10^3/uL (140-400) Neutrophils (%) (Auto) 86 % (31-73) Lymphocytes (%) (Auto) 5 % (24-48) Monocytes (%) (Auto) 8 % (0-9) Eosinophils (%) (Auto) 1 % (0-3) Basophils (%) (Auto) 0 % (0-3) Neutrophils # (Auto) 12.0 x10^3uL (1.8-7.7) Lymphocytes # (Auto) 0.7 x10^3/uL (1.0-4.8) Monocytes # (Auto) 1.1 x10^3/uL (0.0-1.1) Eosinophils # (Auto) 0.1 x10^3/uL (0.0-0.7) Basophils # (Auto) 0.0 x10^3/uL (0.0-0.2) Sodium Level 141 mmol/L (136-145) Potassium Level 4.4 mmol/L (3.5-5.1) Chloride Level 105 mmol/L (98-107) Carbon Dioxide Level 29 mmol/L (21-32) Anion Gap 7 (6-14) Blood Urea Nitrogen 69 mg/dL (7-20) Creatinine 2.3 mg/dL (0.6-1.0) Estimated GFR (Cockcroft-Gault) 24.9 Glucose Level 71 mg/dL (70-99) Calcium Level 8.7 mg/dL (8.5-10.1) Test 10/26/18 07:02 Glucose (Fingerstick) 107 mg/dL (70-99) Laboratory Tests Test 10/25/18 11:13 10/25/18 17:10 10/25/18 17:26 10/25/18 20:36 Glucose (Fingerstick) 105 mg/dL (70-99) 114 mg/dL (70-99) 108 mg/dL (70-99) 104 mg/dL (70-99) Test 10/26/18 06:18 10/26/18 06:20 10/26/18 06:46 10/26/18 07:02 Glucose (Fingerstick) 65 mg/dL (70-99) 60 mg/dL (70-99) 94 mg/dL (70-99) 107 mg/dL (70-99) White Blood Count 13.8 x10^3/uL (4.0-11.0) Red Blood Count 3.18 x10^6/uL (3.50-5.40) Hemoglobin 7.3 g/dL (12.0-15.5) Hematocrit 25.5 % (36.0-47.0) Mean Corpuscular Volume 80 fL (79-100) Mean Corpuscular Hemoglobin 23 pg (25-35) Mean Corpuscular Hemoglobin Concent 29 g/dL (31-37) Red Cell Distribution Width 23.3 % (11.5-14.5) Platelet Count 197 x10^3/uL (140-400) Neutrophils (%) (Auto) 86 % (31-73) Lymphocytes (%) (Auto) 5 % (24-48) Monocytes (%) (Auto) 8 % (0-9) Eosinophils (%) (Auto) 1 % (0-3) Basophils (%) (Auto) 0 % (0-3) Neutrophils # (Auto) 12.0 x10^3uL (1.8-7.7) Lymphocytes # (Auto) 0.7 x10^3/uL (1.0-4.8) Monocytes # (Auto) 1.1 x10^3/uL (0.0-1.1) Eosinophils # (Auto) 0.1 x10^3/uL (0.0-0.7) Basophils # (Auto) 0.0 x10^3/uL (0.0-0.2) Sodium Level 141 mmol/L (136-145) Potassium Level 4.4 mmol/L (3.5-5.1) Chloride Level 105 mmol/L (98-107) Carbon Dioxide Level 29 mmol/L (21-32) Anion Gap 7 (6-14) Blood Urea Nitrogen 69 mg/dL (7-20) Creatinine 2.3 mg/dL (0.6-1.0) Estimated GFR (Cockcroft-Gault) 24.9 Glucose Level 71 mg/dL (70-99) Calcium Level 8.7 mg/dL (8.5-10.1) Microbiology 10/21/18 Blood Culture - Preliminary, Resulted NO GROWTH AFTER 4 DAYS Medications Current Medications Sodium Chloride 1,000 ml @ 1,000 mls/hr 1X ONCE IV Last administered on at 15:58; Start 10/21/18 at 15:45; Stop 10/21/18 at 16:44; Status DC Sodium Chloride 1,000 ml @ 1,000 mls/hr 1X ONCE IV Last administered on at 16:01; Start 10/21/18 at 15:45; Stop 10/21/18 at 16:44; Status DC Ceftriaxone Sodium (Rocephin) 1 gm 1X ONCE IVP Last administered on 10/21/18at 16:49; Start 10/21/18 at 16:15; Stop 10/21/18 at 16:16; Status DC Sodium Chloride 500 ml @ 500 mls/hr 1X ONCE IV Last administered on at 18:00; Start 10/21/18 at 17:00; Stop 10/21/18 at 17:59; Status DC Piperacillin Sod/ Tazobactam Sod (Zosyn Per Pharmacy) 1 each PRN DAILY PRN MC SEE COMMENTS; Start 10/21/18 at 17:00; Status UNV Ondansetron HCl (Zofran) 4 mg PRN Q8HRS PRN IV NAUSEA/VOMITING; Start 10/21/18 at 17:00; Stop 10/22/18 at 09:22; Status DC Fentanyl Citrate (Fentanyl 2ml Vial) 50 mcg PRN Q1HR PRN IV PAIN; Start at 17:00; Stop 10/22/18 at 09:04; Status DC Sodium Chloride 1,000 ml @ 80 mls/hr [id number] IV Last administered on at 18:00; Start 10/21/18 at 17:00; Stop 10/22/18 at 16:59; Status DC Oxycodone HCl (Roxicodone) 5 mg PRN Q3HRS PRN PO PAIN UNREL BY PERCOCET Last administered on 10/22/18at 17:40; Start 10/21/18 at 17:00 Acetaminophen (Tylenol) 650 mg PRN Q6HRS PRN PO Headaches, Temp > 101.5'; Start 10/21/18 at 17:00 Lorazepam (Ativan) 0.5 mg PRN Q6HRS PRN IV ANXIETY / AGITATION; Start 10/21/18 at 17:00 Ondansetron HCl (Zofran) 4 mg PRN Q6HRS PRN IV NAUSEA/VOMITING; Start 10/21/18 at 17:00 Famotidine (Pepcid) 20 mg DAILY PO Last administered on 10/26/18at 08:35; Start 10/22/18 at 09:00 Zolpidem Tartrate (Ambien) 5 mg PRN QHS PRN PO INSOMNIA, MAY REPEAT IN 1HR; Start 10/21/18 at 17:00 Info (Icu Electrolyte Protocol) 1 ea DAILY MC ; Start 10/22/18 at 09:00; Stop at 07:00; Status DC Heparin Sodium (Porcine) (Heparin Sodium) 5,000 unit Q8HRS SQ Last administered on 10/26/18at 05:57; Start 10/21/18 at 22:00 Sodium Chloride (Normal Saline Flush) 3 ml QSHIFT PRN IV AFTER MEDS AND BLOOD DRAWS; Start 10/21/18 at 17:00 Oxycodone/ Acetaminophen (Percocet 5/325) 1 tab PRN Q4HRS PRN PO PAIN, 1ST CHOICE Last administered on 10/25/18at 08:54; Start 10/21/18 at 17:00 Morphine Sulfate (Morphine Sulfate) 2 mg PRN Q1HR PRN IV PAIN Last administered on 10/25/18 11:04; Start 10/21/18 at 17:00 Lactulose (Lactulose) 20 gm PRN Q12HR PRN PO CONSTIPATION; Start 10/21/18 at 17 :00 Insulin Human Lispro (HumaLOG) 0-7 UNITS TIDWMEALS SQ Last administered on 10/24 13:25; Start 10/21/18 at 17:00 Dextrose (Dextrose 50%-Water Syringe) 12.5 gm PRN Q15MIN PRN IV SEE COMMENTS Last administered on 10/26/18 06:29; Start 10/21/18 at 17:00 Insulin Glargine (Lantus) 38 units QHS SQ Last administered on 10/24/18 22:13 ; Start 10/21/18 at 21:00; Stop 10/26/18 at 08:42; Status DC Prednisone (Prednisone) 10 mg DAILY PO Last administered on 10/26/18 08:35; Start 10/22/18 at 09:00 Sildenafil Citrate (Revatio) 20 mg TID PO Last administered on 10/26/18 08:35 ; Start 10/21/18 at 21:00 Insulin Human Lispro (HumaLOG) 8 units BIDACBL SQ Last administered on 09:09; Start 10/22/18 at 08:00; Stop 10/26/18 at 08:42; Status DC Simvastatin (Zocor) 80 mg QHS PO Last administered on 10/25/18 21:21; Start at 21:00 Spironolactone (Aldactone) 25 mg DAILY PO Last administered on 10/26/18 08:35 ; Start 10/22/18 at 09:00 Levofloxacin/ Dextrose 150 ml @ 100 mls/hr Q48H IV Last administered on 17:25; Start 10/21/18 at 17:00 Vancomycin HCl (Vanco Per Pharmacy) 1 each PRN DAILY PRN MC SEE COMMENTS Last administered on 10/25/18 16:21; Start 10/21/18 at 17:00 Vancomycin HCl 1.5 gm/Sodium Chloride 500 ml @ 250 mls/hr 1X ONCE IV Last administered on 3/18/19at 18:30; Start 10/21/18 at 17:15; Stop 10/21/18 at 19:14 ; Status DC Acetaminophen (Tylenol) 650 mg 1X PRN PRN PO PRE-TRANSFUSION; Start 10/21/18 at 18:15 Vancomycin HCl 1.25 gm/Sodium Chloride 250 ml @ 167 mls/hr Q24H IV Last administered on 10/22/18 17:59; Start 10/22/18 at 18:30; Stop 10/24/18 at 15:48 ; Status DC Vancomycin HCl (Vancomycin Trough Level) 1 each 1X ONCE MC Last administered on 10/23/18 17:53; Start 10/23/18 at 18:00; Stop 10/23/18 at 18:01; Status DC Vancomycin HCl (Vancomycin Random Level) 1 each 1X ONCE MC Last administered on 10/24/18 00:30; Start 10/24/18 at 00:30; Stop 10/24/18 at 00:31; Status DC Ringer's Solution 1,000 ml @ 100 mls/hr Q10H IV Last administered on 05:55; Start 10/24/18 at 10:45; Stop 10/26/18 at 08:42; Status DC Polyethylene Glycol (miraLAX PACKET) 17 gm DAILY PO Last administered on 08:29; Start 10/24/18 at 14:45 Senna/Docusate Sodium (Senna Plus) 2 tab BID PRN PO CONSTIPATION Last administered on 10/26/18 02:12; Start 10/24/18 at 14:45 Vancomycin HCl 1.25 gm/Sodium Chloride 250 ml @ 167 mls/hr Q36H IV Last administered on 10/26/18 03:40; Start 10/24/18 at 16:00 Diclofenac Sodium (Voltaren) 1 benoit BID TP Last administered on 10/26/18 08:29 ; Start 10/25/18 at 15:00 Lidocaine/ Prilocaine (Emla) 1 benoit DAILY TP Last administered on 10/26/18 08: 30; Start 10/26/18 at 09:00 Midodrine (Proamatine) 2.5 mg TIDWMEALS PO Last administered on 10/26/18 08:33 ; Start 3/22/19 at 15:00 Sodium Chloride 1,000 ml @ 80 mls/hr [id number] IV ; Start 10/26/18 at 08:45 Active Scripts Active Reported Acetazolamide 250 Mg Tablet unknown dosage Prednisone (Prednisone) 10 Mg Tablet 10 Mg PO DAILY Sildenafil (Sildenafil Citrate) 20 Mg Tablet unknown dosage Ferrous Sulfate 325 Mg Tablet unknown dosage Bumetanide 1 Mg Tablet unknown dosage Metolazone 2.5 Mg Tablet 2.5 Mg PO BID Spironolactone 25 Mg Tablet 25 Mg PO DAILY Lantus Solostar (Insulin Glargine,Hum.rec.anlog) 100 Unit/1 Ml Insuln.pen 38 Unit SQ QHS Novolog Flexpen (Insulin Aspart) 100 Unit/1 Ml Insuln.pen 8 Unit SQ BIDACBL Metoprolol Succinate ( Xl ) (Metoprolol Succinate) 100 Mg Tab.er.24h 1 Tab PO DAILY Calcium Citrate 100 Gm Powder 100 Gm MC Simvastatin 80 Mg Tablet 1 Tab PO DAILY Potassium Chloride 20 Meq Tab.er.prt 1 Tab PO BID Omeprazole 20 Mg Tablet.dr 1 Tab PO DAILY Amlodipine Besylate 5 Mg Tablet 1 Tab PO DAILY Losartan Potassium 50 Mg Tablet 1 Tab PO DAILY Aspirin 325 Mg Tablet 1 Tab PO DAILY Vitals/I & O Vital Sign - Last 24 Hours 10/25/18 10/25/18 10/25/18 10/25/18 10:32 11:04 11:34 14:00 Temp 98.0 98.0 Pulse 94 87 Resp 17 20 B/P (MAP) 94/54 (67) 100/45 Pulse Ox 94 93 93 O2 Delivery Nasal Cannula Nasal Cannula Nasal Cannula O2 Flow Rate 4.0 4.0 4.0 10/25/18 10/25/18 10/25/18 10/25/18 14:42 17:30 18:30 19:00 Temp 97.3 97.3 Pulse 87 87 87 90 Resp 18 18 B/P (MAP) 100/45 (63) 100/45 100/45 87/40 (56) Pulse Ox 96 98 O2 Delivery Nasal Cannula Nasal Cannula O2 Flow Rate 4.0 4.0 10/25/18 10/25/18 10/25/18 10/26/18 20:00 21:00 23:00 02:46 Temp 97.4 97.4 Pulse 89 90 Resp 18 B/P (MAP) 94/49 (64) 94/47 (63) Pulse Ox 92 96 O2 Delivery Nasal Cannula Nasal Cannula BiPAP/CPAP O2 Flow Rate 4.0 4.0 10/26/18 10/26/18 10/26/18 10/26/18 02:59 06:26 08:33 08:34 Temp 97.3 97.3 97.3 97.3 Pulse 85 86 86 Resp 18 18 B/P (MAP) 86/39 (55) 98/41 (60) 127/96 127/96 (106) Pulse Ox 96 90 O2 Delivery BiPAP/CPAP 10/26/18 08:35 Pulse 86 B/P (MAP) 127/96 Intake and Output 10/25/18 10/25/18 10/26/18 15:00 23:00 07:00 Intake Total 100 ml Output Total 350 ml 225 ml Balance -250 ml -225 ml PHIL HOLLOWAY MD Oct 26, 2018 10:08
[2018-10-26] MEDS: IV NORMAL SALINE 1000ML BAG 1,000 ML IV SCH ×2 (10:53→20:43)
[2018-10-26] MEDS: oxyCODONE IR 5 MG TABLET PO PRN (20:44)
[2018-10-26] MEDS: SIMVASTATIN 40 MG TABLET. PO SCH (20:44)
[2018-10-27] VITALS (13 sets, daily range): BP systolic 59–125; BP diastolic 35–49
[2018-10-27] MEDS: HEPARIN for SUB-Q USE 5,000 UNIT/ML VIAL. SQ SCH ×3 (05:01→22:00)
[2018-10-27] MEDS: INSULIN LISPRO 300 UNITS/3 ML INSULN.PEN. SQ SCH ×3 (08:00→17:00)
--- NOTE | 2018-10-27 08:55 | RAD ---
EXAMINATION: VENOUS LOWER EXT BILATERAL History: DX: Bilat Leg pain; stage 4 CA; limited mobility IMP: Negative for DVT Comparison/Correlation: None FINDINGS: Bilateral lower extremity duplex venous ultrasound exam was performed. Grayscale, color Doppler, and spectral Doppler imaging was performed. Compression and augmentation was performed. The right common femoral vein, superficial femoral vein, popliteal vein, and greater saphenous vein are normal with no evidence of deep venous thrombus. Normal compressibility and augmentation is evident. The left common femoral vein, superficial femoral vein, popliteal vein, and greater saphenous vein are normal with no evidence of deep venous thrombus. Normal compressibility and augmentation is evident. IMPRESSION: Normal bilateral lower extremity duplex ultrasound exam. No evidence of deep venous thrombus involving the lower extremities. Electronically signed by: Regis Snyder MD (10/27/2018 8:52 AM) [facility]
[2018-10-27] MEDS: SILDENAFIL CITRATE 20 MG TABLET. PO SCH ×3 (09:00→21:48)
[2018-10-27] MEDS: MIDODRINE 2.5 MG TABLET PO SCH ×3 (10:07→17:45)
[2018-10-27] MEDS: predniSONE 10 MG TABLET PO SCH (10:07)
[2018-10-27] MEDS: FAMOTIDINE 20 MG TABLET. PO SCH (10:08)
[2018-10-27] MEDS: oxyCODONE IR 5 MG TABLET PO PRN (10:08)
[2018-10-27] MEDS: POLYETHYLENE GLYCOL 3350 17 GM PACKET. PO SCH (10:08)
[2018-10-27] MEDS: SPIRONOLACTONE 25 MG TABLET PO SCH (10:09)
[2018-10-27] MEDS: DICLOFENAC SODIUM 1% TOPICAL GEL 100GM TUBE. TP SCH ×2 (10:19→21:47)
[2018-10-27] MEDS: LIDOCAINE/PRILOCAINE TOPICAL CREAM 5GM TUBE. TP SCH (10:20)
--- NOTE | 2018-10-27 10:21 | PDOC ---
PROGRESS NOTES Chief Complaint Chief Complaint Hypovolemic shock resolved after fluid resuscitation. Elevated lactic acid resolved Diagnosis of reported stage IV colon cancer with metastatic liver lesions as per history Acute renal failure most likely secondary to vasomotor etiology improved Severe dehydration improved Microcytic anemia which seems to be compensated most likely is iron deficiency etiology given her underlying carcinomatosis with GI losses Leukocytosis persistent despite fluid resuscitation, no evident focus of infection noted. History of COPD after a long-standing history of smoking throughout her life. She quit approximately 4 years ago with greater than [id number] history of smoking Severe pulmonary hypertension History of congestive heart failure which seems to be diastolic dysfunction with a preserved ejection fraction of 55% on an echo 6 months ago Diabetes mellitus type 2 fairly controlled History of essential hypertension. Leg pain, negative Dopplers History of Present Illness History of Present Illness Asleep I did not awaken Venous Dopplers negative for DVT Sunday entry: NOt in a good mood today with me I totally understand, colon cancer with liver metastases, palliative chemotherapy planned but now unsure because of severe weakness Palliative meeting again planned on Sunday Still lowish blood pressure on lactated Ringer DNR In terms of labs hemoglobin 7.3, WBC 13 Plan: CPM So far no more hypoglycemia Family meeting planned again Sunday with palliative Palliative chemotherapy was planned but second thoughts now as patient very weak family might even be considering hospice Vitals Vitals Vital Signs Date Time Temp Pulse Resp B/P (MAP) Pulse Ox O2 Delivery O2 Flow Rate FiO2 10/27/18 10:08 18 Nasal Cannula 4.0 10/27/18 10:07 106 87/52 10/27/18 07:00 98.6 87 98.6 Physical Exam Physical Exam Gen.: well-developed, elderly in no apparent distress Head: Normal shape atraumatic Eyes: Pupils equal reactive to light and accommodation, normal conjunctivae and lids Ears: Normal shape Nose: Normal shape no trauma Mouth: No exudates of the back of throat no thrush no lesions, dry mucous membranes Neck: Supple no JVD no carotid bruit or lymphadenopathy no thyromegaly Chest: Lungs clear to auscultation with good inspiratory effort no crackles rales or rhonchi Cardiovascular: S1-S2 regular rhythm no murmurs gallops or rubs Abdomen: Bowel sounds present soft nontender no hepatosplenomegaly appreciated Extremities: No clubbing no cyanosis 1+ edema peripheral pulses palpated bilaterally Neurological: Alert awake oriented in person time place and situation, cranial nerves II through XII intact, no motor or sensory deficits appreciated Psych: Appropriate mood, cooperative General: Alert, Oriented X3, No acute distress Heart: Normal S1, Normal S2 Lungs: Clear Abdomen: Normal bowel sounds, Soft Extremities: No clubbing, No cyanosis Skin: No rashes, No breakdown Labs LABS Laboratory Tests Test 10/26/18 11:44 10/26/18 12:10 10/26/18 13:08 10/26/18 16:39 Glucose (Fingerstick) 45 mg/dL (70-99) 64 mg/dL (70-99) 112 mg/dL (70-99) 106 mg/dL (70-99) Test 10/26/18 21:17 10/27/18 07:41 Glucose (Fingerstick) 125 mg/dL (70-99) 122 mg/dL (70-99) Review of Systems Review of Systems Asleep I did not awaken Assessment and Plan Assessmemt and Plan Problems Medical Problems: (1) Hypotension Status: Acute (2) Sepsis Status: Acute Comment Review of Relevant I have reviewed the following items aby (where applicable) has been applied. Labs Laboratory Tests Test 10/25/18 11:13 10/25/18 17:10 10/25/18 17:26 10/25/18 20:36 Glucose (Fingerstick) 105 mg/dL (70-99) 114 mg/dL (70-99) 108 mg/dL (70-99) 104 mg/dL (70-99) Test 10/26/18 06:18 10/26/18 06:20 10/26/18 06:46 10/26/18 07:02 Glucose (Fingerstick) 65 mg/dL (70-99) 60 mg/dL (70-99) 94 mg/dL (70-99) 107 mg/dL (70-99) White Blood Count 13.8 x10^3/uL (4.0-11.0) Red Blood Count 3.18 x10^6/uL (3.50-5.40) Hemoglobin 7.3 g/dL (12.0-15.5) Hematocrit 25.5 % (36.0-47.0) Mean Corpuscular Volume 80 fL (79-100) Mean Corpuscular Hemoglobin 23 pg (25-35) Mean Corpuscular Hemoglobin Concent 29 g/dL (31-37) Red Cell Distribution Width 23.3 % (11.5-14.5) Platelet Count 197 x10^3/uL (140-400) Neutrophils (%) (Auto) 86 % (31-73) Lymphocytes (%) (Auto) 5 % (24-48) Monocytes (%) (Auto) 8 % (0-9) Eosinophils (%) (Auto) 1 % (0-3) Basophils (%) (Auto) 0 % (0-3) Neutrophils # (Auto) 12.0 x10^3uL (1.8-7.7) Lymphocytes # (Auto) 0.7 x10^3/uL (1.0-4.8) Monocytes # (Auto) 1.1 x10^3/uL (0.0-1.1) Eosinophils # (Auto) 0.1 x10^3/uL (0.0-0.7) Basophils # (Auto) 0.0 x10^3/uL (0.0-0.2) Sodium Level 141 mmol/L (136-145) Potassium Level 4.4 mmol/L (3.5-5.1) Chloride Level 105 mmol/L (98-107) Carbon Dioxide Level 29 mmol/L (21-32) Anion Gap 7 (6-14) Blood Urea Nitrogen 69 mg/dL (7-20) Creatinine 2.3 mg/dL (0.6-1.0) Estimated GFR (Cockcroft-Gault) 24.9 Glucose Level 71 mg/dL (70-99) Calcium Level 8.7 mg/dL (8.5-10.1) Test 10/26/18 11:44 10/26/18 12:10 10/26/18 13:08 10/26/18 16:39 Glucose (Fingerstick) 45 mg/dL (70-99) 64 mg/dL (70-99) 112 mg/dL (70-99) 106 mg/dL (70-99) Test 10/26/18 21:17 10/27/18 07:41 Glucose (Fingerstick) 125 mg/dL (70-99) 122 mg/dL (70-99) Laboratory Tests Test 10/26/18 11:44 10/26/18 12:10 10/26/18 13:08 10/26/18 16:39 Glucose (Fingerstick) 45 mg/dL (70-99) 64 mg/dL (70-99) 112 mg/dL (70-99) 106 mg/dL (70-99) Test 10/26/18 21:17 10/27/18 07:41 Glucose (Fingerstick) 125 mg/dL (70-99) 122 mg/dL (70-99) Microbiology 10/21/18 Blood Culture - Final, Complete NO GROWTH AFTER 5 DAYS Medications Current Medications Sodium Chloride 1,000 ml @ 1,000 mls/hr 1X ONCE IV Last administered on at 15:58; Start 10/21/18 at 15:45; Stop 10/21/18 at 16:44; Status DC Sodium Chloride 1,000 ml @ 1,000 mls/hr 1X ONCE IV Last administered on at 16:01; Start 10/21/18 at 15:45; Stop 10/21/18 at 16:44; Status DC Ceftriaxone Sodium (Rocephin) 1 gm 1X ONCE IVP Last administered on 10/21/18at 16:49; Start 10/21/18 at 16:15; Stop 10/21/18 at 16:16; Status DC Sodium Chloride 500 ml @ 500 mls/hr 1X ONCE IV Last administered on at 18:00; Start 10/21/18 at 17:00; Stop 10/21/18 at 17:59; Status DC Piperacillin Sod/ Tazobactam Sod (Zosyn Per Pharmacy) 1 each PRN DAILY PRN MC SEE COMMENTS; Start 10/21/18 at 17:00; Status UNV Ondansetron HCl (Zofran) 4 mg PRN Q8HRS PRN IV NAUSEA/VOMITING; Start 10/21/18 at 17:00; Stop 10/22/18 at 09:22; Status DC Fentanyl Citrate (Fentanyl 2ml Vial) 50 mcg PRN Q1HR PRN IV PAIN; Start at 17:00; Stop 10/22/18 at 09:04; Status DC Sodium Chloride 1,000 ml @ 80 mls/hr [id number] IV Last administered on at 18:00; Start 10/21/18 at 17:00; Stop 10/22/18 at 16:59; Status DC Oxycodone HCl (Roxicodone) 5 mg PRN Q3HRS PRN PO PAIN UNREL BY PERCOCET Last administered on 10/27/18 10:08; Start 10/21/18 at 17:00 Acetaminophen (Tylenol) 650 mg PRN Q6HRS PRN PO Headaches, Temp > 101.5'; Start 10/21/18 at 17:00 Lorazepam (Ativan) 0.5 mg PRN Q6HRS PRN IV ANXIETY / AGITATION; Start 10/21/18 at 17:00 Ondansetron HCl (Zofran) 4 mg PRN Q6HRS PRN IV NAUSEA/VOMITING; Start 10/21/18 at 17:00 Famotidine (Pepcid) 20 mg DAILY PO Last administered on 10/27/18 10:08; Start 10/22/18 at 09:00 Zolpidem Tartrate (Ambien) 5 mg PRN QHS PRN PO INSOMNIA, MAY REPEAT IN 1HR; Start 10/21/18 at 17:00 Info ([facility] Electrolyte Protocol) 1 ea DAILY MC ; Start 10/22/18 at 09:00; Stop at 07:00; Status DC Heparin Sodium (Porcine) (Heparin Sodium) 5,000 unit Q8HRS SQ Last administered on 10/26/18at 14:56; Start 10/21/18 at 22:00 Sodium Chloride (Normal Saline Flush) 3 ml QSHIFT PRN IV AFTER MEDS AND BLOOD DRAWS; Start 10/21/18 at 17:00 Oxycodone/ Acetaminophen (Percocet 5/325) 1 tab PRN Q4HRS PRN PO PAIN, 1ST CHOICE Last administered on 10/25/18 08:54; Start 10/21/18 at 17:00 Morphine Sulfate (Morphine Sulfate) 2 mg PRN Q1HR PRN IV PAIN Last administered on 10/25/18at 11:04; Start 10/21/18 at 17:00 Lactulose (Lactulose) 20 gm PRN Q12HR PRN PO CONSTIPATION; Start 10/21/18 at 17 :00 Insulin Human Lispro (HumaLOG) 0-7 UNITS TIDWMEALS SQ Last administered on 10/24at 13:25; Start 10/21/18 at 17:00 Dextrose (Dextrose 50%-Water Syringe) 12.5 gm PRN Q15MIN PRN IV SEE COMMENTS Last administered on 10/26/18 06:29; Start 10/21/18 at 17:00 Insulin Glargine (Lantus) 38 units QHS SQ Last administered on 10/24/18 22:13 ; Start 10/21/18 at 21:00; Stop 10/26/18 at 08:42; Status DC Prednisone (Prednisone) 10 mg DAILY PO Last administered on 10/27/18 10:07; Start 10/22/18 at 09:00 Sildenafil Citrate (Revatio) 20 mg TID PO Last administered on 10/26/18 14:39 ; Start 10/21/18 at 21:00 Insulin Human Lispro (HumaLOG) 8 units BIDACBL SQ Last administered on 09:09; Start 10/22/18 at 08:00; Stop 10/26/18 at 08:42; Status DC Simvastatin (Zocor) 80 mg QHS PO Last administered on 10/26/18 20:44; Start at 21:00 Spironolactone (Aldactone) 25 mg DAILY PO Last administered on 10/26/18 08:35 ; Start 10/22/18 at 09:00 Levofloxacin/ Dextrose 150 ml @ 100 mls/hr Q48H IV Last administered on 17:25; Start 10/21/18 at 17:00 Vancomycin HCl (Vanco Per Pharmacy) 1 each PRN DAILY PRN MC SEE COMMENTS Last administered on 10/25/18 16:21; Start 10/21/18 at 17:00 Vancomycin HCl 1.5 gm/Sodium Chloride 500 ml @ 250 mls/hr 1X ONCE IV Last administered on 10/21/18 18:30; Start 10/21/18 at 17:15; Stop 10/21/18 at 19:14 ; Status DC Acetaminophen (Tylenol) 650 mg 1X PRN PRN PO PRE-TRANSFUSION; Start 10/21/18 at 18:15 Vancomycin HCl 1.25 gm/Sodium Chloride 250 ml @ 167 mls/hr Q24H IV Last administered on 10/22/18 17:59; Start 10/22/18 at 18:30; Stop 10/24/18 at 15:48 ; Status DC Vancomycin HCl (Vancomycin Trough Level) 1 each 1X ONCE MC Last administered on 10/23/18 17:53; Start 10/23/18 at 18:00; Stop 10/23/18 at 18:01; Status DC Vancomycin HCl (Vancomycin Random Level) 1 each 1X ONCE MC Last administered on 10/24/18at 00:30; Start 10/24/18 at 00:30; Stop 10/24/18 at 00:31; Status DC Ringer's Solution 1,000 ml @ 100 mls/hr Q10H IV Last administered on 05:55; Start 10/24/18 at 10:45; Stop 10/26/18 at 08:42; Status DC Polyethylene Glycol (miraLAX PACKET) 17 gm DAILY PO Last administered on 10:08; Start 10/24/18 at 14:45 Senna/Docusate Sodium (Senna Plus) 2 tab BID PRN PO CONSTIPATION Last administered on 10/26/18 02:12; Start 10/24/18 at 14:45 Vancomycin HCl 1.25 gm/Sodium Chloride 250 ml @ 167 mls/hr Q36H IV Last administered on 10/26/18 03:40; Start 10/24/18 at 16:00 Diclofenac Sodium (Voltaren) 1 benoit BID TP Last administered on 10/26/18 20:44 ; Start 10/25/18 at 15:00 Lidocaine/ Prilocaine (Emla) 1 benoit DAILY TP Last administered on 10/26/18 08: 30; Start 10/26/18 at 09:00 Midodrine (Proamatine) 2.5 mg TIDWMEALS PO Last administered on 10/27/18 10:07 ; Start 10/25/18 at 15:00 Sodium Chloride 1,000 ml @ 80 mls/hr [id number] IV Last administered on 20:43; Start 10/26/18 at 08:45 Active Scripts Active Reported Acetazolamide 250 Mg Tablet unknown dosage Prednisone (Prednisone) 10 Mg Tablet 10 Mg PO DAILY Sildenafil (Sildenafil Citrate) 20 Mg Tablet unknown dosage Ferrous Sulfate 325 Mg Tablet unknown dosage Bumetanide 1 Mg Tablet unknown dosage Metolazone 2.5 Mg Tablet 2.5 Mg PO BID Spironolactone 25 Mg Tablet 25 Mg PO DAILY Lantus Solostar (Insulin Glargine,Hum.rec.anlog) 100 Unit/1 Ml Insuln.pen 38 Unit SQ QHS Novolog Flexpen (Insulin Aspart) 100 Unit/1 Ml Insuln.pen 8 Unit SQ BIDACBL Metoprolol Succinate ( Xl ) (Metoprolol Succinate) 100 Mg Tab.er.24h 1 Tab PO DAILY Calcium Citrate 100 Gm Powder 100 Gm MC Simvastatin 80 Mg Tablet 1 Tab PO DAILY Potassium Chloride 20 Meq Tab.er.prt 1 Tab PO BID Omeprazole 20 Mg Tablet.dr 1 Tab PO DAILY Amlodipine Besylate 5 Mg Tablet 1 Tab PO DAILY Losartan Potassium 50 Mg Tablet 1 Tab PO DAILY Aspirin 325 Mg Tablet 1 Tab PO DAILY Vitals/I & O Vital Sign - Last 24 Hours 10/26/18 10/26/18 10/26/18 10/26/18 11:00 11:53 14:39 15:00 Temp 97.6 97.5 97.6 97.5 Pulse 70 86 86 83 Resp 18 18 B/P (MAP) 96/53 (67) 127/96 127/96 112/93 (99) Pulse Ox 100 91 10/26/18 10/26/18 10/26/18 10/26/18 17:33 19:27 20:06 20:44 Temp 97.8 97.8 Pulse 83 84 Resp 17 B/P (MAP) 112/93 97/42 (60) Pulse Ox 91 91 O2 Delivery Nasal Cannula Nasal Cannula Nasal Cannula O2 Flow Rate 4.0 4.0 4.0 10/26/18 10/26/18 10/26/18 10/27/18 20:45 21:41 23:09 03:57 Temp 98.0 97.4 98.0 97.4 Pulse 84 92 95 Resp 18 17 B/P (MAP) 97/42 90/47 (61) 90/47 (61) Pulse Ox 91 95 93 O2 Delivery Nasal Cannula Nasal Cannula Nasal Cannula O2 Flow Rate 4.0 4.0 4.0 10/27/18 10/27/18 10/27/18 10/27/18 07:00 09:00 10:07 10:08 Temp 98.6 98.6 Pulse 106 106 106 Resp 18 18 B/P (MAP) 92/49 (63) 87/52 87/52 Pulse Ox 87 O2 Delivery Nasal Cannula Nasal Cannula O2 Flow Rate 4.0 4.0 Intake and Output 10/26/18 10/26/18 10/27/18 15:00 23:00 07:00 Intake Total 480 ml 240 ml 1000 ml Output Total 1225 ml 350 ml Balance 480 ml -985 ml 650 ml PHIL HOLLOWAY MD Oct 27, 2018 10:21
[2018-10-27] MEDS: IV NORMAL SALINE 1000ML BAG 1,000 ML IV SCH ×2 (15:30→22:15)
--- NOTE | 2018-10-27 18:00 | NUR ---
Pt hypotensive, sleeping deeply. Pt awakes to refuse food and drink except very small sips, urine output markedly low and alejandro to tea colored. Page to Dr. Tejeda, orders rec'd for 750mL NS over 2 hours. Family states that pt has 1500cc fluid restriction at home, with current fluids run, pt is already over that. Dr. Ramon paged again, awaiting response. Pt is currently running abx, will finish prior to initiating any additional fluid administration.
--- NOTE | 2018-10-27 19:58 | NUR ---
PATIENT HAS POSITIVE SEPSIS SCREEN, PATIENT HYPOTENSIVE, BP 91/44 HR 102. PATIENT HAS BEEN HYPOTENSIVE DURING DAY SHIFT, PATIENT HAS NOT EATEN SINCE PRIOR NIGHT, PATIENT HAS BEEN LETHARGIC ALL DAY, PATIENT NOT GETTING OUT OF BED AT THIS TIME. PHYSICIAN NOTIFIED, ORDERS RECEIVED TO TRANSFER TO ICU. WILL CONTINUE TO MONITOR PATIENT.
[2018-10-27] MEDS: SIMVASTATIN 40 MG TABLET. PO SCH (21:00)
[2018-10-27] MEDS ORDERED: ALBUMIN HUMAN 25% 50 ML IV ONE (21:30)
[2018-10-28] VITALS (16 sets, daily range): BP systolic 72–126; BP diastolic 40–65
[2018-10-28] MEDS: HEPARIN for SUB-Q USE 5,000 UNIT/ML VIAL. SQ SCH ×2 (05:43→14:00)
[2018-10-28 06:24] LABS: BASO # 0.2 x10^3/uL (0.0-0.2); BASO % 1 % (0-3); EOS % 0 % (0-3); HEMATOCRIT 26.9 % (36.0-47.0); HEMOGLOBIN 7.3 g/dL (12.0-15.5); LYMPH # 0.3 x10^3/uL (1.0-4.8); LYMPH % 1 % (24-48); MEAN CORPUSCULAR HEMOGLOBIN 22 pg (25-35); MEAN CORPUSCULAR HGB CONC 27 g/dL (31-37); MEAN CORPUSCULAR VOLUME 81 fL (79-100); MONO % 3 % (0-9); NEUT # 30.3 x10^3uL (1.8-7.7); NEUT % 95 % (31-73); PLATELET COUNT 236 x10^3/uL (140-400); RED BLOOD COUNT 3.33 x10^6/uL (3.50-5.40); RED CELL DISTRIBUTION WIDTH 23.5 % (11.5-14.5)
[2018-10-28 06:39] LABS: CALCIUM 8.4 mg/dL (8.5-10.1); CREATININE 2.9 mg/dL (0.6-1.0); POTASSIUM 5.8 mmol/L (3.5-5.1)
[2018-10-28 06:40] LABS: WHITE BLOOD COUNT 31.2 x10^3/uL (4.0-11.0)
[2018-10-28 07:45] LABS: % BANDS 5 % (0-9); % LYMPHS 3 % (24-48); % MONOS 1 % (0-10); % SEGS 91 % (35-66); NUCLEATED RBC 1
[2018-10-28 07:46] LABS: ANISOCYTOSIS MOD; HYPOCHROMIA SLIGHT; PLT ESTIMATE ADEQUATE (ADEQUATE)
[2018-10-28 07:49] LABS: POIKILOCYTOSIS SLIGHT
[2018-10-28 07:50] LABS: BURR CELLS OCC; OVALOCYTES OCC
[2018-10-28] MEDS: INSULIN LISPRO 300 UNITS/3 ML INSULN.PEN. SQ SCH ×2 (08:00→11:12)
[2018-10-28] MEDS: MIDODRINE 2.5 MG TABLET PO SCH (08:00)
--- NOTE | 2018-10-28 08:13 | RAD ---
Chest radiograph 10/28/2018 6:50 AM INDICATION: Elevated white blood cell count COMPARISON: October 24, 2018 TECHNIQUE: Portable frontal semi-upright view of the chest is provided. FINDINGS: The cardiomediastinal silhouette is similar in appearance. Right upper extremity PICC is in similar position. There is a new small left pleural effusion with adjacent compressive atelectasis versus infiltrate. Mild pulmonary vascular congestion. There is subsegmental atelectasis at the right lung base. No pneumothorax. IMPRESSION: New small left pleural effusion with adjacent compressive atelectasis versus infiltrate. Left hilar fullness may reflect vascular prominence versus lymphadenopathy. Electronically signed by: Sharron Hannah MD (10/28/2018 8:11 AM) [id number]
[2018-10-28] MEDS: IV NORMAL SALINE 1000ML BAG 1,000 ML IV SCH (08:50)
[2018-10-28] MEDS: LIDOCAINE/PRILOCAINE TOPICAL CREAM 5GM TUBE. TP SCH (09:00)
[2018-10-28] MEDS: SPIRONOLACTONE 25 MG TABLET PO SCH (09:00)
[2018-10-28] MEDS: SILDENAFIL CITRATE 20 MG TABLET. PO SCH (09:00)
[2018-10-28] MEDS: POLYETHYLENE GLYCOL 3350 17 GM PACKET. PO SCH (09:00)
[2018-10-28] MEDS: DICLOFENAC SODIUM 1% TOPICAL GEL 100GM TUBE. TP SCH (10:13)
--- NOTE | 2018-10-28 10:25 | NUR ---
pt refusing medications this morning. pt did drink some lemon [place] pop and immediately brought up 50 cc of dark green colored emesis. pt then agreed that she was nauseated prior to taking a drink. pt denies nausea now. Pt denies any pain or discomfort. pt was turned to her right side with the assistance of her daughter, Rosio. pt has not had a bowel movement since 10/22. pt denies feeling constipated. pt currently on dopamine 10mcg/kg/min and iv fluids of ns at 80cc/hour. lactic acid level result 3.7 . o2 at 4l nc.
--- NOTE | 2018-10-28 12:06 | PDOC ---
PROGRESS NOTES Chief Complaint Chief Complaint Hypovolemic shock resolved after fluid resuscitation. 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 Leg pain, negative Dopplers 10/28 TRANSFERRED TO ICU FOR PRESSOR SUPPORT LAST PM PAT SEEING FOR DNR STATUS 45 min cc time History of Present Illness History of Present Illness Venous Dopplers negative for DVT Palliative meeting again TODAY WITH FAMILY, PATIENT desires palliative measures , pain control, control of anxiety, long discussion with both daughters and grandchildren in room, DPOA, all agree to honor Rosalia's wishes Pat present as well, all questions answered HYPOTENSIVE blood pressure will wean dopamine DNR Plan: CPM//ICU palliation of symptoms,is goal today, length of life likely less than 72 hrs if disease progresses as normally expected in my judgement Family meeting planned // palliative Palliative chemotherapy was planned but second thoughts now as patient very weak considering hospice, would likely not survive ambulance ride to her home to pass Vitals Vitals Vital Signs Date Time Temp Pulse Resp B/P (MAP) Pulse Ox O2 Delivery O2 Flow Rate FiO2 10/28/18 11:00 98.3 94 16 78/43 (55) 95 Nasal Cannula 2.0 98.3 Physical Exam Physical Exam Gen.: well-developed, elderly in no apparent distress Head: Normal shape atraumatic Eyes: Pupils equal reactive to light and accommodation, normal conjunctivae and lids Ears: Normal shape Nose: Normal shape no trauma Mouth: No exudates of the back of throat no thrush no lesions, dry mucous membranes Neck: Supple no JVD no carotid bruit or lymphadenopathy no thyromegaly Chest: Lungs clear to auscultation with good inspiratory effort no crackles rales or rhonchi Cardiovascular: S1-S2 regular rhythm no murmurs gallops or rubs Abdomen: Bowel sounds present soft nontender no hepatosplenomegaly appreciated Extremities: No clubbing no cyanosis 1+ edema peripheral pulses palpated bilaterally Neurological: Alert awake oriented in person time place and situation, cranial nerves II through XII intact, no motor or sensory deficits appreciated Psych: Appropriate mood, cooperative General: Alert, Oriented X3, Cooperative, No acute distress, mild distress Heart: Normal S1, Normal S2 Lungs: Clear Abdomen: Normal bowel sounds, Soft Extremities: No clubbing, No cyanosis, Other (4 plus ankle pitting edema) Skin: No rashes, No breakdown Labs LABS PATIENT: ANANT SKAGGS ACCT: [id number] LOC: [address] [place] [address] U : [id number] AGE/SX: 78/F ROOM: [facility] REG : 10/21/[address]: MASOUD BENITEZ MD : [id number] BED: 1 DIS : STATUS: ADM IN TLOC: SPEC #: [id number] ANGELA: 10/21/18 STATUS: COMP REQ #: [id number] RECD: 10/21/[address] [facility] [address]: LIA PAPPAS APRN SOURCE: BLOOD ENTR: 10/21/[address]: CARMEN,STAFF SPDC: UNKNOWN PCP NAME ORDERED: BCULT Procedure Result BLOOD CULTURE Final NO GROWTH AFTER 5 DAYS STATUS: ADM IN ORD. PHYSICIAN: TAYLOR MCMANUS MD REASON: high wbc PROCEDURE: CHEST AP ONLY Chest radiograph 10/28/2018 6:50 AM INDICATION: Elevated white blood cell count COMPARISON: October 24, 2018 TECHNIQUE: Portable frontal semi-upright view of the chest is provided. FINDINGS: The cardiomediastinal silhouette is similar in appearance. Right upper extremity PICC is in similar position. There is a new small left pleural effusion with adjacent compressive atelectasis versus infiltrate. Mild pulmonary vascular congestion. There is subsegmental atelectasis at the right lung base. No pneumothorax. IMPRESSION: New small left pleural effusion with adjacent compressive atelectasis versus infiltrate. Left hilar fullness may reflect vascular prominence versus lymphadenopathy. Electronically signed by: Sharron Hannah MD (10/28/2018 8:11 AM) [facility] Abdomen and Pelvis without contrast History: Abdominal pain Technique: Noncontrast CT imaging was performed of the abdomen and pelvis. Multiplanar images are reviewed. Exposure: One or more of the following individualized dose reduction techniques were utilized for this examination: 1. Automated exposure control 2. Adjustment of the mA and/or kV according to patient size 3. Use of iterative reconstruction technique. Comparison: February 28, 2007 Findings: There is some atelectasis visualized left lung base. Evaluation of abdominal visceral organs is limited without intravenous contrast, no new obvious abnormality of the spleen or the pancreas. There is a focus of calcification in the region of the distal common bile duct near the head of the pancreas about 0.3 cm in size, no bowel gallbladder dilatation. There is similar fullness of the left adrenal gland. There is a small accessory spleen. There is now heterogeneous appearance of the liver parenchyma, more defined hypodense lesion posterior right lobe such as seen axial image 25 about 2 cm in size not seen previously, more focal lesion of the right lobe axial image 15 about 1.4 cm, left lobe axial image 15 about 1.6 cm, more centrally of the right lobe about 2.8 cm axial images 21, lesion closer the gallbladder fossa about 1.5 cm. There may be other lesions poorly delineated on this noncontrast exam including possible larger hypodense lesion more centrally. There is no hydronephrosis of either kidney, no renal calculus. There is scattered atherosclerotic calcification of the abdominal aorta, also the proximal renal arteries and near the origin of the superior mesenteric artery at which there is likely more significant stenosis. There is also atherosclerotic calcification of the iliac arteries bilaterally. Calcified uterine lesions are more apparent on this exam more likely due to leiomyomas. There is catheter in the urinary bladder. Evaluation of bowel is limited without oral contrast, no significant bowel dilatation, free air, free fluid. Normal appendix is visualized. There is grade 1 anterior spondylolisthesis at what is considered L4-5 and to lesser degree at L3-4, multilevel facet degenerative change. There is likely duodenal diverticulum. There are some air-fluid levels in the colon. There is small fat-containing umbilical hernia. Small focus of subcutaneous density of the anterior abdomen axial image 46 has fluid type density characteristics. Impression: 1. There are scattered liver lesions concerning for metastatic disease until proven otherwise in a patient this age. 2. There is likely choledocholithiasis although gallbladder not significantly dilated. 3. 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 4. There are some colonic air-fluid levels as can be seen with diarrheal state. Electronically signed by: Clarice Gallegos MD (10/21/2018 6:58 PM) [facility] DICTATED and SIGNED BY: CLARICE GALLEGOS MD DATE: 10/21/18 1851 Laboratory Tests Test 10/27/18 16:37 10/27/18 19:32 10/28/18 05:55 10/28/18 08:30 Glucose (Fingerstick) 187 mg/dL (70-99) 186 mg/dL (70-99) White Blood Count 31.2 x10^3/uL (4.0-11.0) Red Blood Count 3.33 x10^6/uL (3.50-5.40) Hemoglobin 7.3 g/dL (12.0-15.5) Hematocrit 26.9 % (36.0-47.0) Mean Corpuscular Volume 81 fL (79-100) Mean Corpuscular Hemoglobin 22 pg (25-35) Mean Corpuscular Hemoglobin Concent 27 g/dL (31-37) Red Cell Distribution Width 23.5 % (11.5-14.5) Platelet Count 236 x10^3/uL (140-400) Neutrophils (%) (Auto) 95 % (31-73) Lymphocytes (%) (Auto) 1 % (24-48) Monocytes (%) (Auto) 3 % (0-9) Eosinophils (%) (Auto) 0 % (0-3) Basophils (%) (Auto) 1 % (0-3) Neutrophils # (Auto) 30.3 x10^3uL (1.8-7.7) Lymphocytes # (Auto) 0.3 x10^3/uL (1.0-4.8) Monocytes # (Auto) 1.0 x10^3/uL (0.0-1.1) Eosinophils # (Auto) 0.0 x10^3/uL (0.0-0.7) Basophils # (Auto) 0.2 x10^3/uL (0.0-0.2) Segmented Neutrophils % 91 % (35-66) Band Neutrophils % 5 % (0-9) Lymphocytes % 3 % (24-48) Monocytes % 1 % (0-10) Nucleated Red Blood Cells 1 Platelet Estimate Adequate (ADEQUATE) Large Platelets Occ Hypochromasia Slight Poikilocytosis Slight Anisocytosis Mod Ovalocytes Occ [place] Cells Occ Sodium Level 143 mmol/L (136-145) Potassium Level 5.8 mmol/L (3.5-5.1) Chloride Level 106 mmol/L (98-107) Carbon Dioxide Level 24 mmol/L (21-32) Anion Gap 13 (6-14) Blood Urea Nitrogen 69 mg/dL (7-20) Creatinine 2.9 mg/dL (0.6-1.0) Estimated GFR (Cockcroft-Gault) 19.0 Glucose Level 214 mg/dL (70-99) Calcium Level 8.4 mg/dL (8.5-10.1) Lactic Acid Level 3.7 mmol/L (0.4-2.0) Test 10/28/18 11:08 Glucose (Fingerstick) 161 mg/dL (70-99) Assessment and Plan Assessmemt and Plan Problems Medical Problems: (1) Hypotension Status: Acute (2) Sepsis Status: Acute Comment Review of Relevant I have reviewed the following items aby (where applicable) has been applied. Labs Laboratory Tests Test 10/26/18 12:10 10/26/18 13:08 10/26/18 16:39 10/26/18 21:17 Glucose (Fingerstick) 64 mg/dL (70-99) 112 mg/dL (70-99) 106 mg/dL (70-99) 125 mg/dL (70-99) Test 10/27/18 07:41 10/27/18 10:56 10/27/18 16:37 10/27/18 19:32 Glucose (Fingerstick) 122 mg/dL (70-99) 140 mg/dL (70-99) 187 mg/dL (70-99) 186 mg/dL (70-99) Test 10/28/18 05:55 10/28/18 08:30 10/28/18 11:08 White Blood Count 31.2 x10^3/uL (4.0-11.0) Red Blood Count 3.33 x10^6/uL (3.50-5.40) Hemoglobin 7.3 g/dL (12.0-15.5) Hematocrit 26.9 % (36.0-47.0) Mean Corpuscular Volume 81 fL (79-100) Mean Corpuscular Hemoglobin 22 pg (25-35) Mean Corpuscular Hemoglobin Concent 27 g/dL (31-37) Red Cell Distribution Width 23.5 % (11.5-14.5) Platelet Count 236 x10^3/uL (140-400) Neutrophils (%) (Auto) 95 % (31-73) Lymphocytes (%) (Auto) 1 % (24-48) Monocytes (%) (Auto) 3 % (0-9) Eosinophils (%) (Auto) 0 % (0-3) Basophils (%) (Auto) 1 % (0-3) Neutrophils # (Auto) 30.3 x10^3uL (1.8-7.7) Lymphocytes # (Auto) 0.3 x10^3/uL (1.0-4.8) Monocytes # (Auto) 1.0 x10^3/uL (0.0-1.1) Eosinophils # (Auto) 0.0 x10^3/uL (0.0-0.7) Basophils # (Auto) 0.2 x10^3/uL (0.0-0.2) Segmented Neutrophils % 91 % (35-66) Band Neutrophils % 5 % (0-9) Lymphocytes % 3 % (24-48) Monocytes % 1 % (0-10) Nucleated Red Blood Cells 1 Platelet Estimate Adequate (ADEQUATE) Large Platelets Occ Hypochromasia Slight Poikilocytosis Slight Anisocytosis Mod Ovalocytes Occ [place] Cells Occ Sodium Level 143 mmol/L (136-145) Potassium Level 5.8 mmol/L (3.5-5.1) Chloride Level 106 mmol/L (98-107) Carbon Dioxide Level 24 mmol/L (21-32) Anion Gap 13 (6-14) Blood Urea Nitrogen 69 mg/dL (7-20) Creatinine 2.9 mg/dL (0.6-1.0) Estimated GFR (Cockcroft-Gault) 19.0 Glucose Level 214 mg/dL (70-99) Calcium Level 8.4 mg/dL (8.5-10.1) Lactic Acid Level 3.7 mmol/L (0.4-2.0) Glucose (Fingerstick) 161 mg/dL (70-99) Laboratory Tests Test 10/27/18 16:37 10/27/18 19:32 10/28/18 05:55 10/28/18 08:30 Glucose (Fingerstick) 187 mg/dL (70-99) 186 mg/dL (70-99) White Blood Count 31.2 x10^3/uL (4.0-11.0) Red Blood Count 3.33 x10^6/uL (3.50-5.40) Hemoglobin 7.3 g/dL (12.0-15.5) Hematocrit 26.9 % (36.0-47.0) Mean Corpuscular Volume 81 fL (79-100) Mean Corpuscular Hemoglobin 22 pg (25-35) Mean Corpuscular Hemoglobin Concent 27 g/dL (31-37) Red Cell Distribution Width 23.5 % (11.5-14.5) Platelet Count 236 x10^3/uL (140-400) Neutrophils (%) (Auto) 95 % (31-73) Lymphocytes (%) (Auto) 1 % (24-48) Monocytes (%) (Auto) 3 % (0-9) Eosinophils (%) (Auto) 0 % (0-3) Basophils (%) (Auto) 1 % (0-3) Neutrophils # (Auto) 30.3 x10^3uL (1.8-7.7) Lymphocytes # (Auto) 0.3 x10^3/uL (1.0-4.8) Monocytes # (Auto) 1.0 x10^3/uL (0.0-1.1) Eosinophils # (Auto) 0.0 x10^3/uL (0.0-0.7) Basophils # (Auto) 0.2 x10^3/uL (0.0-0.2) Segmented Neutrophils % 91 % (35-66) Band Neutrophils % 5 % (0-9) Lymphocytes % 3 % (24-48) Monocytes % 1 % (0-10) Nucleated Red Blood Cells 1 Platelet Estimate Adequate (ADEQUATE) Large Platelets Occ Hypochromasia Slight Poikilocytosis Slight Anisocytosis Mod Ovalocytes Occ [place]admin[place] Cells Occ Sodium Level 143 mmol/L (136-145) Potassium Level 5.8 mmol/L (3.5-5.1) Chloride Level 106 mmol/L (98-107) Carbon Dioxide Level 24 mmol/L (21-32) Anion Gap 13 (6-14) Blood Urea Nitrogen 69 mg/dL (7-20) Creatinine 2.9 mg/dL (0.6-1.0) Estimated GFR (Cockcroft-Gault) 19.0 Glucose Level 214 mg/dL (70-99) Calcium Level 8.4 mg/dL (8.5-10.1) Lactic Acid Level 3.7 mmol/L (0.4-2.0) Test 10/28/18 11:08 Glucose (Fingerstick) 161 mg/dL (70-99) Microbiology 10/21/18 Blood Culture - Final, Complete NO GROWTH AFTER 5 DAYS Medications Current Medications Sodium Chloride 1,000 ml @ 1,000 mls/hr 1X ONCE IV Last administered on 15:58; Start 10/21/18 at 15:45; Stop 10/21/18 at 16:44; Status DC Sodium Chloride 1,000 ml @ 1,000 mls/hr 1X ONCE IV Last administered on at 16:01; Start 10/21/18 at 15:45; Stop 10/21/18 at 16:44; Status DC Ceftriaxone Sodium (Rocephin) 1 gm 1X ONCE IVP Last administered on 10/21/18at 16:49; Start 10/21/18 at 16:15; Stop 10/21/18 at 16:16; Status DC Sodium Chloride 500 ml @ 500 mls/hr 1X ONCE IV Last administered on at 18:00; Start 10/21/18 at 17:00; Stop 10/21/18 at 17:59; Status DC Piperacillin Sod/ Tazobactam Sod (Zosyn Per Pharmacy) 1 each PRN DAILY PRN MC SEE COMMENTS; Start 10/21/18 at 17:00; Status UNV Ondansetron HCl (Zofran) 4 mg PRN Q8HRS PRN IV NAUSEA/VOMITING; Start 10/21/18 at 17:00; Stop 10/22/18 at 09:22; Status DC Fentanyl Citrate (Fentanyl 2ml Vial) 50 mcg PRN Q1HR PRN IV PAIN; Start at 17:00; Stop 10/22/18 at 09:04; Status DC Sodium Chloride 1,000 ml @ 80 mls/hr [id number] IV Last administered on at 18:00; Start 10/21/18 at 17:00; Stop 10/22/18 at 16:59; Status DC Oxycodone HCl (Roxicodone) 5 mg PRN Q3HRS PRN PO PAIN UNREL BY PERCOCET Last administered on 10/27/18 10:08; Start 10/21/18 at 17:00 Acetaminophen (Tylenol) 650 mg PRN Q6HRS PRN PO Headaches, Temp > 101.5' Last administered on 10/27/18 14:07; Start 10/21/18 at 17:00 Lorazepam (Ativan) 0.5 mg PRN Q6HRS PRN IV ANXIETY / AGITATION; Start 10/21/18 at 17:00 Ondansetron HCl (Zofran) 4 mg PRN Q6HRS PRN IV NAUSEA/VOMITING; Start 10/21/18 at 17:00 Famotidine (Pepcid) 20 mg DAILY PO Last administered on 10/27/18 10:08; Start 10/22/18 at 09:00 Zolpidem Tartrate (Ambien) 5 mg PRN QHS PRN PO INSOMNIA, MAY REPEAT IN 1HR; Start 10/21/18 at 17:00 Info (Icu Electrolyte Protocol) 1 ea DAILY MC ; Start 10/22/18 at 09:00; Stop at 07:00; Status DC Heparin Sodium (Porcine) (Heparin Sodium) 5,000 unit Q8HRS SQ Last administered on 10/26/18 14:56; Start 10/21/18 at 22:00 Sodium Chloride (Normal Saline Flush) 3 ml QSHIFT PRN IV AFTER MEDS AND BLOOD DRAWS; Start 10/21/18 at 17:00 Oxycodone/ Acetaminophen (Percocet 5/325) 1 tab PRN Q4HRS PRN PO PAIN, 1ST CHOICE Last administered on 10/25/18 08:54; Start 10/21/18 at 17:00 Morphine Sulfate (Morphine Sulfate) 2 mg PRN Q1HR PRN IV PAIN Last administered on 10/25/18at 11:04; Start 10/21/18 at 17:00 Lactulose (Lactulose) 20 gm PRN Q12HR PRN PO CONSTIPATION; Start 10/21/18 at 17 :00 Insulin Human Lispro (HumaLOG) 0-7 UNITS TIDWMEALS SQ Last administered on 10/24 13:25; Start 10/21/18 at 17:00 Dextrose (Dextrose 50%-Water Syringe) 12.5 gm PRN Q15MIN PRN IV SEE COMMENTS Last administered on 10/26/18 06:29; Start 10/21/18 at 17:00 Insulin Glargine (Lantus) 38 units QHS SQ Last administered on 10/24/18 22:13 ; Start 10/21/18 at 21:00; Stop 10/26/18 at 08:42; Status DC Prednisone (Prednisone) 10 mg DAILY PO Last administered on 10/27/18 10:07; Start 10/22/18 at 09:00 Sildenafil Citrate (Revatio) 20 mg TID PO Last administered on 10/27/18 21:48 ; Start 10/21/18 at 21:00 Insulin Human Lispro (HumaLOG) 8 units BIDACBL SQ Last administered on 09:09; Start 10/22/18 at 08:00; Stop 10/26/18 at 08:42; Status DC Simvastatin (Zocor) 80 mg QHS PO Last administered on 10/27/18 21:00; Start at 21:00 Spironolactone (Aldactone) 25 mg DAILY PO Last administered on 10/26/18 08:35 ; Start 10/22/18 at 09:00 Levofloxacin/ Dextrose 150 ml @ 100 mls/hr Q48H IV Last administered on 17:21; Start 10/21/18 at 17:00 Vancomycin HCl (Vanco Per Pharmacy) 1 each PRN DAILY PRN MC SEE COMMENTS Last administered on 10/25/18 16:21; Start 10/21/18 at 17:00; Stop 10/27/18 at 16:35 ; Status DC Vancomycin HCl 1.5 gm/Sodium Chloride 500 ml @ 250 mls/hr 1X ONCE IV Last administered on 10/21/18 18:30; Start 10/21/18 at 17:15; Stop 10/21/18 at 19:14 ; Status DC Acetaminophen (Tylenol) 650 mg 1X PRN PRN PO PRE-TRANSFUSION; Start 10/21/18 at 18:15 Vancomycin HCl 1.25 gm/Sodium Chloride 250 ml @ 167 mls/hr Q24H IV Last administered on 10/22/18 17:59; Start 10/22/18 at 18:30; Stop 10/24/18 at 15:48 ; Status DC Vancomycin HCl (Vancomycin Trough Level) 1 each 1X ONCE MC Last administered on 10/23/18 17:53; Start 10/23/18 at 18:00; Stop 10/23/18 at 18:01; Status DC Vancomycin HCl (Vancomycin Random Level) 1 each 1X ONCE MC Last administered on 10/24/18 00:30; Start 10/24/18 at 00:30; Stop 10/24/18 at 00:31; Status DC Ringer's Solution 1,000 ml @ 100 mls/hr Q10H IV Last administered on 05:55; Start 10/24/18 at 10:45; Stop 10/26/18 at 08:42; Status DC Polyethylene Glycol (miraLAX PACKET) 17 gm DAILY PO Last administered on 10:08; Start 10/24/18 at 14:45 Senna/Docusate Sodium (Senna Plus) 2 tab BID PRN PO CONSTIPATION Last administered on 10/26/18 02:12; Start 10/24/18 at 14:45 Vancomycin HCl 1.25 gm/Sodium Chloride 250 ml @ 167 mls/hr Q36H IV Last administered on 10/26/18 03:40; Start 10/24/18 at 16:00; Stop 10/27/18 at 16:35 ; Status DC Diclofenac Sodium (Voltaren) 1 benoit BID TP Last administered on 10/28/18 10:13 ; Start 10/25/18 at 15:00 Lidocaine/ Prilocaine (Emla) 1 benoit DAILY TP Last administered on 10/27/18 10: 20; Start 10/26/18 at 09:00 Midodrine (Proamatine) 2.5 mg TIDWMEALS PO Last administered on 10/27/18 17:45 ; Start 10/25/18 at 15:00 Sodium Chloride 1,000 ml @ 80 mls/hr [id number] IV Last administered on 08:50; Start 10/26/18 at 08:45 Albumin Human 50 ml @ 50 mls/hr 1X ONCE IV Last administered on 10/27/18 21: 47; Start 10/27/18 at 21:30; Stop 10/27/18 at 22:29; Status DC Dopamine HCl/ Dextrose 250 ml @ 7.146 mls/ hr CONT PRN IV SEE I/O RECORD Last administered on 10/28/18 08:50; Start 10/27/18 at 21:30 Active Scripts Active Reported Acetazolamide 250 Mg Tablet unknown dosage Prednisone (Prednisone) 10 Mg Tablet 10 Mg PO DAILY Sildenafil (Sildenafil Citrate) 20 Mg Tablet unknown dosage Ferrous Sulfate 325 Mg Tablet unknown dosage Bumetanide 1 Mg Tablet unknown dosage Metolazone 2.5 Mg Tablet 2.5 Mg PO BID Spironolactone 25 Mg Tablet 25 Mg PO DAILY Lantus Solostar (Insulin Glargine,Hum.rec.anlog) 100 Unit/1 Ml Insuln.pen 38 Unit SQ QHS Novolog Flexpen (Insulin Aspart) 100 Unit/1 Ml Insuln.pen 8 Unit SQ BIDACBL Metoprolol Succinate ( Xl ) (Metoprolol Succinate) 100 Mg Tab.er.24h 1 Tab PO DAILY Calcium Citrate 100 Gm Powder 100 Gm MC Simvastatin 80 Mg Tablet 1 Tab PO DAILY Potassium Chloride 20 Meq Tab.er.prt 1 Tab PO BID Omeprazole 20 Mg Tablet.dr 1 Tab PO DAILY Amlodipine Besylate 5 Mg Tablet 1 Tab PO DAILY Losartan Potassium 50 Mg Tablet 1 Tab PO DAILY Aspirin 325 Mg Tablet 1 Tab PO DAILY Vitals/I & O Vital Sign - Last 24 Hours 10/27/18 10/27/18 10/27/18 10/27/18 14:00 14:04 14:07 17:45 Temp 99.5 99.5 Pulse 100 100 100 52 Resp 20 B/P (MAP) 91/37 91/37 (55) 91/37 71/40 O2 Delivery Nasal Cannula O2 Flow Rate 4.0 10/27/18 10/27/18 10/27/18 10/27/18 19:00 20:00 21:00 21:00 Temp 99.5 98.5 99.5 98.5 Pulse 102 90 Resp 20 20 B/P (MAP) 90/44 (59) 71/40 (50) Pulse Ox 100 100 O2 Delivery Nasal Cannula Nasal Cannula Nasal Cannula Nasal Cannula O2 Flow Rate 4.0 4.0 4.0 4.0 10/27/18 10/27/18 10/27/18 10/27/18 21:15 21:15 21:30 21:45 Temp 98.5 98.5 Pulse 84 86 96 82 Resp 15 20 16 12 B/P (MAP) 65/37 (46) 65/37 (46) 59/35 (43) 72/40 (51) Pulse Ox 95 95 96 93 O2 Delivery Nasal Cannula Nasal Cannula Nasal Cannula Nasal Cannula O2 Flow Rate 4.0 4.0 4.0 4.0 10/27/18 10/27/18 10/27/18 10/27/18 21:48 22:00 22:30 23:00 Pulse 91 112 110 105 Resp 10 12 12 B/P (MAP) 77/40 91/38 (55) 125/38 (67) 81/40 (54) Pulse Ox 98 98 92 O2 Delivery Nasal Cannula Nasal Cannula Nasal Cannula O2 Flow Rate 4.0 4.0 4.0 10/27/18 10/27/18 10/27/18 10/28/18 23:30 23:59 23:59 01:05 Temp 98.5 98.5 Pulse 90 102 Resp 20 12 B/P (MAP) 71/40 (50) 104/50 (68) Pulse Ox 94 100 91 O2 Delivery BiPAP/CPAP Nasal Cannula Nasal Cannula Nasal Cannula O2 Flow Rate 4.0 4.0 6.0 10/28/18 10/28/18 10/28/18 10/28/18 02:00 03:00 04:00 04:11 Temp 98.1 98.1 Pulse 103 103 90 Resp 18 18 18 B/P (MAP) 100/51 (67) 96/46 (63) 119/58 (78) Pulse Ox 98 94 95 O2 Delivery Nasal Cannula Nasal Cannula Nasal Cannula Nasal Cannula O2 Flow Rate 6.0 6.0 6.0 4.0 10/28/18 10/28/18 10/28/18 10/28/18 04:33 04:45 05:00 06:07 Pulse 99 101 107 100 Resp 20 20 28 32 B/P (MAP) 78/48 (58) 85/46 (59) 99/48 (65) 112/60 (77) Pulse Ox 99 97 99 100 O2 Delivery Nasal Cannula Nasal Cannula Nasal Cannula Nasal Cannula O2 Flow Rate 6.0 6.0 6.0 6.0 10/28/18 10/28/18 10/28/18 10/28/18 07:00 08:00 08:00 09:00 Temp 98.1 98.1 Pulse 99 76 92 Resp 16 16 16 B/P (MAP) 92/49 (63) 126/65 (85) 77/40 (52) Pulse Ox 100 98 100 O2 Delivery Nasal Cannula Nasal Cannula Nasal Cannula Nasal Cannula O2 Flow Rate 6.0 4.0 4.0 4.0 10/28/18 10/28/18 10:00 11:00 Temp 98.3 98.3 Pulse 94 94 Resp 16 16 B/P (MAP) 97/46 (63) 78/43 (55) Pulse Ox 100 95 O2 Delivery Nasal Cannula Nasal Cannula O2 Flow Rate 4.0 2.0 Intake and Output 10/27/18 10/27/18 10/28/18 15:00 23:00 07:00 Intake Total 400 ml 120 ml 550 ml Output Total 230 ml 190 ml Balance 400 ml -110 ml 360 ml TAYLOR MCMANUS MD Oct 28, 2018 12:06
--- NOTE | 2018-10-28 12:17 | PDOC ---
PROGRESS NOTES Subjective Subjective HPI - f/u of Stage IV colon cancer ROS - feels weak Objective Objective Vital Signs Date Time Temp Pulse Resp B/P (MAP) Pulse Ox O2 Delivery O2 Flow Rate FiO2 10/28/18 11:00 98.3 94 16 78/43 (55) 95 Nasal Cannula 2.0 98.3 Intake and Output 10/28/18 06:59 Intake Total 1070 ml Output Total 410 ml Balance 660 ml Intake Oral 520 ml IV Total 550 ml Output Urine Total 410 ml Physical Exam Heart: Normal S1, Normal S2 General: Alert, Oriented X3, No acute distress Lungs: Clear to auscultation Neuro: Normal speech Psych/Mental Status: Mental status NL Assessment Assessment Problems Medical Problems: (1) Hypotension Status: Acute (2) Sepsis Status: Acute IMPRESSION AND PLAN: 1. Stage IV colon cancer with liver metastasis involving both lobes of the liver, diagnosed by liver biopsy on 09/13/2018. CT scan revealed ascending colon mass, which was thought to be the primary. Colonoscopy was not performed because of congestive heart failure. Her functional status is poor right now due to her comorbid conditions. I will plan to initiate palliative chemotherapy once her functional status improves. However, she is not improving and continues to get weaker. I d/w dtr regarding hospice options and they will think about it. I d/w Pat from palliative care. CEA 252 on 10/22/18. Appreciate palliative care consult. 2. Hypotension. Pt is on dopamine. 3. Congestive heart failure, management per primary team. 4. Anemia, status post one unit PRBC transfusion. Continue to monitor hemoglobin and transfuse as needed. Comment Review of Relevant I have reviewed the following items aby (where applicable) has been applied. Labs Laboratory Tests Test 10/26/18 13:08 10/26/18 16:39 10/26/18 21:17 10/27/18 07:41 Glucose (Fingerstick) 112 mg/dL (70-99) 106 mg/dL (70-99) 125 mg/dL (70-99) 122 mg/dL (70-99) Test 10/27/18 10:56 10/27/18 16:37 10/27/18 19:32 10/28/18 05:55 Glucose (Fingerstick) 140 mg/dL (70-99) 187 mg/dL (70-99) 186 mg/dL (70-99) White Blood Count 31.2 x10^3/uL (4.0-11.0) Red Blood Count 3.33 x10^6/uL (3.50-5.40) Hemoglobin 7.3 g/dL (12.0-15.5) Hematocrit 26.9 % (36.0-47.0) Mean Corpuscular Volume 81 fL (79-100) Mean Corpuscular Hemoglobin 22 pg (25-35) Mean Corpuscular Hemoglobin Concent 27 g/dL (31-37) Red Cell Distribution Width 23.5 % (11.5-14.5) Platelet Count 236 x10^3/uL (140-400) Neutrophils (%) (Auto) 95 % (31-73) Lymphocytes (%) (Auto) 1 % (24-48) Monocytes (%) (Auto) 3 % (0-9) Eosinophils (%) (Auto) 0 % (0-3) Basophils (%) (Auto) 1 % (0-3) Neutrophils # (Auto) 30.3 x10^3uL (1.8-7.7) Lymphocytes # (Auto) 0.3 x10^3/uL (1.0-4.8) Monocytes # (Auto) 1.0 x10^3/uL (0.0-1.1) Eosinophils # (Auto) 0.0 x10^3/uL (0.0-0.7) Basophils # (Auto) 0.2 x10^3/uL (0.0-0.2) Segmented Neutrophils % 91 % (35-66) Band Neutrophils % 5 % (0-9) Lymphocytes % 3 % (24-48) Monocytes % 1 % (0-10) Nucleated Red Blood Cells 1 Platelet Estimate Adequate (ADEQUATE) Large Platelets Occ Hypochromasia Slight Poikilocytosis Slight Anisocytosis Mod Ovalocytes Occ Padmini Cells Occ Sodium Level 143 mmol/L (136-145) Potassium Level 5.8 mmol/L (3.5-5.1) Chloride Level 106 mmol/L (98-107) Carbon Dioxide Level 24 mmol/L (21-32) Anion Gap 13 (6-14) Blood Urea Nitrogen 69 mg/dL (7-20) Creatinine 2.9 mg/dL (0.6-1.0) Estimated GFR (Cockcroft-Gault) 19.0 Glucose Level 214 mg/dL (70-99) Calcium Level 8.4 mg/dL (8.5-10.1) Test 10/28/18 08:30 10/28/18 11:08 Lactic Acid Level 3.7 mmol/L (0.4-2.0) Glucose (Fingerstick) 161 mg/dL (70-99) Laboratory Tests Test 10/27/18 16:37 10/27/18 19:32 10/28/18 05:55 10/28/18 08:30 Glucose (Fingerstick) 187 mg/dL (70-99) 186 mg/dL (70-99) White Blood Count 31.2 x10^3/uL (4.0-11.0) Red Blood Count 3.33 x10^6/uL (3.50-5.40) Hemoglobin 7.3 g/dL (12.0-15.5) Hematocrit 26.9 % (36.0-47.0) Mean Corpuscular Volume 81 fL (79-100) Mean Corpuscular Hemoglobin 22 pg (25-35) Mean Corpuscular Hemoglobin Concent 27 g/dL (31-37) Red Cell Distribution Width 23.5 % (11.5-14.5) Platelet Count 236 x10^3/uL (140-400) Neutrophils (%) (Auto) 95 % (31-73) Lymphocytes (%) (Auto) 1 % (24-48) Monocytes (%) (Auto) 3 % (0-9) Eosinophils (%) (Auto) 0 % (0-3) Basophils (%) (Auto) 1 % (0-3) Neutrophils # (Auto) 30.3 x10^3uL (1.8-7.7) Lymphocytes # (Auto) 0.3 x10^3/uL (1.0-4.8) Monocytes # (Auto) 1.0 x10^3/uL (0.0-1.1) Eosinophils # (Auto) 0.0 x10^3/uL (0.0-0.7) Basophils # (Auto) 0.2 x10^3/uL (0.0-0.2) Segmented Neutrophils % 91 % (35-66) Band Neutrophils % 5 % (0-9) Lymphocytes % 3 % (24-48) Monocytes % 1 % (0-10) Nucleated Red Blood Cells 1 Platelet Estimate Adequate (ADEQUATE) Large Platelets Occ Hypochromasia Slight Poikilocytosis Slight Anisocytosis Mod Ovalocytes Occ Padmini Cells Occ Sodium Level 143 mmol/L (136-145) Potassium Level 5.8 mmol/L (3.5-5.1) Chloride Level 106 mmol/L (98-107) Carbon Dioxide Level 24 mmol/L (21-32) Anion Gap 13 (6-14) Blood Urea Nitrogen 69 mg/dL (7-20) Creatinine 2.9 mg/dL (0.6-1.0) Estimated GFR (Cockcroft-Gault) 19.0 Glucose Level 214 mg/dL (70-99) Calcium Level 8.4 mg/dL (8.5-10.1) Lactic Acid Level 3.7 mmol/L (0.4-2.0) Test 10/28/18 11:08 Glucose (Fingerstick) 161 mg/dL (70-99) Microbiology 10/21/18 Blood Culture - Final, Complete NO GROWTH AFTER 5 DAYS Medications Current Medications Sodium Chloride 1,000 ml @ 1,000 mls/hr 1X ONCE IV Last administered on at 15:58; Start 10/21/18 at 15:45; Stop 10/21/18 at 16:44; Status DC Sodium Chloride 1,000 ml @ 1,000 mls/hr 1X ONCE IV Last administered on at 16:01; Start 10/21/18 at 15:45; Stop 10/21/18 at 16:44; Status DC Ceftriaxone Sodium (Rocephin) 1 gm 1X ONCE IVP Last administered on 10/21/18at 16:49; Start 10/21/18 at 16:15; Stop 10/21/18 at 16:16; Status DC Sodium Chloride 500 ml @ 500 mls/hr 1X ONCE IV Last administered on at 18:00; Start 10/21/18 at 17:00; Stop 10/21/18 at 17:59; Status DC Piperacillin Sod/ Tazobactam Sod (Zosyn Per Pharmacy) 1 each PRN DAILY PRN MC SEE COMMENTS; Start 10/21/18 at 17:00; Status UNV Ondansetron HCl (Zofran) 4 mg PRN Q8HRS PRN IV NAUSEA/VOMITING; Start 10/21/18 at 17:00; Stop 10/22/18 at 09:22; Status DC Fentanyl Citrate (Fentanyl 2ml Vial) 50 mcg PRN Q1HR PRN IV PAIN; Start at 17:00; Stop 10/22/18 at 09:04; Status DC Sodium Chloride 1,000 ml @ 80 mls/hr [id number] IV Last administered on at 18:00; Start 10/21/18 at 17:00; Stop 10/22/18 at 16:59; Status DC Oxycodone HCl (Roxicodone) 5 mg PRN Q3HRS PRN PO PAIN UNREL BY PERCOCET Last administered on 10/27/18 10:08; Start 10/21/18 at 17:00 Acetaminophen (Tylenol) 650 mg PRN Q6HRS PRN PO Headaches, Temp > 101.5' Last administered on 10/27/18 14:07; Start 10/21/18 at 17:00 Lorazepam (Ativan) 0.5 mg PRN Q6HRS PRN IV ANXIETY / AGITATION; Start 10/21/18 at 17:00 Ondansetron HCl (Zofran) 4 mg PRN Q6HRS PRN IV NAUSEA/VOMITING; Start 10/21/18 at 17:00 Famotidine (Pepcid) 20 mg DAILY PO Last administered on 10/27/18 10:08; Start 10/22/18 at 09:00 Zolpidem Tartrate (Ambien) 5 mg PRN QHS PRN PO INSOMNIA, MAY REPEAT IN 1HR; Start 10/21/18 at 17:00 Info (Icu Electrolyte Protocol) 1 ea DAILY MC ; Start 10/22/18 at 09:00; Stop at 07:00; Status DC Heparin Sodium (Porcine) (Heparin Sodium) 5,000 unit Q8HRS SQ Last administered on 10/26/18at 14:56; Start 10/21/18 at 22:00 Sodium Chloride (Normal Saline Flush) 3 ml QSHIFT PRN IV AFTER MEDS AND BLOOD DRAWS; Start 10/21/18 at 17:00 Oxycodone/ Acetaminophen (Percocet 5/325) 1 tab PRN Q4HRS PRN PO PAIN, 1ST CHOICE Last administered on 10/25/18 08:54; Start 10/21/18 at 17:00 Morphine Sulfate (Morphine Sulfate) 2 mg PRN Q1HR PRN IV PAIN Last administered on 10/25/18 11:04; Start 10/21/18 at 17:00 Lactulose (Lactulose) 20 gm PRN Q12HR PRN PO CONSTIPATION; Start 10/21/18 at 17 :00 Insulin Human Lispro (HumaLOG) 0-7 UNITS TIDWMEALS SQ Last administered on 10/24 13:25; Start 10/21/18 at 17:00 Dextrose (Dextrose 50%-Water Syringe) 12.5 gm PRN Q15MIN PRN IV SEE COMMENTS Last administered on 10/26/18 06:29; Start 10/21/18 at 17:00 Insulin Glargine (Lantus) 38 units QHS SQ Last administered on 10/24/18 22:13 ; Start 10/21/18 at 21:00; Stop 10/26/18 at 08:42; Status DC Prednisone (Prednisone) 10 mg DAILY PO Last administered on 10/27/18 10:07; Start 10/22/18 at 09:00 Sildenafil Citrate (Revatio) 20 mg TID PO Last administered on 10/27/18 21:48 ; Start 10/21/18 at 21:00 Insulin Human Lispro (HumaLOG) 8 units BIDACBL SQ Last administered on 09:09; Start 10/22/18 at 08:00; Stop 10/26/18 at 08:42; Status DC Simvastatin (Zocor) 80 mg QHS PO Last administered on 10/27/18 21:00; Start at 21:00 Spironolactone (Aldactone) 25 mg DAILY PO Last administered on 10/26/18 08:35 ; Start 10/22/18 at 09:00 Levofloxacin/ Dextrose 150 ml @ 100 mls/hr Q48H IV Last administered on 17:21; Start 10/21/18 at 17:00 Vancomycin HCl (Vanco Per Pharmacy) 1 each PRN DAILY PRN MC SEE COMMENTS Last administered on 10/25/18 16:21; Start 10/21/18 at 17:00; Stop 10/27/18 at 16:35 ; Status DC Vancomycin HCl 1.5 gm/Sodium Chloride 500 ml @ 250 mls/hr 1X ONCE IV Last administered on 10/21/18at 18:30; Start 10/21/18 at 17:15; Stop 10/21/18 at 19:14 ; Status DC Acetaminophen (Tylenol) 650 mg 1X PRN PRN PO PRE-TRANSFUSION; Start 10/21/18 at 18:15 Vancomycin HCl 1.25 gm/Sodium Chloride 250 ml @ 167 mls/hr Q24H IV Last administered on 10/22/18at 17:59; Start 10/22/18 at 18:30; Stop 10/24/18 at 15:48 ; Status DC Vancomycin HCl (Vancomycin Trough Level) 1 each 1X ONCE MC Last administered on 10/23/18at 17:53; Start 10/23/18 at 18:00; Stop 10/23/18 at 18:01; Status DC Vancomycin HCl (Vancomycin Random Level) 1 each 1X ONCE MC Last administered on 10/24/18at 00:30; Start 10/24/18 at 00:30; Stop 10/24/18 at 00:31; Status DC Ringer's Solution 1,000 ml @ 100 mls/hr Q10H IV Last administered on at 05:55; Start 10/24/18 at 10:45; Stop 10/26/18 at 08:42; Status DC Polyethylene Glycol (miraLAX PACKET) 17 gm DAILY PO Last administered on at 10:08; Start 10/24/18 at 14:45 Senna/Docusate Sodium (Senna Plus) 2 tab BID PRN PO CONSTIPATION Last administered on 10/26/18at 02:12; Start 10/24/18 at 14:45 Vancomycin HCl 1.25 gm/Sodium Chloride 250 ml @ 167 mls/hr Q36H IV Last administered on 10/26/18at 03:40; Start 10/24/18 at 16:00; Stop 10/27/18 at 16:35 ; Status DC Diclofenac Sodium (Voltaren) 1 benoit BID TP Last administered on 10/28/18at 10:13 ; Start 10/25/18 at 15:00 Lidocaine/ Prilocaine (Emla) 1 benoit DAILY TP Last administered on 10/27/18 10: 20; Start 10/26/18 at 09:00 Midodrine (Proamatine) 2.5 mg TIDWMEALS PO Last administered on 10/27/18at 17:45 ; Start 10/25/18 at 15:00 Sodium Chloride 1,000 ml @ 80 mls/hr [id number] IV Last administered on 08:50; Start 10/26/18 at 08:45 Albumin Human 50 ml @ 50 mls/hr 1X ONCE IV Last administered on 10/27/18at 21: 47; Start 10/27/18 at 21:30; Stop 10/27/18 at 22:29; Status DC Dopamine HCl/ Dextrose 250 ml @ 7.146 mls/ hr CONT PRN IV SEE I/O RECORD Last administered on 10/28/18at 08:50; Start 10/27/18 at 21:30 Active Scripts Active Reported Acetazolamide 250 Mg Tablet unknown dosage Prednisone (Prednisone) 10 Mg Tablet 10 Mg PO DAILY Sildenafil (Sildenafil Citrate) 20 Mg Tablet unknown dosage Ferrous Sulfate 325 Mg Tablet unknown dosage Bumetanide 1 Mg Tablet unknown dosage Metolazone 2.5 Mg Tablet 2.5 Mg PO BID Spironolactone 25 Mg Tablet 25 Mg PO DAILY Lantus Solostar (Insulin Glargine,Hum.rec.anlog) 100 Unit/1 Ml Insuln.pen 38 Unit SQ QHS Novolog Flexpen (Insulin Aspart) 100 Unit/1 Ml Insuln.pen 8 Unit SQ BIDACBL Metoprolol Succinate ( Xl ) (Metoprolol Succinate) 100 Mg Tab.er.24h 1 Tab PO DAILY Calcium Citrate 100 Gm Powder 100 Gm MC Simvastatin 80 Mg Tablet 1 Tab PO DAILY Potassium Chloride 20 Meq Tab.er.prt 1 Tab PO BID Omeprazole 20 Mg Tablet.dr 1 Tab PO DAILY Amlodipine Besylate 5 Mg Tablet 1 Tab PO DAILY Losartan Potassium 50 Mg Tablet 1 Tab PO DAILY Aspirin 325 Mg Tablet 1 Tab PO DAILY Vitals/I & O Vital Sign - Last 24 Hours 10/27/18 10/27/18 10/27/18 10/27/18 14:00 14:04 14:07 17:45 Temp 99.5 99.5 Pulse 100 100 100 52 Resp 20 B/P (MAP) 91/37 91/37 (55) 91/37 71/40 O2 Delivery Nasal Cannula O2 Flow Rate 4.0 10/27/18 10/27/18 10/27/18 10/27/18 19:00 20:00 21:00 21:00 Temp 99.5 98.5 99.5 98.5 Pulse 102 90 Resp 20 20 B/P (MAP) 90/44 (59) 71/40 (50) Pulse Ox 100 100 O2 Delivery Nasal Cannula Nasal Cannula Nasal Cannula Nasal Cannula O2 Flow Rate 4.0 4.0 4.0 4.0 10/27/18 10/27/18 10/27/18 10/27/18 21:15 21:15 21:30 21:45 Temp 98.5 98.5 Pulse 84 86 96 82 Resp 15 20 16 12 B/P (MAP) 65/37 (46) 65/37 (46) 59/35 (43) 72/40 (51) Pulse Ox 95 95 96 93 O2 Delivery Nasal Cannula Nasal Cannula Nasal Cannula Nasal Cannula O2 Flow Rate 4.0 4.0 4.0 4.0 10/27/18 10/27/18 10/27/18 10/27/18 21:48 22:00 22:30 23:00 Pulse 91 112 110 105 Resp 10 12 12 B/P (MAP) 77/40 91/38 (55) 125/38 (67) 81/40 (54) Pulse Ox 98 98 92 O2 Delivery Nasal Cannula Nasal Cannula Nasal Cannula O2 Flow Rate 4.0 4.0 4.0 10/27/18 10/27/18 10/27/18 10/28/18 23:30 23:59 23:59 01:05 Temp 98.5 98.5 Pulse 90 102 Resp 20 12 B/P (MAP) 71/40 (50) 104/50 (68) Pulse Ox 94 100 91 O2 Delivery BiPAP/CPAP Nasal Cannula Nasal Cannula Nasal Cannula O2 Flow Rate 4.0 4.0 6.0 10/28/18 10/28/18 10/28/18 10/28/18 02:00 03:00 04:00 04:11 Temp 98.1 98.1 Pulse 103 103 90 Resp 18 18 18 B/P (MAP) 100/51 (67) 96/46 (63) 119/58 (78) Pulse Ox 98 94 95 O2 Delivery Nasal Cannula Nasal Cannula Nasal Cannula Nasal Cannula O2 Flow Rate 6.0 6.0 6.0 4.0 10/28/18 10/28/18 10/28/18 10/28/18 04:33 04:45 05:00 06:07 Pulse 99 101 107 100 Resp 20 20 28 32 B/P (MAP) 78/48 (58) 85/46 (59) 99/48 (65) 112/60 (77) Pulse Ox 99 97 99 100 O2 Delivery Nasal Cannula Nasal Cannula Nasal Cannula Nasal Cannula O2 Flow Rate 6.0 6.0 6.0 6.0 10/28/18 10/28/18 10/28/18 10/28/18 07:00 08:00 08:00 09:00 Temp 98.1 98.1 Pulse 99 76 92 Resp 16 16 16 B/P (MAP) 92/49 (63) 126/65 (85) 77/40 (52) Pulse Ox 100 98 100 O2 Delivery Nasal Cannula Nasal Cannula Nasal Cannula Nasal Cannula O2 Flow Rate 6.0 4.0 4.0 4.0 10/28/18 10/28/18 10:00 11:00 Temp 98.3 98.3 Pulse 94 94 Resp 16 16 B/P (MAP) 97/46 (63) 78/43 (55) Pulse Ox 100 95 O2 Delivery Nasal Cannula Nasal Cannula O2 Flow Rate 4.0 2.0 Intake and Output 10/27/18 10/27/18 10/28/18 14:59 22:59 06:59 Intake Total 400 ml 120 ml 550 ml Output Total 230 ml 180 ml Balance 400 ml -110 ml 370 ml CHIO SHEN MD Oct 28, 2018 12:17
[2018-10-28] MEDS: MORPHINE SULFATE 2 MG/ML VIAL. IV PRN (13:18)
[2018-10-28] MEDS ORDERED: MORPHINE SULFATE 4 MG/ML VIAL. IV PRN (13:30)
--- NOTE | 2018-10-28 13:45 | PDOC2 ---
PALLIATIVE CARE Palliative Care Note Palliative Care Patient lethargic but opens eyes and answers questions appropriately. Denies pain or SOB. Occ nausea Met with patient's family per patient permission. Met with daughters Lesly and Rosio. Lesly states she is DPOA. One son is . Several grandchildren also present. Grand children of son also present. Requested copy of AD document. Daughters Ro and Rosio have had a difficult relationship for many years. Reviewed medical condition: Stage IV Colon Cancer--mets to liver and lungs, sepsis, hypotension on Dopamine. Code Status; DNR/DNI. Discussed goals of care. Patient was trying to get stronger to be able to get palliative chemotherapy. Patient has only been able to participate in limited physical therapy. The family felt the patient was alert enough to make her own decisions. Pastor Chadwickvelt Evan and his joined the group. After review of the condition and long discussion it was decided that her client server programmer should discuss with the patient her wishes. Bernardo stated the patient told him that she wanted the family to "be family and to get along" she wanted to go home and that she did not think the medication she was receiving was doing any good. Has also indicated to Rosio that she was "tired" The family supports the patient decision to focus on comfort. Dr. Tejeda also jointed the discussion. Family shared patient's love for cooking and sewing. Will focus on comfort. Daughter adamant about not going to hospice house or longterm. . Discussed concerns about being stable enough to leave the hospital. Plan: Comfort Care Wean Dopamine. Dr. Tejeda to write orders. 1432 Family requesting more pain medication. Severe right abdominal pain. Patient sitting up in bed. 1435 patient unresponsive. family at bedside. Bradycardia.60 1440 No spontaneous respirations or heart beat. Verified by Lora Kennedy. RN Dr. Tejeda called and informed. JOSE RAFAEL BABB Oct 28, 2018 13:45
[2018-10-28] MEDS ORDERED: BIOFREEZE TP PRN (14:00)
--- NOTE | 2018-10-28 14:25 | NUR ---
pt was given morphine 2 mg iv as ordered for pain prior and zofran 4mg iv due to pt started c/o a "stomach ache". pt assisted to lay on her back and family members rubbing biofreeze on pts abdomen. at 1425 pt started to clamp down physically, arms and legs rigid and stopped breathing. family at bedside. pt given ativan 2 mg iv as ordered.
--- NOTE | 2018-10-28 14:30 | NUR ---
pt never took another breath. pvc monitor asystole. Reginaldo lima pallative care at bedside and assisted in being the second nurse to pronounce pt. dr preciado notified. family members at bedside. iv fluids stopped.
--- NOTE | 2018-10-28 15:14 | NUR ---
SS following up with discharge planning. Palliative Care met with family. Focusing on comfort care at this time. SS will continue to follow for assistance.
--- NOTE | 2018-10-28 16:00 | NUR ---
pt to [facility] per cart.
--- NOTE | 2018-10-29 10:37 | PDOC3 ---
Discharge Summary Date of Admission: Oct 21, 2018 Date of Discharge: Oct 28, 2018 Follow-Up: Other () Admitting Diagnosis comment: SUMMARY Hypovolemic shock resolved after fluid resuscitation. Elevated lactic acid resolved stage IV colon cancer with metastatic liver lesions ADVANCED DISEASE Acute renal failure most likely secondary to vasomotor etiology improved Severe dehydration improved Microcytic anemia which seems to be compensated most likely is iron deficiency etiology given her underlying carcinomatosis with GI losses Leukocytosis persistent History of COPD // greater than [id number] history of smoking Severe pulmonary hypertension History of congestive heart failure which seems to be diastolic dysfunction with a preserved ejection fraction of 55% on an echo 6 months ago Diabetes mellitus type 2 fairly controlled History of essential hypertension. Leg pain, negative Dopplers 10/28 TRANSFERRED TO ICU FOR PRESSOR SUPPORT LAST PM PAT SEEING FOR DNR STATUS 10/28 ON PALLIATIVE CARE 45 min cc time History of Present Illness History of Present Illness Venous Dopplers negative for DVT Palliative meeting again TODAY WITH FAMILY, PATIENT desires palliative measures , pain control, control of anxiety, long discussion with both daughters and grandchildren in room, DPOA, all agree to honor Rosalia's wishes Pat present as well, all questions answered HYPOTENSIVE blood pressure will wean dopamine DNR Plan: CPM//ICU palliation of symptoms,is goal today, Family meeting planned // palliative Palliative chemotherapy was planned but second thoughts now as patient very weak considering hospice, would likely not survive ambulance ride to her home to pass Vitals Vitals Vital Signs Date Time Temp Pulse Resp B/P (MAP) Pulse Ox O2 Delivery O2 Flow Rate FiO2 10/28/18 11:00 98.3 94 16 78/43 (55) 95 Nasal Cannula 2.0 98.3 Physical Exam Physical Exam Gen.: well-developed, elderly in no apparent distress Head: Normal shape atraumatic Eyes: Pupils equal reactive to light and accommodation, normal conjunctivae and lids Ears: Normal shape Nose: Normal shape no trauma Mouth: No exudates of the back of throat no thrush no lesions, dry mucous membranes Neck: Supple no JVD no carotid bruit or lymphadenopathy no thyromegaly Chest: Lungs clear to auscultation with good inspiratory effort no crackles rales or rhonchi Cardiovascular: S1-S2 regular rhythm no murmurs gallops or rubs Abdomen: Bowel sounds present soft nontender no hepatosplenomegaly appreciated Extremities: No clubbing no cyanosis 1+ edema peripheral pulses palpated bilaterally Neurological: Alert awake oriented in person time place and situation, cranial nerves II through XII intact, no motor or sensory deficits appreciated Psych: Appropriate mood, cooperative General: Alert, Oriented X3, Cooperative, No acute distress, mild distress Heart: Normal S1, Normal S2 Lungs: Clear Abdomen: Normal bowel sounds, Soft Extremities: No clubbing, No cyanosis, Other (4 plus ankle pitting edema) Skin: No rashes, No breakdown FINAL DIAGNOSIS Problems Medical Problems: (1) Hypotension Status: Acute (2) Sepsis Status: Acute Brief Hospital Course Ms. Retana is a 78 old [sex] who presented with [ ] CONDITION AT DISCHARGE: / Discharge Medications Current Medications Sodium Chloride 1,000 ml @ 1,000 mls/hr 1X ONCE IV Last administered on at 15:58; Start 10/21/18 at 15:45; Stop 10/21/18 at 16:44; Status DC Sodium Chloride 1,000 ml @ 1,000 mls/hr 1X ONCE IV Last administered on at 16:01; Start 10/21/18 at 15:45; Stop 10/21/18 at 16:44; Status DC Ceftriaxone Sodium (Rocephin) 1 gm 1X ONCE IVP Last administered on 10/21/18at 16:49; Start 10/21/18 at 16:15; Stop 10/21/18 at 16:16; Status DC Sodium Chloride 500 ml @ 500 mls/hr 1X ONCE IV Last administered on at 18:00; Start 10/21/18 at 17:00; Stop 10/21/18 at 17:59; Status DC Piperacillin Sod/ Tazobactam Sod (Zosyn Per Pharmacy) 1 each PRN DAILY PRN MC SEE COMMENTS; Start 10/21/18 at 17:00; Status UNV Ondansetron HCl (Zofran) 4 mg PRN Q8HRS PRN IV NAUSEA/VOMITING; Start 10/21/18 at 17:00; Stop 10/22/18 at 09:22; Status DC Fentanyl Citrate (Fentanyl 2ml Vial) 50 mcg PRN Q1HR PRN IV PAIN; Start at 17:00; Stop 10/22/18 at 09:04; Status DC Sodium Chloride 1,000 ml @ 80 mls/hr [id number] IV Last administered on at 18:00; Start 10/21/18 at 17:00; Stop 10/22/18 at 16:59; Status DC Oxycodone HCl (Roxicodone) 5 mg PRN Q3HRS PRN PO PAIN UNREL BY PERCOCET Last administered on 10/27/18at 10:08; Start 10/21/18 at 17:00; Stop 10/28/18 at 13:21 ; Status DC Acetaminophen (Tylenol) 650 mg PRN Q6HRS PRN PO Headaches, Temp > 101.5' Last administered on 10/27/18at 14:07; Start 10/21/18 at 17:00; Stop 10/28/18 at 16:23 ; Status DC Lorazepam (Ativan) 0.5 mg PRN Q6HRS PRN IV ANXIETY / AGITATION; Start 10/21/18 at 17:00; Stop 10/28/18 at 16:23; Status DC Ondansetron HCl (Zofran) 4 mg PRN Q6HRS PRN IV NAUSEA/VOMITING Last administered on 10/28/18at 13:17; Start 10/21/18 at 17:00; Stop 10/28/18 at 16:23 ; Status DC Famotidine (Pepcid) 20 mg DAILY PO Last administered on 10/27/18at 10:08; Start 10/22/18 at 09:00; Stop 10/28/18 at 13:20; Status DC Zolpidem Tartrate (Ambien) 5 mg PRN QHS PRN PO INSOMNIA, MAY REPEAT IN 1HR; Start 10/21/18 at 17:00; Stop 10/28/18 at 16:23; Status DC Info (Icu Electrolyte Protocol) 1 ea DAILY MC ; Start 10/22/18 at 09:00; Stop at 07:00; Status DC Heparin Sodium (Porcine) (Heparin Sodium) 5,000 unit Q8HRS SQ Last administered on 10/26/18at 14:56; Start 10/21/18 at 22:00; Stop 10/28/18 at 16:23 ; Status DC Sodium Chloride (Normal Saline Flush) 3 ml QSHIFT PRN IV AFTER MEDS AND BLOOD DRAWS; Start 10/21/18 at 17:00; Stop 10/28/18 at 16:23; Status DC Oxycodone/ Acetaminophen (Percocet 5/325) 1 tab PRN Q4HRS PRN PO PAIN, 1ST CHOICE Last administered on 10/25/18 08:54; Start 10/21/18 at 17:00; Stop 10/28 at 16:23; Status DC Morphine Sulfate (Morphine Sulfate) 2 mg PRN Q1HR PRN IV PAIN Last administered on 10/28/18 13:18; Start 10/21/18 at 17:00; Stop 10/28/18 at 16:23 ; Status DC Lactulose (Lactulose) 20 gm PRN Q12HR PRN PO CONSTIPATION; Start 10/21/18 at 17 :00; Stop 10/28/18 at 16:23; Status DC Insulin Human Lispro (HumaLOG) 0-7 UNITS TIDWMEALS SQ Last administered on 10/24at 13:25; Start 10/21/18 at 17:00; Stop 10/28/18 at 16:23; Status DC Dextrose (Dextrose 50%-Water Syringe) 12.5 gm PRN Q15MIN PRN IV SEE COMMENTS Last administered on 10/26/18at 06:29; Start 10/21/18 at 17:00; Stop 10/28/18 at 16:23; Status DC Insulin Glargine (Lantus) 38 units QHS SQ Last administered on 10/24/18at 22:13 ; Start 10/21/18 at 21:00; Stop 10/26/18 at 08:42; Status DC Prednisone (Prednisone) 10 mg DAILY PO Last administered on 10/27/18at 10:07; Start 10/22/18 at 09:00; Stop 10/28/18 at 13:21; Status DC Sildenafil Citrate (Revatio) 20 mg TID PO Last administered on 10/27/18at 21:48 ; Start 10/21/18 at 21:00; Stop 10/28/18 at 13:20; Status DC Insulin Human Lispro (HumaLOG) 8 units BIDACBL SQ Last administered on at 09:09; Start 10/22/18 at 08:00; Stop 10/26/18 at 08:42; Status DC Simvastatin (Zocor) 80 mg QHS PO Last administered on 10/27/18 21:00; Start at 21:00; Stop 10/28/18 at 13:20; Status DC Spironolactone (Aldactone) 25 mg DAILY PO Last administered on 10/26/18 08:35 ; Start 10/22/18 at 09:00; Stop 10/28/18 at 16:23; Status DC Levofloxacin/ Dextrose 150 ml @ 100 mls/hr Q48H IV Last administered on 17:21; Start 10/21/18 at 17:00; Stop 10/28/18 at 16:23; Status DC Vancomycin HCl (Vanco Per Pharmacy) 1 each PRN DAILY PRN MC SEE COMMENTS Last administered on 10/25/18at 16:21; Start 10/21/18 at 17:00; Stop 10/27/18 at 16:35 ; Status DC Vancomycin HCl 1.5 gm/Sodium Chloride 500 ml @ 250 mls/hr 1X ONCE IV Last administered on 10/21/18at 18:30; Start 10/21/18 at 17:15; Stop 10/21/18 at 19:14 ; Status DC Acetaminophen (Tylenol) 650 mg 1X PRN PRN PO PRE-TRANSFUSION; Start 10/21/18 at 18:15; Stop 10/28/18 at 16:23; Status DC Vancomycin HCl 1.25 gm/Sodium Chloride 250 ml @ 167 mls/hr Q24H IV Last administered on 10/22/18at 17:59; Start 10/22/18 at 18:30; Stop 10/24/18 at 15:48 ; Status DC Vancomycin HCl (Vancomycin Trough Level) 1 each 1X ONCE MC Last administered on 10/23/18at 17:53; Start 10/23/18 at 18:00; Stop 10/23/18 at 18:01; Status DC Vancomycin HCl (Vancomycin Random Level) 1 each 1X ONCE MC Last administered on 10/24/18at 00:30; Start 10/24/18 at 00:30; Stop 10/24/18 at 00:31; Status DC Ringer's Solution 1,000 ml @ 100 mls/hr Q10H IV Last administered on at 05:55; Start 10/24/18 at 10:45; Stop 10/26/18 at 08:42; Status DC Polyethylene Glycol (miraLAX PACKET) 17 gm DAILY PO Last administered on at 10:08; Start 10/24/18 at 14:45; Stop 10/28/18 at 16:23; Status DC Senna/Docusate Sodium (Senna Plus) 2 tab BID PRN PO CONSTIPATION Last administered on 10/26/18at 02:12; Start 10/24/18 at 14:45; Stop 10/28/18 at 16:23 ; Status DC Vancomycin HCl 1.25 gm/Sodium Chloride 250 ml @ 167 mls/hr Q36H IV Last administered on 10/26/18at 03:40; Start 10/24/18 at 16:00; Stop 10/27/18 at 16:35 ; Status DC Diclofenac Sodium (Voltaren) 1 benoit BID TP Last administered on 10/28/18at 10:13 ; Start 10/25/18 at 15:00; Stop 10/28/18 at 13:20; Status DC Lidocaine/ Prilocaine (Emla) 1 benoit DAILY TP Last administered on 10/27/18 10: 20; Start 10/26/18 at 09:00; Stop 10/28/18 at 13:54; Status DC Midodrine (Proamatine) 2.5 mg TIDWMEALS PO Last administered on 10/27/18at 17:45 ; Start 10/25/18 at 15:00; Stop 10/28/18 at 13:20; Status DC Sodium Chloride 1,000 ml @ 80 mls/hr [id number] IV Last administered on at 08:50; Start 10/26/18 at 08:45; Stop 10/28/18 at 16:23; Status DC Albumin Human 50 ml @ 50 mls/hr 1X ONCE IV Last administered on 10/27/18at 21: 47; Start 10/27/18 at 21:30; Stop 10/27/18 at 22:29; Status DC Dopamine HCl/ Dextrose 250 ml @ 7.146 mls/ hr CONT PRN IV SEE I/O RECORD Last administered on 10/28/18at 08:50; Start 10/27/18 at 21:30; Stop 3/25/19 at 16:23 ; Status DC Morphine Sulfate (Morphine Sulfate) 4 mg PRN Q2HR PRN IV PAIN; Start 10/28/18 at 13:30; Stop 10/28/18 at 16:23; Status DC Lorazepam (Ativan) 2 mg PRN Q4HRS PRN IV ANXIETY / AGITATION Last administered on 10/28/18at 14:29; Start 10/28/18 at 13:30; Stop 10/28/18 at 16:23; Status DC Non-Formulary Medication 1 ea PRN QID PRN TP MUSCLE PAIN; Start 10/28/18 at 14: 00; Stop 10/28/18 at 16:23; Status DC Active Scripts Active Reported Acetazolamide 250 Mg Tablet unknown dosage Prednisone (Prednisone) 10 Mg Tablet 10 Mg PO DAILY Sildenafil (Sildenafil Citrate) 20 Mg Tablet unknown dosage Ferrous Sulfate 325 Mg Tablet unknown dosage Bumetanide 1 Mg Tablet unknown dosage Metolazone 2.5 Mg Tablet 2.5 Mg PO BID Spironolactone 25 Mg Tablet 25 Mg PO DAILY Lantus Solostar (Insulin Glargine,Hum.rec.anlog) 100 Unit/1 Ml Insuln.pen 38 Unit SQ QHS Novolog Flexpen (Insulin Aspart) 100 Unit/1 Ml Insuln.pen 8 Unit SQ BIDACBL Metoprolol Succinate ( Xl ) (Metoprolol Succinate) 100 Mg Tab.er.24h 1 Tab PO DAILY Calcium Citrate 100 Gm Powder 100 Gm MC Simvastatin 80 Mg Tablet 1 Tab PO DAILY Potassium Chloride 20 Meq Tab.er.prt 1 Tab PO BID Omeprazole 20 Mg Tablet.dr 1 Tab PO DAILY Amlodipine Besylate 5 Mg Tablet 1 Tab PO DAILY Losartan Potassium 50 Mg Tablet 1 Tab PO DAILY Aspirin 325 Mg Tablet 1 Tab PO DAILY Vital Signs Vital Signs Date Time Temp Pulse Resp B/P (MAP) Pulse Ox O2 Delivery O2 Flow Rate FiO2 10/28/18 14:00 94 16 72/44 (53) 92 Nasal Cannula 2.0 10/28/18 11:00 98.3 98.3 Labs Laboratory Tests Test 10/27/18 10:56 10/27/18 16:37 10/27/18 19:32 10/28/18 05:55 Glucose (Fingerstick) 140 mg/dL (70-99) 187 mg/dL (70-99) 186 mg/dL (70-99) White Blood Count 31.2 x10^3/uL (4.0-11.0) Red Blood Count 3.33 x10^6/uL (3.50-5.40) Hemoglobin 7.3 g/dL (12.0-15.5) Hematocrit 26.9 % (36.0-47.0) Mean Corpuscular Volume 81 fL (79-100) Mean Corpuscular Hemoglobin 22 pg (25-35) Mean Corpuscular Hemoglobin Concent 27 g/dL (31-37) Red Cell Distribution Width 23.5 % (11.5-14.5) Platelet Count 236 x10^3/uL (140-400) Neutrophils (%) (Auto) 95 % (31-73) Lymphocytes (%) (Auto) 1 % (24-48) Monocytes (%) (Auto) 3 % (0-9) Eosinophils (%) (Auto) 0 % (0-3) Basophils (%) (Auto) 1 % (0-3) Neutrophils # (Auto) 30.3 x10^3uL (1.8-7.7) Lymphocytes # (Auto) 0.3 x10^3/uL (1.0-4.8) Monocytes # (Auto) 1.0 x10^3/uL (0.0-1.1) Eosinophils # (Auto) 0.0 x10^3/uL (0.0-0.7) Basophils # (Auto) 0.2 x10^3/uL (0.0-0.2) Segmented Neutrophils % 91 % (35-66) Band Neutrophils % 5 % (0-9) Lymphocytes % 3 % (24-48) Monocytes % 1 % (0-10) Nucleated Red Blood Cells 1 Platelet Estimate Adequate (ADEQUATE) Large Platelets Occ Hypochromasia Slight Poikilocytosis Slight Anisocytosis Mod Ovalocytes Occ Padmini Cells Occ Sodium Level 143 mmol/L (136-145) Potassium Level 5.8 mmol/L (3.5-5.1) Chloride Level 106 mmol/L (98-107) Carbon Dioxide Level 24 mmol/L (21-32) Anion Gap 13 (6-14) Blood Urea Nitrogen 69 mg/dL (7-20) Creatinine 2.9 mg/dL (0.6-1.0) Estimated GFR (Cockcroft-Gault) 19.0 Glucose Level 214 mg/dL (70-99) Calcium Level 8.4 mg/dL (8.5-10.1) Test 10/28/18 08:30 10/28/18 11:08 Lactic Acid Level 3.7 mmol/L (0.4-2.0) Glucose (Fingerstick) 161 mg/dL (70-99) Laboratory Tests Test 10/28/18 11:08 Glucose (Fingerstick) 161 mg/dL (70-99) Allergies Allergies Coded Allergies Type Severity Reaction Last Updated Verified Penicillins Allergy Intermediate RED, ITCHY RASH 10/21/18 Yes Disposition/Orders: Other () TAYLOR MCMANUS MD Oct 29, 2018 10:37
== END 2018-10-28 16:10 | disposition expired | DRG 871 ==
LOC: ER 15:10 → 1 WEST ICU 16:35 → 5 SOUTH 10-22 12:51 → 5 NORTH 10-25 16:30 → 1 WEST ICU 10-27 20:34
PROVIDERS: ADMIT Internal Medicine; ATTEND Internal Medicine
PROC: 30233N1 Transfusion of Nonautologous Red Blood Cells into Peripheral Vein, Percutaneous Approach (ICD-10-PCS; principal; 2018-10-21)
PROC: 5A09357 Assistance with Respiratory Ventilation, Less than 24 Consecutive Hours, Continuous Positive Airway Pressure (ICD-10-PCS; 2018-10-22)
PROC: 5A09357 Assistance with Respiratory Ventilation, Less than 24 Consecutive Hours, Continuous Positive Airway Pressure (ICD-10-PCS; 2018-10-23)
PROC: 02HV33Z Insertion of Infusion Device into Superior Vena Cava, Percutaneous Approach (ICD-10-PCS; 2018-10-24)
PROC: 5A09357 Assistance with Respiratory Ventilation, Less than 24 Consecutive Hours, Continuous Positive Airway Pressure (ICD-10-PCS; 2018-10-25)
PROC: 5A09357 Assistance with Respiratory Ventilation, Less than 24 Consecutive Hours, Continuous Positive Airway Pressure (ICD-10-PCS; 2018-10-27)
DX: A41.9 Sepsis, unspecified organism (principal); N17.0 Acute kidney failure with tubular necrosis; C78.7 Secondary malignant neoplasm of liver and intrahepatic bile duct; C18.9 Malignant neoplasm of colon, unspecified; I50.30 Unspecified diastolic (congestive) heart failure; R57.1 Hypovolemic shock; Z66 Do not resuscitate; I11.0 Hypertensive heart disease with heart failure; J44.9 Chronic obstructive pulmonary disease, unspecified; I27.20 Pulmonary hypertension, unspecified; E11.9 Type 2 diabetes mellitus without complications; D50.9 Iron deficiency anemia, unspecified; E78.00 Pure hypercholesterolemia, unspecified; K21.9 Gastro-esophageal reflux disease without esophagitis; E78.5 Hyperlipidemia, unspecified; Z51.5 Encounter for palliative care; F41.9 Anxiety disorder, unspecified; Z87.891 Personal history of nicotine dependence; Z82.49 Family history of ischemic heart disease and other diseases of the circulatory system; Z88.0 Allergy status to penicillin; Z83.3 Family history of diabetes mellitus
CPT/HCPCS: 36415; 36569; 36600; 71045; 74176; 80048; 80053; 80202; 81001; 82140; 82274; 82378; 82553; 82565; 82607; 82728; 82805; 82962; 83540; 83550; 83605; 83690; 83735; 84100; 84484; 85007; 85025; 85045; 85379; 85610; 86850; 86900; 86901; 86920; 87040; 87641; 93005; 93970; 94660; J0696; J1265; J1644; J1815; J1956; J2060; J2270; J2405; J3370; J7030; J7040; J7042; J7050; J7120; J7512; P9016; P9046; 97535